=== PATIENT | female | born 1955 | race Caucasian/White ===

== ENCOUNTER → 2019-04-14 09:36 | Outpatient (CLI) | payer BC, SELFPAY ==
--- NOTE | 2019-04-14 | DI.RAD.S_ITS ---
PROCEDURE: XR CHEST 2V INDICATIONS: CHRONIC COUGH, FORMER SMOKER TECHNIQUE: 2 views of the chest were acquired. COMPARISON: None. FINDINGS: Surgical changes and devices: None. Lungs and pleura: Lungs are clear. No pleural effusions or pneumothorax. Mediastinum: Mediastinal contours are normal. Heart size is normal. Bones and chest wall: No suspicious bony abnormalities. Soft tissues appear unremarkable. IMPRESSION: No acute cardiopulmonary disease. Dictated by: Ragini Szymanski M.D. on 04/14/2019 at 13:31 Approved by: Ragini Szymanski M.D. on 04/14/2019 at 13:34
== END ==
PROVIDERS: PCP Physician Assistant Medical; Visit Provider Family Medicine
DX: R05 Cough (principal); R07.81 Pleurodynia; R63.0 Anorexia; Z87.891 Personal history of nicotine dependence
CPT/HCPCS: 71046

== ENCOUNTER → 2019-05-12 13:09 | Outpatient (CLI) | payer BC, SELFPAY ==
[2019-05-12 13:57] LABS: Add Manual Diff / Slide Review NO; Basophils Absolute Auto 0 /uL (0-100); Basophils Percent Auto 0.2 % (0-2); Eosinophils Absolute Auto 0 /uL (0-450); Eosinophils Percent Auto 0.4 % (2-4); Hematocrit 42.3 % (36-46); Hemoglobin 13.9 g/dL (12.0-16.0); Lymphocytes Absolute Auto 2000 /uL (1100-4500); Lymphocytes Percent Auto 16.3 % (25-40); Mean Corpuscular HGB Conc 32.9 % (30-36); Mean Corpuscular Hemoglobin 31.4 PG (26-34); Mean Corpuscular Volume 95.4 fL (80-100); Monocytes Absolute Auto 600 /uL (0-900); Monocytes Percent Auto 5.3 % (3-14); Neutrophils Absolute Auto 9400 /uL (1500-7000); Neutrophils Percent Auto 77.8 % (50-75); Platelet Count 327 X10^3/uL (150-400); Red Blood Cell Count 4.43 X10^6/uL (4.0-5.2); Red Cell Distribution Width 15.8 % (11.6-14.8); White Blood Cell Count 12.1 X10^3/uL (4.5-11.0)
== END ==
PROVIDERS: PCP Physician Assistant Medical; Visit Provider Physician Assistant Medical
DX: R05 Cough (principal)
CPT/HCPCS: 36415; 85025

== ENCOUNTER 2019-05-15 19:56 | Emergency (ER) | payer BC, SELFPAY ==
[2019-05-15 20:06] VITALS: BP 127/72; PULSE 66; RESP 18; TEMP 37.1; O2SAT 95; BMI 27.3
--- NOTE | 2019-05-15 20:58 | ED.GIBLEED ---
HPI - GI Bleed General Chief complaint: GI Bleed Stated complaint: cough Time Seen by Provider: 05/15/19 20:12 Source: patient and family Mode of arrival: ambulatory Limitations: no limitations History of Present Illness HPI Narrative: 63-year-old female nonsmoker with history of hypertension and chronic cough for the past few months (which is being pursued by her PCP at [facility]) presents with a chief complaint of a painful hemorrhoid with episodes of bleeding and some mucus. She states she has been a bit constipated over the past few days and it seemed to really started bothering her yesterday. Patient denies nausea or vomiting nor any abdominal pain. She has had no fever chills and denies dysuria, frequency or urgency. She did have a hysterectomy years ago but delivered 2 children vaginally. Onset (ago): day(s) Pain Consistency: constant Severity: moderate Exacerbating factors: bowel movement Associated symptoms: other Treatments Prior to Arrival: none Related Data Home Medications Medication Instructions Recorded Confirmed atenolol 25 mg PO BID #0 05/11/13 fluoxetine 20 mg PO QDAY #0 05/11/13 ramipril [Altace] 10 mg PO QDAY #0 05/11/13 trazodone 0 PO SEE INSTRUCTIONS #0 06/05/13 atenolol 25 mg PO QDAY #0 12/13/16 methimazole 5 mg QDAY #0 12/13/16 ramipril 10 mg PO QDAY #0 12/13/16 Previous Rx's Medication Instructions Recorded cyclobenzaprine 10 mg PO TID PRN #20 05/11/13 Allergies Allergy/AdvReac Type Severity Reaction Status Date / Time erythromycin base Allergy Mild nausea/vomi Unverified 01/29/18 12:25 [ERYTHROMYCIN BASE] tting ERYTHROMYCIN Allergy Mild Sick Uncoded 01/29/18 12:25 Review of Systems Constitutional Denies chills, Denies fever(s), Denies lethargy and Denies weakness Eyes Denies change in vision, Denies eye discharge, Denies irritation and Denies loss of vision ENT Ears, Nose, Mouth, and Throat: Denies change in voice, Denies neck pain and Denies sore throat Cardiovascular Denies chest pain, Denies irregular heart rhythm, Denies lightheadedness, Denies palpitations, Denies dyspnea, Denies dyspnea on exertion and Denies orthopnea Respiratory Denies cough, Denies dyspnea, Denies dyspnea on exertion and Denies wheezing Gastrointestinal Gastrointestinal: Denies abdominal pain, Denies change in bowel habits, Denies diarrhea, Denies nausea and Denies vomiting Comments: rectal pain with bleeding hemorrhoid Genitourinary Denies hematuria, Denies flank pain, Denies urinary incontinence and Denies urinary urgency Musculoskeletal Denies neck pain Integumentary/Breasts Denies pruritus, Denies erythema, Denies rash and Denies wounds Neurologic Denies confusion, Denies loss of vision and Denies weakness Psychiatric Denies anxiety, Denies confusion, Denies depression, Denies homicidal ideation and Denies suicidal ideation Endocrine Denies palpitations Hematologic/Lymphatic Denies easy bruising Allergic/Immunologic Denies wheezing PFSH Medical History (Updated 05/16/19 @ 04:23 by Jordan Dee DO) H/O: hysterectomy (Acute) HTN (hypertension) (Acute) Social History (Updated 05/16/19 @ 04:23 by Jordan Dee DO) Smoking Status: Smoker, status unknown alcohol intake: former Social History (Updated 05/16/19 @ 04:23 by Jordan Dee DO) Smoking Status: Smoker, status unknown alcohol intake: former Exam Narrative Exam Narrative: GEN: AOx3 and in mild distress, obviously anxious. 63F appears stated age. EYES: Pupils are equal, round, and reactive to light and accommodation. Extraoccular muscles are intact bilaterally. There is no subconjunctival hemorrhage or exudate. CHEST: Lungs are clear to auscultation bilaterally and free of wheezes, rales, or rhonchi. Heart rate is regular rhythm, there are no murmurs, clicks, rubs, or gallops. There is no chest wall tenderness. ABD: Abdomen is soft and nontender. There is no guarding or rebound. Bowel sounds are normal in all 4 quadrants. There is no mass or organomegaly. RECTAL: mildly prolapsed rectum with portions of thrombosis but no necrosis EXT: Full painless ROM of all extremities with no loss of sensation or strength. SKIN: Warm, pink, and dry. No erythema or rash Initial Vital Signs Initial Vital Signs: Vital Signs Temperature 98.8 F 05/15/19 20:06 Pulse Rate 66 05/15/19 20:06 Respiratory Rate 18 05/15/19 20:06 Blood Pressure 127/72 05/15/19 20:06 Pulse Oximetry 95 05/15/19 20:06 Course Orders Ordered: ED Orders 05/15/19 22:05 Basic Metabolic Panel Stat Complete Blood Count AUTO DIFF Stat Lactate (Lactic Acid) Stat Discontinued Medications Hydromorphone HCl (Dilaudid) 0.5 mg IV NOW ONE Stop: 05/15/19 21:54 Last Admin: 05/15/19 22:12 Dose: 0.5 mg Sodium Chloride (Normal Saline 0.9%) 1,000 mls @ 1,000 mls/hr IV BOLUS ONE Stop: 05/15/19 22:52 Last Infusion: 05/15/19 22:58 Dose: 0 mls/hr Admin: 05/15/19 22:13 Dose: 1,000 mls/hr Ketorolac Tromethamine (Toradol) 15 mg IV NOW ONE Stop: 05/15/19 22:41 Last Admin: 05/15/19 22:42 Dose: 15 mg Consultations Consultation #1: Dr. Wong visits patient at bedside and the rectum is relatively easily reduced, but quickly comes back out. He recommends contacting colorectal specialist for follow up Consultation #2: Call to Dr. Viraj Cerrato at [facility]. He is happy to see the patient in the office and will contact her on Saturday. He recommends against opioids and suggests tylenol and motrin for pain and daily or twice daily baths. Vital Signs - 8 hr 05/15/19 22:49 Pulse Rate 72 Respiratory Rate 17 Blood Pressure [Right Arm] 138/59 L Pulse Oximetry 94 MDM - GI Bleed Lab Data Result diagrams: 05/15/19 22:05 05/15/19 22:05 Lab Results 05/15/19 05/15/19 05/15/19 Range/Units 22:05 22:05 22:05 WBC 13.3 H (4.5-11.0) X10^3/uL RBC 4.30 (4.0-5.2) X10^6/uL Hgb 13.4 (12.0-16.0) g/dL Hct 40.8 (36-46) % MCV 94.9 (80-100) fL MCH 31.3 (26-34) PG MCHC 32.9 (30-36) % RDW 15.5 H (11.6-14.8) % Plt Count 275 (150-400) X10^3/uL Neut % (Auto) 77.3 H (50-75) % Lymph % (Auto) 14.4 L (25-40) % [place] % (Auto) 7.3 (3-14) % Eos % (Auto) 0.2 L (2-4) % Baso % (Auto) 0.8 (0-2) % Neut # (Auto) 83527 H (4848-9030) /uL Lymph # (Auto) 1900 (5588-3064) /uL [place] # (Auto) 1000 H (0-900) /uL Eos # (Auto) 0 (0-450) /uL Baso # (Auto) 100 (0-100) /uL Sodium 134 L (137-145) mmol/L Potassium 4.3 (3.4-5.1) mmol/L Chloride 99 (98-107) mmol/L Carbon Dioxide 28 (22-32) mmol/L BUN 17 (7-17) mg/dL Creatinine 0.70 (0.52-1.04) mg/dL Estimated GFR > 60.0 (>60) mL/min BUN/Creatinine Ratio 24.3 H (6-22) Glucose 113 H (80-110) mg/dL Lactate 1.0 (0.7-2.1) mmol/L Calcium 9.1 (8.4-10.2) mg/dL MDM Narrative Medical decision making narrative: 63-year-old female with partially thrombosed rectal prolapse which is easily reducible has plans to follow up with Colorectal surgery at [facility]. She has been given return precautions and understands these precautions. Her son is at the bedside and they both had their questions answered to their apparent satisfaction Discharge Plan Departure Patient Disposition: Home Clinical Impression: Partial rectal prolapse Discharge Date/Time: 05/15/19 22:59 Interventions: ED Discharge Assessment Last Done: 05/15/19 22:58 Instructions: DI for Rectal Prolapse Activity Restrictions/Additional Instructions: *You have been diagnosed with [rectal prolapse with thrombosis] *What to do: *Take medications as directed: Alternate between Tylenol and Motrin. Also stay off her feet as much as possible and not overdo it. Take warm baths twice daily *Follow up with Dr. Viraj Cerrato the colorectal specialist at [facility], I gave him your number so please expect a call on Saturday morning. If you do not hear from them by lunch time please call the number provided below *Return to ER if you should have any new, worsening or concerning symptoms, such as [worsening pain, with significant abdominal pain, vomiting, fever over 101 F or other bothersome symptoms] Prescriptions: No Action ramipril [Altace] 10 MG capsule 10 mg PO QDAY Qty: 0 RF: 0 atenolol 25 MG tablet 25 mg PO BID Qty: 0 RF: 0 fluoxetine 20 MG capsule 20 mg PO QDAY Qty: 0 RF: 0 cyclobenzaprine 10 MG tablet 10 mg PO TID PRNQty: 20 RF: 0 trazodone 50 MG tablet PO SEE INSTRUCTIONS Qty: 0 RF: 0 ramipril 10 MG capsule 10 mg PO QDAY Qty: 0 RF: 0 atenolol 25 MG tablet 25 mg PO QDAY Qty: 0 RF: 0 methimazole 5 MG tablet 5 mg QDAY Qty: 0 RF: 0 Referrals: Viraj Cerrato MD [Non-Staff] - Kathya Post PA-C [Primary Care Provider] -
[2019-05-15] MEDS: HYDROMORPHONE 1 MG INJ 0.5 MG IV (22:12)
[2019-05-15] MEDS: SODIUM CHLORIDE 0.9% 1,000 ML 1000 ML IV (22:13)
[2019-05-15 22:16] LABS: Add Manual Diff / Slide Review NO; Basophils Absolute Auto 100 /uL (0-100); Basophils Percent Auto 0.8 % (0-2); Eosinophils Absolute Auto 0 /uL (0-450); Eosinophils Percent Auto 0.2 % (2-4); Hematocrit 40.8 % (36-46); Hemoglobin 13.4 g/dL (12.0-16.0); Lymphocytes Absolute Auto 1900 /uL (1100-4500); Lymphocytes Percent Auto 14.4 % (25-40); Mean Corpuscular HGB Conc 32.9 % (30-36); Mean Corpuscular Hemoglobin 31.3 PG (26-34); Mean Corpuscular Volume 94.9 fL (80-100); Monocytes Absolute Auto 1000 /uL (0-900); Monocytes Percent Auto 7.3 % (3-14); Neutrophils Absolute Auto 10300 /uL (1500-7000); Neutrophils Percent Auto 77.3 % (50-75); Platelet Count 275 X10^3/uL (150-400); Red Cell Distribution Width 15.5 % (11.6-14.8); White Blood Cell Count 13.3 X10^3/uL (4.5-11.0)
[2019-05-15 22:26] LABS: BUN Creatinine Ratio 24.3 (6-22); Blood Urea Nitrogen 17 mg/dL (7-17); Calcium 9.1 mg/dL (8.4-10.2); Carbon Dioxide 28 mmol/L (22-32); Chloride 99 mmol/L (98-107); Estimated Glomerular Filt Rate > 60.0 mL/min (>60); Glucose 113 mg/dL (80-110); HEMOLYSIS 35 (0-50); Potassium 4.3 mmol/L (3.4-5.1); Sodium 134 mmol/L (137-145)
[2019-05-15] MEDS: KETOROLAC 60 MG/2 ML VIAL 15 MG IV (22:42)
[2019-05-15 22:49] VITALS: BP 138/59; PULSE 72; RESP 17; O2SAT 94
== END 2019-05-15 22:59 | disposition home or self-care (01) ==
PROVIDERS: Emergency Provider Emergency Medicine; PCP Physician Assistant Medical
DX: K62.3 Rectal prolapse (principal)
CPT/HCPCS: 36591; 80048; 83605; 85025; 96361; 96374; 96375; 99283; 99284; J1170; J1885

== ENCOUNTER 2019-06-22 19:58 | Inpatient (IN) | payer BC, SELFPAY ==
[2019-06-22 20:00] VITALS: BP 135/52; PULSE 88; RESP 18; TEMP 36.8; O2SAT 91
--- NOTE | 2019-06-22 20:16 | DI.RAD.S_ITS ---
PROCEDURE: XR CHEST 2V INDICATIONS: Chest pain, Shortness of breath, cough TECHNIQUE: 2 views of the chest were acquired. COMPARISON: Outside Facility, RG, CT PET SKULL BASE TO MID THIGH, 06/12/2019, 17:19. [facility], CR, XR CHEST 2V, 04/14/2019, 9:48. FINDINGS: Surgical changes and devices: None. Lungs and pleura: Infiltrates in the right needs to lower lung zone are consistent with pneumonia or pneumonitis. There is a small right pleural effusion. No pneumothorax. Mediastinum: Mediastinal contours are normal. Heart size is normal. Bones and chest wall: No suspicious bony abnormalities. Soft tissues appear unremarkable. IMPRESSION: Right mid to lower lung pneumonia or pneumonitis. Dictated by: Ragini Szymanski M.D. on 06/22/2019 at 21:06 Approved by: Ragini Szymanski M.D. on 06/22/2019 at 21:07
[2019-06-22] MEDS: ONDANSETRON 4 MG/2 ML INJ IV (20:25)
[2019-06-22] MEDS: HYDROMORPHONE 0.5 MG INJ IV ×3 (20:25→22:25)
[2019-06-22] MEDS: SODIUM CHLORIDE 0.9% 1,000 ML 150 ML IV (20:25)
[2019-06-22 20:28] LABS: Add Manual Diff / Slide Review NO; Basophils Absolute Auto 100 /uL (0-100); Basophils Percent Auto 0.7 % (0-2); Eosinophils Absolute Auto 100 /uL (0-450); Eosinophils Percent Auto 0.7 % (2-4); Hematocrit 43.7 % (36-46); Hemoglobin 14.8 g/dL (12.0-16.0); Lymphocytes Absolute Auto 2100 /uL (1100-4500); Mean Corpuscular HGB Conc 33.8 % (30-36); Mean Corpuscular Hemoglobin 31.8 PG (26-34); Monocytes Absolute Auto 1300 /uL (0-900); Monocytes Percent Auto 10.3 % (3-14); Neutrophils Absolute Auto 8700 /uL (1500-7000); Neutrophils Percent Auto 71.3 % (50-75); Platelet Count 370 X10^3/uL (150-400); Red Blood Cell Count 4.65 X10^6/uL (4.0-5.2); Red Cell Distribution Width 14.3 % (11.6-14.8); White Blood Cell Count 12.2 X10^3/uL (4.5-11.0)
[2019-06-22 20:51] LABS: B Type Natriuretic Peptide 301 (<100)
[2019-06-22 20:54] LABS: Procalcitonin 0.08 ng/mL (<0.5)
--- NOTE | 2019-06-22 21:09 | ED.SOB ---
HPI - SOB/Dyspnea General Chief Complaint: Shortness of Breath/Dyspnea Stated Complaint: KIDNEY INFECTION DIAGNOS WITH CANCER Time Seen by Provider: 06/22/19 20:04 Source: patient and family Mode of arrival: ambulatory Limitations: no limitations History of Present Illness HPI Narrative: 63-year-old female nonsmoker with recent diagnosis of lung cancer with metastases presents with a chief complaint of worsening right-sided chest pain and difficulty in breathing. She admits to cough, occasionally with bloody sputum. She states her pain is worse with a deep breath and sitting up and seems to improve but when lying flat. She denies fever chills. She has had no nausea or vomiting. She was evaluated by her primary care provider for chronic cough and chest x-ray noted an abnormal finding in the right lower lobe at which point a CT was ordered and showed what was suspicious for lung cancer. This all happened at [facility], subsequent PET scan was ordered and patient ended up pursuing further evaluation at [facility] in [place] as she had a difficult time getting in with pulmonology at [facility]. She has a scheduled appointment with oncology here at [facility] on July 08. Patient states she has over 15 lb of unplanned weight loss MD Complaint: shortness of breath, pain with inspiration and chest pain Onset (ago): day(s) Severity: moderate Consistency/Duration: constant and progressively worsening Associated symptoms: chest pain, pain with inspiration and cough Treatment prior to arrival: none Related Data Home oxygen amount: none Home Medications Medication Instructions Recorded Confirmed atenolol 25 mg PO BID #0 05/11/13 fluoxetine 20 mg PO QDAY #0 05/11/13 ramipril [Altace] 10 mg PO QDAY #0 05/11/13 trazodone 0 PO SEE INSTRUCTIONS #0 06/05/13 atenolol 50 mg PO QDAY #0 12/13/16 06/22/19 methimazole 5 mg QDAY #0 12/13/16 06/22/19 ramipril 10 mg PO BID #0 12/13/16 06/22/19 albuterol sulfate [ProAir HFA] INHALATION 06/22/19 trazodone 50 mg PO BEDTIME 06/22/19 06/22/19 Previous Rx's Medication Instructions Recorded cyclobenzaprine 10 mg PO TID PRN #20 05/11/13 Allergies Allergy/AdvReac Type Severity Reaction Status Date / Time erythromycin base Allergy Mild nausea/vomi Verified 06/22/19 20:10 [ERYTHROMYCIN BASE] tting Review of Systems Constitutional Constitutional: Denies chills, Denies fatigue, Denies fever(s), Denies frequent falls, Denies lethargy and Denies weakness Eyes Eyes: Denies change in vision, Denies eye discharge, Denies irritation and Denies loss of vision ENT Ears, Nose, Mouth, and Throat: Denies change in voice, Denies dizziness, Denies neck pain, Denies sore throat and Denies throat swelling Cardiovascular Cardiovascular: Denies chest pain, Denies irregular heart rhythm, Denies lightheadedness, Denies palpitations, Denies dyspnea, Denies dyspnea on exertion and Denies orthopnea Respiratory Respiratory: Denies cough, Denies dyspnea, Denies dyspnea on exertion and Denies wheezing Gastrointestinal Gastrointestinal: Denies abdominal pain, Denies change in bowel habits, Denies diarrhea, Denies nausea and Denies vomiting Genitourinary Genitourinary: Denies hematuria, Denies flank pain, Denies urinary incontinence and Denies urinary urgency Musculoskeletal Musculoskeletal: Denies back pain, Denies muscle weakness, Denies neck pain, Denies numbness and Denies tingling Integumentary/Breasts Skin/Breast: Denies pruritus, Denies erythema, Denies rash and Denies wounds Neurologic Neurologic: Denies behavioral changes, Denies confusion, Denies dizziness, Denies frequent falls, Denies loss of vision, Denies numbness, Denies tingling and Denies weakness Psychiatric Psychiatric: Denies anxiety, Denies behavioral changes, Denies confusion, Denies depression, Denies homicidal ideation and Denies suicidal ideation Endocrine Endocrine: Denies fatigue, Denies flushing and Denies palpitations Hematologic/Lymphatic Hematologic/Lymphatic: Denies easy bruising Allergic/Immunologic Allergic/Immunologic: Denies urticaria, Denies throat swelling and Denies wheezing [facility] Medical History H/O: hysterectomy (Acute) HTN (hypertension) (Acute) Family History (Updated 06/23/19 @ 00:36 by AMMON Azul) Mother CVA (cerebral vascular accident) Father ETOH abuse Other Hypertension Social History (Updated 05/16/19 @ 04:23 by Jordan Dee DO) Smoking Status: Smoker, status unknown alcohol intake: former Family History Mother CVA (cerebral vascular accident) Father ETOH abuse Other Hypertension Social History Smoking Status: Smoker, status unknown alcohol intake: former Exam Narrative Exam Narrative: GENERAL: [63] year old patient appears stated age. Well-nourished, well-developed patient, in moderate distress, clearly in pain HEAD: Atraumatic. Normocephalic. EYES: Pupils equal round and reactive. Extraocular motions intact. No scleral icterus. No injection or drainage. ENT: Nose without bleeding, purulent drainage. Throat without erythema, tonsillar hypertrophy or exudate. Airway patent. NECK: Trachea midline. Non tender CARDIOVASCULAR: Regular rate and rhythm without murmurs, gallops, or rubs. RESPIRATORY: Diminished sounds in the right base, no obvious wheezes, rales or rhonchi GASTROINTESTINAL: Abdomen soft, non-tender, nondistended. EXTREMITIES: No edema or joint tenderness. BACK: Nontender without deformity or crepitance. No flank tenderness. NEURO: AOx3. SKIN: No rash or erythema of visible areas Initial Vital Signs Initial Vital Signs: Vital Signs Temperature 98.3 F 06/22/19 20:00 Pulse Rate 88 06/22/19 20:00 Respiratory Rate 18 06/22/19 20:00 Blood Pressure 135/52 L 06/22/19 20:00 Pulse Oximetry 91 06/22/19 20:00 Course Orders Ordered: ED Orders 06/22/19 20:13 Arterial Blood Gas Stat 06/22/19 20:14 Consult to Respiratory Therapy Evaluate & Treat EKG-12 Lead Stat 06/22/19 20:16 XR chest 2V Stat 06/22/19 20:20 B Type Natriuretic Peptide Stat Complete Blood Count AUTO DIFF Stat Procalcitonin Stat 06/22/19 21:00 Basic Metabolic Panel Stat D Dimer Stat Lactate (Lactic Acid) Stat Magnesium Stat Troponin & CK Cardiac Panel Stat 06/22/19 21:15 Arterial Blood Gas Stat 06/22/19 21:46 Ictotest Urine Stat Urine Microscopic Stat 06/22/19 21:57 CT angio chest PE protocol Stat Acetaminophen (Tylenol) 650 mg PO Q6HR PRN PRN Reason: As Needed for Fever/Mild Pain Atenolol (Tenormin) 50 mg PO QDAY DILCIA Enoxaparin Sodium (Lovenox) 40 mg SUBCUT DAILY [facility] Hydromorphone HCl (Dilaudid) 1 mg IV Q4H PRN PRN Reason: Pain, Severe (7-10) Sodium Chloride (Normal Saline 0.9%) 1,000 mls @ 150 mls/hr IV CONT DILCIA Last Infusion: 06/22/19 22:28 Dose: 150 mls/hr Documented by: Infusion: 06/22/19 22:06 Dose: 0 mls/hr Documented by: Admin: 06/22/19 20:25 Dose: 150 mls/hr Documented by: ANNEL Naloxone HCl (Narcan) 0.2 mg IV Q2MIN PRN PRN Reason: Opiate Reversal Ondansetron HCl (Zofran) 4 mg IV Q8HR PRN PRN Reason: Nausea And Vomiting Discontinued Medications Hydromorphone HCl (Dilaudid) 0.5 mg IV NOW ONE Stop: 06/22/19 20:14 Last Admin: 06/22/19 20:25 Dose: 0.5 mg Documented by: ANNEL Hydromorphone HCl (Dilaudid) 0.5 mg IV NOW ONE Stop: 06/22/19 20:52 Last Admin: 06/22/19 21:09 Dose: 0.5 mg Documented by: ANNEL Hydromorphone HCl (Dilaudid) 0.5 mg IV NOW ONE Stop: 06/22/19 22:23 Last Admin: 06/22/19 22:25 Dose: 0.5 mg Documented by: EMANUEL Hydromorphone HCl (Dilaudid) 0.5 mg IV Q4H PRN PRN Reason: Pain, Severe (7-10) Levofloxacin (Levaquin) 750 mg in 150 mls @ 100 mls/hr IV NOW ONE Stop: 06/22/19 23:15 Last Infusion: 06/23/19 00:31 Dose: 0 mls/hr Documented by: Infusion: 06/22/19 22:28 Dose: 100 mls/hr Documented by: Infusion: 06/22/19 22:06 Dose: 0 mls/hr Documented by: Admin: 06/22/19 22:03 Dose: 100 mls/hr Documented by: EMANUEL Ondansetron HCl (Zofran) 4 mg IV NOW ONE Stop: 06/22/19 20:14 Last Admin: 06/22/19 20:25 Dose: 4 mg Documented by: ANNEL Vital Signs Vital signs: Vital Signs - 8 hr 06/22/19 20:00 06/22/19 21:35 06/22/19 23:10 Temperature 98.3 F Pulse Rate 88 78 72 Respiratory Rate 18 19 16 Blood Pressure 135/52 L Blood Pressure [Left Arm] 129/65 110/61 Pulse Oximetry 91 93 90 L MDM - SOB/Dyspnea Lab Data Result diagrams: 06/22/19 20:20 06/22/19 21:00 Labs: Lab Results 06/22/19 06/22/19 06/22/19 Range/Units 20:20 20:20 21:00 WBC 12.2 H (4.5-11.0) X10^3/uL RBC 4.65 (4.0-5.2) X10^6/uL Hgb 14.8 (12.0-16.0) g/dL Hct 43.7 (36-46) % MCV 94.0 (80-100) fL MCH 31.8 (26-34) PG MCHC 33.8 (30-36) % RDW 14.3 (11.6-14.8) % Plt Count 370 (150-400) X10^3/uL Neut % (Auto) 71.3 (50-75) % Lymph % (Auto) 17.0 L (25-40) % [place] % (Auto) 10.3 (3-14) % Eos % (Auto) 0.7 L (2-4) % Baso % (Auto) 0.7 (0-2) % Neut # (Auto) 8700 H (6885-1731) /uL Lymph # (Auto) 2100 (0502-2363) /uL [place] # (Auto) 1300 H (0-900) /uL Eos # (Auto) 100 (0-450) /uL Baso # (Auto) 100 (0-100) /uL D-Dimer 257 H (<230) ng/mL ABG pH (7.35-7.45) ABG pCO2 (35-45) mmHg ABG pO2 (80-100) mmHg ABG HCO3 (22-26) mmol/L ABG Total CO2 (21-31) mmol/L ABG O2 Saturation (95-100) % ABG Base Excess (-2-2) mmol/L FiO2 Sodium (137-145) mmol/L Potassium (3.4-5.1) mmol/L Chloride (98-107) mmol/L Carbon Dioxide (22-32) mmol/L BUN (7-17) mg/dL Creatinine (0.52-1.04) mg/dL Estimated GFR (>60) mL/min BUN/Creatinine Ratio (6-22) Glucose (80-110) mg/dL Lactate (0.7-2.1) mmol/L Calcium (8.4-10.2) mg/dL Magnesium (1.6-2.3) mg/dL Total Creatine Kinase (30-135) U/L CK-MB (CK-2) CK-MB (CK-2) Rel Index Troponin I (0.01-0.034) ng/mL B-Natriuretic Peptide 301 H (<100) Procalcitonin 0.08 (<0.5) ng/mL Urine Ictotest (Negative) Urine RBC (0-5/HPF) Urine WBC (0-5/HPF) Ur Squamous Epith Cells (0-5/HPF) Urine Bacteria (None) Hyaline Casts (None) Urine Mucus (Negative) Ur Culture Indicated? 06/22/19 06/22/19 06/22/19 Range/Units 21:00 21:00 21:15 WBC (4.5-11.0) X10^3/uL RBC (4.0-5.2) X10^6/uL Hgb (12.0-16.0) g/dL Hct (36-46) % MCV (80-100) fL MCH (26-34) PG MCHC (30-36) % RDW (11.6-14.8) % Plt Count (150-400) X10^3/uL Neut % (Auto) (50-75) % Lymph % (Auto) (25-40) % [place] % (Auto) (3-14) % Eos % (Auto) (2-4) % Baso % (Auto) (0-2) % Neut # (Auto) (5946-0905) /uL Lymph # (Auto) (3722-0083) /uL [place] # (Auto) (0-900) /uL Eos # (Auto) (0-450) /uL Baso # (Auto) (0-100) /uL D-Dimer (<230) ng/mL ABG pH 7.42 (7.35-7.45) ABG pCO2 31.5 L (35-45) mmHg ABG pO2 77 L (80-100) mmHg ABG HCO3 20 L (22-26) mmol/L ABG Total CO2 21 (21-31) mmol/L ABG O2 Saturation 96 (95-100) % ABG Base Excess -4.0 L (-2-2) mmol/L FiO2 0.21 Sodium 131 L (137-145) mmol/L Potassium 4.2 (3.4-5.1) mmol/L Chloride 97 L (98-107) mmol/L Carbon Dioxide 26 (22-32) mmol/L BUN 15 (7-17) mg/dL Creatinine 0.50 L (0.52-1.04) mg/dL Estimated GFR > 60.0 (>60) mL/min BUN/Creatinine Ratio 30.0 H (6-22) Glucose 101 (80-110) mg/dL Lactate 1.0 (0.7-2.1) mmol/L Calcium 8.4 (8.4-10.2) mg/dL Magnesium 1.8 (1.6-2.3) mg/dL Total Creatine Kinase 22 L (30-135) U/L CK-MB (CK-2) TNP CK-MB (CK-2) Rel Index TNP Troponin I < 0.012 (0.01-0.034) ng/mL B-Natriuretic Peptide (<100) Procalcitonin (<0.5) ng/mL Urine Ictotest (Negative) Urine RBC (0-5/HPF) Urine WBC (0-5/HPF) Ur Squamous Epith Cells (0-5/HPF) Urine Bacteria (None) Hyaline Casts (None) Urine Mucus (Negative) Ur Culture Indicated? 06/22/19 Range/Units 21:46 WBC (4.5-11.0) X10^3/uL RBC (4.0-5.2) X10^6/uL Hgb (12.0-16.0) g/dL Hct (36-46) % MCV (80-100) fL MCH (26-34) PG MCHC (30-36) % RDW (11.6-14.8) % Plt Count (150-400) X10^3/uL Neut % (Auto) (50-75) % Lymph % (Auto) (25-40) % [place] % (Auto) (3-14) % Eos % (Auto) (2-4) % Baso % (Auto) (0-2) % Neut # (Auto) (3268-3272) /uL Lymph # (Auto) (7642-0035) /uL [place] # (Auto) (0-900) /uL Eos # (Auto) (0-450) /uL Baso # (Auto) (0-100) /uL D-Dimer (<230) ng/mL ABG pH (7.35-7.45) ABG pCO2 (35-45) mmHg ABG pO2 (80-100) mmHg ABG HCO3 (22-26) mmol/L ABG Total CO2 (21-31) mmol/L ABG O2 Saturation (95-100) % ABG Base Excess (-2-2) mmol/L FiO2 Sodium (137-145) mmol/L Potassium (3.4-5.1) mmol/L Chloride (98-107) mmol/L Carbon Dioxide (22-32) mmol/L BUN (7-17) mg/dL Creatinine (0.52-1.04) mg/dL Estimated GFR (>60) mL/min BUN/Creatinine Ratio (6-22) Glucose (80-110) mg/dL Lactate (0.7-2.1) mmol/L Calcium (8.4-10.2) mg/dL Magnesium (1.6-2.3) mg/dL Total Creatine Kinase (30-135) U/L CK-MB (CK-2) CK-MB (CK-2) Rel Index Troponin I (0.01-0.034) ng/mL B-Natriuretic Peptide (<100) Procalcitonin (<0.5) ng/mL Urine Ictotest Negative (Negative) Urine RBC 10-30/hpf H (0-5/HPF) Urine WBC None seen (0-5/HPF) Ur Squamous Epith Cells 10-30 /hpf H (0-5/HPF) Urine Bacteria Few (2-10) H (None) Hyaline Casts 0-1/lpf (None) Urine Mucus 1+ H (Negative) Ur Culture Indicated? Cult not indicated Urine Dip Bedside Urine Glucose Negative Bedside Urine Bilirubin + 1 Bedside Urine Ketone ++ 40 Urine Specific [place] 1.020 Bedside Urine Occult Blood ++ Bedside Urine pH 5.5 Bedside Urine Protein + 30 Bedside Urine Urobilinogen +/- 1mg Bedside Urine Nitrite - Negative Bedside Urine Leukocytes +/- 15 Esterase Imaging Data Chest x-ray: Radiologist's impression: [address] [address] XRay Report Signed Patient: Natasha Platt WMR#: [id number] : 8Acct:[id number] Age/Sex: 63 / FDate of Service: 06/22/19 Loc: ED Accession Number: [id number] Procedure: XR chest 2V Ordering Provider: Jordan Dee D.O. PROCEDURE: XR CHEST 2V INDICATIONS: Chest pain, Shortness of breath, cough TECHNIQUE: 2 views of the chest were acquired. COMPARISON: Outside Facility, [place], CT PET SKULL BASE TO MID THIGH, 06/12/2019, 17:19. [facility], [facility], XR CHEST 2V, 04/14/2019, 9:48. FINDINGS: Surgical changes and devices: None. Lungs and pleura: Infiltrates in the right needs to lower lung zone are consistent with pneumonia or pneumonitis. There is a small right pleural effusion. No pneumothorax. Mediastinum: Mediastinal contours are normal. Heart size is normal. Bones and chest wall: No suspicious bony abnormalities. Soft tissues appear unremarkable. IMPRESSION: Right mid to lower lung pneumonia or pneumonitis. Dictated by: Ragini Szymanski M.D. on 06/22/2019 at 21:06 Approved by: Ragini Szymanski M.D. on 06/22/2019 at 21:07 CT scan - chest: Radiologist's impression: No PE. Large effusion. Multiple masses with lymphadenopathy MDM Narrative Medical decision making narrative: 63-year-old female with new diagnosis of lung cancer and large pleural effusion requires multiple doses of pain meds to control her pain, additionally she becomes hypoxic to the mid 80s and require supplemental oxygen. CT scan suggests no pulmonary embolism or pneumonia but notes a large effusion. She requires hospitalization for further characterization and stabilization of her illness Discharge Plan Departure Patient Disposition: Admitted As Inpatient Clinical Impression: Pleural effusion, Intractable pain Discharge Date/Time: 06/22/19 23:39 Admit Date/Time: 06/22/19 23:28 Admit Provider: Patience Montoya
[2019-06-22 21:25] LABS: D Dimer 257 ng/mL (<230)
[2019-06-22 21:31] LABS: Fractionated Inspired Oxygen 0.21; HCO3 ABG 20 mmol/L (22-26); Oxygen Saturation ABG 96 % (95-100); PCO2 ABG 31.5 mmHg (35-45); PO2 ABG 77 mmHg (80-100); TCO2 ABG 21 mmol/L (21-31); pH ABG 7.42 (7.35-7.45)
[2019-06-22 21:34] LABS: Blood Urea Nitrogen 15 mg/dL (7-17); Calcium 8.4 mg/dL (8.4-10.2); Carbon Dioxide 26 mmol/L (22-32); Chloride 97 mmol/L (98-107); Creatine Kinase 22 U/L (30-135); Estimated Glomerular Filt Rate > 60.0 mL/min (>60); Glucose 101 mg/dL (80-110); HEMOLYSIS < 15 (0-50); Magnesium 1.8 mg/dL (1.6-2.3); Potassium 4.2 mmol/L (3.4-5.1); Sodium 131 mmol/L (137-145)
[2019-06-22 21:35] VITALS: BP 129/65; PULSE 78; RESP 19; O2SAT 93
[2019-06-22 21:45] LABS: Troponin I < 0.012 ng/mL (0.01-0.034)
[2019-06-22 21:53] LABS: WBC Urine None Seen (0-5/HPF)
--- NOTE | 2019-06-22 21:57 | DI.CT.S_ITS ---
PROCEDURE: CT ANGIO CHEST PE PROTOCOL INDICATIONS: Chest pain, Shortness of breath, cough, hemoptysis, untreated new lung cancer TECHNIQUE: After the administration of intravenous contrast, 2 mm thick sections acquired from the pulmonary apices to the posterior costophrenic angles. 3-dimensional maximum intensity projection (MIP) coronal and sagittal reformats were then acquired through the thorax. For radiation dose reduction, the following was used: automated exposure control, adjustment of mA and/or kV according to patient size. COMPARISON: [facility], , XR CHEST 2V, 06/22/2019, 20:17. FINDINGS: Image quality: Excellent. Pulmonary arteries: Pulmonary arteries are normal in size, and demonstrate no intraluminal filling defects to suggest central pulmonary embolism. Lungs and pleura: Moderate right pleural effusion. There are patchy areas of consolidated and focal opacity identified within the right upper middle and lower lobes. There is masslike opacity identified in the right lower lobe measuring 3.7 cm AP by 3.5 cm transverse. There is also thickening of the perihilar region. Diffuse thickening and nodularity is present within the interstitium on the right. Mediastinum: Heart size is normal, without pericardial effusion no chronic appearing carinal lymph node is present measuring 19 mm. Thoracic aorta is normal in caliber and enhancement. Esophagus is normal in caliber, without hiatal hernia. Bones and chest wall: No suspicious bony lesions. Ribs and thoracic spine appear intact throughout. Thyroid gland is unremarkable. No axillary or supraclavicular adenopathy. Abdomen: Visualized upper abdominal solid organs appear normal in the early arterial phase of enhancement. IMPRESSION: 1. Moderate effusions with areas of consolidation and masslike opacity in the right lung as described above. In addition, there is nodular interstitial prominence as well as what appears to be a necrotic mediastinal lymph nodes. While the above could be related to infection or inflammation, given the appearance of necrotic lymph node and nodular appearance of the interstitium, malignancy with lymphangitic carcinomatosis should be considered. The above findings are concordant with preliminary report. Dictated by: Leann Decker M.D. on 06/23/2019 at 11:42 Approved by: Leann Decker M.D. on 06/23/2019 at 11:48
[2019-06-22 22:02] LABS: Bacteria Urine Few (2-10); Culture Indicated Urine Cult Not Indicated; Hyaline Casts Urine 0-1/LPF; Mucus Urine 1+ (Negative); RBC Urine 10-30/HPF (0-5/HPF); Squamous Epithelial Cell Urine 10-30 /HPF (0-5/HPF)
[2019-06-22] MEDS: levoFLOXacin 750 MG/150 ML PIGGYBACK 100 MG IV (22:03)
[2019-06-22 22:07] LABS: Ictotest Urine Negative (Negative)
[2019-06-22 23:10] VITALS: BP 110/61; PULSE 72; RESP 16; O2SAT 90
[2019-06-23] VITALS (13 sets, daily range): BP systolic 113–154; BP diastolic 59–73; PULSE 71–97; RESP 15–19; TEMP 36.4–37.2; O2SAT 88–94; BMI 25.4
--- NOTE | 2019-06-23 | DI.RAD.S_ITS ---
PROCEDURE: XR CHEST 1V INDICATIONS: post thorocentesis TECHNIQUE: One view of the chest was acquired. COMPARISON: Outside Facility, [facility], CT PET SKULL BASE TO MID THIGH, 06/12/2019, 17:19. [facility], CR, XR CHEST 2V, 06/22/2019, 20:17. [facility], CR, XR CHEST 2V, 04/14/2019, 9:48. FINDINGS: Surgical changes and devices: None. Lungs and pleura: Lungs are improved in appearance in terms of inspiration on the right with a reduction in the subpulmonic pleural effusion previously present. No pleural effusions or pneumothorax. Mediastinum: Mediastinal contours appear normal. Heart size is normal. Bones and chest wall: No suspicious bony lesions. Overlying soft tissues appear unremarkable. IMPRESSION: Lung mass is better seen by dedicated CT scanning 06/22/[address] scanning 06/12/19. This is located in the perihilar and adjacent lung parenchyma on the right. There has been significant improvement in aeration at the right lower lobe after evacuation of approximately 1500 cc during thoracocentesis procedure performed immediately prior to this imaging. Dictated by: Yong Thomas M.D. on 06/23/2019 at 14:26 Approved by: Yong Thomas M.D. on 06/23/2019 at 14:28
--- NOTE | 2019-06-23 00:26 | P.HP_ITS ---
History of Present Illness History of Present Illness Date Patient Seen: 06/22/19 Time Patient Seen: 23:45 Chief complaint: New dx of (R) sided lung ca, (R) sided chest pain Narrative: Natasha Platt is an unfortunate 63-year-old female with a history of hyperten munir and hyperlipidemia who has recently been diagnosed with right-sided lung cancer. Her presentation today included shortness of breath, pain on the right side of her chest, and nausea and vomiting. She denies fever, denies chest pain on the left side, she does have hot flashes secondary to menopause for which she previously took short courses of fluoxetine for but currently is not taking, den ies dysuria, constipation, diarrhea, or paresthesias. She had been seeing her PCP for a cough which became chronic and progressed with hemoptysis. She was referred to a cab station attendant at [facility] and instead was seen by a cab station attendant at [facility] due to not being able to be seen one at [facility]. On June 12 she was diagnosed with lung cancer by the cab station attendant. She had a CT of the chest and PET scan from the occiput down to the thighs. Those studies indicated a spiculated mass on the right lung, hilar lymphadenopathy, nodular septal thickening of the right lung concerning for her carcinomatosis, and bony metastasis in the ribs, hips and sternum. Patient has an appointment with Dr. Cook on July 08. She is being requested for admission to facilitate obtaining a pleural tap to relieve pressure and pain from her right lung. Patient History Medical History H/O: hysterectomy (Acute) HTN (hypertension) (Acute) Family History (Updated 06/23/19 @ 00:36 by AMMON Azul) Mother CVA (cerebral vascular accident) Father ETOH abuse Other Hypertension Social History (Updated 05/16/19 @ 04:23 by Jordan Dee DO) Smoking Status: Smoker, status unknown alcohol intake: former Family & Social History Family History Mother CVA (cerebral vascular accident) Father ETOH abuse Other Hypertension Safety & Behavioral: Feels Safe in Current Yes Environment Been Physically Hurt or No Threatened By a Person Tobacco & Substance use: Smoking Status Smoker, quit 8 years ago alcohol intake former alcohol intake frequency a few times a month Substance Use Type does not use 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 Home Medications and Allergies Home Medications Medication Instructions Recorded Confirmed Type atenolol 25 mg PO BID #0 05/11/13 History cyclobenzaprine 10 mg PO TID PRN #20 05/11/13 Rx fluoxetine 20 mg PO QDAY #0 05/11/13 History ramipril [Altace] 10 mg PO QDAY #0 05/11/13 History trazodone 0 PO SEE INSTRUCTIONS #0 06/05/13 History atenolol 50 mg PO QDAY #0 12/13/16 06/22/19 History methimazole 5 mg QDAY #0 12/13/16 06/22/19 History ramipril 10 mg PO BID #0 12/13/16 06/22/19 History albuterol sulfate [ProAir HFA] INHALATION 06/22/19 History trazodone 50 mg PO BEDTIME 06/22/19 06/22/19 History Allergies Allergy/AdvReac Type Severity Reaction Status Date / Time erythromycin base Allergy Mild nausea/vomi Verified 06/22/19 20:10 [ERYTHROMYCIN BASE] tting Review of Systems Review of Systems ROS Unobtainable: All systems reviewed & are unremarkable except as noted in HPI and below Exam Vital Signs (past 8 hours): - 06/22/19 20:00 06/22/19 21:35 06/22/19 23:10 Temperature 98.3 F Pulse Rate 88 78 72 Respiratory Rate 18 19 16 Blood Pressure 135/52 L Blood Pressure [Left Arm] 129/65 110/61 Pulse Oximetry 91 93 90 L Oxygen Delivery Method Room Air Narrative Exam Narrative: Gen: Alert, oriented, overweight 63 y.o. female, ill appearing HEENT: normocephalic, atraumatic, conjunctiva clear, sclera non-icteric, oral mucosa pink and moist Neck: supple, full ROM Resp: Lungs CTA, non-labored breathing CV: RRR, Grade 2/6 systolic murmur Abd: soft, non-tender, normoactive BTs Skin: no lesions or rashes, dry and intact Neuro: Alert and oriented X 4 w/no focal deficits Extremities: moves all 4 extremities, is ambulatory, negative Jermaine?s sign Psyche: normal mood and affect. Objective Labs Result Diagrams: 06/22/19 20:20 06/22/19 21:00 Labs: Laboratory Results - last 24 hr 06/22/19 06/22/19 06/22/19 20:20 20:20 21:00 WBC 12.2 H RBC 4.65 Hgb 14.8 Hct 43.7 MCV 94.0 MCH 31.8 MCHC 33.8 RDW 14.3 Plt Count 370 Neut % (Auto) 71.3 Lymph % (Auto) 17.0 L Collier % (Auto) 10.3 Eos % (Auto) 0.7 L Baso % (Auto) 0.7 Neut # (Auto) 8700 H Lymph # (Auto) 2100 Collier # (Auto) 1300 H Eos # (Auto) 100 Baso # (Auto) 100 D-Dimer 257 H ABG pH ABG pCO2 ABG pO2 ABG HCO3 ABG Total CO2 ABG O2 Saturation ABG Base Excess FiO2 Sodium Potassium Chloride Carbon Dioxide BUN Creatinine Estimated GFR BUN/Creatinine Ratio Glucose Lactate Calcium Magnesium Total Creatine Kinase CK-MB (CK-2) CK-MB (CK-2) Rel Index Troponin I B-Natriuretic Peptide 301 H Procalcitonin 0.08 Urine Ictotest Urine RBC Urine WBC Ur Squamous Epith Cells Urine Bacteria Hyaline Casts Urine Mucus Ur Culture Indicated? 06/22/19 06/22/19 06/22/19 21:00 21:00 21:15 WBC RBC Hgb Hct MCV MCH MCHC RDW Plt Count Neut % (Auto) Lymph % (Auto) Collier % (Auto) Eos % (Auto) Baso % (Auto) Neut # (Auto) Lymph # (Auto) Collier # (Auto) Eos # (Auto) Baso # (Auto) D-Dimer ABG pH 7.42 ABG pCO2 31.5 L ABG pO2 77 L ABG HCO3 20 L ABG Total CO2 21 ABG O2 Saturation 96 ABG Base Excess -4.0 L FiO2 0.21 Sodium 131 L Potassium 4.2 Chloride 97 L Carbon Dioxide 26 BUN 15 Creatinine 0.50 L Estimated GFR > 60.0 BUN/Creatinine Ratio 30.0 H Glucose 101 Lactate 1.0 Calcium 8.4 Magnesium 1.8 Total Creatine Kinase 22 L CK-MB (CK-2) TNP CK-MB (CK-2) Rel Index TNP Troponin I < 0.012 B-Natriuretic Peptide Procalcitonin Urine Ictotest Urine RBC Urine WBC Ur Squamous Epith Cells Urine Bacteria Hyaline Casts Urine Mucus Ur Culture Indicated? 06/22/19 21:46 WBC RBC Hgb Hct MCV MCH MCHC RDW Plt Count Neut % (Auto) Lymph % (Auto) Collier % (Auto) Eos % (Auto) Baso % (Auto) Neut # (Auto) Lymph # (Auto) Collier # (Auto) Eos # (Auto) Baso # (Auto) D-Dimer ABG pH ABG pCO2 ABG pO2 ABG HCO3 ABG Total CO2 ABG O2 Saturation ABG Base Excess FiO2 Sodium Potassium Chloride Carbon Dioxide BUN Creatinine Estimated GFR BUN/Creatinine Ratio Glucose Lactate Calcium Magnesium Total Creatine Kinase CK-MB (CK-2) CK-MB (CK-2) Rel Index Troponin I B-Natriuretic Peptide Procalcitonin Urine Ictotest Negative Urine RBC 10-30/hpf H Urine WBC None seen Ur Squamous Epith Cells 10-30 /hpf H Urine Bacteria Few (2-10) H Hyaline Casts 0-1/lpf Urine Mucus 1+ H Ur Culture Indicated? Cult not indicated Assessment & Plan Assessment and plan (1) Pleural effusion: Current visit: Yes Status: Acute (2) Intractable pain: Current visit: Yes Status: Acute Assessment & Plan narrative: Natasha Platt will be admitted for further management of a large right sided pleural effusion. 1. Right sided lung cancer, acute, present on admission * Plan for a thoracentesis in an effort to drain the pleural effusion * Dr. Cook should be notified of her admission * Pain control with tylenol and IV dilaudid 2. Hypoxia, acute, present on admission * Supplemental O2 * Pneumonia is not likely as her white count is minimally elevated, and procalcitonin is normal * Repeat procalcitonin and CBC in the am. 3. Essential hypertension, chronic and stable * She has a reported home dose of atenolol 50 mg po daily which will be continued. 4. Hyperlipidemia, chronic and stable * She has a reported home dose of atorvastatin 20 mg po daily which will be continued. Patient is admitted an inpatient as her stay is anticipated to exceed 2 midnights. FEN: saline lock, low sodium diet, chemistries in the am. VTE Prophylaxis: Enoxaparin 40 mg SubQ daily Disposition: Unknown at this time Code status: Full Code Admission time: 75 minutes Meds reconciled: Partial based on current med list Time Spent With Patient Time with patient: 15-24 minutes Quality VTE Deep Vein Thrombosis/Pulmonary Embolism Present on Admission: No
--- NOTE | 2019-06-23 00:57 | PC.NURSE ---
Attempted to call report to Smiley BURKETT, I was told that she is unavailable and will call back.
[2019-06-23] MEDS: HYDROMORPHONE 1 MG INJ IV ×5 (01:30→21:16)
[2019-06-23] MEDS: SODIUM CHLORIDE 0.9% 1,000 ML 150 ML IV ×3 (01:39→16:34)
--- NOTE | 2019-06-23 04:08 | PC.ADMIT ---
Pt arrived on unit via stretcher from ER at 0117, was able to walk to bedside. Pt is AxOx3, VSS, Lung sounds diminished on the right side, 94% O2, nasal n.c. Pt is complaining of right sided chest pain and flank pain 7/10, diminished w/ dilaudid 1mg. Pt is able to ambulate independently in room. Pt was taught about the use of her call light and it is within reach. Bed is in low and locked position. [id number] Admission Note: The patient,Natasha Platt,63 y/o, was given written information regarding hospital policies, unit procedures and contact persons. Patient's smoking status: Former smoker. Vital Signs - 8 hr 06/22/19 21:35 06/22/19 23:10 06/23/19 01:15 Temperature 98.3 F Pulse Rate 78 72 78 Respiratory Rate 19 16 15 Blood Pressure 154/59 H Blood Pressure [Left Arm] 129/65 110/61 Pulse Oximetry 93 90 L 94
[2019-06-23 05:57] LABS: Add Manual Diff / Slide Review NO; Basophils Absolute Auto 100 /uL (0-100); Basophils Percent Auto 0.6 % (0-2); Eosinophils Absolute Auto 0 /uL (0-450); Eosinophils Percent Auto 0.3 % (2-4); Hemoglobin 13.4 g/dL (12.0-16.0); Lymphocytes Absolute Auto 1900 /uL (1100-4500); Lymphocytes Percent Auto 16.8 % (25-40); Mean Corpuscular HGB Conc 32.6 % (30-36); Mean Corpuscular Hemoglobin 31.2 PG (26-34); Mean Corpuscular Volume 95.7 fL (80-100); Monocytes Absolute Auto 1300 /uL (0-900); Monocytes Percent Auto 11.4 % (3-14); Neutrophils Absolute Auto 8200 /uL (1500-7000); Neutrophils Percent Auto 70.9 % (50-75); Platelet Count 311 X10^3/uL (150-400); Red Blood Cell Count 4.28 X10^6/uL (4.0-5.2); Red Cell Distribution Width 14.4 % (11.6-14.8); White Blood Cell Count 11.6 X10^3/uL (4.5-11.0)
[2019-06-23 06:05] LABS: BUN Creatinine Ratio 21.7 (6-22); Blood Urea Nitrogen 13 mg/dL (7-17); Calcium 8.5 mg/dL (8.4-10.2); Carbon Dioxide 28 mmol/L (22-32); Chloride 100 mmol/L (98-107); Estimated Glomerular Filt Rate > 60.0 mL/min (>60); Glucose 88 mg/dL (80-110); HEMOLYSIS < 15 (0-50); Potassium 4.8 mmol/L (3.4-5.1); Sodium 133 mmol/L (137-145)
--- NOTE | 2019-06-23 07:03 | DI.US.S_ITS ---
PROCEDURE: US THORACENTESIS INDICATIONS: RIGHT PLEURAL EFFUSION TECHNIQUE: The indications, alternatives, benefits, risks, and complications of the procedure were explained to the patient. Written informed consent was obtained and placed in the chart. The chest was examined sonographically, and an appropriate site was chosen for thoracentesis. The skin was prepared and draped in the usual sterile fashion, and 1% lidocaine was infiltrated from the skin down through the pleural surface. A 19-gauge catheter-covered needle was then introduced into the pleural space, the catheter was advanced and the needle was withdrawn, and thereafter pleural fluid was aspirated. The catheter was then removed and a dressing was applied. COMPARISON: None. FINDINGS: Access site: Right hemithorax. Needle: One-Step centesis catheter with introducer needle. Fluid volume and description: 1500 cc, predominantly serous with a small amount of blood-tinged. Fluid sent for diagnostic testing: At the request of the ordering health care provider, including cytology. Medications: 1% lidocaine for local anaesthesia. Complications: None; post-procedural chest radiograph is pending to assess for pneumothorax. IMPRESSION: Successful ultrasound-guided thoracentesis. Dictated by: Yong Thomas M.D. on 06/23/2019 at 14:24 Approved by: Yong Thomas M.D. on 06/23/2019 at 14:26
--- NOTE | 2019-06-23 08:27 | PATH_ITS ---
Note [facility] Accession Number: [id number] TESTS RESULT FLAG UNITS REF RANGE LAB [A] 01 PLEURAL FLUID DIAGNOSIS: [A] 02 PLEURAL FLUID POSITIVE FOR MALIGNANT CELLS. IMMUNOHISTOCHEMISTRY STUDIES PENDING FOR FURTHER CHARACTERIZATION; RESULTS WILL BE REPORTED AN ADDENDUM. COMMENT: Multiple attempts to reach Drs. Cook or Luna at [facility] were unsuccessful (as of 10:50 a.m. on 06-26-19). Pathologist ICD10: 02 D49.1 ADDENDUM FINAL DIAGNOSIS: Pleural Fluid (Cell Block Section): Positive for metastatic adenocarcinoma, consistent with lung origin by immunohistochemistry studies. . ADDENDUM COMMENT: Immunohistochemical stains were performed with the following results: . RESULTS TTF1: Positive. Napsin A: Positive. Hans-EP4: Positive. DORIE: Positive. CK7: Positive. CK20: Negative. WT1: Negative. Calretinin: Negative. CK 5/6: Negative. GATA3: Negative. P40: Negative. . The neoplastic cells are immunopositive for DORIE, CK7, Hans-EP4, TTF and napsin A. They are immunonegative for GATA3, CK 5/6, p40, calretinin and WT1. These findings support a diagnosis of adenocarcinoma of lung origin and mitigate against breast origin and mesothelial origin. There is no evidence of squamous differentiation by immunohistochemistry studies. . Results left by voicemail for Dr. Joey Yañez's triage nurse, at approximately 1:40 p.m. on 06-29-19; also left request to confirm need for molecular studies. . QA performed by Dr. Quin Childs. . * This test was developed and its performance characteristics determined by [employer]. It has not been cleared or approved by the U.S. Food and Drug Administration. The FDA has determined that such clearance or approval is not necessary. This test is used for clinical purposes. It should not be regarded as investigational or for research. MRV/06/29/2019 Addendum Electronically Signed by Pat Cordero MD, Pathologist Addendum #2: Pleural Fluid: Metastatic lung adenocarcinoma. . ADDENDUM COMMENT ROS1 FISH Report: Result: ROS1 (6q22): Rearrangement NOT DETECTED. . Please see the original report from [facility] ([id number]; 07/01/2019). MRV07/06/2019 Addendum Electronically Signed by Pat Cordero MD, Pathologist Addendum #3: Pleural Fluid (cell block section) Metastatic adenocarcinoma, consistent with lung origin, with the following features: . Studies from [facility] are received with the following results: . RESULTS: ALK Analysis: No evidence of ALK gene rearrangement detected by FISH. Please see separate report from [facility] ([id number]). . AZ-E5-Swujculk: No expression (tumor proportion less than 1%). Please see separate report from [facility] ([id number]). MRV/07/10/2019 Addendum Electronically Signed by Pat Cordero MD, Pathologist Addendum #4: Pleural Fluid (Cell Block Section): Adenocarcinoma, consistent with lung origin, with the following features: . ADDENDUM COMMENT: BRAF Gene Mutation Exon 15 (V600 variants): Negative. . Please see the original report from [facility] ([id number]; 07/01/2019). MRV/07/13/2019 Addendum Electronically Signed by Pat Cordero MD, Pathologist Addendum #5: This addendum is issued to report results of molecular studies and [facility]. The final diagnosis is not changed. . . 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 . INTERPRETATION: The interface fluorescence in sit hybridization (FISH analysis) was positive for high polysomy of EGFR. High polysomy and amplification are associated with responsivness to EGFR inhibitor therapy for NSCLC. Tissue other than lung should be considered in the context of that tissue type. This test was performed and interpreted at [facility], [place], [place] ([id number]). [facility] Advance: . Level 1: BRCA2 Copy Number Loss Level 2: KRAS c.35G>C(G12A) Level 2: TMB 16.5/Mb(High) . Negative results for the following markers: MSI Stable PD-L1 (IHC 22C3) 0% TPS ALK Fusion BRAF V600 EGFR Mutation EGFR exon 19 deletion EGFR exon 20 insertion HER2 mutation MET amplification/exon 14 NTRK fusion RET fusion ROS1 fusion . Please review separate [facility] report ([id number]) for complete details. . . MRV/07/28/2019 Addendum Electronically Signed by Quin Childs MD, Pathologist 02 Pat Cordero MD, Pathologist NPI- [id number] Conrad Martines, Registrar Assistant ([facility]) 01 150 CC, PINK, CLOUDY /LCS 10/20/1840 0000 Local FLAG LEGEND: L-Low Normal,H-High Normal,LL-Alert Low,HH-Alert High <-Panic Low,>-Panic High,A-Abnormal,AA-Critical Abnormal Performed at: 01 =Z [facility] [address], [place] [address] David Zapata MD, 02 [facility] [address] [place] [id number] Quin Childs MD, Performed at: 01 [facility] [address], [place], [place] [id number] MD David Zapata MD Phone: [phone]
[2019-06-23] MEDS: OXYCODONE IR 5 MG TABLET 10 MG PO ×3 (08:29→21:16)
[2019-06-23] MEDS: ATENOLOL 25 MG TABLET 50 MG PO (08:29)
[2019-06-23 08:56] LABS: INR 1.1 (0.9-1.3); Prothrombin Time 12.5 SECONDS (10.1-12.7)
[2019-06-23 08:59] LABS: PTT Partial Thromboplastin Tim 33 SECONDS (26.4-36.2)
[2019-06-23] MEDS: ALBUTEROL 2.5 MG/3 ML NEB (ADULT) INH ×2 (11:53→20:20)
[2019-06-23] MEDS: LORazepam 2 MG/ML INJ 1 MG IV (12:32)
[2019-06-23] MEDS: BENZONATATE 100 MG CAPSULE PO (12:32)
--- NOTE | 2019-06-23 13:23 | PC.NURSE ---
Addendum entered by Magi Ascencio R.N. 06/23/19 14:10: Pt back to room/bed from Radiology. Denies pain or nausea. States her breathing is much easier now. O2 sat 96 2L. Spouse at the bedside and denies needs at this time. Original Note: Pt to Radiology for Thoracentesis via w/c with O2.
[2019-06-23 13:55] LABS: Body Fluid Red Blood Cells 5202 /uL; Body Fluid Tot Nucleated Cells 708 /uL
[2019-06-23 14:02] LABS: Body Fluid Appearance SLIGHTLY CLOUDY; Body Fluid Clotted? NO CLOTS PRESENT; Body Fluid Color YELLOW
[2019-06-23 14:04] LABS: Glucose Body Fluid 69 mg/dL; LDH Body Fluid 781 U/L
[2019-06-23 14:55] LABS: Eosinophils Body Fluid 0 %; Mononuclear WBC Body Fluid 40 %; Other Cells Body Fluid 0 %; Polynuclear WBC Body Fluid 60 %
--- NOTE | 2019-06-23 15:31 | PM.PN.1 ---
Subjective Subjective Date Patient Seen: 06/23/19 Interval history: The patient is a 63-year-old female with a new diagnosis of right upper lobe lung cancer with mets to her spine. Patient presented to the hospital last night with increasing shortness of breath. A chest CT confirmed a significant right-sided pleural effusion. The patient was hypoxic at baseline. She also complains of significant pain around her back. She is anxious awaiting her thoracentesis and has questions regarding ongoing treatment options. Exam Vital Signs (past 8 hours): - 06/23/19 08:12 06/23/19 08:24 06/23/19 08:39 Temperature 98.5 F Pulse Rate 74 Respiratory Rate 16 Blood Pressure 114/69 Pulse Oximetry 94 92 92 06/23/19 08:45 06/23/19 12:00 06/23/19 12:03 Temperature 99 F Pulse Rate 71 88 Respiratory Rate 16 18 Blood Pressure 122/68 Pulse Oximetry 88 L 93 93 Oxygen Delivery Method Nasal Cannula Oxygen Flow Rate 2 Narrative Exam Narrative: Ill-appearing female Lungs: Decreased breath sounds on the right, no rhonchi crackles or wheezing Cardiac: Regular rate and rhythm normal S1-S2 Abdomen: Soft nontender nondistended Extremities: No edema The patient is status post thoracentesis, 1500 cc of fluid blood tinged were removed Objective Labs Result Diagrams: 06/23/19 05:25 06/23/19 05:25 Labs: Laboratory Results - last 24 hr 06/22/19 06/22/19 06/22/19 20:20 20:20 21:00 WBC 12.2 H RBC 4.65 Hgb 14.8 Hct 43.7 MCV 94.0 MCH 31.8 MCHC 33.8 RDW 14.3 Plt Count 370 Neut % (Auto) 71.3 Lymph % (Auto) 17.0 L Zavala % (Auto) 10.3 Eos % (Auto) 0.7 L Baso % (Auto) 0.7 Neut # (Auto) 8700 H Lymph # (Auto) 2100 Zavala # (Auto) 1300 H Eos # (Auto) 100 Baso # (Auto) 100 PT INR APTT D-Dimer 257 H ABG pH ABG pCO2 ABG pO2 ABG HCO3 ABG Total CO2 ABG O2 Saturation ABG Base Excess FiO2 Sodium Potassium Chloride Carbon Dioxide BUN Creatinine Estimated GFR BUN/Creatinine Ratio Glucose Lactate Calcium Magnesium Total Creatine Kinase CK-MB (CK-2) CK-MB (CK-2) Rel Index Troponin I B-Natriuretic Peptide 301 H Procalcitonin 0.08 Urine Ictotest Urine RBC Urine WBC Ur Squamous Epith Cells Urine Bacteria Hyaline Casts Urine Mucus Ur Culture Indicated? Fluid Color Fluid Appearance Fluid RBC Fld Tot Nucleated Cell Fluid Polynuclear WBCs Fluid Mononuclear WBCs Fluid Eosinophils Fluid Other Cells Body Fluid Clot Fluid Glucose Fluid LDH 06/22/19 06/22/19 06/22/19 21:00 21:00 21:15 WBC RBC Hgb Hct MCV MCH MCHC RDW Plt Count Neut % (Auto) Lymph % (Auto) Zavala % (Auto) Eos % (Auto) Baso % (Auto) Neut # (Auto) Lymph # (Auto) Zavala # (Auto) Eos # (Auto) Baso # (Auto) PT INR APTT D-Dimer ABG pH 7.42 ABG pCO2 31.5 L ABG pO2 77 L ABG HCO3 20 L ABG Total CO2 21 ABG O2 Saturation 96 ABG Base Excess -4.0 L FiO2 0.21 Sodium 131 L Potassium 4.2 Chloride 97 L Carbon Dioxide 26 BUN 15 Creatinine 0.50 L Estimated GFR > 60.0 BUN/Creatinine Ratio 30.0 H Glucose 101 Lactate 1.0 Calcium 8.4 Magnesium 1.8 Total Creatine Kinase 22 L CK-MB (CK-2) TNP CK-MB (CK-2) Rel Index TNP Troponin I < 0.012 B-Natriuretic Peptide Procalcitonin Urine Ictotest Urine RBC Urine WBC Ur Squamous Epith Cells Urine Bacteria Hyaline Casts Urine Mucus Ur Culture Indicated? Fluid Color Fluid Appearance Fluid RBC Fld Tot Nucleated Cell Fluid Polynuclear WBCs Fluid Mononuclear WBCs Fluid Eosinophils Fluid Other Cells Body Fluid Clot Fluid Glucose Fluid LDH 06/22/19 06/23/19 06/23/19 21:46 05:25 05:25 WBC 11.6 H RBC 4.28 Hgb 13.4 Hct 41.0 MCV 95.7 MCH 31.2 MCHC 32.6 RDW 14.4 Plt Count 311 Neut % (Auto) 70.9 Lymph % (Auto) 16.8 L Zavala % (Auto) 11.4 Eos % (Auto) 0.3 L Baso % (Auto) 0.6 Neut # (Auto) 8200 H Lymph # (Auto) 1900 Zavala # (Auto) 1300 H Eos # (Auto) 0 Baso # (Auto) 100 PT INR APTT D-Dimer ABG pH ABG pCO2 ABG pO2 ABG HCO3 ABG Total CO2 ABG O2 Saturation ABG Base Excess FiO2 Sodium 133 L Potassium 4.8 Chloride 100 Carbon Dioxide 28 BUN 13 Creatinine 0.60 Estimated GFR > 60.0 BUN/Creatinine Ratio 21.7 Glucose 88 Lactate Calcium 8.5 Magnesium Total Creatine Kinase CK-MB (CK-2) CK-MB (CK-2) Rel Index Troponin I B-Natriuretic Peptide Procalcitonin Urine Ictotest Negative Urine RBC 10-30/hpf H Urine WBC None seen Ur Squamous Epith Cells 10-30 /hpf H Urine Bacteria Few (2-10) H Hyaline Casts 0-1/lpf Urine Mucus 1+ H Ur Culture Indicated? Cult not indicated Fluid Color Fluid Appearance Fluid RBC Fld Tot Nucleated Cell Fluid Polynuclear WBCs Fluid Mononuclear WBCs Fluid Eosinophils Fluid Other Cells Body Fluid Clot Fluid Glucose Fluid LDH 06/23/19 06/23/19 08:25 13:50 WBC RBC Hgb Hct MCV MCH MCHC RDW Plt Count Neut % (Auto) Lymph % (Auto) Zavala % (Auto) Eos % (Auto) Baso % (Auto) Neut # (Auto) Lymph # (Auto) Zavala # (Auto) Eos # (Auto) Baso # (Auto) PT 12.5 INR 1.1 APTT 33 D-Dimer ABG pH ABG pCO2 ABG pO2 ABG HCO3 ABG Total CO2 ABG O2 Saturation ABG Base Excess FiO2 Sodium Potassium Chloride Carbon Dioxide BUN Creatinine Estimated GFR BUN/Creatinine Ratio Glucose Lactate Calcium Magnesium Total Creatine Kinase CK-MB (CK-2) CK-MB (CK-2) Rel Index Troponin I B-Natriuretic Peptide Procalcitonin Urine Ictotest Urine RBC Urine WBC Ur Squamous Epith Cells Urine Bacteria Hyaline Casts Urine Mucus Ur Culture Indicated? Fluid Color Yellow Fluid Appearance Slightly cloudy Fluid RBC 5202 Fld Tot Nucleated Cell 708 Fluid Polynuclear WBCs 60 Fluid Mononuclear WBCs 40 Fluid Eosinophils 0 Fluid Other Cells 0 Body Fluid Clot No clots present Fluid Glucose 69 Fluid LDH 781 Assessment & Plan Assessment & Plan narrative: Right sided lung cancer, acute, present on admission Plan for a thoracentesis in an effort to drain the pleural effusion Dr. Cook should be notified of her admission Pain control with tylenol and IV dilaudid 2. Hypoxia, acute, present on admission Supplemental O2 Pneumonia is not likely as her white count is minimally elevated, and procalcitonin is normal Repeat procalcitonin and CBC in the am. Acute hypoxic respiratory failure, likely related to underlying pleural effusion and lung cancer 3. Essential hypertension, chronic and stable She has a reported home dose of atenolol 50 mg po daily which will be continued. 4. Hyperlipidemia, chronic and stable She has a reported home dose of atorvastatin 20 mg po daily which will be continued. Quality VTE Deep Vein Thrombosis/Pulmonary Embolism Present on Admission: No
--- NOTE | 2019-06-23 16:46 | CM.DANOTE ---
Discharge Planning/Care Management DCP: assessment: initiated: case received, EMR reviewed. Discussed in Team Rounds. Pt is a 63 year old female who admitted close to midnight 06/22 to care of hospitalist team. PCP: listed as Kathya Post: per documentation pt has been getting care at [facility] and [facility] in [place] with a new oncology appt set up with Dr. Milian at [facility]: first appt set for 07/08. Pt carries a dx of R lung CA in setting of metastatic cancer/mets to bone. Dr. Carrasco noted that a thoracentesis was planned for today and that Dr. Milian was to see pt sometime later today. Went to room to meet with pt and introduce self and role. She was off the acute care unit for the thoracentisis. P: Due to lateness of hour will not try to see pt again..will defer to colleage to follow on this process tomorrow. Is unclear if Dr. Milian has been in yet; his consultation note is not yet avialable in the EMR. CM Discharge Assessment Start: 06/23/19 16:45 Freq: Status: Active Protocol: Document 06/23/19 16:45 ITV (Rec: 06/23/19 16:46 ITV [id number]) Discharge Planning Assessment Advance Directives? No Prior Living Arrangements House Household Members spouse Independent with ADL's Yes Is patient alert and oriented? Yes Review Status In Process
--- NOTE | 2019-06-23 18:43 | P.CONONC_ITS ---
History of Present Illness - Data of Consult Consult date: 06/23/19 Primary Care Provider: Kathya Post PA-C - Consult Narrative Narrative: Diagnosis: Metastatic lung cancer History of present illness: Natasha Platt is a 63 year old female whom I was asked to see by Dr. Carrasco. The patient is a 63-year-old woman who has had a 5 month history of a persistent cough. She has had a couple of rounds of antibiotics without any improvement. She has had occasional of bloody sputum. She has not had any fevers or chills. More recently recently, she developed some increasing shortness of breath and pain in the chest. She also had been losing weight. She had a history of thyroid nodules and had some imaging of the thyroid done and at that time a CT was recommended. She was found to have masslike consolidation right lung with a fusion. She had necrotic appearing lymph nodes. A PET-CT was done in [place] that showed uptake in the pulmonary mass. There is extensive adenopathy as well as bony metastasis. She tells me that she was planning to have an ultrasound- guided lymph node biopsy of a left supraclavicular node but it has not been performed yet. She did have a thoracentesis done earlier today yielding 1.5 L of reddish colored fluid. She notes that her breathing has improved following the thoracentesis. She has had some diffuse lower back pain but no point tenderness. She denies any other new aches or pains. She has had poor appetite and weight loss. Recently, she has had dyspnea on exertion and has only been able to move from her bedroom to her kitchen. She does have a history of smoking about a half a pack of cigarettes daily but quit about 8 years ago. Her past medical history is notable for hypertension. She has otherwise been fairly healthy. Her family history is negative for malignancy. Social history: She is . 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 She is a former smoker. CC: AMMON Azul - Pain Details Pain Intensity: 8 Pain Scale Used: Numeric (1 - 10) Home Medications and Allergies Home Medications Medication Instructions Recorded Confirmed Type atenolol 25 mg PO BID #0 05/11/13 06/23/19 History cyclobenzaprine 10 mg PO TID PRN #20 07/22/13 09/03/19 Rx trazodone 50 mg PO SEE INSTRUCTIONS #0 06/05/13 06/23/19 History atenolol 50 mg PO QDAY #0 12/13/16 06/22/19 History methimazole 5 mg QDAY #0 12/13/16 06/22/19 History ramipril 10 mg PO BID #0 12/13/16 06/22/19 History albuterol sulfate [ProAir HFA] 90 mcg INHALATION PRN PRN 06/22/19 06/23/19 History trazodone 50 mg PO BEDTIME 06/22/19 06/22/19 History Allergies Allergy/AdvReac Type Severity Reaction Status Date / Time erythromycin base Allergy Mild nausea/vomi Verified 06/22/19 20:10 [ERYTHROMYCIN BASE] tting Medical History - Medical, Surgical, Family History Medical History: Medical History (Last Reviewed 06/23/19 @ 00:44 by Jordan Dee DO) H/O: hysterectomy HTN (hypertension) Family History: Family History (Last Reviewed 06/23/19 @ 00:44 by Jordan Dee DO) Mother CVA (cerebral vascular accident) Father ETOH abuse Other Hypertension - Social History Smoking Status: Former smoker Review of Systems Constitutional: weight loss, decreased activity level Eyes: no change in vision Ears, nose, mouth, throat: no headaches, no lightheadedness Cardiovascular: chest pain, dyspnea on exertion Respiratory: shortness of breath, cough, hemoptysis Gastrointestinal: change in appetite, no nausea, no vomiting Musculoskeletal: pain Exam Vital signs: Vital Signs Temp Pulse Resp BP BP Pulse Ox 06/23/19 15:50 98.5 F 82 17 120/70 91 06/23/19 12:03 88 18 93 06/23/19 12:00 99 F 71 16 122/68 93 06/23/19 08:45 88 L 06/23/19 08:39 92 06/23/19 08:24 98.5 F 74 16 114/69 92 06/23/19 08:12 94 06/23/19 05:30 98.5 F 76 16 126/69 94 06/23/19 01:15 98.3 F 78 15 154/59 H 94 06/22/19 23:10 72 16 110/61 90 L 06/22/19 21:35 78 19 129/65 93 06/22/19 20:00 98.3 F 88 18 135/52 L 91 Intake and Output 06/23/19 06/23/19 06/23/19 07:59 15:59 23:59 Intake Total 447.5 / 2747.5 2300 / 2747.5 Output Total 150 / 250 100 / 250 Balance 297.5 / 2497.5 2200 / 2497.5 Intake: IV 447.5 / 2447.5 2000 / 2447.5 Sodium Chloride 0.9% 1,000 ml @ 447.5 / 2447.5 2000 / 2447.5 150 mls/hr IV CONT DILCIA Rx#: [id number] Oral 300 / 300 Output: Urine 150 / 250 100 / 250 Other: Percent Meal Consumed 25% 50% # Unmeasured Voids 2 1 Weight 74.5 kg Patient Weight 06/23/19 23:59 Weight 74.5 kg - Constitutional positive no acute distress, positive average body habitus - Routine HEENT Exam Head: Present: normocephalic, atraumatic Eye: Present: EOMI, PERRL. Absent: conjunctival icterus, scleral injection ENT: Present: mucous membranes moist, oropharynx clear - Routine Neck Exam Present: supple, lymphadenopathy Comments: She has firm about 1 cm lymph node in the left base of the neck or supraclavicular area. - Routine Respiratory Exam Present: Clear to auscultation bilaterally. Absent: rales, wheezes - Routine Cardiovascular Exam Present: RRR, S1, S2. Absent: murmur - Routine Abdominal Exam Present: soft, normoactive bowel sounds. Absent: tenderness, organomegaly, mass - Routine Extremities Exam Absent: cyanosis, clubbing, edema - Routine Back/Spine Exam Back/Spine: Absent: vertebral tenderness - Routine Skin Exam Present: intact. Absent: petechiae, rash - Routine Neurological Exam Present: alert, oriented X3 - Routine Psychiatric Exam Present: normal affect, normal thought process Results - Labs Laboratory Last Values WBC 11.6 X10^3/uL (4.5-11.0) H 06/23/19 05:25 RBC 4.28 X10^6/uL (4.0-5.2) 06/23/19 05:25 Hgb 13.4 g/dL (12.0-16.0) 06/23/19 05:25 Hct 41.0 % (36-46) 06/23/19 05:25 MCV 95.7 fL (80-100) 06/23/19 05:25 MCH 31.2 PG (26-34) 06/23/19 05:25 MCHC 32.6 % (30-36) 06/23/19 05:25 RDW 14.4 % (11.6-14.8) 06/23/19 05:25 Plt Count 311 X10^3/uL (150-400) 06/23/19 05:25 Neut % (Auto) 70.9 % (50-75) 06/23/19 05:25 Lymph % (Auto) 16.8 % (25-40) L 06/23/19 05:25 [place] % (Auto) 11.4 % (3-14) 06/23/19 05:25 Eos % (Auto) 0.3 % (2-4) L 06/23/19 05:25 Baso % (Auto) 0.6 % (0-2) 06/23/19 05:25 Neut # (Auto) 8200 /uL (2261-0872) H 06/23/19 05:25 Lymph # (Auto) 1900 /uL (3871-5980) 06/23/19 05:25 [place] # (Auto) 1300 /uL (0-900) H 06/23/19 05:25 Eos # (Auto) 0 /uL (0-450) 06/23/19 05:25 Baso # (Auto) 100 /uL (0-100) 06/23/19 05:25 PT 12.5 SECONDS (10.1-12.7) 06/23/19 08:25 INR 1.1 (0.9-1.3) 06/23/19 08:25 APTT 33 SECONDS (26.4-36.2) 06/23/19 08:25 D-Dimer 257 ng/mL (<230) H 06/22/19 21:00 ABG pH 7.42 (7.35-7.45) 06/22/19 21:15 ABG pCO2 31.5 mmHg (35-45) L 06/22/19 21:15 ABG pO2 77 mmHg (80-100) L 06/22/19 21:15 ABG HCO3 20 mmol/L (22-26) L 06/22/19 21:15 ABG Total CO2 21 mmol/L (21-31) 06/22/19 21:15 ABG O2 Saturation 96 % (95-100) 06/22/19 21:15 ABG Base Excess -4.0 mmol/L (-2-2) L 06/22/19 21:15 FiO2 0.21 06/22/19 21:15 Sodium 133 mmol/L (137-145) L 06/23/19 05:25 Potassium 4.8 mmol/L (3.4-5.1) 06/23/19 05:25 Chloride 100 mmol/L (98-107) 06/23/19 05:25 Carbon Dioxide 28 mmol/L (22-32) 06/23/19 05:25 BUN 13 mg/dL (7-17) 06/23/19 05:25 Creatinine 0.60 mg/dL (0.52-1.04) 06/23/19 05:25 Estimated GFR > 60.0 mL/min (>60) 06/23/19 05:25 BUN/Creatinine Ratio 21.7 (6-22) 06/23/19 05:25 Glucose 88 mg/dL (80-110) 06/23/19 05:25 Lactate 1.0 mmol/L (0.7-2.1) 06/22/19 21:00 Calcium 8.5 mg/dL (8.4-10.2) 06/23/19 05:25 Magnesium 1.8 mg/dL (1.6-2.3) 06/22/19 21:00 Total Creatine Kinase 22 U/L (30-135) L 06/22/19 21:00 CK-MB (CK-2) TNP 06/22/19 21:00 CK-MB (CK-2) Rel Index TNP 06/22/19 21:00 Troponin I < 0.012 ng/mL (0.01-0.034) 06/22/19 21:00 B-Natriuretic Peptide 301 (<100) H 06/22/19 20:20 Procalcitonin 0.08 ng/mL (<0.5) 06/22/19 20:20 Urine Ictotest Negative (Negative) 06/22/19 21:46 Urine RBC 10-30/hpf (0-5/HPF) H 06/22/19 21:46 Urine WBC None seen (0-5/HPF) 06/22/19 21:46 Ur Squamous Epith Cells 10-30 /hpf (0-5/HPF) H 06/22/19 21:46 Urine Bacteria Few (2-10) (None) H 06/22/19 21:46 Hyaline Casts 0-1/lpf (None) 06/22/19 21:46 Urine Mucus 1+ (Negative) H 06/22/19 21:46 Ur Culture Indicated? Cult not indicated 06/22/19 21:46 Fluid Color Yellow 06/23/19 13:50 Fluid Appearance Slightly cloudy 06/23/19 13:50 Fluid RBC 5202 /uL 06/23/19 13:50 Fld Tot Nucleated Cell 708 /uL 06/23/19 13:50 Fluid Polynuclear WBCs 60 % 06/23/19 13:50 Fluid Mononuclear WBCs 40 % 06/23/19 13:50 Fluid Eosinophils 0 % 06/23/19 13:50 Fluid Other Cells 0 % 06/23/19 13:50 Body Fluid Clot No clots present 06/23/19 13:50 Fluid Glucose 69 mg/dL 06/23/19 13:50 Fluid LDH 781 U/L 06/23/19 13:50 Assessment and Plan (1) Pleural effusion Current visit: Yes Status: Acute 63-year-old woman with right-sided pleural effusion, lung mass with adenopathy and evidence of bone metastasis on PET scan. This almost certainly represents metastatic lung cancer. She has not yet had any tissue confirmation. I explained that in general lung cancer comes in several forms, small cell versus non-small cell. I also talked about the various histologies of non-small cell lung cancer. We talked about the existence of particular truck driver flatbed mutations which confers susceptibility to targeted therapy. We also talked about the possible over expression of PD L1 which can confer susceptibility to immunotherapy. The 1st step in her treatment plan will be confirming a diagnosis. We will plan on scheduling an ultrasound-guided biopsy of her supraclavicular lymph node. In addition, cytology may provide a diagnosis from her pleural fluid. She will need to have genetic testing for ALK, ROS-1, EGFR, B-ADA, NTRK and PD-L1 on her cancer cells to determine their mutation status. (2) Intractable pain Current visit: Yes Status: Acute
--- NOTE | 2019-06-23 22:49 | PC.NURSE ---
pt alert and oriented resting in bed most shift indep min assist to br. c/o right chest pain that wraps around right side of abd. medicated with oxycontin 10mg and dilaudid 1mg ivp to keep pain under control. sats on 2l 90%. onc consult done today. bandaid to right mid back cdi from thorancentisis.
[2019-06-24] VITALS (8 sets, daily range): BP systolic 111–151; BP diastolic 54–70; PULSE 72–91; RESP 16–19; TEMP 36–37; O2SAT 83–93; BMI 25.5
[2019-06-24] MEDS: SODIUM CHLORIDE 0.9% 1,000 ML 150 ML IV ×3 (00:19→12:19)
[2019-06-24] MEDS: OXYCODONE IR 5 MG TABLET 10 MG PO ×5 (01:14→17:14)
[2019-06-24] MEDS: HYDROMORPHONE 1 MG INJ IV ×3 (03:52→12:18)
[2019-06-24] MEDS: ATENOLOL 25 MG TABLET 50 MG PO (08:44)
[2019-06-24] MEDS: ALBUTEROL 2.5 MG/3 ML NEB (ADULT) INH (09:07)
[2019-06-24] MEDS: BENZONATATE 100 MG CAPSULE PO (09:40)
[2019-06-24] MEDS: OXYCODONE ER 10 MG TAB PO (13:26)
--- NOTE | 2019-06-24 15:56 | PC.NURSE ---
LOC/: - Denies any freq, or pain. Has been up several times to br for bm, no bm yet. Does have some scattered bruises to arms which he thinks he got when he fell. Does have tremors to the upper ext. He says he has had them for some time. Pt is forgetful to time and some events. Was also found to be pushing his buttons on his IV pump and asked not to do so. Found to be doing the same thing later again. SThe last time I was here the nurses showed me how to work the IV pump so I could do it myself. Pump placed into lock out. Pt worked w/PT and currently is resting quietly in bed. Cont w/poc.
--- NOTE | 2019-06-24 16:03 | PC.NURSE ---
Resp: SI still have a hard time talking about cancer. Pt has been teary off and on. Has had some pain control concerns and Dr. Carrasco made aware and pt pain med regime was adjusted. Pt thinks her pain is a little better this afternoon. Unable to perform biopsy today and pt would like to go home. RT came and eval for home O2 and are currently working on same. Pt is napping off and on in room.
--- NOTE | 2019-06-24 16:31 | DIET.PN ---
Dietary Progress Note Assessment: 63y F reporting reduced PO intake and recent wt loss. 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 Interventions: recc ONS Ensure Enlive tid
--- NOTE | 2019-06-24 18:40 | CM.DANOTE ---
Written and verbal discharge education provided. Scripts given. R.T. to provide additional home o2 teaching and arrangement of home o2. Pt requests script for zofran and states I can't really eat because of nausea this production underwriter notified Dr. Carrasco. IV removed. Pt states she feels stable for discharge.
--- NOTE | 2019-06-24 19:34 | PC.NURSE ---
A&Ox3 93% 2L. pt in her room waiting for O2 to be delivered to her house. PIV removed by MADELAINE Goldstein.
--- NOTE | 2019-06-24 20:46 | PC.NURSE ---
Written and verbal discharge education provided. Scripts given. R.T. to provide additional home o2 teaching and arrangement of home o2. Pt requests script for zofran and states I can't really eat because of nausea this group underwriter notified Dr. Carrasco. IV removed. Pt states she feels stable for discharge. Pt left in stable condition via w/c by this group underwriter with all personal belongings, oxygen tank, d/c paperwork and scripts.
--- NOTE | 2019-07-08 15:43 | ONC.MSW ---
Description: Care Coodination/Support Activity: Pt arrived in clinic today for her first chemotherapy treatment, however her labs indicated that she was septic, and thus she was transferred to the ED. Prior to leaving, PROBLEM MANAGER was able to have her and her complete the Auth to Discuss form in order to continue care coordination needs. Plan: PROBLEM MANAGER will monitor pt's status and f/u with resources and support once she has been stabilized.
== END 2019-06-24 20:10 | disposition home or self-care (01) | DRG 180 ==
LOC: ED 20:17 → AC 23:29
PROVIDERS: Internal Medicine; Admitting Provider Nurse Practitioner Family; Emergency Provider Emergency Medicine; PCP Physician Assistant Medical; Visit Provider Nurse Practitioner Family
DX: C34.91 Malignant neoplasm of unspecified part of right bronchus or lung (principal); J96.01 Acute respiratory failure with hypoxia; E43 Unspecified severe protein-calorie malnutrition; J91.0 Malignant pleural effusion; C79.51 Secondary malignant neoplasm of bone; G89.3 Neoplasm related pain (acute) (chronic); E78.5 Hyperlipidemia, unspecified; I10 Essential (primary) hypertension; Z87.891 Personal history of nicotine dependence
CPT/HCPCS: 32555; 36415; 36591; 36600; 71045; 71046; 71275; 80048; 81003; 81015; 82550; 82805; 82945; 83605; 83615; 83735; 83880; 84145; 84484; 85025; 85379; 85610; 85730; 89051; 93005; 94618; 94640; 94760; 94762; 96365; 96366; 96375; 96376; 99284; 99285; J1170; J1956; J2060; J2405; J7613; Q9967

== ENCOUNTER 2019-06-27 18:33 | Inpatient (IN) | payer BC, SELFPAY ==
[2019-06-23 02:07] VITALS: BMI 25.4
[2019-06-27 18:45] VITALS: BP 83/59; PULSE 83; RESP 16; TEMP 36.4; O2SAT 100; BMI 25.8
--- NOTE | 2019-06-27 18:51 | DI.RAD.S_ITS ---
PROCEDURE: XR CHEST 2V INDICATIONS: SOB, hx lung CA with effusion TECHNIQUE: 2 views of the chest were acquired. COMPARISON: [facility], CT, CT ANGIO CHEST PE PROTOCOL, 06/22/2019, 22:04. [facility], CR, XR CHEST 2V, 06/22/2019, 20:17. FINDINGS: Surgical changes and devices: None. Lungs and pleura: Increased opacification in the right lung has decreased without complete resolution. Masslike opacity in the right midlung is stable. Trace left-sided pleural effusion. No pneumothorax. Mediastinum: Mediastinal contours are normal. Heart size is normal. Bones and chest wall: No suspicious bony abnormalities. Soft tissues appear unremarkable. IMPRESSION: Persistent right lung opacification compatible with persistent pneumonia. Dictated by: Sharri Young MD, PhD on 06/27/2019 at 19:25 Approved by: Sharri Young MD, PhD on 06/27/2019 at 19:26
--- NOTE | 2019-06-27 18:56 | ED_ITS ---
HPI - SOB/Dyspnea General Chief Complaint: Shortness of Breath/Dyspnea Stated Complaint: LUNG CANCER/PALPITATIONS/CANT BREATH/FLUID IN LUNG Time Seen by Provider: 06/27/19 18:35 Source: patient and family Mode of arrival: ambulatory Limitations: no limitations History of Present Illness HPI Narrative: 63-year-old female former smoker with newly diagnosed lung cancer and now recurrent pleural effusions returns to the emergency department with increasing shortness of breath and anterior chest pain along with nausea and profound fatigue. She had been recently admitted under similar circumstances and had a diagnostic thoracentesis and was discharged with the plan to meet with oncology early next week to, but the therapeutic strategy. Patient was discharged home on 2 L of oxygen and over the past day or 2 that but bump it up to 3 L without much in the way of improvement. Related Data Home Medications Medication Instructions Recorded Confirmed trazodone 50 mg PO SEE INSTRUCTIONS #0 06/05/13 06/23/19 atenolol 50 mg PO QDAY #0 12/13/16 06/22/19 methimazole 5 mg QDAY #0 12/13/16 06/22/19 ramipril 10 mg PO BID #0 12/13/16 06/22/19 albuterol sulfate [ProAir HFA] 90 mcg INHALATION PRN PRN 06/22/19 06/23/19 trazodone 50 mg PO BEDTIME 06/22/19 06/22/19 Previous Rx's Medication Instructions Recorded cyclobenzaprine 10 mg PO TID PRN #20 05/11/13 benzonatate 100 mg PO TID PRN #10 cap 06/24/19 ondansetron HCl [Zofran] 4 mg PO Q8-12H PRN #20 tab 06/24/19 oxycodone 10 mg PO Q4HR PRN #30 tab 06/24/19 oxycodone [OxyContin] 10 mg PO BID #30 tab 06/24/19 Allergies Allergy/AdvReac Type Severity Reaction Status Date / Time erythromycin base Allergy Mild nausea/vomi Verified 06/27/19 18:45 [ERYTHROMYCIN BASE] tting Review of Systems Constitutional Constitutional: Denies chills, Denies fatigue, Denies fever(s), Denies frequent falls, Denies lethargy and Denies weakness Eyes Eyes: Denies change in vision, Denies eye discharge, Denies irritation and Denies loss of vision ENT Ears, Nose, Mouth, and Throat: Denies change in voice, Denies dizziness, Denies neck pain, Denies sore throat and Denies throat swelling Cardiovascular Cardiovascular: Denies chest pain, Denies irregular heart rhythm, Denies lightheadedness, Denies palpitations, Reports dyspnea, Reports dyspnea on exertion and Denies orthopnea Respiratory Respiratory: Denies cough, Reports pain with cough, Reports dyspnea, Reports dyspnea on exertion and Denies wheezing Gastrointestinal Gastrointestinal: Denies abdominal pain, Denies change in bowel habits, Denies diarrhea, Denies nausea and Denies vomiting Genitourinary Genitourinary: Denies hematuria, Denies flank pain, Denies urinary incontinence and Denies urinary urgency Musculoskeletal Musculoskeletal: Denies back pain, Denies muscle weakness, Denies neck pain, Denies numbness and Denies tingling Integumentary/Breasts Skin/Breast: Denies pruritus, Denies erythema, Denies rash and Denies wounds Neurologic Neurologic: Denies behavioral changes, Denies confusion, Denies dizziness, Denies frequent falls, Denies loss of vision, Denies numbness, Denies tingling and Denies weakness Psychiatric Psychiatric: Denies anxiety, Denies behavioral changes, Denies confusion, Denies depression, Denies homicidal ideation and Denies suicidal ideation Endocrine Endocrine: Denies fatigue, Denies flushing and Denies palpitations Hematologic/Lymphatic Hematologic/Lymphatic: Denies easy bruising Allergic/Immunologic Allergic/Immunologic: Denies urticaria, Denies throat swelling and Denies wheezing [facility] Social History household members: spouse Smoking Status: Former smoker alcohol intake: former Exam Narrative Exam Narrative: GENERAL: [63] year old patient appears stated age. In moderate distress, obviously not feeling well HEAD: Atraumatic. Normocephalic. EYES: Pupils equal round and reactive. Extraocular motions intact. No scleral icterus. No injection or drainage. ENT: Nose without bleeding, purulent drainage. Throat without erythema, tonsillar hypertrophy or exudate. Airway patent. NECK: Trachea midline. Non tender CARDIOVASCULAR: Regular rate and rhythm without murmurs, gallops, or rubs. RESPIRATORY: Decreased breath sounds on the right compared the left with positive findings on of percussion GASTROINTESTINAL: Abdomen soft, non-tender, nondistended. EXTREMITIES: No edema or joint tenderness. BACK: Nontender without deformity or crepitance. No flank tenderness. NEURO: AOx3. SKIN: No rash or erythema of visible areas Initial Vital Signs Initial Vital Signs: Vital Signs Temperature 97.5 F L 06/27/19 18:45 Pulse Rate 83 06/27/19 18:45 Respiratory Rate 16 06/27/19 18:45 Blood Pressure 83/59 L 06/27/19 18:45 Pulse Oximetry 100 06/27/19 18:45 Course Orders Ordered: Acetaminophen (Tylenol) 650 mg PO Q6HR PRN PRN Reason: As Needed for Fever/Mild Pain Al Hydrox/Mg Hydrox/Simethicone (Maalox Plus) 30 ml PO Q6HR PRN PRN Reason: Dyspepsia Atenolol (Tenormin) 50 mg PO DAILY [facility] Last Admin: 06/28/19 00:34 Dose: 50 mg Documented by: ALYSE Benzonatate (Tessalon Perles) 100 mg PO TID PRN PRN Reason: Cough Bisacodyl (Dulcolax) 10 mg MA DAILY PRN PRN Reason: Constipation Calcium Carbonate (Tums) 1,000 mg PO Q4HR PRN PRN Reason: Dyspepsia Docusate Sodium (Colace) 100 mg PO BID [facility] Enoxaparin Sodium (Lovenox) 40 mg SUBCUT DAILY [facility] Hydromorphone HCl (Dilaudid) 0.5 mg IV Q6H PRN PRN Reason: Pain, Moderate (4-6) Hydromorphone HCl (Dilaudid) 1 mg IV Q6HR PRN PRN Reason: Pain, Severe (7-10) Last Admin: 06/27/19 23:43 Dose: 1 mg Documented by: ALYSE Sodium Chloride (Normal Saline 0.9%) 1,000 mls @ 1,000 mls/hr IV BOLUS PRN PRN Reason: Fluid replacement Last Infusion: 06/27/19 20:56 Dose: 0 mls/hr Documented by: Admin: 06/27/19 19:33 Dose: 1,000 mls/hr Documented by: AMARJIT Methimazole (Methimazole) 5 mg PO DAILY [facility] Last Admin: 06/28/19 00:35 Dose: 5 mg Documented by: ALYSE Naloxone HCl (Narcan) 0.2 mg IV Q2MIN PRN PRN Reason: Opiate Reversal Ondansetron HCl (Zofran) 4 mg IV Q6HR [facility] Last Admin: 06/28/19 06:27 Dose: 4 mg Documented by: Admin: 06/27/19 23:43 Dose: 4 mg Documented by: ALYSE Oxycodone HCl (Oxycontin) 10 mg PO BID [facility] Oxycodone HCl (Percolone) 10 mg PO Q4HR PRN PRN Reason: Pain, Severe (7-10) Last Admin: 06/28/19 04:41 Dose: 10 mg Documented by: Admin: 06/28/19 00:38 Dose: 10 mg Documented by: ALYSE Ramipril (Altace) 10 mg PO BID [facility] Sennosides (Senna) 17.2 mg PO BEDTIME PRN PRN Reason: Constipation Trazodone HCl (Desyrel) 50 mg PO BEDTIME [facility] Discontinued Medications Atenolol (Tenormin) 50 mg PO DAILY [facility] Last Admin: 06/28/19 00:33 Dose: Not Given Documented by: ALYSE Hydromorphone HCl (Dilaudid) 1 mg IV NOW ONE Stop: 06/27/19 19:28 Last Admin: 06/27/19 19:33 Dose: 1 mg Documented by: AMARJIT Ondansetron HCl (Zofran) 4 mg IV NOW ONE Stop: 06/27/19 18:49 Last Admin: 06/27/19 19:33 Dose: 4 mg Documented by: AMARJIT Consultations Consultation #1: Hospitalist happy to accept on his service Vital Signs Vital signs: Vital Signs - 8 hr 06/27/19 18:45 06/27/19 20:00 06/27/19 20:30 Temperature 97.5 F L Pulse Rate 83 93 H 84 Respiratory Rate 16 13 15 Blood Pressure 83/59 L Blood Pressure [Right Arm] 103/89 112/71 Pulse Oximetry 100 95 96 MDM - SOB/Dyspnea Lab Data Result diagrams: 06/28/19 05:00 06/28/19 05:00 Labs: Lab Results 06/27/19 06/27/19 06/27/19 Range/Units 19:20 19:20 19:20 WBC 9.5 (4.5-11.0) X10^3/uL RBC 4.32 (4.0-5.2) X10^6/uL Hgb 13.6 (12.0-16.0) g/dL Hct 41.0 (36-46) % MCV 94.8 (80-100) fL MCH 31.5 (26-34) PG MCHC 33.2 (30-36) % RDW 13.9 (11.6-14.8) % Plt Count 363 (150-400) X10^3/uL Neut % (Auto) 74.7 (50-75) % Lymph % (Auto) 12.3 L (25-40) % [place] % (Auto) 11.6 (3-14) % Eos % (Auto) 0.7 L (2-4) % Baso % (Auto) 0.7 (0-2) % Neut # (Auto) 7100 H (7225-0855) /uL Lymph # (Auto) 1200 (1576-9927) /uL [place] # (Auto) 1100 H (0-900) /uL Eos # (Auto) 100 (0-450) /uL Baso # (Auto) 100 (0-100) /uL PT 12.7 (10.1-12.7) SECONDS INR 1.1 (0.9-1.3) ABG pH (7.35-7.45) ABG pCO2 (35-45) mmHg ABG pO2 (80-100) mmHg ABG HCO3 (22-26) mmol/L ABG Total CO2 (21-31) mmol/L ABG O2 Saturation (95-100) % ABG Base Excess (-2-2) mmol/L FiO2 Sodium 132 L (137-145) mmol/L Potassium 4.1 (3.4-5.1) mmol/L Chloride 90 L (98-107) mmol/L Carbon Dioxide 33 H (22-32) mmol/L BUN 8 (7-17) mg/dL Creatinine 0.50 L (0.52-1.04) mg/dL Estimated GFR > 60.0 (>60) mL/min BUN/Creatinine Ratio 16.0 (6-22) Glucose 111 H (80-110) mg/dL Calcium 8.7 (8.4-10.2) mg/dL Magnesium 1.9 (1.6-2.3) mg/dL Total Creatine Kinase < 20 L (30-135) U/L CK-MB (CK-2) TNP CK-MB (CK-2) Rel Index TNP Troponin I < 0.012 (0.01-0.034) ng/mL B-Natriuretic Peptide 270 H (<100) Procalcitonin (<0.5) ng/mL 06/27/19 06/27/19 Range/Units 19:20 19:55 WBC (4.5-11.0) X10^3/uL RBC (4.0-5.2) X10^6/uL Hgb (12.0-16.0) g/dL Hct (36-46) % MCV (80-100) fL MCH (26-34) PG MCHC (30-36) % RDW (11.6-14.8) % Plt Count (150-400) X10^3/uL Neut % (Auto) (50-75) % Lymph % (Auto) (25-40) % [place] % (Auto) (3-14) % Eos % (Auto) (2-4) % Baso % (Auto) (0-2) % Neut # (Auto) (4512-9075) /uL Lymph # (Auto) (4637-1017) /uL [place] # (Auto) (0-900) /uL Eos # (Auto) (0-450) /uL Baso # (Auto) (0-100) /uL PT (10.1-12.7) SECONDS INR (0.9-1.3) ABG pH 7.47 H (7.35-7.45) ABG pCO2 41.0 (35-45) mmHg ABG pO2 65 L (80-100) mmHg ABG HCO3 30 H (22-26) mmol/L ABG Total CO2 31 (21-31) mmol/L ABG O2 Saturation 94 L (95-100) % ABG Base Excess 7.0 H (-2-2) mmol/L FiO2 28 Sodium (137-145) mmol/L Potassium (3.4-5.1) mmol/L Chloride (98-107) mmol/L Carbon Dioxide (22-32) mmol/L BUN (7-17) mg/dL Creatinine (0.52-1.04) mg/dL Estimated GFR (>60) mL/min BUN/Creatinine Ratio (6-22) Glucose (80-110) mg/dL Calcium (8.4-10.2) mg/dL Magnesium (1.6-2.3) mg/dL Total Creatine Kinase (30-135) U/L CK-MB (CK-2) CK-MB (CK-2) Rel Index Troponin I (0.01-0.034) ng/mL B-Natriuretic Peptide (<100) Procalcitonin < 0.05 (<0.5) ng/mL Imaging Data Chest x-ray: Radiologist's impression: Natasha Platt W 63 F [address] [address] XRay Report Signed Patient: Natasha Platt WMR#: [id number] : 8Acct:[id number] Age/Sex: 63 / FDate of Service: 06/27/19 Loc: ED Accession Number: [id number] Procedure: XR chest 2V Ordering Provider: Jordan Dee D.O. PROCEDURE: XR CHEST 2V INDICATIONS: SOB, hx lung CA with effusion TECHNIQUE: 2 views of the chest were acquired. COMPARISON: [facility], CT, CT ANGIO CHEST PE PROTOCOL, 06/22/2019, 22:04. [facility], CR, XR CHEST 2V, 06/22/2019, 20:17. FINDINGS: Surgical changes and devices: None. Lungs and pleura: Increased opacification in the right lung has decreased without complete resolution. Masslike opacity in the right midlung is stable. Trace left-sided pleural effusion. No pneumothorax. Mediastinum: Mediastinal contours are normal. Heart size is normal. Bones and chest wall: No suspicious bony abnormalities. Soft tissues appear unremarkable. IMPRESSION: Persistent right lung opacification compatible with persistent pneumonia. Dictated by: Sharri Young MD, PhD on 06/27/2019 at 19:25 Approved by: Sharri Young MD, PhD on 06/27/2019 at 19:26 MDM Narrative Medical decision making narrative: [age] year old female with recently diagnosed lung cancer presents with shortness of breath, increased oxygen demands and an initially low blood pressure. Her chest x-ray shows a recurrence of a pleural effusion. She requires hospitalization for stabilization of her condition Discharge Plan Departure Patient Disposition: Admitted As Inpatient Clinical Impression: Pleural effusion, Hypoxia Discharge Date/Time: 06/27/19 22:00 Admit Date/Time: 06/27/19 21:02 Admit Provider: Chuy Beach
[2019-06-27] MEDS: HYDROMORPHONE 1 MG INJ IV ×2 (19:33→23:43)
[2019-06-27] MEDS: SODIUM CHLORIDE 0.9% 1,000 ML 1000 ML IV (19:33)
[2019-06-27] MEDS: ONDANSETRON 4 MG/2 ML INJ IV ×2 (19:33→23:43)
[2019-06-27 19:34] LABS: Add Manual Diff / Slide Review NO; Basophils Absolute Auto 100 /uL (0-100); Basophils Percent Auto 0.7 % (0-2); Eosinophils Absolute Auto 100 /uL (0-450); Eosinophils Percent Auto 0.7 % (2-4); Hemoglobin 13.6 g/dL (12.0-16.0); Lymphocytes Absolute Auto 1200 /uL (1100-4500); Lymphocytes Percent Auto 12.3 % (25-40); Mean Corpuscular HGB Conc 33.2 % (30-36); Mean Corpuscular Hemoglobin 31.5 PG (26-34); Mean Corpuscular Volume 94.8 fL (80-100); Monocytes Absolute Auto 1100 /uL (0-900); Monocytes Percent Auto 11.6 % (3-14); Neutrophils Absolute Auto 7100 /uL (1500-7000); Neutrophils Percent Auto 74.7 % (50-75); Platelet Count 363 X10^3/uL (150-400); Red Blood Cell Count 4.32 X10^6/uL (4.0-5.2); Red Cell Distribution Width 13.9 % (11.6-14.8); White Blood Cell Count 9.5 X10^3/uL (4.5-11.0)
[2019-06-27 19:36] LABS: INR 1.1 (0.9-1.3); Prothrombin Time 12.7 SECONDS (10.1-12.7)
[2019-06-27 19:42] LABS: Blood Urea Nitrogen 8 mg/dL (7-17); Calcium 8.7 mg/dL (8.4-10.2); Carbon Dioxide 33 mmol/L (22-32); Chloride 90 mmol/L (98-107); Creatine Kinase < 20 U/L (30-135); Estimated Glomerular Filt Rate > 60.0 mL/min (>60); Glucose 111 mg/dL (80-110); HEMOLYSIS < 15 (0-50); Magnesium 1.9 mg/dL (1.6-2.3); Potassium 4.1 mmol/L (3.4-5.1); Sodium 132 mmol/L (137-145)
[2019-06-27 19:54] LABS: Troponin I < 0.012 ng/mL (0.01-0.034)
[2019-06-27 19:55] LABS: B Type Natriuretic Peptide 270 (<100)
[2019-06-27 20:00] VITALS: BP 103/89; PULSE 93; RESP 13; O2SAT 95
[2019-06-27 20:06] LABS: Procalcitonin < 0.05 ng/mL (<0.5)
[2019-06-27 20:20] LABS: HCO3 ABG 30 mmol/L (22-26); PO2 ABG 65 mmHg (80-100); TCO2 ABG 31 mmol/L (21-31); pH ABG 7.47 (7.35-7.45)
[2019-06-27 20:21] LABS: Fractionated Inspired Oxygen 28; Oxygen Saturation ABG 94 % (95-100)
[2019-06-27 20:30] VITALS: BP 112/71; PULSE 84; RESP 15; O2SAT 96
[2019-06-27 21:00] VITALS: BP 113/55; BP 114/44; PULSE 57; PULSE 83; RESP 12; RESP 19; TEMP 36.1; O2SAT 93; O2SAT 94
[2019-06-27 22:13] VITALS: BMI 25.8
--- NOTE | 2019-06-27 22:40 | PC.NURSE ---
2200- Patient arrived from Emergency via wheelchair. Alert and oriented. Patient advised to call for assist if she needs to use the rest room. Patient shown the call light, bed control, and assisted into a gown. Patient verbalizes she understands and has no questions. Patient declines pain medication at this time. Await admit orders, patient stable at this time.
--- NOTE | 2019-06-27 23:03 | PM.HP.1 ---
History of Present Illness History of Present Illness Date Patient Seen: 06/27/19 Time Patient Seen: 21:25 Chief complaint: LUNG CANCER/PALPITATIONS/CANT BREATH/FLUID IN LUNG Narrative: Natasha Platt is an unfortunate 63-year-old female with a history of hypertension and hyperlipidemia who has recently been diagnosed with right-sided lung cancer. Her presentation today included shortness of breath, pain on the right side of her chest, and nausea and vomiting with increasing O2 requirement. The patient had been admitted to [facility] with the same complaint and discharged on 06/25 2019 after undergoing both diagnostic and therapeutic thoracentesis on 06/23/2019. Malignant cells were found on cytology in the patient has been referred to Dr. Cook, oncology, and has appointment scheduled for 07/08/2019. She now presents for recurrent symptoms with increased dyspnea, chest wall pain without a cough. She denies fever or chills, headache but does orthostatic dizziness and was hypotensive upon arrival to the ER. She reports chest wall pain but no palpitations. She denies abdominal pain but has had episodic nausea. She dose has constipation, but denies dysuria. She remains independent in all her ADLs. She had a CT of the chest and PET scan from the occiput down to the thighs. Those studies indicated a spiculated mass on the right lung, hilar lymphadenopathy, nodular septal thickening of the right lung concerning for her carcinomatosis, and bony metastasis in the ribs, hips and sternum. Patient has an appointment with Dr. Cook on July 08. Upon arrival in the ER the patient was afebrile with temperature 97.5?, heart rate of 83, hypertensive at 83/59, respirations 16 saturating 100% on 2 L of oxygen. Chest x-ray was taking which feels reemergence of the pulmonary effusion. On ABG she is found have a pH of 7.47, pCO2 41.0, PO2 of 65, bicarb of 30 and base excess is 7.0 on 28% oxygen. On CBC she has white count of 9.5, hemoglobin of 13.6 and hematocrit of 41.0 with platelets of 363. Her chemistries all within normal limits save a nonfasting glucose of 111. She has a PT of 12.7 in INR 1.1. The patient is admitted to the hospital for acute hypoxic respiratory failure secondary to read current pulmonary effusion. Patient History Medical History (Updated 06/28/19 @ 08:15 by AMMON Haro) H/O: hysterectomy (Acute) HTN (hypertension) (Acute) Hypoxia (Inactive) Lung cancer (Inactive) Pleural effusion (Inactive) Family History Mother CVA (cerebral vascular accident) Father ETOH abuse Other Hypertension Social History household members: spouse Smoking Status: Former smoker alcohol intake: former Family & Social History Family History Mother CVA (cerebral vascular accident) Father ETOH abuse Other Hypertension Social History: household members spouse Prior Living Arrangements House Safety & Behavioral: Feels Safe in Current Yes Environment Been Physically Hurt or No Threatened By a Person Suicidal Ideation Description None Suicide Plan Description No Plan Tobacco & Substance use: Smoking Status Former smoker alcohol intake former alcohol intake frequency a few times a month Substance Use Type does not use Comment: The patient lives in a single family home with her . She has a family history of her father with alcohol abuse in her mother with CVA. She has 1 sister whom she describes is in good health and 2 daughters also in good health. 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 Alcohol: Occasional social drinker Substance use: Patient denies recreation pharmaceuticals herbal or cannabis products. Advanced directives: The patient states her wish to be a FULL CODE. She designates her to be her surrogate decision maker. Meds Home Medications and Allergies Home Medications Medication Instructions Recorded Confirmed Type cyclobenzaprine 10 mg PO TID PRN #20 05/11/13 06/23/19 Rx trazodone 50 mg PO SEE INSTRUCTIONS #0 06/05/13 06/23/19 History atenolol 50 mg PO QDAY #0 12/13/16 06/22/19 History methimazole 5 mg QDAY #0 12/13/16 06/22/19 History ramipril 10 mg PO BID #0 12/13/16 06/22/19 History albuterol sulfate [ProAir HFA] 90 mcg INHALATION PRN PRN 06/22/19 06/23/19 History trazodone 50 mg PO BEDTIME 06/22/19 06/22/19 History benzonatate 100 mg PO TID PRN #10 cap 06/24/19 Rx ondansetron HCl [Zofran] 4 mg PO Q8-12H PRN #20 tab 06/24/19 Rx oxycodone 10 mg PO Q4HR PRN #30 tab 06/24/19 Rx oxycodone [OxyContin] 10 mg PO BID #30 tab 06/24/19 Rx Allergies Allergy/AdvReac Type Severity Reaction Status Date / Time erythromycin base Allergy Mild nausea/vomi Verified 06/27/19 18:45 [ERYTHROMYCIN BASE] tting Review of Systems Review of Systems ROS Unobtainable: All systems reviewed & are unremarkable except as noted in HPI and below Exam Vital Signs (past 8 hours): - 06/28/19 03:30 06/28/19 04:38 06/28/19 06:49 Temperature 97.8 F Pulse Rate 82 Respiratory Rate 18 Blood Pressure 146/63 H Pulse Oximetry 88 L 93 95 Oxygen Delivery Method Nasal Cannula Oxygen Flow Rate 3 Narrative Exam Narrative: GENERAL APPEARANCE: well developed, well nourished, uncomfortable appearing HEENT: Normocephalic, PERRLA, conjunctiva clear, EOMs intact without nystagmus, no sinus tenderness to percussion, no rhinorrhea, mucous membranes are moist and pink without lesions or exudate NECK/THYROID: neck supple, no JVD, no carotid bruit, no thyromegaly, trachea midline. LYMPH NODES: no cervical or supraclavicular lymphadenopathy. SKIN: warm and dry, no suspicious lesions, no rashes, good turgor. HEART: Irregularly irregular rhythm, S1-S2 without murmur, no rubs or gallops, brisk capillary refill, trace edema LUNGS: Lungs are clear bilateral upper lobes, diminished breath sounds right middle and lower lobes, no cough present CHEST: Symmetrical movement, no accessory muscle use, pain on lateral compression ABDOMEN: Soft, no distention, no abdominal tenderness on palpation, no organomegaly, active bowel tones. BACK: Normal curvature, nontender to palpation, no CVA tenderness EXTREMITIES: moves all extremities, strength is 5/5 and symmetrical, no deformities or joint effusions. NEUROLOGIC: AAO x4, cranial nerves II-XII grossly intact , motor strength normal upper and lower extremities, neuropathy bilateral lower extremities. PSYCH: alert, cognitive function intact, good eye contact, appropriate with stable behavior Objective Labs Result Diagrams: 06/28/19 05:00 06/28/19 05:00 Labs: Laboratory Results - last 24 hr 06/27/19 06/27/19 06/27/19 19:20 19:20 19:20 WBC 9.5 RBC 4.32 Hgb 13.6 Hct 41.0 MCV 94.8 MCH 31.5 MCHC 33.2 RDW 13.9 Plt Count 363 Neut % (Auto) 74.7 Lymph % (Auto) 12.3 L [place] % (Auto) 11.6 Eos % (Auto) 0.7 L Baso % (Auto) 0.7 Neut # (Auto) 7100 H Lymph # (Auto) 1200 [place] # (Auto) 1100 H Eos # (Auto) 100 Baso # (Auto) 100 PT 12.7 INR 1.1 ABG pH ABG pCO2 ABG pO2 ABG HCO3 ABG Total CO2 ABG O2 Saturation ABG Base Excess FiO2 Sodium 132 L Potassium 4.1 Chloride 90 L Carbon Dioxide 33 H BUN 8 Creatinine 0.50 L Estimated GFR > 60.0 BUN/Creatinine Ratio 16.0 Glucose 111 H Calcium 8.7 Magnesium 1.9 Total Creatine Kinase < 20 L CK-MB (CK-2) TNP CK-MB (CK-2) Rel Index TNP Troponin I < 0.012 B-Natriuretic Peptide 270 H Procalcitonin Nasal Screen MRSA (PCR) 06/27/19 06/27/19 06/27/19 19:20 19:55 22:00 WBC RBC Hgb Hct MCV MCH MCHC RDW Plt Count Neut % (Auto) Lymph % (Auto) [place] % (Auto) Eos % (Auto) Baso % (Auto) Neut # (Auto) Lymph # (Auto) [place] # (Auto) Eos # (Auto) Baso # (Auto) PT INR ABG pH 7.47 H ABG pCO2 41.0 ABG pO2 65 L ABG HCO3 30 H ABG Total CO2 31 ABG O2 Saturation 94 L ABG Base Excess 7.0 H FiO2 28 Sodium Potassium Chloride Carbon Dioxide BUN Creatinine Estimated GFR BUN/Creatinine Ratio Glucose Calcium Magnesium Total Creatine Kinase CK-MB (CK-2) CK-MB (CK-2) Rel Index Troponin I B-Natriuretic Peptide Procalcitonin < 0.05 Nasal Screen MRSA (PCR) Negative for mrsa 06/28/19 06/28/19 05:00 05:00 WBC 7.6 RBC 3.91 L Hgb 12.5 Hct 37.0 MCV 94.7 MCH 32.0 MCHC 33.8 RDW 14.4 Plt Count 323 Neut % (Auto) 63.4 Lymph % (Auto) 19.0 L [place] % (Auto) 16.1 H Eos % (Auto) 1.1 L Baso % (Auto) 0.4 Neut # (Auto) 4800 Lymph # (Auto) 1500 [place] # (Auto) 1200 H Eos # (Auto) 100 Baso # (Auto) 0 PT INR ABG pH ABG pCO2 ABG pO2 ABG HCO3 ABG Total CO2 ABG O2 Saturation ABG Base Excess FiO2 Sodium 135 L Potassium 4.7 Chloride 93 L Carbon Dioxide 37 H BUN 7 Creatinine 0.50 L Estimated GFR > 60.0 BUN/Creatinine Ratio 14.0 Glucose 88 Calcium 8.5 Magnesium Total Creatine Kinase CK-MB (CK-2) CK-MB (CK-2) Rel Index Troponin I B-Natriuretic Peptide Procalcitonin Nasal Screen MRSA (PCR) Assessment & Plan Assessment & Plan narrative: This is a 63-year-old female patient who presents to the ER with increasing shortness of breath since discharge from the hospital on 06/25/2019 despite the use of home oxygen. Patient has associated chest wall pain and nausea. She is admitted for recurrent pleural effusion related to pulmonary malignancy. 1. Acute hypoxic respiratory failure, present on admission, active -the patient requires oxygen at 2 liters/minute to maintain saturations greater than 90% with subjective complaints of dyspnea -ABG with a pH of 7.47, pCO2 of 41.0, PO2 65, bicarbonate 30, base excess of 7 while on 2 L nasal cannula. -respiratory therapy to consult, supplemental oxygen to maintain O2 saturation greater than 93% -will seek to resolve pulmonary effusion improving ventilatory capacity. 2. Acute, recurrent, malignant pleural effusion present on admission, active -patient has recurrent effusion consistent with effusion at time of previous presentation with associated symptoms of shortness of breath and chest pain -patient has been on home oxygen at 2 liters/minute and is oxygenating adequately in the ER. -will obtain therapeutic ultrasound guided thoracentesis. The patient may need more aggressive treatment as the effusion recurred in 5 days. -request Dr. Milian to consult for guidance and recommendations. 3. Probable right lung cancer -malignant cells identified in pleural fluid -imaging reveals spiculated mass on the right lung, hilar lymphadenopathy, nodular septal thickening of the right lung concerning for her carcinomatosis. Bony metastasis in the ribs, hips and sternum. 4. Hyperthyroidism, chronic, stable -will continue patient's current regimen of methimazole 5 mg daily. 5. Hypertension, chronic, active -patient with subjective complaints of orthostatic dizziness prior to arrival to the ER where the patient was found to be hypertensive at 83/53 normalizing with 1 L normal saline. -continue ramipril but will decrease the dose to 5 mg twice daily. 6. Metastatic bone lesions, active -will continue the patient's pain regimen of oxycodone extended release 10 mg twice daily and immediate release 10 mg every 4 hours as needed -Dilaudid 0.5-1 mg IV as needed for breakthrough pain. The patient is admitted to the hospital related to acute hypoxic respiratory failure and the risk for complications and adverse events. Patient will be admitted as an inpatient with expectation of a therapeutic ultrasound-guided thoracentesis. The patient's expected length of stay is greater than 2 midnights. Scores GCS [place] coma scale eye opening: Spontaneous [place] coma scale verbal response: Orientated [place] coma scale motor response: Obey commands [place] coma scale total score: 15 Quality VTE Deep Vein Thrombosis/Pulmonary Embolism Present on Admission: No
[2019-06-27 23:41] VITALS: BP 119/58; PULSE 82; RESP 18; TEMP 36.4; O2SAT 94
[2019-06-27 23:43] VITALS: PULSE 81; RESP 20; O2SAT 94
--- NOTE | 2019-06-27 23:43 | DI.US.S_ITS ---
PROCEDURE: US CHEST COMPARISON: [facility], CT, CT ANGIO CHEST PE PROTOCOL, 06/22/2019, 22:04. INDICATIONS: RECURRENT EFFUSION, HYPOXIA FINDINGS: There is a moderate-sized simple appearing right-sided pleural effusion. The skin overlying the posterior midline right hemithorax was marked at the largest pocket of fluid by the cable cutter and swager. The pleural fluid is located approximately 3 cm from the level of the skin. IMPRESSION: Moderate-sized right-sided pleural effusion. Dictated by: Miguelangel Hernandez M.D. on 06/28/2019 at 14:10 Approved by: Miguelangel Hernandez M.D. on 06/28/2019 at 14:12
[2019-06-28] VITALS (10 sets, daily range): BP systolic 111–146; BP diastolic 62–68; PULSE 74–85; RESP 12–25; TEMP 36.1–37.3; O2SAT 88–96
[2019-06-28] MEDS: ATENOLOL 50 MG TABLET PO ×2 (00:34→09:34)
[2019-06-28] MEDS: methIMAzole 5 MG TABLET PO ×2 (00:35→09:34)
[2019-06-28] MEDS: OXYCODONE IR 5 MG TABLET 10 MG PO ×5 (00:38→22:21)
[2019-06-28 05:29] LABS: Add Manual Diff / Slide Review NO; Basophils Absolute Auto 0 /uL (0-100); Basophils Percent Auto 0.4 % (0-2); Eosinophils Absolute Auto 100 /uL (0-450); Eosinophils Percent Auto 1.1 % (2-4); Hemoglobin 12.5 g/dL (12.0-16.0); Lymphocytes Absolute Auto 1500 /uL (1100-4500); Mean Corpuscular HGB Conc 33.8 % (30-36); Mean Corpuscular Volume 94.7 fL (80-100); Monocytes Absolute Auto 1200 /uL (0-900); Monocytes Percent Auto 16.1 % (3-14); Neutrophils Absolute Auto 4800 /uL (1500-7000); Neutrophils Percent Auto 63.4 % (50-75); Platelet Count 323 X10^3/uL (150-400); Red Blood Cell Count 3.91 X10^6/uL (4.0-5.2); Red Cell Distribution Width 14.4 % (11.6-14.8); White Blood Cell Count 7.6 X10^3/uL (4.5-11.0)
[2019-06-28 05:38] LABS: Blood Urea Nitrogen 7 mg/dL (7-17); Calcium 8.5 mg/dL (8.4-10.2); Carbon Dioxide 37 mmol/L (22-32); Chloride 93 mmol/L (98-107); Estimated Glomerular Filt Rate > 60.0 mL/min (>60); Glucose 88 mg/dL (80-110); HEMOLYSIS < 15 (0-50); Potassium 4.7 mmol/L (3.4-5.1); Sodium 135 mmol/L (137-145)
[2019-06-28] MEDS: ONDANSETRON 4 MG/2 ML INJ IV ×2 (06:27→11:20)
--- NOTE | 2019-06-28 07:54 | PM.PN.1 ---
Subjective Subjective Date Patient Seen: 06/28/19 Interval history: She is seen today to follow up the shortness of breath, lung cancer, recurrent pleural effusion. She just had a thoracentesis done for diagnostic purposes a few days ago and then was discharged home, returning late last night due to a sudden increase in right-sided chest pain and dyspnea. Exam Vital Signs (past 8 hours): - 06/28/19 00:00 06/28/19 03:30 06/28/19 04:38 Temperature 97.8 F Pulse Rate 82 Respiratory Rate 18 Blood Pressure 146/63 H Pulse Oximetry 93 88 L 93 06/28/19 06:49 Temperature Pulse Rate Respiratory Rate Blood Pressure Pulse Oximetry 95 Oxygen Delivery Method Nasal Cannula Oxygen Flow Rate 3 Narrative Exam Narrative: She is alert and oriented x3, no longer in distress. Lungs are clear to auscultation bilaterally and percuss symmetrically despite the known moderately large right pleural effusion. Heart is regular rate and rhythm with a 3/6 systolic ejection murmur. Extremities have no ankle edema. Objective Labs Result Diagrams: 06/28/19 05:00 06/28/19 05:00 Labs: Laboratory Results - last 24 hr 06/27/19 06/27/19 06/27/19 19:20 19:20 19:20 WBC 9.5 RBC 4.32 Hgb 13.6 Hct 41.0 MCV 94.8 MCH 31.5 MCHC 33.2 RDW 13.9 Plt Count 363 Neut % (Auto) 74.7 Lymph % (Auto) 12.3 L Kent % (Auto) 11.6 Eos % (Auto) 0.7 L Baso % (Auto) 0.7 Neut # (Auto) 7100 H Lymph # (Auto) 1200 Kent # (Auto) 1100 H Eos # (Auto) 100 Baso # (Auto) 100 PT 12.7 INR 1.1 ABG pH ABG pCO2 ABG pO2 ABG HCO3 ABG Total CO2 ABG O2 Saturation ABG Base Excess FiO2 Sodium 132 L Potassium 4.1 Chloride 90 L Carbon Dioxide 33 H BUN 8 Creatinine 0.50 L Estimated GFR > 60.0 BUN/Creatinine Ratio 16.0 Glucose 111 H Calcium 8.7 Magnesium 1.9 Total Creatine Kinase < 20 L CK-MB (CK-2) TNP CK-MB (CK-2) Rel Index TNP Troponin I < 0.012 B-Natriuretic Peptide 270 H Procalcitonin Nasal Screen MRSA (PCR) 06/27/19 06/27/19 06/27/19 19:20 19:55 22:00 WBC RBC Hgb Hct MCV MCH MCHC RDW Plt Count Neut % (Auto) Lymph % (Auto) Kent % (Auto) Eos % (Auto) Baso % (Auto) Neut # (Auto) Lymph # (Auto) Kent # (Auto) Eos # (Auto) Baso # (Auto) PT INR ABG pH 7.47 H ABG pCO2 41.0 ABG pO2 65 L ABG HCO3 30 H ABG Total CO2 31 ABG O2 Saturation 94 L ABG Base Excess 7.0 H FiO2 28 Sodium Potassium Chloride Carbon Dioxide BUN Creatinine Estimated GFR BUN/Creatinine Ratio Glucose Calcium Magnesium Total Creatine Kinase CK-MB (CK-2) CK-MB (CK-2) Rel Index Troponin I B-Natriuretic Peptide Procalcitonin < 0.05 Nasal Screen MRSA (PCR) Negative for mrsa 06/28/19 06/28/19 05:00 05:00 WBC 7.6 RBC 3.91 L Hgb 12.5 Hct 37.0 MCV 94.7 MCH 32.0 MCHC 33.8 RDW 14.4 Plt Count 323 Neut % (Auto) 63.4 Lymph % (Auto) 19.0 L Kent % (Auto) 16.1 H Eos % (Auto) 1.1 L Baso % (Auto) 0.4 Neut # (Auto) 4800 Lymph # (Auto) 1500 Kent # (Auto) 1200 H Eos # (Auto) 100 Baso # (Auto) 0 PT INR ABG pH ABG pCO2 ABG pO2 ABG HCO3 ABG Total CO2 ABG O2 Saturation ABG Base Excess FiO2 Sodium 135 L Potassium 4.7 Chloride 93 L Carbon Dioxide 37 H BUN 7 Creatinine 0.50 L Estimated GFR > 60.0 BUN/Creatinine Ratio 14.0 Glucose 88 Calcium 8.5 Magnesium Total Creatine Kinase CK-MB (CK-2) CK-MB (CK-2) Rel Index Troponin I B-Natriuretic Peptide Procalcitonin Nasal Screen MRSA (PCR) Assessment & Plan Assessment & Plan narrative: This is a 63-year-old female patient who presents to the ER with increasing shortness of breath since discharge from the hospital on 06/25/2019 despite the use of home oxygen. Patient has associated chest wall pain and nausea. She is admitted for recurrent pleural effusion related to pulmonary malignancy. 1. Acute hypoxic respiratory failure, present on admission, active -the patient is needing 2 liters/minute to maintain saturations greater than 90% with subjective complaints of dyspnea -ABG with a pH of 7.47, pCO2 of 41.0, PO2 65, bicarbonate 30, base excess of 7 while on 2 L nasal cannula. -respiratory is following, supplemental oxygen to maintain O2 saturation greater than 93% -ultrasound-guided paracentesis done today with greater than 1000 mL removed. Chest x-ray shows no pneumothorax and continued pleural effusion present. -if this problem continues she mayl be a candidate for surgical consultation and possible pleurodesis 2. Acute, recurrent, malignant pleural effusion present on admission, active -patient has recurrent effusion consistent with effusion at time of previous presentation with associated symptoms of shortness of breath and chest pain -patient has been on home oxygen at 2 liters/minute and is oxygenating adequately in the ER. -ultrasound-guided paracentesis done today with greater than 1000 mL removed. Chest x-ray shows no pneumothorax and continued pleural effusion present. -if this problem continues she may be a candidate for surgical consultation and possible pleurodesis -requested Dr. Milian to consult for guidance and recommendations. 3. Probable right lung cancer -malignant cells identified in pleural fluid -imaging reveals spiculated mass on the right lung, hilar lymphadenopathy, nodular septal thickening of the right lung concerning for her carcinomatosis. Bony metastasis in the ribs, hips and sternum. 4. Hyperthyroidism, chronic, stable -will continue patient's current regimen of methimazole 5 mg daily. 5. Hypertension, chronic, active -patient with subjective complaints of orthostatic dizziness prior to arrival to the ER where the patient was found to be hypertensive at 83/53 normalizing with 1 L normal saline. -continue ramipril but will decrease the dose to 5 mg twice daily. 6. Metastatic bone lesions, active -will continue the patient's pain regimen of oxycodone extended release 10 mg twice daily and immediate release 10 mg every 4 hours as needed -Dilaudid 0.5-1 mg IV as needed for breakthrough pain. Disposition to be determined in the next 1-2 days depending on oncology and possible recurrence of pleural effusion symptoms. At this point her pleuritic pain has been relieved. Quality VTE Deep Vein Thrombosis/Pulmonary Embolism Present on Admission: No
[2019-06-28] MEDS: HYDROMORPHONE 1 MG INJ IV ×3 (07:55→20:08)
[2019-06-28] MEDS: RAMIPRIL 5 MG CAPSULE PO ×2 (09:34→21:18)
[2019-06-28] MEDS: DOCUSATE 100 MG CAPSULE PO ×2 (09:34→21:18)
[2019-06-28] MEDS: OXYCODONE ER 10 MG TAB PO ×2 (10:07→21:18)
[2019-06-28] MEDS: LORazepam 0.5 MG TABLET PO (13:10)
--- NOTE | 2019-06-28 14:44 | DI.RAD.S_ITS ---
PROCEDURE: XR CHEST 1V INDICATIONS: post thoracentesis in ICU TECHNIQUE: One view of the chest was acquired. COMPARISON: [facility], CT, CT ANGIO CHEST PE PROTOCOL, 06/22/2019, 22:04. [facility], CR, XR CHEST 2V, 06/27/2019, 18:55. FINDINGS: Surgical changes and devices: None. Lungs and pleura: Mild interval decrease in size of the right-sided pleural effusion is identified. Areas of consolidation and interstitial prominence are identified within the right lung. There continues to be elevation of the right diaphragm. No definite pneumothorax is evident. There is a subtle area of new increased density along the left mid lung. Mediastinum: Mediastinal contours appear normal. Heart size is normal. Bones and chest wall: No suspicious bony lesions. Degenerative changes of the shoulders and spine are not well evaluated. There may be calcific tendinitis of the right rotator cuff. Overlying soft tissues appear unremarkable. IMPRESSION: 1. No pneumothorax. 2. Mild interval decrease in size of the right-sided pleural effusion. 3. Continued patchy consolidation throughout the right lung remains most suspicious for pneumonia. 4. Developing mild left pulmonary consolidation may represent atelectasis versus pneumonia. Dictated by: Miguelangel Hernandez M.D. on 06/28/2019 at 14:08 Approved by: Miguelangel Hernandez M.D. on 06/28/2019 at 14:10
--- NOTE | 2019-06-28 15:13 | PC.NURSE ---
1408-Bedside consent obtained for u/s Thoracocentesis with Dr Vallejo, and time out taken to verify patient identifiers, and procedure with Pt and RN Paige, and Marilia. Thoracocentesis started with LIS to wall, serosang fluid, with total out put of 1580mls. None sent for cytology. Pt VSS throughout with excellent oxygen saturation on 2L NC. Decreased SOB and Resp effort noted on ambulation to BR. CXR obtained post procedure.
--- NOTE | 2019-06-28 15:52 | PC.NURSE ---
Dayshift Nurse Note: Pt with uneventful shift. Pt mostly sleeping. Received in bed, on 3 L NC, SPO2 94%. Pt denies SOB. RR 12, unlabored. Pt with diminished lung sounds on R side, complains of pain on R side of back. Given scheduled oxycontin 10 mg BID. 10 mg oxycodone IR prn, and iv dilaudid prn. Pain has been up to 7/10. Pt with minimal appetite, nausea with meals, zofran scheduled. Pt with thoracentesis at bedside, see note for details. Will continue to monitor.
--- NOTE | 2019-06-28 15:59 | PM.PROC.1 ---
Procedures Date/Time Date of procedure: 06/28/19 Time of procedure: 13:59 General Procedure description: Thoracentesis After appropriate time-out and discussion of the procedure with the patient, including an informed consent discussion and signing of the consent form a thoracentesis was done on right chest. Ultrasound was present and marked the location of the fluid on the right posterior chest. This area was treated with lidocaine 1% and then a standard 18 gauge thoracentesis catheter was passed with excellent results. A total of 1580 mL was removed and discarded as previous testing for diagnostic cytology etc was already done this week. Lung exam was documented as symmetric without abnormalities after the procedure Chest x-ray shows no pneumothorax and there is an improvement in the pleural effusion size. Complications: none
--- NOTE | 2019-06-28 16:43 | CM.DANOTE ---
Addendum entered by Monika Smith LPN 06/28/19 17:05: update: clinical faxing: as per instruction by FIOR Rose, now gone for day, this clinical does need to be faxed. Have reviewed the Insurance Info and double checked with colleague Nandini and do not see any info re the [place] out of [place] [employer]: will leave clinical for CMsp Jessy who will be in early tomorrow for her followup. Original Note: Discharge Planning/Care Management DCP: assessment: initiated. Case received, EMR reviewed: READMIT: noted Discussed in Team Rounds. Pt is a 63 year old female who admitted to care of hospitalist team late last night. She was admitted to 06/22 with a d/c to home setting in [place] with her husbands supportive care and after consult by oncologist Dr. Milian/ oncology clinic. Pt carries dx of cancer with mets to bone. Went to check in with pt for introduction of self and role. She was in process of thoracentesis / procedure done by Dr. Vallejo. Review of procedure notes now show [address] Vallejo anticipates oncology to again consult and pt is expected to be in hospital a couple of days longer. DCP team to follow up, see pt and continue the d/c planning assessment process. Payer: out of state [employer]: as per weekend UR protocol will fax initial clinicals now and give receipt of fax confirmation to CMsp to scan on Saturday. CM Discharge Assessment Start: 06/28/19 16:42 Freq: Status: Active Protocol: Document 06/28/19 16:42 ITV (Rec: 06/28/19 16:42 ITV [id number]) Discharge Planning Assessment Advance Directives? Yes History Provided By Medical Record Prior Living Arrangements House Household Members spouse Community Services used prior to Oxygen Therapy admission: Review Status In Process
--- NOTE | 2019-06-28 21:08 | PC.NURSE ---
1999 - Pt reports pain to right ribs, hip and anterior chest, with cough. 8 of 10 pain. Educated to pain medication and treatment plan. Pt requesting Dilaudid now. Oxycodone and Oxycontin available at 2100. O2 sats 92% on 3L at rest. Intermittent, harsh coughing jags with blood streaked sputum. Pt able to ambulate into the bathroom SBA, pt irritable with staff presence during bathroom use. Educated to safety and fall precautions, Pt state but I am still entitled to my dignity. Comfort measures provided once pt had returned to bed. Reinforced safety and call light use. Call light in reach.
[2019-06-28] MEDS: TRAZODONE 50 MG TABLET PO (21:18)
[2019-06-29] VITALS (8 sets, daily range): BP systolic 108–133; BP diastolic 47–87; PULSE 69–83; RESP 16–20; TEMP 36.1–37.4; O2SAT 90–95; BMI 25.6
[2019-06-29] MEDS: HYDROMORPHONE 1 MG INJ IV ×4 (00:19→19:23)
[2019-06-29] MEDS: OXYCODONE IR 5 MG TABLET 10 MG PO ×5 (04:00→22:46)
[2019-06-29] MEDS: BENZONATATE 100 MG CAPSULE PO ×3 (04:00→21:41)
[2019-06-29] MEDS: SODIUM CHLORIDE 0.9% FLUSH 10 ML IV ×3 (05:53→21:39)
--- NOTE | 2019-06-29 06:08 | PC.NURSE ---
Patient has c/o pain to right mid back, 6-7, medicated with Percolone and IV Dilaudid for pain and Tesselon perals for persistant cough. O2 increased this am to 4L for SpO2 88% on 3L, desats to 83% on RA, faint exp wheezes Rt posterior. Ambulates to BR with SBA, VSS. Has refused scheduled OV Zofran, denies nausea.
[2019-06-29] MEDS: ENOXAPARIN 40 MG/0.4 ML SYRINGE SUBCUT (09:03)
[2019-06-29] MEDS: ATENOLOL 50 MG TABLET PO (09:03)
[2019-06-29] MEDS: DOCUSATE 100 MG CAPSULE PO ×2 (09:03→21:39)
[2019-06-29] MEDS: OXYCODONE ER 10 MG TAB PO ×2 (09:04→21:39)
[2019-06-29] MEDS: RAMIPRIL 5 MG CAPSULE PO ×2 (09:04→21:39)
[2019-06-29] MEDS: methIMAzole 5 MG TABLET PO (09:04)
--- NOTE | 2019-06-29 11:31 | DIET.PN ---
Dietary Progress Note Assessment: 63y F reporting reduced PO intake and recent wt loss. HT: 170.1cm WT: 74kg (79.3kg on 05/15/19 per [facility], 6% loss in 1mo Severe) BMI: 25.6 Nutrition Diagnosis: Severe Acute PCM r/t met Ca in lung and bones aeb <75% EER for >7d, 6% wt loss in 1 mo (severe), moderate losses to fat and muscle mass system wide, diagnostic imaging showing met Ca. Interventions: recc strawberry banana pro powder smoothie tid per pt request to increase kcal and PRO helping meet EERs in addition to meals EERs: 1850kcal, 90g PRO (1.2g/kg Ca), 2.2L fluids
--- NOTE | 2019-06-29 14:42 | PC.NURSE ---
Day Shift Note Alert and oriented x3. Denies feeling short of breath with activity. Oxygen sats 96% on 4L NC, decreased to 3L NC with sats 92-94%. Reports pain to right side, pain worse when deep breathing or coughing. Medicated per MAR with scheduled and prn pain medications. Telemetry ordered for patient but pt declines after teaching/rationale given - MD is aware. Call light within reach, using appropriately to make needs known. Steady on feet, independent to bathroom.
--- NOTE | 2019-06-29 17:09 | CM.DPC ---
POC continues Pt. uncomfortable today, but her discharge plan is home when medically stable. Patient has home O2 and doesn't anticipate a need for HH or SNF. Is active and independent at home and fully intends to be at or near baseline soon after D/C.
--- NOTE | 2019-06-29 17:13 | P.PN_ITS ---
Subjective Subjective Date Patient Seen: 06/29/19 Time Patient Seen: 17:13 Interval history: Mrs. Platt is a 63-year-old female who was admitted for recurrent pleural effusion secondary to malignancy. She had a total of 1.5 L of fluid removed yesterday. Her biopsy results came back and were positive for lung adenocarcinoma. I discussed these results with the patient in her family and answered any questions they had. She feels much improved after her procedur e yesterday, but is still requiring supplemental oxygen. I called and spoke with the patient's oncologist today, who recommended proceeding forward with a PleurX catheter for continued drainage. He will try and see the patient tomorrow. She has no fevers, chills, nausea, vomiting. She does request that she be pre treated prior to undergoing her procedure. Exam Vital Signs (past 8 hours): - 06/29/19 11:00 06/29/19 11:51 Temperature 99.3 F Pulse Rate 69 Respiratory Rate 16 Blood Pressure 108/51 L Pulse Oximetry 95 92 Oxygen Delivery Method Nasal Cannula Oxygen Flow Rate 3 Narrative Exam Narrative: GENERAL APPEARANCE: Well developed, well nourished, in no acute distress. SKIN: Inspection of the skin reveals no rashes, ulcerations or petechiae. HEENT: The sclerae were anicteric and conjunctivae were pink and moist. Extraocular movements were intact and pupils were equal, round with normal ac commodation. External inspection of the ears and nose showed no scars, lesions, or masses. Lips, teeth, and gums showed normal mucosa. The oral mucosa, hard and soft palate, tongue and posterior pharynx were unremarkable. NECK: Supple and symmetric. There was no thyroid enlargement, and no tenderness, or masses were felt. CHEST: Normal AP diameter and normal contour without any kyphoscoliosis. LUNGS: Auscultation of the lungs revealed no wheezes, rhonchi, or rales. There absent breath sounds in the RLL, but other lung fitzpatrick are unremarkable. CARDIOVASCULAR: There was a regular rate and rhythm without any murmurs, gallops, rubs. Peripheral pulses were 2+ and symmetric. ABDOMEN: Soft and nontender with normal bowel sounds. No ascites was noted. MUSCULOSKELETAL: There was no tenderness or effusions noted. Muscle strength and tone were normal. EXTREMITIES: No cyanosis, clubbing or edema. NEUROLOGIC: Alert and oriented x 3. Normal affect. Gait was normal. Strength is +5/5 in the Upper Extremities and Lower Extremities Bilaterally. Sensation to touch was normal. Objective Labs Result Diagrams: 06/28/19 05:00 06/28/19 05:00 Assessment & Plan Assessment & Plan narrative: This is a 63-year-old female patient who was admitted for recurrent pleural effusion, cytology results have revealed the effusion to be secondary to a lung adenocarcinoma, she is pending a PleurX catheter placement after discussion with Oncology today. 1. Acute hypoxic respiratory failure, present on admission, active - secondary to malignant pleural effusion. -the patient is needing 3-4 liters/minute to maintain saturations greater than 90% with subjective complaints of dyspnea -respiratory is following, supplemental oxygen to maintain O2 saturation greater than 93% -ultrasound-guided paracentesis done 06/28 with greater than 1000 mL removed. Chest x-ray shows no pneumothorax and continued pleural effusion present. -discuss with Oncology today and will try and obtain PleurX catheter placement for outpatient management to prevent further admissions. 2. Acute, recurrent, malignant pleural effusion present on admission, active -patient has recurrent effusion consistent with effusion at time of previous pr esentation with associated symptoms of shortness of breath and chest pain -patient has been on home oxygen at 2 liters/minute and is oxygenating adequately in the ER. -ultrasound-guided paracentesis done 06/28 with greater than 1000 mL removed. Chest x-ray shows no pneumothorax and continued pleural effusion present. -contacted Dr. Milian today, appreciate assistance over the phone, he will try to evaluate patient tomorrow. 3. R lung adenocarcinoma, active, present on admission - -malignant cells identified in pleural fluid -imaging reveals spiculated mass on the right lung, hilar lymphadenopathy, nodular septal thickening of the right lung concerning for her carcinomatosis. Bony metastasis in the ribs, hips and sternum. 4. Hyperthyroidism, chronic, stable -will continue patient's current regimen of methimazole 5 mg daily. 5. Hypertension, chronic, active -patient with subjective complaints of orthostatic dizziness prior to arrival to the ER where the patient was found to be hypertensive at 83/53 normalizing with 1 L normal saline. -continue ramipril but will decrease the dose to 5 mg twice daily. 6. Metastatic bone lesions, active -will continue the patient's pain regimen of oxycodone extended release 10 mg twice daily and immediate release 10 mg every 4 hours as needed -Dilaudid 0.5-1 mg IV as needed for breakthrough pain. Disposition: Plan for discharge home after pleurex catheter placement and education. Quality VTE Deep Vein Thrombosis/Pulmonary Embolism Present on Admission: No
[2019-06-29] MEDS: ONDANSETRON 4 MG/2 ML INJ IV (17:50)
[2019-06-29] MEDS: TRAZODONE 50 MG TABLET PO (21:39)
--- NOTE | 2019-06-29 22:57 | PC.NURSE ---
[place] note pt c/o pain to right chest and back, worse with cough. Medicated with oxycodone ER and IR and IV dilaudid. Called and got frequency of IV dilauidid increased because pt still having pain. Pt had nausea just before 18:00, no emesis. Medicated with scheduled Zofran. O2 sats only 90-92% on 3 L, so increased to 4 L with sats up to 96%.
[2019-06-30] VITALS (8 sets, daily range): BP systolic 99–125; BP diastolic 39–52; PULSE 71–81; RESP 18; TEMP 36–37.6; O2SAT 90–93
[2019-06-30] MEDS: HYDROMORPHONE 1 MG INJ IV ×3 (02:42→13:18)
[2019-06-30] MEDS: BENZONATATE 100 MG CAPSULE PO ×2 (02:42→08:38)
[2019-06-30] MEDS: SODIUM CHLORIDE 0.9% FLUSH 10 ML IV ×3 (02:43→08:38)
[2019-06-30] MEDS: OXYCODONE IR 5 MG TABLET 10 MG PO ×3 (04:23→12:32)
[2019-06-30 05:06] LABS: Add Manual Diff / Slide Review NO; Basophils Absolute Auto 0 /uL (0-100); Basophils Percent Auto 0.6 % (0-2); Eosinophils Absolute Auto 100 /uL (0-450); Eosinophils Percent Auto 1.2 % (2-4); Hemoglobin 12.3 g/dL (12.0-16.0); Lymphocytes Absolute Auto 1400 /uL (1100-4500); Lymphocytes Percent Auto 20.2 % (25-40); Mean Corpuscular HGB Conc 33.3 % (30-36); Mean Corpuscular Hemoglobin 31.8 PG (26-34); Mean Corpuscular Volume 95.6 fL (80-100); Monocytes Absolute Auto 1200 /uL (0-900); Monocytes Percent Auto 17.2 % (3-14); Neutrophils Absolute Auto 4200 /uL (1500-7000); Neutrophils Percent Auto 60.8 % (50-75); Platelet Count 304 X10^3/uL (150-400); Red Blood Cell Count 3.87 X10^6/uL (4.0-5.2); Red Cell Distribution Width 14.3 % (11.6-14.8); White Blood Cell Count 6.9 X10^3/uL (4.5-11.0)
[2019-06-30 05:08] LABS: INR 1.1 (0.9-1.3); Prothrombin Time 12.4 SECONDS (10.1-12.7)
[2019-06-30 05:11] LABS: PTT Partial Thromboplastin Tim 31 SECONDS (26.4-36.2)
[2019-06-30 05:14] LABS: Blood Urea Nitrogen 8 mg/dL (7-17); Calcium 8.3 mg/dL (8.4-10.2); Carbon Dioxide 35 mmol/L (22-32); Chloride 91 mmol/L (98-107); Estimated Glomerular Filt Rate > 60.0 mL/min (>60); Glucose 108 mg/dL (80-110); HEMOLYSIS < 15 (0-50); Magnesium 1.9 mg/dL (1.6-2.3); Potassium 4.2 mmol/L (3.4-5.1); Sodium 133 mmol/L (137-145)
[2019-06-30] MEDS: methIMAzole 5 MG TABLET PO (08:37)
[2019-06-30] MEDS: DOCUSATE 100 MG CAPSULE PO (08:37)
[2019-06-30] MEDS: OXYCODONE ER 10 MG TAB PO (08:37)
[2019-06-30] MEDS: ATENOLOL 50 MG TABLET PO (08:37)
[2019-06-30] MEDS: RAMIPRIL 5 MG CAPSULE PO (08:38)
--- NOTE | 2019-06-30 09:08 | P.PN_ITS ---
Subjective Subjective Date Patient Seen: 06/30/19 Time Patient Seen: 08:55 Interval history: Mrs. Platt is a 63-year-old female who was admitted for recurrent pleural effusion secondary to malignancy. She is currently pending a pleurex catheter placement for her malignant effusion. She has no fevers, chills, nausea, vomiting. She still has pain which is controlled on opiate therapy and it worsens on the right when she takes a deep breath. She does request that she be pre treated prior to undergoing her procedure. Exam Vital Signs (past 8 hours): - 06/30/19 01:10 06/30/19 04:43 06/30/19 06:13 Temperature 97.7 F Pulse Rate 80 Respiratory Rate 18 Blood Pressure 125/39 L Pulse Oximetry 92 93 91 06/30/19 07:50 06/30/19 08:20 Temperature 96.8 F L Pulse Rate 81 Respiratory Rate 18 Blood Pressure 99/49 L Pulse Oximetry 92 92 Oxygen Delivery Method Nasal Cannula Oxygen Flow Rate 4 Narrative Exam Narrative: GENERAL APPEARANCE: Well developed, well nourished, in no acute distress. SKIN: Inspection of the skin reveals no rashes, ulcerations or petechiae. HEENT: The sclerae were anicteric and conjunctivae were pink and moist. Ext raocular movements were intact and pupils were equal, round with normal accommodation. External inspection of the ears and nose showed no scars, lesions, or masses. Lips, teeth, and gums showed normal mucosa. The oral mucosa, hard and soft palate, tongue and posterior pharynx were unremarkable. NECK: Supple and symmetric. There was no thyroid enlargement, and no tenderness, or masses were felt. CHEST: Normal AP diameter and normal contour without any kyphoscoliosis. LUNGS: Auscultation of the lungs revealed no wheezes, rhonchi, or rales. There absent breath sounds in the RLL, but other lung fitzpatrick are unremarkable. CARDIOVASCULAR: There was a regular rate and rhythm without any murmurs, gal lops, rubs. Peripheral pulses were 2+ and symmetric. ABDOMEN: Soft and nontender with normal bowel sounds. No ascites was noted. MUSCULOSKELETAL: There was no tenderness or effusions noted. Muscle strength and tone were normal. EXTREMITIES: No cyanosis, clubbing or edema. NEUROLOGIC: Alert and oriented x 3. Normal affect. Gait was normal. Strength is +5/5 in the Upper Extremities and Lower Extremities Bilaterally. Sensation to touch was normal. Objective Labs Result Diagrams: 06/30/19 04:40 06/30/19 04:40 Labs: Laboratory Results - last 24 hr 06/30/19 06/30/19 06/30/19 04:40 04:40 04:40 WBC 6.9 RBC 3.87 L Hgb 12.3 Hct 37.0 MCV 95.6 MCH 31.8 MCHC 33.3 RDW 14.3 Plt Count 304 Neut % (Auto) 60.8 Lymph % (Auto) 20.2 L [place] % (Auto) 17.2 H Eos % (Auto) 1.2 L Baso % (Auto) 0.6 Neut # (Auto) 4200 Lymph # (Auto) 1400 [place] # (Auto) 1200 H Eos # (Auto) 100 Baso # (Auto) 0 PT 12.4 INR 1.1 APTT 31 D Sodium 133 L Potassium 4.2 Chloride 91 L Carbon Dioxide 35 H BUN 8 Creatinine 0.50 L Estimated GFR > 60.0 BUN/Creatinine Ratio 16.0 Glucose 108 Calcium 8.3 L Magnesium 1.9 Assessment & Plan Assessment & Plan narrative: This is a 63-year-old female patient who was admitted for recurrent pleural effusion, cytology results have revealed the effusion to be secondary to a lung adenocarcinoma, she is pending a PleurX catheter placement after discussion with Oncology today. 1. Acute hypoxic respiratory failure, present on admission, active - secondary to malignant pleural effusion. -the patient is needing supplemental to maintain saturations greater than 90% with subjective complaints of dyspnea -respiratory is following, supplemental oxygen to maintain O2 saturation greater than 93% -ultrasound-guided paracentesis done 06/28 with greater than 1000 mL removed. Chest x-ray shows no pneumothorax and continued pleural effusion present. -plan for PleureX catheter placement for outpatient management to prevent further admissions. 2. Acute, recurrent, malignant pleural effusion present on admission, active -patient has recurrent effusion consistent with effusion at time of previous presentation with associated symptoms of shortness of breath and chest pain -patient has been on home oxygen at 2 liters/minute and is oxygenating adequately in the ER. -ultrasound-guided paracentesis done 06/28 with greater than 1000 mL removed. Chest x-ray shows no pneumothorax and continued pleural effusion present. -contacted Dr. Milian today, appreciate assistance over the phone, he will try to evaluate patient tomorrow. 3. R lung adenocarcinoma, active, present on admission - -malignant cells identified in pleural fluid -imaging reveals spiculated mass on the right lung, hilar lymphadenopathy, nodular septal thickening of the right lung concerning for her carcinomatosis. Bony metastasis in the ribs, hips and sternum. 4. Hyperthyroidism, chronic, stable -will continue patient's current regimen of methimazole 5 mg daily. 5. Hypertension, chronic, active -patient with subjective complaints of orthostatic dizziness prior to arrival to the ER where the patient was found to be hypertensive at 83/53 normalizing with 1 L normal saline. -continue ramipril but will decrease the dose to 5 mg twice daily. 6. Metastatic bone lesions, active -will continue the patient's pain regimen of oxycodone extended release 10 mg twice daily and immediate release 10 mg every 4 hours as needed -Dilaudid 0.5-1 mg IV as needed for breakthrough pain. Disposition: Plan for discharge home after pleurex catheter placement and education. Quality VTE Deep Vein Thrombosis/Pulmonary Embolism Present on Admission: No
--- NOTE | 2019-06-30 13:15 | PM.DS.1 ---
History of Present Illness History of Present Illness Date Patient Seen: 06/30/19 Time Patient Seen: 11:00 Chief complaint: LUNG CANCER/PALPITATIONS/CANT BREATH/FLUID IN LUNG Narrative: As per AMMON Haro Natasha Platt is an unfortunate 63-year-old female with a history of hypertension and hyperlipidemia who has recently been diagnosed with right-sided lung cancer. Her presentation today included shortness of breath, pain on the right side of her chest, and nausea and vomiting with increasing O2 requirement. The patient had been admitted to [facility] with the same complaint and discharged on 06/25 2019 after undergoing both diagnostic and therapeutic thoracentesis on 06/23/2019. Malignant cells were found on cytology in the patient has been referred to Dr. Cook, oncology, and has appointment scheduled for 07/08/2019. She now presents for recurrent symptoms with increased dyspnea, chest wall pain without a cough. She denies fever or chills, headache but does orthostatic dizziness and was hypotensive upon arrival to the ER. She reports chest wall pain but no palpitations. She denies abdominal pain but has had episodic nausea. She dose has constipation, but denies dysuria. She remains independent in all her ADLs. She had a CT of the chest and PET scan from the occiput down to the thighs. Those studies indicated a spiculated mass on the right lung, hilar lymphadenopathy, nodular septal thickening of the right lung concerning for her carcinomatosis, and bony metastasis in the ribs, hips and sternum. Patient has an appointment with Dr. Cook on July 08. Upon arrival in the ER the patient was afebrile with temperature 97.5?, heart rate of 83, hypertensive at 83/59, respirations 16 saturating 100% on 2 L of oxygen. Chest x-ray was taking which feels reemergence of the pulmonary effusion. On ABG she is found have a pH of 7.47, pCO2 41.0, PO2 of 65, bicarb of 30 and base excess is 7.0 on 28% oxygen. On CBC she has white count of 9.5, hemoglobin of 13.6 and hematocrit of 41.0 with platelets of 363. Her chemistries all within normal limits save a nonfasting glucose of 111. She has a PT of 12.7 in INR 1.1. The patient is admitted to the hospital for acute hypoxic respiratory failure secondary to read current pulmonary effusion. Discharge Providers Provider Date of admission: 06/27/19 21:02 Discharge Date: 06/30/19 Primary care physician: Kathya Post PA-C Consults: 06/27/19 22:21 Consult to Dietitian, Adult Routine Comment: wt loss Reason For Exam: patient states 25lb weight loss new cancer diagnos 06/27/19 22:51 Consult to Dietitian, Adult Routine Comment: Reason For Exam: newly diagnosed lung cancer, pulmonary effusion Consult to Discharge Planning Routine Comment: 06/27/19 22:52 Consult to Physician Routine Comment: Consulting Provider: Raphael Milian Reason for consultation: Readmission recurrent pulmonary effusion r/t lung ca Has provider been notified: No 06/27/19 23:01 Consult to Respiratory Therapy Evaluate & Treat Comment: large Rt Pulm Eff, recurrent r/t lung ca Physician Instructions: Evaluate and treat Discharge provider: Chuy Dutta DO Summary Hospital Course Discharge Diagnosis: 1. Acute hypoxic respiratory failure, present on admission, active, improving- secondary to malignant pleural effusion. 2. Acute, recurrent, malignant pleural effusion present on admission, active 3. R lung adenocarcinoma, active, present on admission - 4. Hyperthyroidism, chronic, stable 5. Hypertension, chronic, active 6. Metastatic bone lesions, active Hospital Course: This is a 63-year-old female patient who was admitted for recurrent pleural effusion, cytology results have revealed the effusion to be secondary to a lung adenocarcinoma, she is being transferred to [facility] for a PleurX catheter placement, the patient was accepted by Dr. Maya. 1. Acute hypoxic respiratory failure, present on admission, active, improving- secondary to malignant pleural effusion. -the patient is needing supplemental to maintain saturations greater than 90% with subjective complaints of dyspnea -respiratory is following, supplemental oxygen to maintain O2 saturation greater than 93% -ultrasound-guided paracentesis done 06/28 with greater than 1000 mL removed. Chest x-ray shows no pneumothorax and continued pleural effusion present. -plan for PleureX catheter placement as outpatient. She can be discharged after placement and plan to follow up with Dr. Milian in the oncology clinic. 2. Acute, recurrent, malignant pleural effusion present on admission, active -patient has recurrent effusion consistent with effusion at time of previous presentation with associated symptoms of shortness of breath and chest pain -patient has been on home oxygen at 2 liters/minute and is oxygenating adequately currently after drainage. -ultrasound-guided paracentesis done 06/28 with greater than 1000 mL removed. Chest x-ray shows no pneumothorax and continued pleural effusion present. -Being transferred for pleurex catheter placement at [facility]. 3. R lung adenocarcinoma, active, present on admission - -malignant cells identified in pleural fluid -imaging reveals spiculated mass on the right lung, hilar lymphadenopathy, nodular septal thickening of the right lung concerning for her carcinomatosis. Bony metastasis in the ribs, hips and sternum. 4. Hyperthyroidism, chronic, stable -will continue patient's current regimen of methimazole 5 mg daily. 5. Hypertension, chronic, active -patient with subjective complaints of orthostatic dizziness prior to arrival to the ER where the patient was found to be hypertensive at 83/53 normalizing with 1 L normal saline. -patient's home ramipril was discontinued due to low-normal blood pressures on day of transfer. 6. Metastatic bone lesions, active -will continue the patient's pain regimen of oxycodone extended release 10 mg twice daily and immediate release 10 mg every 4 hours as needed -Dilaudid 0.5-1 mg IV as needed for breakthrough pain. Disposition: Transfer to [facility] for Pleurex Catheter Placement, will then need follow up with Dr. Milian in Oncology clinic. Accepted by Dr. Maya. Status at Discharge Cognitive/behavioral status at discharge: oriented Functional status at discharge: independent ambulation Overall status at discharge: patient is back to baseline Time Spent with Patient Time spent: Greater than 30 minutes Exam Vital Signs (past 8 hours): - 06/30/19 06:13 06/30/19 07:50 06/30/19 08:20 Temperature 96.8 F L Pulse Rate 81 Respiratory Rate 18 Blood Pressure 99/49 L Pulse Oximetry 91 93 92 06/30/19 12:00 06/30/19 12:15 Temperature 97.2 F L Pulse Rate 71 Respiratory Rate 18 Blood Pressure 105/52 L Pulse Oximetry 91 93 Oxygen Delivery Method Nasal Cannula Oxygen Flow Rate 4 Narrative Exam Narrative: GENERAL APPEARANCE: Well developed, well nourished, in no acute distress. SKIN: Inspection of the skin reveals no rashes, ulcerations or petechiae. HEENT: The sclerae were anicteric and conjunctivae were pink and moist. Extraocular movements were intact and pupils were equal, round with normal accommodation. External inspection of the ears and nose showed no scars, lesions, or masses. Lips, teeth, and gums showed normal mucosa. The oral mucosa, hard and soft palate, tongue and posterior pharynx were unremarkable. NECK: Supple and symmetric. There was no thyroid enlargement, and no tenderness, or masses were felt. CHEST: Normal AP diameter and normal contour without any kyphoscoliosis. LUNGS: Auscultation of the lungs revealed no wheezes, rhonchi, or rales. There absent breath sounds in the RLL, but other lung fitzpatrick are unremarkable. CARDIOVASCULAR: There was a regular rate and rhythm without any murmurs, gallops, rubs. Peripheral pulses were 2+ and symmetric. ABDOMEN: Soft and nontender with normal bowel sounds. No ascites was noted. MUSCULOSKELETAL: There was no tenderness or effusions noted. Muscle strength and tone were normal. EXTREMITIES: No cyanosis, clubbing or edema. NEUROLOGIC: Alert and oriented x 3. Normal affect. Gait was normal. Strength is +5/5 in the Upper Extremities and Lower Extremities Bilaterally. Sensation to touch was normal. Objective Labs Result Diagrams: 06/30/19 04:40 06/30/19 04:40 Labs: Laboratory Results - last 24 hr 06/30/19 06/30/19 06/30/19 04:40 04:40 04:40 WBC 6.9 RBC 3.87 L Hgb 12.3 Hct 37.0 MCV 95.6 MCH 31.8 MCHC 33.3 RDW 14.3 Plt Count 304 Neut % (Auto) 60.8 Lymph % (Auto) 20.2 L [place] % (Auto) 17.2 H Eos % (Auto) 1.2 L Baso % (Auto) 0.6 Neut # (Auto) 4200 Lymph # (Auto) 1400 [place] # (Auto) 1200 H Eos # (Auto) 100 Baso # (Auto) 0 PT 12.4 INR 1.1 APTT 31 D Sodium 133 L Potassium 4.2 Chloride 91 L Carbon Dioxide 35 H BUN 8 Creatinine 0.50 L Estimated GFR > 60.0 BUN/Creatinine Ratio 16.0 Glucose 108 Calcium 8.3 L Magnesium 1.9 Discharge Plan Discharge Plan Patient Disposition: [facility] Transfer to: [facility] Under care of provider: Dr. Maya Discharge comment: You are being transferred to [facility] for placement of a PleurX catheter. Afterwards he should continue your pain control and follow up with Dr. Milian in the Oncology Clinic. Discharge Med Rec/Prescriptions Prescriptions: New enoxaparin [Lovenox] 40 mg/0.4 mL Syringe 40 mg subcut DAILY 3 Days RF: 0 sennosides [senna] 8.6 mg Tablet 17.2 mg PO BEDTIME PRN (Reason: Constipation) 3 Days RF: 0 lorazepam 1 mg Tablet 1 mg PO Q4HR PRN (Reason: Anxiety) 3 Days RF: 0 ondansetron HCl (PF) 4 mg/2 mL Solution 4 mg IV Q6HR 3 Days RF: 0 Dilaudid (PF) 0.5 mg/0.5 mL Syringe 0.5 mg IV Q6H PRN (Reason: Pain, Moderate (4-6)) 3 Days RF: 0 Continued cyclobenzaprine 10 MG tablet 10 mg PO TID PRNQty: 20 RF: 0 atenolol 25 MG tablet 50 mg PO QDAY Qty: 0 RF: 0 methimazole 5 MG tablet 5 mg QDAY Qty: 0 RF: 0 trazodone 50 mg tablet 50 mg PO BEDTIME RF: 0 albuterol sulfate [ProAir HFA] 90 mcg/actuation HFA aerosol inhaler 90 mcg INHALATION PRN PRN (Reason: Shortness Of Breath) RF: 0 benzonatate 100 mg Capsule 100 mg PO TID PRN (Reason: Cough) Qty: 10 RF: 0 oxycodone 5 mg Tablet 10 mg PO Q4HR PRN (Reason: Pain, Severe (7-10)) Qty: 30 RF: 0 oxycodone [OxyContin] 10 mg Tablet,Oral Only,Ext.Rel.12 Hr 10 mg PO BID Qty: 30 RF: 0 ondansetron HCl [Zofran] 4 mg tablet 4 mg PO Q8-12H PRN (Reason: nausea and vomiting) Qty: 20 RF: 0 Discontinued ramipril 10 MG capsule 10 mg PO BID Qty: 0 RF: 0 Follow up/Referrals: Kathya Post PA-C [Primary Care Provider] - Discharge Health Status Brief summary of current health status: This is a 63-year-old female patient who was admitted for recurrent pleural effusion, cytology results have revealed the effusion to be secondary to a lung adenocarcinoma, she is being transferred to [facility] for a PleurX catheter placement, the patient was accepted by Dr. Maya. 1. Acute hypoxic respiratory failure, present on admission, active, improving- secondary to malignant pleural effusion. -the patient is needing supplemental to maintain saturations greater than 90% with subjective complaints of dyspnea -respiratory is following, supplemental oxygen to maintain O2 saturation greater than 93% -ultrasound-guided paracentesis done 06/28 with greater than 1000 mL removed. Chest x-ray shows no pneumothorax and continued pleural effusion present. -plan for PleureX catheter placement as outpatient. She can be discharged after placement and plan to follow up with Dr. Milian in the oncology clinic. 2. Acute, recurrent, malignant pleural effusion present on admission, active -patient has recurrent effusion consistent with effusion at time of previous presentation with associated symptoms of shortness of breath and chest pain -patient has been on home oxygen at 2 liters/minute and is oxygenating adequately currently after drainage. -ultrasound-guided paracentesis done 06/28 with greater than 1000 mL removed. Chest x-ray shows no pneumothorax and continued pleural effusion present. -Being transferred for pleurex catheter placement at [facility]. 3. R lung adenocarcinoma, active, present on admission - -malignant cells identified in pleural fluid -imaging reveals spiculated mass on the right lung, hilar lymphadenopathy, nodular septal thickening of the right lung concerning for her carcinomatosis. Bony metastasis in the ribs, hips and sternum. 4. Hyperthyroidism, chronic, stable -will continue patient's current regimen of methimazole 5 mg daily. 5. Hypertension, chronic, active -patient with subjective complaints of orthostatic dizziness prior to arrival to the ER where the patient was found to be hypertensive at 83/53 normalizing with 1 L normal saline. -patient's home ramipril was discontinued due to low-normal blood pressures on day of transfer. 6. Metastatic bone lesions, active -will continue the patient's pain regimen of oxycodone extended release 10 mg twice daily and immediate release 10 mg every 4 hours as needed -Dilaudid 0.5-1 mg IV as needed for breakthrough pain. Disposition: Transfer to [facility] for Pleurex Catheter Placement, will then need follow up with Dr. Milian in Oncology clinic. Accepted by Dr. Maya. Provider Discharge Instructions Diet: Diet as Tolerated Diet comment: No Restrictions Activity: No Restrictions Discharge Data Primary Care Provider: Kathya Post VTE Deep Vein Thrombosis/Pulmonary Embolism Present on Admission: No
--- NOTE | 2019-06-30 13:22 | ONC.MSW ---
Description: F/F Navigation Visit Activity: TEST FIXTURE ASSEMBLER met with pt in the ICU after Dr. Milian's initial consult visit with her. She is scheduled to have a pleurx catheter placed either later today or tomorrow in preparation for d/c home. Discussed with pt that Dr. Milian would like for her to begin chemotherapy next week, with chemo teaching scheduled as well, and would like her to get things started with Dr. Grant. Pt is feeling encouraged that this process is moving forward with a plan. Will notify scheduling to call her, as well as to begin necessary pre-authorizations.
--- NOTE | 2019-06-30 13:42 | P.PNONC_ITS ---
PN -Subjective Interval history: Diagnosis: Metastatic adenocarcinoma of the lung Interval history: The patient is a 63-year-old woman who I saw initially in the hospital last week. She had significant right-sided pleural effusion that was tapped. She had improvement in her shortness of breath following the procedure. However over the last week, shortness of breath recurred. And she was readmitted and had a 1000 cc of pleural fluid drained yesterday. She currently is awaiting placement of a PleurX catheter. She did have cytology since on her pleural fluid from last week. Pathology showed an adenocarcinoma of the lung. She had a PET CT done prior to her last admission that showed widespread metastasis with bony involvement. She does have some pain in the back and in the chest particularly when coughing. Her pain control seems to be adequate with her current medication. Appetite has been low. No fevers chills or sweats. She has not noted any adenopathy. No GI complaints. Her past medical history is notable for hypertension. She has otherwise been fairly healthy. Home Medications and Allergies Home Medications Medication Instructions Recorded Confirmed Type cyclobenzaprine 10 mg PO TID PRN #20 05/11/13 06/29/19 Rx atenolol 50 mg PO QDAY #0 12/13/16 06/29/19 History methimazole 5 mg QDAY #0 12/13/16 06/29/19 History albuterol sulfate [ProAir HFA] 90 mcg INHALATION PRN PRN 06/22/19 06/29/19 History trazodone 50 mg PO BEDTIME 06/22/19 06/29/19 History benzonatate 100 mg PO TID PRN #10 cap 06/24/19 06/29/19 Rx ondansetron HCl [Zofran] 4 mg PO Q8-12H PRN #20 tab 06/24/19 06/29/19 Rx oxycodone 10 mg PO Q4HR PRN #30 tab 06/24/19 06/29/19 Rx oxycodone [OxyContin] 10 mg PO BID #30 tab 06/24/19 06/29/19 Rx enoxaparin [Lovenox] 40 mg SUBCUT DAILY 3 Days ml 06/30/19 Rx hydromorphone (PF) [Dilaudid (PF)] 0.5 mg IV Q6H PRN 3 Days ml 06/30/19 Rx lorazepam 1 mg PO Q4HR PRN 3 Days tab 06/30/19 Rx ondansetron HCl (PF) 4 mg IV Q6HR 3 Days ml 06/30/19 Rx sennosides [senna] 17.2 mg PO BEDTIME PRN 3 Days tab 06/30/19 Rx Allergies Allergy/AdvReac Type Severity Reaction Status Date / Time erythromycin base Allergy Mild nausea/vomi Verified 06/27/19 18:45 [ERYTHROMYCIN BASE] tting Exam Vital signs: Vital Signs Temp Pulse Resp BP Pulse Ox 06/30/19 12:15 93 06/30/19 12:00 97.2 F L 71 18 105/52 L 91 06/30/19 08:20 92 06/30/19 07:50 96.8 F L 81 18 99/49 L 93 06/30/19 06:13 91 06/30/19 04:43 97.7 F 80 18 125/39 L 93 06/30/19 01:10 92 06/30/19 00:13 99.6 F 74 18 109/48 L 90 L 06/29/19 22:58 90 L 06/29/19 21:34 99.0 F 72 20 131/59 L Intake and Output 06/29/19 06/30/19 06/30/19 23:59 07:59 15:59 Intake Total 350 / 1210 50 / 350 300 / 350 Output Total 200 / 730 400 / 400 Balance 150 / 480 -350 / -50 300 / -50 Intake: Oral 350 / 1210 50 / 350 300 / 350 Output: Urine 200 / 730 400 / 400 Other: Percent Meal Consumed 25% 25% Weight 74.7 kg Patient Weight 06/30/19 23:59 Weight 74.7 kg - Constitutional positive no acute distress, positive average body habitus Comments: She is not further examined. Results - Labs Laboratory Last Values WBC 6.9 X10^3/uL (4.5-11.0) 06/30/19 04:40 RBC 3.87 X10^6/uL (4.0-5.2) L 06/30/19 04:40 Hgb 12.3 g/dL (12.0-16.0) 06/30/19 04:40 Hct 37.0 % (36-46) 06/30/19 04:40 MCV 95.6 fL (80-100) 06/30/19 04:40 MCH 31.8 PG (26-34) 06/30/19 04:40 MCHC 33.3 % (30-36) 06/30/19 04:40 RDW 14.3 % (11.6-14.8) 06/30/19 04:40 Plt Count 304 X10^3/uL (150-400) 06/30/19 04:40 Neut % (Auto) 60.8 % (50-75) 06/30/19 04:40 Lymph % (Auto) 20.2 % (25-40) L 06/30/19 04:40 White % (Auto) 17.2 % (3-14) H 06/30/19 04:40 Eos % (Auto) 1.2 % (2-4) L 06/30/19 04:40 Baso % (Auto) 0.6 % (0-2) 06/30/19 04:40 Neut # (Auto) 4200 /uL (8613-2807) 06/30/19 04:40 Lymph # (Auto) 1400 /uL (7057-8731) 06/30/19 04:40 White # (Auto) 1200 /uL (0-900) H 06/30/19 04:40 Eos # (Auto) 100 /uL (0-450) 06/30/19 04:40 Baso # (Auto) 0 /uL (0-100) 06/30/19 04:40 PT 12.4 SECONDS (10.1-12.7) 06/30/19 04:40 INR 1.1 (0.9-1.3) 06/30/19 04:40 APTT 31 SECONDS (26.4-36.2) D 06/30/19 04:40 ABG pH 7.47 (7.35-7.45) H 06/27/19 19:55 ABG pCO2 41.0 mmHg (35-45) 06/27/19 19:55 ABG pO2 65 mmHg (80-100) L 06/27/19 19:55 ABG HCO3 30 mmol/L (22-26) H 06/27/19 19:55 ABG Total CO2 31 mmol/L (21-31) 06/27/19 19:55 ABG O2 Saturation 94 % (95-100) L 06/27/19 19:55 ABG Base Excess 7.0 mmol/L (-2-2) H 06/27/19 19:55 FiO2 28 06/27/19 19:55 Sodium 133 mmol/L (137-145) L 06/30/19 04:40 Potassium 4.2 mmol/L (3.4-5.1) 06/30/19 04:40 Chloride 91 mmol/L (98-107) L 06/30/19 04:40 Carbon Dioxide 35 mmol/L (22-32) H 06/30/19 04:40 BUN 8 mg/dL (7-17) 06/30/19 04:40 Creatinine 0.50 mg/dL (0.52-1.04) L 06/30/19 04:40 Estimated GFR > 60.0 mL/min (>60) 06/30/19 04:40 BUN/Creatinine Ratio 16.0 (6-22) 06/30/19 04:40 Glucose 108 mg/dL (80-110) 06/30/19 04:40 Calcium 8.3 mg/dL (8.4-10.2) L 06/30/19 04:40 Magnesium 1.9 mg/dL (1.6-2.3) 06/30/19 04:40 Total Creatine Kinase < 20 U/L (30-135) L 06/27/19 19:20 CK-MB (CK-2) TNP 06/27/19 19:20 CK-MB (CK-2) Rel Index TNP 06/27/19 19:20 Troponin I < 0.012 ng/mL (0.01-0.034) 06/27/19 19:20 B-Natriuretic Peptide 270 (<100) H 06/27/19 19:20 Procalcitonin < 0.05 ng/mL (<0.5) 06/27/19 19:20 Nasal Screen MRSA (PCR) Negative for mrsa (Negative) 06/27/19 22:00 - Imaging Additional studies: Procedures Drainage of Right Pleural Cavity, Percutaneous Approach (06/27/19) Drainage of Right Pleural Cavity, Percutaneous Approach, Diagnostic (06/22/19) Assessment and Plan (1) Lung cancer Current visit: Yes Status: Acute 63-year-old woman with history of previous tobacco use. She has evidence of widespread metastasis on PET-CT. Her pathology from the pleural fluid did confirm an adenocarcinoma of the lung. Molecular studies are pending. Today, we talked about staging and natural history of non-small cell lung cancer. I pointed out that traditionally, standard chemotherapy can prolonged survival, improve quality of life but is not a curative. For patients who do not have a armor reconnaissance vehicle driver mutation or PD L1 expression, we would proceed with carboplatin and Alimta. Side effects were briefly reviewed including risk for alopecia, myelosuppression fatigue mucositis diarrhea and skin rash. For patients who express greater than 50% PD L1, immunotherapy by itself could be used. This sometimes will induce deep and long-lasting remissions period and has fewer side effects than chemotherapy. If PDL 1 expression is between 1 and 49%, the combination of carboplatin Alimta and pembrolizumab could be given. If she harbors mutation in EGFR, ALK or ROS 1, targeted therapy could be used in lieu of chemotherapy. Will make a tentative plan to start her treatment next week with chemotherapy alone. Depending on the results of her molecular testing, we may want to substitute or add immunotherapy. If she does have a armor reconnaissance vehicle driver mutation, we could switch to oral targeted therapy.
[2019-06-30] MEDS: CYANOCOBALAMIN 1,000 MCG/ML VIAL 1000 MCG SUBCUT (13:43)
[2019-06-30] MEDS: HYDROMORPHONE 0.5 MG INJ IV (14:09)
--- NOTE | 2019-06-30 14:31 | PC.NURSE ---
Transfer Note Pt transferred to [facility] via ambulance at 1420 for PleurX placement. 4L oxygen NC in place. Report called to Paige BURKETT and all questions answered. Information packet given to ambulance crew with records. 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 Vitamin B12 injection administered prior to transfer per Dr. Milian.
== END 2019-06-30 14:20 | disposition short-term general hospital (02) | DRG 180 ==
LOC: ED 19:39 → AC 21:02 → ICU 22:01
PROVIDERS: Internal Medicine; Admitting Provider Nurse Practitioner Adult Health; Emergency Provider Emergency Medicine; PCP Physician Assistant Medical; Visit Provider Nurse Practitioner Adult Health
DX: C34.91 Malignant neoplasm of unspecified part of right bronchus or lung (principal); J96.01 Acute respiratory failure with hypoxia; J91.0 Malignant pleural effusion; C79.51 Secondary malignant neoplasm of bone; E05.90 Thyrotoxicosis, unspecified without thyrotoxic crisis or storm; I10 Essential (primary) hypertension; Z87.891 Personal history of nicotine dependence
CPT/HCPCS: 36415; 36591; 36600; 71045; 71046; 76604; 80048; 81003; 82550; 82805; 83735; 83880; 84145; 84484; 85025; 85610; 85730; 87797; 93005; 94760; 94762; 96361; 96374; 96375; 99232; 99283; 99284; J1170; J1650; J2405; J3420

== ENCOUNTER → 2019-07-07 11:54 | Outpatient (CLI) | payer BC, SELFPAY ==
[2019-06-27 22:13] VITALS: BMI 25.8
--- NOTE | 2019-07-07 | DI.RAD.S_ITS ---
PROCEDURE: FL GUIDED PICC PLACEMENT INDICATIONS: LUNG CANCER COMPARISON: [facility], CR, XR CHEST 2V, 06/27/2019, 18:55. [facility], US, US CHEST, 06/28/2019, 14:12. FINDINGS: PICC was placed by the intravenous therapy team from the left side. Fluoroscopic spot film demonstrates the tip of PICC projecting to the area of the distal SVC IMPRESSION: Tip of PICC projects to the area of distal SVC. There is an additional curvilinear radiodensity across the right lower lung which also is involved by consolidation, and the appearance could represent a chest tube placed into the right lower pleural space. Dictated by: Yong Thomas M.D. on 07/07/2019 at 13:12 Approved by: Yong Thomas M.D. on 07/07/2019 at 13:15
== END ==
PROVIDERS: PCP Physician Assistant Medical
DX: Z45.2 Encounter for adjustment and management of vascular access device (principal); C34.90 Malignant neoplasm of unspecified part of unspecified bronchus or lung
CPT/HCPCS: 36573; 80053; 85025

== ENCOUNTER 2019-07-08 11:31 | Inpatient (IN) | payer BC, SELFPAY ==
[2019-07-08] VITALS (18 sets, daily range): BP systolic 80–123; BP diastolic 31–63; PULSE 63–94; RESP 15–24; TEMP 36.7; O2SAT 90–96; BMI 26.5
--- NOTE | 2019-07-08 11:34 | DI.RAD.S_ITS ---
PROCEDURE: XR CHEST 1V INDICATIONS: hypotension, new lung CA TECHNIQUE: One view of the chest was acquired. COMPARISON: [facility], CR, XR CHEST 2V, 06/27/2019, 18:55. [facility], CR, XR CHEST 1V, 06/28/2019, 14:51. [facility], US, US CHEST, 06/28/2019, 14:12. FINDINGS: Surgical changes and devices: There is a thoracostomy tube projecting to the mid aspect of the right pneumothorax. A left-sided PICC line is noted. Lungs and pleura: There is right lower lobe infiltrate and consolidation. There is generalized interstitial edema in right lung. Small right effusion. No pneumothorax. Mediastinum: Mediastinal contours appear normal. Heart size is normal. Bones and chest wall: No suspicious bony lesions. Overlying soft tissues appear unremarkable. IMPRESSION: 1. Right lower lobe infiltrate and consolidation with a small right may be secondary to pneumonitis or pneumonia. Dictated by: Ragini Szymanski M.D. on 07/08/2019 at 12:04 Approved by: Ragini Szymanski M.D. on 07/08/2019 at 12:14
[2019-07-08] MEDS: SODIUM CHLORIDE 0.9% 1,000 ML 1000 ML IV (11:47)
[2019-07-08 13:49] LABS: BUN Creatinine Ratio 8.9 (6-22); Blood Urea Nitrogen 41 mg/dL (7-17); Carbon Dioxide 23 mmol/L (22-32); Chloride 87 mmol/L (98-107); Estimated Glomerular Filt Rate 9.7 mL/min (>60); Glucose 90 mg/dL (80-110); HEMOLYSIS < 15 (0-50); Sodium 126 mmol/L (137-145)
[2019-07-08 13:56] LABS: Potassium 5.5 mmol/L (3.4-5.1)
--- NOTE | 2019-07-08 13:57 | ED_ITS ---
HPI - Weakness General Chief complaint: Weakness Stated complaint: weakness, ARF Time Seen by Provider: 07/08/19 11:33 Source: patient and family Mode of arrival: wheelchair Limitations: no limitations History of Present Illness HPI Narrative: 63-year-old female with recently discovered lung cancer presents with multiple [facility]. She had been set to receive her 1st dose of chemotherapy today but initial labs found rather significant change in her renal function and some electrolyte abnormalities. The patient had a blood pressure in the 80s additionally. She was brought to the emergency department for further evaluation and stabilization. Patient states she has had a very poor appetite with persistent nausea and episodes of vomiting, gradually increasing. She has poor appetite and admittedly has very little to eat or drink most days. She had been seen for recurrent pleural effusion but has had a pleural drain placed. MD Complaint: generalized weakness Onset (ago): day(s) Duration: constant Location: generalized Migration: none Severity: moderate Exacerbating factors: exertion Context: recent illness Related Data Home Medications Medication Instructions Recorded Confirmed atenolol 50 mg PO QDAY #0 12/13/16 07/08/19 methimazole 5 mg QDAY #0 12/13/16 07/08/19 albuterol sulfate [ProAir HFA] 90 mcg INHALATION PRN PRN 06/22/19 07/08/19 trazodone 50 mg PO BEDTIME 06/22/19 07/08/19 Previous Rx's Medication Instructions Recorded cyclobenzaprine 10 mg PO TID PRN #20 05/11/13 benzonatate 100 mg PO TID PRN #10 cap 06/24/19 ondansetron HCl [Zofran] 4 mg PO Q8-12H PRN #20 tab 06/24/19 oxycodone 10 mg PO Q4HR PRN #30 tab 06/24/19 oxycodone [OxyContin] 10 mg PO BID #30 tab 06/24/19 lorazepam 1 mg PO Q4HR PRN 3 Days tab 06/30/19 sennosides [senna] 17.2 mg PO BEDTIME PRN 3 Days tab 06/30/19 Allergies Allergy/AdvReac Type Severity Reaction Status Date / Time erythromycin base Allergy Mild nausea/vomi Verified 06/27/19 18:45 [ERYTHROMYCIN BASE] tting Review of Systems Constitutional Constitutional: Denies chills, Denies fatigue, Denies fever(s), Denies frequent falls, Denies lethargy, Reports malaise, Reports poor appetite and Reports weakness Eyes Eyes: Denies change in vision, Denies eye discharge, Denies irritation and Denies loss of vision ENT Ears, Nose, Mouth, and Throat: Denies change in voice, Denies dizziness, Denies neck pain, Denies sore throat and Denies throat swelling Cardiovascular Cardiovascular: Denies chest pain, Denies irregular heart rhythm, Denies lightheadedness, Denies palpitations, Reports dyspnea, Denies dyspnea on exertion and Denies orthopnea Respiratory Respiratory: Denies cough, Reports dyspnea, Denies dyspnea on exertion and D enies wheezing Gastrointestinal Gastrointestinal: Denies abdominal pain, Denies change in bowel habits, Denies diarrhea, Reports nausea and Reports vomiting Genitourinary Genitourinary: Denies hematuria, Denies flank pain, Denies urinary incontinence and Denies urinary urgency Musculoskeletal Musculoskeletal: Denies back pain, Denies muscle weakness, Denies neck pain, Denies numbness and Denies tingling Integumentary/Breasts Skin/Breast: Denies pruritus, Denies erythema, Denies rash and Denies wounds Neurologic Neurologic: Denies behavioral changes, Denies confusion, Denies dizziness, Denies frequent falls, Denies loss of vision, Denies numbness, Denies tingling and Reports weakness Psychiatric Psychiatric: Denies anxiety, Denies behavioral changes, Denies confusion, Denies depression, Denies homicidal ideation and Denies suicidal ideation Endocrine Endocrine: Denies fatigue, Denies flushing and Denies palpitations Hematologic/Lymphatic Hematologic/Lymphatic: Denies easy bruising Allergic/Immunologic Allergic/Immunologic: Denies urticaria, Denies throat swelling and Denies wheezing PFSH Medical History H/O: hysterectomy (Acute) HTN (hypertension) (Acute) Hypoxia (Inactive) Lung cancer (Inactive) Pleural effusion (Inactive) Family History Mother CVA (cerebral vascular accident) Father ETOH abuse Other Hypertension Social History household members: spouse Smoking Status: Former smoker alcohol intake: former Family History Mother CVA (cerebral vascular accident) Father ETOH abuse Other Hypertension Social History household members: spouse Smoking Status: Former smoker alcohol intake: former Exam Narrative Exam Narrative: GENERAL: [63] year old patient appears stated age. Ill appearing, mild distress HEAD: Atraumatic. Normocephalic. EYES: Pupils equal round and reactive. Extraocular motions intact. No scleral icterus. No injection or drainage. ENT: Dry mucous membranes Nose without bleeding, purulent drainage. Throat without erythema, tonsillar hypertrophy or exudate. Airway patent. NECK: Trachea midline. Non tender CARDIOVASCULAR: Regular rate and rhythm without murmurs, gallops, or rubs. RESPIRATORY: Decreased breath sounds in right base. No other crackles or wheezes. Pleural drain in place is; no obvious abnormality GASTROINTESTINAL: Abdomen soft, non-tender, nondistended. EXTREMITIES: No edema or joint tenderness. BACK: Nontender without deformity or crepitance. No flank tenderness. NEURO: AOx3. SKIN: No rash or erythema of visible areas Initial Vital Signs Initial Vital Signs: Vital Signs Temperature 98.1 F 07/08/19 11:35 Pulse Rate 94 H 07/08/19 11:35 Respiratory Rate 24 07/08/19 11:35 Blood Pressure 98/40 L 07/08/19 11:35 Pulse Oximetry 96 07/08/19 11:35 Course Orders Ordered: ED Orders 07/08/19 11:34 XR chest 1V Stat EKG-12 Lead Stat 07/08/19 13:26 BMP [Basic Metabolic Panel] Stat Creatine Kinase Stat Phosphorous Stat 07/08/19 14:16 US renal complete Stat Acetaminophen (Tylenol) 650 mg PO Q6HR PRN PRN Reason: As Needed for Fever/Mild Pain Al Hydrox/Mg Hydrox/Simethicone (Maalox Plus) 30 ml PO Q6HR PRN PRN Reason: Dyspepsia Albuterol (Ventolin Hfa) 1 puff INH RTQ4HR PRN PRN Reason: Shortness Of Breath Bisacodyl (Dulcolax) 10 mg DE DAILY PRN PRN Reason: Constipation Calcium Carbonate (Tums) 1,000 mg PO Q4HR PRN PRN Reason: Dyspepsia Calcium Carbonate (Tums) 500 mg PO BID [facility] Docusate Sodium (Colace) 100 mg PO BID [facility] Heparin Sodium (Porcine) (Heparin) 5,000 unit SUBCUT BID [facility] Sodium Chloride (Normal Saline 0.9%) 1,000 mls @ 100 mls/hr IV BOLUS ONE Stop: 07/09/19 02:24 Last Infusion: 07/08/19 17:21 Dose: 0 mls/hr Documented by: Admin: 07/08/19 16:26 Dose: 100 mls/hr Documented by: ANNEL Lactated Ringer's (Lactated Ringers) 1,000 mls @ 150 mls/hr IV CONT DILCIA Piperacillin/Tazobactam/Dextrose (Zosyn) 3.375 gm in 50 mls @ 100 mls/hr IV Q8H [facility] Lorazepam (Ativan) 1 mg PO Q4HR PRN PRN Reason: Anxiety Magnesium Hydroxide (Milk Of Magnesia) 30 ml PO DAILY PRN PRN Reason: Constipation Methimazole (Methimazole) 5 mg PO DAILY [facility] Ondansetron HCl (Zofran) 4 mg IV Q8HR PRN PRN Reason: Nausea And Vomiting Oxycodone HCl (Percolone) 20 mg PO Q4H [facility] Last Admin: 07/08/19 18:36 Dose: 20 mg Documented by: ROCHELLE Oxycodone HCl (Oxycontin) 10 mg PO BID [facility] Sennosides (Senna) 17.2 mg PO BEDTIME [facility] Sodium Biphosphate/Sodium Phosphate (Fleet Enema) 1 each DE PRN PRN PRN Reason: Constipation Discontinued Medications Sodium Chloride (Normal Saline 0.9%) 1,000 mls @ 1,000 mls/hr IV BOLUS ONE Stop: 07/08/19 12:32 Last Infusion: 07/08/19 12:42 Dose: 0 mls/hr Documented by: Admin: 07/08/19 11:47 Dose: 1,000 mls/hr Documented by: ADOLPH Lactated Ringer's (Lactated Ringers) 1,000 mls @ 1,000 mls/hr IV BOLUS ONE Stop: 07/08/19 18:05 Last Infusion: 07/08/19 17:21 Dose: 1,000 mls/hr Documented by: Admin: 07/08/19 17:12 Dose: 1,000 mls/hr Documented by: ADOLPH Lactated Ringer's (Lactated Ringers) 1,000 mls @ 1,000 mls/hr IV BOLUS ONE Stop: 07/08/19 19:01 Ondansetron HCl (Zofran) 4 mg IV NOW ONE Stop: 07/08/19 15:26 Last Admin: 07/08/19 15:48 Dose: 4 mg Documented by: ADOLPH Consultations Consultation #1: After 2nd L of fluid given I consulted Nephrology at [facility]. They are very reassured by improvement of renal function after 2 L and state that she is very appropriate to keep ear, we rehydrate and trach e lectrolyte abnormalities. Given her low albumin, which is likely even falsely elevated by her hemoconcentration he recommends against IV replacement of calcium at this point time, in suggest hydration and oral replacement for now. Consultation #2: Hospitalist, knows this patient well, happy to accept Vital Signs Vital signs: Vital Signs - 8 hr 07/08/19 11:35 07/08/19 12:22 07/08/19 13:30 Temperature 98.1 F Pulse Rate 94 H 72 68 Respiratory Rate 24 16 Blood Pressure 98/40 L Blood Pressure [Right Arm] 100/52 L 103/63 Pulse Oximetry 96 93 94 07/08/19 14:30 07/08/19 15:00 07/08/19 16:00 Temperature Pulse Rate 72 68 69 Respiratory Rate 22 Blood Pressure Blood Pressure [Right Arm] 80/49 L 91/32 L 86/50 L Pulse Oximetry 94 94 94 MDM - Weakness Lab Data Result diagrams: 07/08/19 18:55 07/08/19 13:26 Labs: Lab Results 07/08/19 07/08/19 07/08/19 Range/Units 13:26 13:26 13:26 Sodium 126 L (137-145) mmol/L Potassium 5.5 H (3.4-5.1) mmol/L Chloride 87 L (98-107) mmol/L Carbon Dioxide 23 (22-32) mmol/L BUN 41 H (7-17) mg/dL Creatinine 4.60 H (0.52-1.04) mg/dL Estimated GFR 9.7 L (>60) mL/min BUN/Creatinine Ratio 8.9 (6-22) Glucose 90 (80-110) mg/dL Calcium 6.3 L* (8.4-10.2) mg/dL Phosphorus 6.9 H (2.8-4.1) mg/dL Total Creatine Kinase 32 (30-135) U/L Discharge Plan Departure Patient Disposition: Admitted As Inpatient Clinical Impression: Acute dehydration, Hypocalcemia Lung cancer Qualifiers: Laterality: unspecified laterality Lung location: unspecified part of lung Qualified Code(s): C34.90 - Malignant neoplasm of unspecified part of unspecified bronchus or lung Acute renal failure Qualifiers: Acute renal failure type: unspecified Qualified Code(s): N17.9 - Acute kidney failure, unspecified Discharge Date/Time: 07/08/19 17:38 Admit Date/Time: 07/08/19 16:45 Admit Provider: Ramila Carrasco
[2019-07-08 14:08] LABS: Calcium 6.3 mg/dL (8.4-10.2)
--- NOTE | 2019-07-08 14:16 | DI.US.S_ITS ---
PROCEDURE: US RENAL COMPLETE INDICATIONS: RENAL FAILURE TECHNIQUE: Real-time scanning was performed of the kidneys and bladder, with image documentation. COMPARISON: Outside Facility, RG, CT PET SKULL BASE TO MID THIGH, 06/12/2019, 17:19. FINDINGS: Kidneys: Kidneys are normal in size. Right kidney measures 11.3 cm long; left kidney measures 11.8 cm long. Right renal cortical thickness is 1.7 cm; left renal cortical thickness is 1.4 cm. Renal cortical echotexture is normal. No hydronephrosis is identified. No cystic or solid renal lesions are appreciated. There is a large inferior right renal calculus evident measuring up to 1.7 cm. No shadowing left renal calculi are evident. Bladder: The bladder volume is 320 mL. The patient was unable to void at the time of this exam. Ureteral jets are not evident. Miscellaneous: No free pelvic fluid. IMPRESSION: 1. Right-sided nephrolithiasis without hydronephrosis. 2. No hydronephrosis of the left kidney. Dictated by: Miguelangel Hernandez M.D. on 07/08/2019 at 14:00 Approved by: Miguelangel Hernandez M.D. on 07/08/2019 at 14:06
[2019-07-08 14:57] LABS: Creatine Kinase 32 U/L (30-135)
[2019-07-08 15:02] LABS: Phosphorous 6.9 mg/dL (2.8-4.1)
[2019-07-08] MEDS: ONDANSETRON 4 MG/2 ML INJ IV ×2 (15:48→20:10)
[2019-07-08] MEDS: SODIUM CHLORIDE 0.9% 1,000 ML 100 ML IV (16:26)
[2019-07-08] MEDS: LACTATED RINGERS 1,000 ML 1000 ML IV ×2 (17:00→17:12)
--- NOTE | 2019-07-08 17:15 | CM.MNRNOTE ---
Per Dr Carrasco, 1L bolus of LR started
--- NOTE | 2019-07-08 17:42 | PC.NURSE ---
Addendum entered by Miri Hong R.N. 07/08/19 23:06: Pt with HR 72 SR. BP 82/31. AMMON Saavedra at bedside. Starting 500cc bolus of LR now. Pt on 8L HIGH FLOW Nasal Cannula. Addendum entered by Miri Hong R.N. 07/08/19 22:05: [place] of low UOP and decreased fluctuating BP. Will continue to monitor for now. No IV bolus. Pt confused when woken up. States 0/10 pain when woken up. 92% on 4LNC. RLL PleurX drain drsng changed. Insertion site c/d/i. Addendum entered by Miri Hong R.N. 07/08/19 21:04: Pt with sats of 88% on 2LNC. Increased O2 to 4LNC now 94%. Addendum entered by Miri Hong R.N. 07/08/19 20:23: 1999 Delayed note: Pt agitated with escalating forgetfulness in not wanting her gonzalez and needing repeated exaplanations for medical care, Daughter at bedside. Given IV 0.5mg Ativan. 2024: Pt sleeping, cooperative, no longer pulling on gonzalez cath. Gonzalez draining dark julia urine. Addendum entered by Miri Hong R.N. 07/08/19 19:35: Gonzalez placed. All labs sent. KUB completed. Strict Is and Os. Pt needing to be reoriented consistently. Cooperative but confused. IV Abx hanging, 1L bolus LR complete, LR@150mL/hr now via LUE SL PICC. Pt unable to give pain a number, but stated it is a lot better, at times says her back doesn't hurt but then rates it as an 8/10. Appears much more comfortable and daughter agrees. Will continue to monitor. Original Note: Pt admitted from ER. Waiting for admission orders. VS 74 SR, no ectopy noted. BP 109/47, Sats 93% on 3LNC and Temp 97.4. Accompanied by daughter Geovani. Continuing IV bolus of 1L LR via LUE SL PICC.
--- NOTE | 2019-07-08 18:10 | PM.HP.1 ---
History of Present Illness History of Present Illness Date Patient Seen: 07/08/19 Chief complaint: weakness, ARF Narrative: The patient is a 63-year-old female with a new diagnosis of metastatic adenocarcinoma of the lung. Her lung cancer includes involvement of the neck lymph nodes, mediastinal nodes, ribs, spine, pelvis and rectum. The patient has had recurrent right-sided pleural effusions requiring multiple thoracenteses. She had a PleurX catheter placed on July 01, 2019. The patient presented to the [facility] today for induction chemotherapy. The patient had been complaining of fatigue, chills, and overall feeling poorly. She reports poor appetite. She has been able to eat minimally for the past few weeks. She is drink minimally as well. She has nausea most days. She had a couple episodes of emesis 2 days ago but no hematemesis. She has had some bright red blood per rectum related to hemorrhoids. She denies any fever. She has had minimal cough. She has not vomited up blood, and had no additional bright red blood per rectum. She denies any dysuria hematuria or pyuria. She has no headache. The patient was evaluated by Dr. Grant in the Oncology Clinic. She was found to have a creatinine of 5.0 up from 0.5. Her potassium was 5.9. She was sent to the emergency department for further evaluation. In the emergency department [place] [address]. Hemoglobin hematocrit and platelet counts were within normal limits. The patient had a creatinine of 5. She was given IV hydration with improvement of her creatinine from 5.0-4.6. The patient also reports having some loose stool. She has been constipated since she left the hospital. She does also report continued pain for which she takes OxyContin 10 mg twice daily and as needed oxycodone every 4 hours. She is chronically short of breath. Patient is also on 3 L of oxygen at home. She is admitted to the hospital at this time for further evaluation of new onset acute renal failure. The patient reports a 25 lb weight loss since her diagnosis. Patient History Medical History (Updated 07/08/19 @ 18:20 by Ramila Carrasco MD) H/O: hysterectomy (Acute) HTN (hypertension) (Acute) Hypoxia (Inactive) Lung cancer (Inactive) Pleural effusion (Inactive) Family History Mother CVA (cerebral vascular accident) Father ETOH abuse Other Hypertension Social History household members: spouse Smoking Status: Former smoker alcohol intake: former Family & Social History Social History: household members spouse Safety & Behavioral: Feels Safe in Current Yes Environment Been Physically Hurt or No Threatened By a Person Tobacco & Substance use: Smoking Status Former smoker alcohol intake former alcohol intake frequency a few times a month Substance Use Type does not use Meds Home Medications and Allergies Home Medications Medication Instructions Recorded Confirmed Type cyclobenzaprine 10 mg PO TID PRN #20 05/11/13 07/08/19 Rx atenolol 50 mg PO QDAY #0 12/13/16 07/08/19 History methimazole 5 mg QDAY #0 12/13/16 07/08/19 History albuterol sulfate [ProAir HFA] 90 mcg INHALATION PRN PRN 06/22/19 07/08/19 History trazodone 50 mg PO BEDTIME 06/22/19 07/08/19 History benzonatate 100 mg PO TID PRN #10 cap 06/24/19 07/08/19 Rx ondansetron HCl [Zofran] 4 mg PO Q8-12H PRN #20 tab 06/24/19 07/08/19 Rx oxycodone 10 mg PO Q4HR PRN #30 tab 06/24/19 07/08/19 Rx oxycodone [OxyContin] 10 mg PO BID #30 tab 06/24/19 07/08/19 Rx lorazepam 1 mg PO Q4HR PRN 3 Days tab 06/30/19 07/08/19 Rx sennosides [senna] 17.2 mg PO BEDTIME PRN 3 Days tab 06/30/19 07/08/19 Rx Allergies Allergy/AdvReac Type Severity Reaction Status Date / Time erythromycin base Allergy Mild nausea/vomi Verified 06/27/19 18:45 [ERYTHROMYCIN BASE] tting Review of Systems Review of Systems ROS Unobtainable: All systems reviewed & are unremarkable except as noted in HPI and below Exam Vital Signs (past 8 hours): - 07/08/19 11:35 07/08/19 12:22 07/08/19 13:30 Temperature 98.1 F Pulse Rate 94 H 72 68 Respiratory Rate 24 16 Blood Pressure 98/40 L Blood Pressure [Right Arm] 100/52 L 103/63 Pulse Oximetry 96 93 94 07/08/19 14:30 07/08/19 15:00 07/08/19 16:00 Temperature Pulse Rate 72 68 69 Respiratory Rate 22 Blood Pressure Blood Pressure [Right Arm] 80/49 L 91/32 L 86/50 L Pulse Oximetry 94 94 94 07/08/19 17:01 07/08/19 17:20 07/08/19 17:22 Temperature Pulse Rate 68 75 75 Respiratory Rate 24 18 18 Blood Pressure 90/58 L Blood Pressure [Right Arm] 103/63 90/58 L Pulse Oximetry 94 96 96 Oxygen Delivery Method Room Air Oxygen Flow Rate 3 Narrative Exam Narrative: Ill-appearing female lying in bed who appears uncomfortable HEENT: Normocephalic atraumatic, extraocular muscles are intact, oropharynx reveals dry mucous membranes, neck is supple, there is shotty supraclavicular posterior cervical and anterior cervical adenopathy, no thyromegaly noted Lungs: Decreased breath sounds, scattered rhonchi and crackles on the right lung Cardiac exam: Regular rate and rhythm normal S1-S2 Abdomen: Soft, mildly tender in the right upper quadrant, no palpable masses no hepatosplenomegaly, no board-like rigidity, to normoactive bowel tones Extremities: No edema Neuro exam: Patient is awake alert and appropriate, cranial nerves are intact strength is symmetric and equal, sensation is grossly intact, reflexes are brisk and equal Psychiatric exam: Patient is somewhat withdrawn, but no evidence of hallucinations, no evidence of delusions Skin exam: No obvious lesion Objective Labs Result Diagrams: 07/08/19 13:26 Labs: Laboratory Results - last 24 hr 07/08/19 07/08/19 07/08/19 13:26 13:26 13:26 Sodium 126 L Potassium 5.5 H Chloride 87 L Carbon Dioxide 23 BUN 41 H Creatinine 4.60 H Estimated GFR 9.7 L BUN/Creatinine Ratio 8.9 Glucose 90 Calcium 6.3 L* Phosphorus 6.9 H Total Creatine Kinase 32 Assessment & Plan Assessment & Plan narrative: Impression 1. 63-year-old female admitted to the hospital with acute renal failure. Patient has a history of known metastatic adenocarcinoma of the lung. She has had poor appetite. She has had a 25 lb weight loss. She has had poor oral intake. The patient appears to be severely dehydrated. This is manifested by hypotension, poor skin turgor, dry mucous membranes, and laboratory abnormalities. She has responded nicely with IV hydration. We anticipate this is prerenal azotemia, versus ATN from dehydration. Plan at this time is to continue lactated Ringer's and monitor her laboratory studies closely. Will avoid all nephrotoxin agents as well. 2. Chronic hypoxemic respiratory failure, patient was discharged home on 3 L of oxygen. This is related to her underlying recurrent pleural effusion and metastatic adenocarcinoma of the lung. Patient has a PleurX catheter in place. Will evaluate to determine whether fluid needs to be removed. In the interim will continue 3 L of oxygen. Patient chest x-ray shows a right lower lobe infiltrate. (previously present on her last admission) Given her elevated white count and acute renal failure will empirically start her on Zosyn for presumed pneumonia. 3. r/o septic shock, manifested as acute renal failure, right lower lobe infiltrate, hypotension and chronic respiratory failure, the patient will obtain blood cultures, empirically be started on antibiotics for her right lower lobe infiltrate, will repeat labs in the morning. Lactate is pending, will obtain a procalcitonin as well. Patient will continue to receive significant IV hydration given her hypotension. 4. Metastatic adenocarcinoma of the lung, patient was to start induction chemotherapy today. Unfortunately given her acute renal failure this was aborted. PleurX catheter remains in place given her recurrent pleural effusions. Will evaluate whether additional fluid needs to be removed. 5. Hyponatremia, likely related to volume depletion/dehydration. The patient will be rehydrated. Will obtain a serum osmolality. If she is found to be hypotonic would consider fluid restriction. Will hold that at this time given her significant dehydration. In addition the patient may have SIADH given her underlying lung cancer. 6. Hyperkalemia, improving with IV hydration. This is related to her underlying acute renal failure id will continue to monitor closely. 7. Hypocalcemia, this is multifactorial. It likely related to her hypoalbuminemic state. aS discussed with Nephrology will not replace with IV calcium but rather oral calcium. Will obtain a ionized calcium level in the morning. 8. Severe protein calorie malnutrition. Patient continues to have poor appetite, significant weight loss of 25 lb, and hypoalbuminemia. 9. Hypertension patient is currently hypotensive will hold her usual antihypertensive medication 10. Constipation, obtain a KUB and continue an aggressive bowel regimen. Patient is very ill, will continue aggressive management, she requests full code at this time which will be noted. The patient is an inpatient and we anticipate she will be in the hospital for greater than 2 days.
--- NOTE | 2019-07-08 18:11 | DI.RAD.S_ITS ---
PROCEDURE: XR KUB INDICATIONS: r/o obstipation TECHNIQUE: One view of the abdomen acquired. COMPARISON: [facility], , US RENAL COMPLETE, 07/08/2019, 14:37. FINDINGS: Surgical changes and devices: None. Bowel: Bowel gas pattern is normal. A mild to moderate stool can be seen within the colon. Soft tissues: A 1.5 cm kidney stone is seen overlying the inferior pole the right kidney. Visualized solid organ contours appear normal in size. Bones: No suspicious bony lesions. Age-appropriate bony degenerative changes are seen. IMPRESSION: No significant bowel abnormality can be seen. 1.5 cm right kidney stone. If it would be helpful for clinical management decision making, please consider a dedicated dedicated CT of the abdomen and pelvis for further evaluation. Dictated by: Jose Magdaleno M.D. on 07/08/2019 at 18:42 Approved by: Jose Magdaleno M.D. on 07/08/2019 at 18:43
[2019-07-08] MEDS: LACTATED RINGERS 1,000 ML 150 ML IV ×2 (18:20→23:57)
[2019-07-08] MEDS: OXYCODONE IR 10 MG TABLET 20 MG PO ×2 (18:36→23:56)
[2019-07-08] MEDS: PIPERACILLIN-TAZO 3.375 GM/50 ML FROZ.PIGGY IV (19:27)
[2019-07-08 19:34] LABS: BUN Creatinine Ratio 9.1 (6-22); Blood Urea Nitrogen 42 mg/dL (7-17); Carbon Dioxide 24 mmol/L (22-32); Chloride 87 mmol/L (98-107); Estimated Glomerular Filt Rate 9.7 mL/min (>60); Glucose 80 mg/dL (80-110); HEMOLYSIS < 15 (0-50); Phosphorous 6.7 mg/dL (2.8-4.1); Sodium 126 mmol/L (137-145)
[2019-07-08 19:46] LABS: Potassium 5.8 mmol/L (3.4-5.1)
[2019-07-08 19:50] LABS: Calcium 6.3 mg/dL (8.4-10.2)
[2019-07-08 19:54] LABS: Lactate (Lactic Acid) 0.9 mmol/L (0.7-2.1)
[2019-07-08 20:00] LABS: Add Manual Diff / Slide Review NO; Basophils Absolute Auto 0 /uL (0-100); Basophils Percent Auto 0.2 % (0-2); Eosinophils Absolute Auto 0 /uL (0-450); Eosinophils Percent Auto 0.1 % (2-4); Hematocrit 37.4 % (36-46); Hemoglobin 12.4 g/dL (12.0-16.0); Lymphocytes Absolute Auto 800 /uL (1100-4500); Lymphocytes Percent Auto 5.9 % (25-40); Mean Corpuscular HGB Conc 33.2 % (30-36); Mean Corpuscular Hemoglobin 30.9 PG (26-34); Mean Corpuscular Volume 93.1 fL (80-100); Monocytes Absolute Auto 900 /uL (0-900); Monocytes Percent Auto 6.8 % (3-14); Neutrophils Absolute Auto 11500 /uL (1500-7000); Platelet Count 381 X10^3/uL (150-400); Red Blood Cell Count 4.01 X10^6/uL (4.0-5.2); Red Cell Distribution Width 14.8 % (11.6-14.8); White Blood Cell Count 13.2 X10^3/uL (4.5-11.0)
[2019-07-08] MEDS: LORazepam 2 MG/ML INJ 0.5 MG IV (20:00)
[2019-07-08 20:03] LABS: Procalcitonin 0.98 ng/mL (<0.5)
[2019-07-08] MEDS: OXYCODONE ER 10 MG TAB PO (20:10)
[2019-07-08] MEDS: CALCIUM CARBONATE 500 MG TAB PO (20:10)
[2019-07-08] MEDS: HEPARIN 5,000 UNIT/ML VIAL 5000 UNIT SUBCUT (20:11)
[2019-07-08] MEDS: SODIUM CHLORIDE 0.9% 1,000 ML 125 ML IV (20:22)
[2019-07-08 21:02] LABS: Bacteria Urine None Seen
[2019-07-08 21:09] LABS: Bilirubin Urine UA NEGATIVE (NEGATIVE); Color Urine UA YELLOW; Glucose Urine UA TRACE g/dL (Negative); Ketones Urine UA NEGATIVE (NEGATIVE); Leukocyte Esterase Urine UA 1+ (NEGATIVE); Nitrite Urine UA NEGATIVE (Negative); Occult Blood Urine UA 3+ (Negative); Protein Urine UA 2+ (Negative); Urobilinogen Urine UA 0.2 E.U./dL (0.2)
[2019-07-08 21:10] LABS: Appearance Urine UA CLOUDY; RBC Urine 10-30/HPF (0-5/HPF); WBC Urine 10-30/HPF (0-5/HPF)
[2019-07-08 21:11] LABS: Amorphous Sediment Urine 2+; Culture Indicated Urine Specimen Cultured; Granular Casts Urine 0-1/LPF; Hyaline Casts Urine 1-5/LPF; Squamous Epithelial Cell Urine 1-5 /HPF (0-5/HPF)
[2019-07-08] MEDS: LORazepam 1 MG TABLET PO (23:56)
[2019-07-08] MEDS: LACTATED RINGERS 500 ML 1000 ML IV (23:57)
[2019-07-09] VITALS (26 sets, daily range): BP systolic 91–142; BP diastolic 44–76; PULSE 68–84; RESP 8–21; TEMP 35.8–36.7; O2SAT 90–96; BMI 27.1
[2019-07-09] MEDS: SODIUM POLYSTYRENE SULFON/SORB 15 GM/60 ML CUP PO (00:04)
[2019-07-09] MEDS: PIPERACILLIN-TAZO 3.375 GM/50 ML FROZ.PIGGY IV (03:05)
[2019-07-09 05:11] LABS: Add Manual Diff / Slide Review NO; Basophils Absolute Auto 0 /uL (0-100); Basophils Percent Auto 0.1 % (0-2); Eosinophils Absolute Auto 0 /uL (0-450); Eosinophils Percent Auto 0.3 % (2-4); Hemoglobin 10.1 g/dL (12.0-16.0); Lymphocytes Absolute Auto 900 /uL (1100-4500); Lymphocytes Percent Auto 6.2 % (25-40); Mean Corpuscular HGB Conc 33.7 % (30-36); Mean Corpuscular Hemoglobin 31.2 PG (26-34); Mean Corpuscular Volume 92.6 fL (80-100); Monocytes Absolute Auto 1100 /uL (0-900); Monocytes Percent Auto 7.5 % (3-14); Neutrophils Absolute Auto 12900 /uL (1500-7000); Neutrophils Percent Auto 85.9 % (50-75); Platelet Count 453 X10^3/uL (150-400); Red Blood Cell Count 3.24 X10^6/uL (4.0-5.2); Red Cell Distribution Width 14.9 % (11.6-14.8)
[2019-07-09 05:21] LABS: Fractionated Inspired Oxygen 24; HCO3 ABG 24 mmol/L (22-26); Oxygen Saturation ABG 97 % (95-100); PCO2 ABG 49.4 mmHg (35-45); PO2 ABG 108 mmHg (80-100); TCO2 ABG 25 mmol/L (21-31); pH ABG 7.29 (7.35-7.45)
[2019-07-09 06:00] LABS: BUN Creatinine Ratio 9.1 (6-22); Blood Urea Nitrogen 43 mg/dL (7-17); Carbon Dioxide 25 mmol/L (22-32); Chloride 87 mmol/L (98-107); Estimated Glomerular Filt Rate 9.4 mL/min (>60); Glucose 74 mg/dL (80-110); HEMOLYSIS < 15 (0-50); Phosphorous 6.2 mg/dL (2.8-4.1); Sodium 126 mmol/L (137-145)
[2019-07-09 06:02] LABS: Potassium 5.5 mmol/L (3.4-5.1)
[2019-07-09 06:04] LABS: Calcium 6.3 mg/dL (8.4-10.2)
--- NOTE | 2019-07-09 06:07 | PC.NURSE ---
NOC Shift: Pt admitted for acute metabolic encephalopathy w/pre-existing Lung CA w/mets. Pt drowsy throughout shift, wakes to name orients to self, situation needs frequent re-orientation to place, situation. Denies pain, has SOB with activity. Remains on 8L Hi-analisa NC w/ sats 92%. Started on IS. Pleurex drainage tube dressing CDI clamped. BS dim, coarse crackles bases. VSS, hypotension resolved with fluid boluses, remians on IVF's continues to have very low urinary output 75mls this shift Celestine VERDE aware. AM labs abnormal, BARGE LOADER also aware. Pt remains ICU status.
[2019-07-09 06:14] LABS: Procalcitonin 1.13 ng/mL (<0.5)
[2019-07-09] MEDS: OXYCODONE IR 10 MG TABLET 20 MG PO (06:23)
--- NOTE | 2019-07-09 06:39 | DI.RAD.S_ITS ---
PROCEDURE: XR CHEST 1V INDICATIONS: pneumonia TECHNIQUE: One view of the chest was acquired. COMPARISON: [facility], , US RENAL COMPLETE, 07/08/2019, 14:37. [facility], CR, XR KUB, 07/08/2019, 18:25. [facility], , US THORACENTESIS, 06/23/2019, 13:19. [facility], CT, CT ANGIO CHEST PE PROTOCOL, 06/22/2019, 22:04. [facility], CR, XR CHEST 1V, 07/08/2019, 11:38. [facility], CR, XR CHEST 1V, 06/28/2019, 14:51. FINDINGS: Surgical changes and devices: None. Lungs and pleura: Lungs are abnormal with increased consolidation over the right hemithorax and volume loss deviating the tracheal airway rightward of the midline. Quality of visualization of the lung parenchyma is limited on the right as a result. Suspect right-sided pleural effusion is present, small in size and subpulmonic predominantly. No pneumothorax. Mediastinum: Mediastinal contours appear normal. Heart size is normal. Bones and chest wall: No suspicious bony lesions. Overlying soft tissues appear unremarkable. IMPRESSION: Increasing pneumonia pattern right lung, worsening consolidation of the right hemithorax. Suspect small subpulmonic right effusion. Some degree of right-sided volume loss has developed with a slight degree of mediastinal shift from left to right. Central airway mucus plugging can produce such an appearance. Dictated by: Yong Thomas M.D. on 07/09/2019 at 8:11 Approved by: Yong Thomas M.D. on 07/09/2019 at 8:21
[2019-07-09] MEDS: LORazepam 2 MG/ML INJ 0.5 MG IV ×2 (07:05→18:17)
[2019-07-09] MEDS: LACTATED RINGERS 1,000 ML 150 ML IV ×3 (07:09→17:25)
--- NOTE | 2019-07-09 08:18 | PC.NURSE ---
Addendum entered by Paige Hand R.N. 07/09/19 11:01: 1100 Pt is now more wakeful, able to respond and converse with family and answer simple questions. Pt remains drowsy. BP is now in 140s on levophed at 5 mcg/min, titrating down. Urine output has increased to 37 and 44 ml hourly. Family updated with information. Original Note: Dayshift Note: Pt checked on and assessed. Pt had been given 0.5 mg iv ativan by community organization director prior to this RN's arrival, pt is now difficult to arouse, Dr. Carrasco to bedside to assess pt. Pt with SBP low 80s. 30 ml cloudy yellow urine in bag. Orders received to start levophed per protocol to keep MAP > 60. PIV placed, SL PICC line in place.
[2019-07-09] MEDS: NOREPINEPHRINE 4 MG in DEXTROSE 5% IN WATER 250 ML 30.48 ML IV (08:28)
--- NOTE | 2019-07-09 09:11 | PM.PN.1 ---
Subjective Subjective Date Patient Seen: 07/09/19 Interval history: The patient is a 63-year-old female who has a history of metastatic adenocarcinoma of the lung who was admitted to the hospital last evening for acute renal failure. Overnight the patient has received several L of fluid and despite that continues to have poor urine output. She has had about 15 cc/hour over the past 3 hours. She was given Ativan and pain medication this morning. She was somewhat lethargic and there was concerned regarding her mental status per I repeat ABG showed a pH is 7.29 pCO2 of 49. The patient has a PleurX catheter in place for recurrent pleural effusions. Her has the equipment and the plans are underway to drain her right lung again. The patient had a serum lactate which was 0.9 last night. Her procalcitonin is elevated at 1.23. She remains on IV Zosyn for treatment of presumed pneumonia. The patient is nonoliguric however she continues to have poor urine output. I will discuss with Nephrology whether transfer to another facility is warranted. Exam Vital Signs (past 8 hours): - 07/09/19 04:15 07/09/19 05:27 07/09/19 07:00 Temperature 96.8 F L 97.4 F L Pulse Rate 68 72 Respiratory Rate 15 14 Blood Pressure 101/49 L 97/51 L Pulse Oximetry 93 92 95 Oxygen Delivery Method High Flow Nasal Cannula Oxygen Flow Rate 7 Narrative Exam Narrative: Lethargic female ill-appearing minimally responsive Lungs: Decreased breath sounds with scattered crackles and rhonchi bilaterally, right worse than left Cardiac exam: Regular rate and rhythm normal S1-S2 Abdomen: Soft nontender nondistended Extremities: 1+ edema Neurological exam: Patient is lethargic, minimally arousable, and somewhat confused. Objective Labs Result Diagrams: 07/09/19 04:45 07/09/19 04:45 Labs: Laboratory Results - last 24 hr 07/08/19 07/08/19 07/08/19 13:26 13:26 13:26 WBC RBC Hgb Hct MCV MCH MCHC RDW Plt Count Neut % (Auto) Lymph % (Auto) [place] % (Auto) Eos % (Auto) Baso % (Auto) Neut # (Auto) Lymph # (Auto) [place] # (Auto) Eos # (Auto) Baso # (Auto) ABG pH ABG pCO2 ABG pO2 ABG HCO3 ABG Total CO2 ABG O2 Saturation ABG Base Excess FiO2 Sodium 126 L Potassium 5.5 H Chloride 87 L Carbon Dioxide 23 BUN 41 H Creatinine 4.60 H Estimated GFR 9.7 L BUN/Creatinine Ratio 8.9 Glucose 90 Lactate Calcium 6.3 L* Phosphorus 6.9 H Magnesium Total Creatine Kinase 32 Procalcitonin Urine Color Urine Appearance Urine pH Ur Specific [place] Urine Protein Urine Glucose (UA) Urine Ketones Urine Occult Blood Urine Nitrate Urine Bilirubin Urine Urobilinogen Ur Leukocyte Esterase Urine RBC Urine WBC Ur Squamous Epith Cells Amorphous Sediment Urine Bacteria Hyaline Casts Granular Casts Ur Culture Indicated? Nasal Screen MRSA (PCR) 07/08/19 07/08/19 07/08/19 17:30 18:55 18:55 WBC 13.2 H RBC 4.01 Hgb 12.4 Hct 37.4 MCV 93.1 MCH 30.9 MCHC 33.2 RDW 14.8 Plt Count 381 Neut % (Auto) 87.0 H Lymph % (Auto) 5.9 L [place] % (Auto) 6.8 Eos % (Auto) 0.1 L Baso % (Auto) 0.2 Neut # (Auto) 41076 H Lymph # (Auto) 800 L [place] # (Auto) 900 Eos # (Auto) 0 Baso # (Auto) 0 ABG pH ABG pCO2 ABG pO2 ABG HCO3 ABG Total CO2 ABG O2 Saturation ABG Base Excess FiO2 Sodium 126 L Potassium 5.8 H Chloride 87 L Carbon Dioxide 24 BUN 42 H Creatinine 4.60 H Estimated GFR 9.7 L BUN/Creatinine Ratio 9.1 Glucose 80 Lactate Calcium 6.3 L* Phosphorus 6.7 H Magnesium 2.0 Total Creatine Kinase Procalcitonin Urine Color Urine Appearance Urine pH Ur Specific [place] Urine Protein Urine Glucose (UA) Urine Ketones Urine Occult Blood Urine Nitrate Urine Bilirubin Urine Urobilinogen Ur Leukocyte Esterase Urine RBC Urine WBC Ur Squamous Epith Cells Amorphous Sediment Urine Bacteria Hyaline Casts Granular Casts Ur Culture Indicated? Nasal Screen MRSA (PCR) Negative for mrsa 07/08/19 07/08/19 07/08/19 18:55 19:15 19:32 WBC RBC Hgb Hct MCV MCH MCHC RDW Plt Count Neut % (Auto) Lymph % (Auto) [place] % (Auto) Eos % (Auto) Baso % (Auto) Neut # (Auto) Lymph # (Auto) [place] # (Auto) Eos # (Auto) Baso # (Auto) ABG pH ABG pCO2 ABG pO2 ABG HCO3 ABG Total CO2 ABG O2 Saturation ABG Base Excess FiO2 Sodium Potassium Chloride Carbon Dioxide BUN Creatinine Estimated GFR BUN/Creatinine Ratio Glucose Lactate 0.9 Calcium Phosphorus Magnesium Total Creatine Kinase Procalcitonin 0.98 H Urine Color Yellow Urine Appearance Cloudy Urine pH 5.0 Ur Specific [place] 1.010 Urine Protein 2+ H Urine Glucose (UA) Trace H Urine Ketones Negative Urine Occult Blood 3+ H Urine Nitrate Negative Urine Bilirubin Negative Urine Urobilinogen 0.2 Ur Leukocyte Esterase 1+ H Urine RBC 10-30/hpf H Urine WBC 10-30/hpf H Ur Squamous Epith Cells 1-5 /hpf D Amorphous Sediment 2+ Urine Bacteria None seen Hyaline Casts 1-5/lpf Granular Casts 0-1/lpf Ur Culture Indicated? Specimen cultured Nasal Screen MRSA (PCR) 07/09/19 07/09/19 07/09/19 04:45 04:45 04:45 WBC 15.0 H RBC 3.24 L Hgb 10.1 L Hct 30.0 L MCV 92.6 MCH 31.2 MCHC 33.7 RDW 14.9 H Plt Count 453 H Neut % (Auto) 85.9 H Lymph % (Auto) 6.2 L [place] % (Auto) 7.5 Eos % (Auto) 0.3 L Baso % (Auto) 0.1 Neut # (Auto) 32707 H Lymph # (Auto) 900 L [place] # (Auto) 1100 H Eos # (Auto) 0 Baso # (Auto) 0 ABG pH ABG pCO2 ABG pO2 ABG HCO3 ABG Total CO2 ABG O2 Saturation ABG Base Excess FiO2 Sodium 126 L Potassium 5.5 H Chloride 87 L Carbon Dioxide 25 BUN 43 H Creatinine 4.70 H Estimated GFR 9.4 L BUN/Creatinine Ratio 9.1 Glucose 74 L Lactate Calcium 6.3 L* Phosphorus 6.2 H Magnesium Total Creatine Kinase Procalcitonin 1.13 H Urine Color Urine Appearance Urine pH Ur Specific [place] Urine Protein Urine Glucose (UA) Urine Ketones Urine Occult Blood Urine Nitrate Urine Bilirubin Urine Urobilinogen Ur Leukocyte Esterase Urine RBC Urine WBC Ur Squamous Epith Cells Amorphous Sediment Urine Bacteria Hyaline Casts Granular Casts Ur Culture Indicated? Nasal Screen MRSA (PCR) 07/09/19 05:05 WBC RBC Hgb Hct MCV MCH MCHC RDW Plt Count Neut % (Auto) Lymph % (Auto) [place] % (Auto) Eos % (Auto) Baso % (Auto) Neut # (Auto) Lymph # (Auto) [place] # (Auto) Eos # (Auto) Baso # (Auto) ABG pH 7.29 L ABG pCO2 49.4 H ABG pO2 108 H ABG HCO3 24 ABG Total CO2 25 ABG O2 Saturation 97 ABG Base Excess -3.0 L FiO2 24 Sodium Potassium Chloride Carbon Dioxide BUN Creatinine Estimated GFR BUN/Creatinine Ratio Glucose Lactate Calcium Phosphorus Magnesium Total Creatine Kinase Procalcitonin Urine Color Urine Appearance Urine pH Ur Specific [place] Urine Protein Urine Glucose (UA) Urine Ketones Urine Occult Blood Urine Nitrate Urine Bilirubin Urine Urobilinogen Ur Leukocyte Esterase Urine RBC Urine WBC Ur Squamous Epith Cells Amorphous Sediment Urine Bacteria Hyaline Casts Granular Casts Ur Culture Indicated? Nasal Screen MRSA (PCR) Assessment & Plan Assessment & Plan narrative: 1. Acute metabolic encephalopathy, suspect multifactorial related to acute renal failure medications and underlying illness. Plan will hold all sedating medications at this time. Allow the patient to wake up. Goals are to drain her right chest for improved oxygenation. 2. Acute on chronic respiratory failure, patient has increasing pleural effusions and a right lower lobe infiltrate. Will continue IV Zosyn, continue ox, drained that right chest 3. Acute nonoliguric renal failure, despite IV hydration patient's creatinine continues to remain at 4.7. Will consult Nephrology regarding further recommendations. The patient was hypotensive and placed on Levophed at this time. 4. Hypotension, now on Levophed. 5. Metastatic adenocarcinoma of the lung patient was to undergo induction chemotherapy yesterday which has since been aborted. 6. Hyponatremia, related to pleural effusions, pneumonia, and dehydration 7. Dehydration, improved with IV fluid 8. Hyperkalemia related to underlying renal failure. The patient is critically ill and appears to have worsened over night. Consult Nephrology and consider transfer to a higher level of care.
[2019-07-09] MEDS: HEPARIN 5,000 UNIT/ML VIAL 5000 UNIT SUBCUT ×2 (10:08→23:04)
[2019-07-09] MEDS: PIPERACILLIN-TAZO 2.25 GM/50 ML FROZ.PIGGY IV ×2 (11:06→18:17)
--- NOTE | 2019-07-09 11:24 | DIET.PN ---
Dietary Progress Note Assessment: 63y F c met Lung Ca c weakness, acute renal failure, reporting reduced PO intake and recent wt loss. HT: 170.1cm WT: 76.9kg (pleural effusion present) Wt on 05/15/19 79.3kg BMI: 27.2 Labs: K+ 5.5 (H), Phos 6.2 (H), Na 126 (L), BUN 43 (H), Cr 4.7 (H), GFR 9.4 (H) MNA: 6 (malnourished) Wally: 17 Nutrition Diagnosis: Severe Acute PCM r/t met Ca in lung and bones, acute renal failure aeb <75% EER for >7d, 6% wt loss in 1 mo (severe), abnormal renal labs (k+ 5.5, BUN 43, Cr 4.7, GFR 9.4, phos 6.2, na 126), moderate losses to fat and muscle mass system wide, diagnostic imaging showing met Ca. Interventions: recc starting renal diet limiting phos, potassium, 62g PRO max/d, while in renal failure, appropriate nourishments include high kcal, high fat options. Pt is vegetarian. B: apple juice, cottage cheese (acceptable phos), cream of wheat L: egg salad on white bread, cranberry juice D: 2 oz baked tofu, pasta c steamed zucchini, cauliflower and olive oil. Diet Order: Heart Healthy (pt is vegetarian) EER: 1650kcal, 62g PRO (0.8g/kg renal), 2L fluids (25cc/kg) Monitoring/Evaluations: I&Os, renal fxn
[2019-07-09 11:58] LABS: BUN Creatinine Ratio 9.3 (6-22); Blood Urea Nitrogen 43 mg/dL (7-17); Carbon Dioxide 24 mmol/L (22-32); Chloride 88 mmol/L (98-107); Estimated Glomerular Filt Rate 9.7 mL/min (>60); Glucose 91 mg/dL (80-110); HEMOLYSIS < 15 (0-50); Potassium 5.3 mmol/L (3.4-5.1); Sodium 126 mmol/L (137-145)
[2019-07-09 12:00] LABS: Calcium 6.4 mg/dL (8.4-10.2)
--- NOTE | 2019-07-09 13:48 | PC.NURSE ---
1200 Pt with PleurX drainage system in place. Pt's spoke to Dr. Carrasco and gave consent for drain to be accessed and drained. Pt's provided written and oral instructions for accessing PleurX drain. This RN accessed PleurX drain according to instructions. Vacuum container used and ~ 75 ml of output, serosanguinous drainage. Clear.
[2019-07-09] MEDS: OXYCODONE 5 MG/5 ML ORAL SOLUTION 10 MG PO (14:33)
--- NOTE | 2019-07-09 15:32 | CM.DPNOTE ---
Patient is a 63 year old female who was admitted on 07/08/19 for Weakness. Pt has [employer] for insurance and her PCP is Dr. Post. EMR was reviewed. Per MD, pt with new dx of met CA and was set up for an initial appointment with Dr. Grant Oncologist but pt ended up getting admitted to [facility]. Per MD, if pt continues to worsen then likely need for hospital transfer and MD will consult with [facility]. Due to triage needs and possible hospital transfer, bedside assessment not completed. Plan: SW to follow in the morning to determine if pt was transferred to higher level of care and if remains in the hospital then bedside assessment for d/c planning. KANDI Mendoza
--- NOTE | 2019-07-09 16:42 | PM.EVENT ---
Event Note Date Patient Seen: 07/09/19 Event Note: Just spoke to the patient's significant other and 2 adult sons. Based on her clinical condition they have elected to make her do not resuscitate.
--- NOTE | 2019-07-09 16:46 | PC.NURSE ---
Pt blood sugar taken per RN request, and is 96.
--- NOTE | 2019-07-09 17:29 | P.EN_ITS ---
Event Note Date Patient Seen: 07/09/19 Event Note: Spoke to Dr. Abdullahi. Patient has not made significant improvement despite IV hydration. If this were dehydration she should be better by now. She likely has acute tubular necrosis and may require dialysis. She recommends transfers to [facility] for Nephrology consultation.
[2019-07-09] MEDS: ONDANSETRON 4 MG/2 ML INJ IV (18:04)
--- NOTE | 2019-07-09 18:12 | PC.NURSE ---
Addendum entered by Sudha Tello R.N. 07/09/19 22:14: 2210 - Order received to drain patient's pleurx drain with home supplies. Drained 75cc clear julia fluid from drain, Dressing now C/D/O. Reported amount drained to nurse practitioner. Addendum entered by Sudha Tello R.N. 07/09/19 20:09: 1950 - Nurse practitioner notified of critical Ca Addendum entered by Sudha Tello R.N. 07/09/19 19:32: 1930 - Patient now noted to rubs to lungs. Also continues to have low urine output. Dr. Carrasco notified and gave orders for stat chest x-ray and labs. Patient woke up and was able to cough strongly. Chest x-ray completed (Nurse practitioner visualized image) and labs sent. Patient now resting peacefully in bed. Original Note: 1909 - Patient coughing up some scant bright red blood. Zofran given for nausea and Dr. Carrasco notified. No new orders at this time.
--- NOTE | 2019-07-09 18:48 | PC.NURSE ---
Pt was coughing continuously with a bright red tinged productive cough.
--- NOTE | 2019-07-09 19:12 | DI.RAD.S_ITS ---
PROCEDURE: XR CHEST 1V INDICATIONS: shortness of breath TECHNIQUE: One view of the chest was acquired. COMPARISON: [facility], CR, XR CHEST 1V, 07/08/2019, 11:38. [facility], CR, XR CHEST 1V, 07/09/2019, 5:08. FINDINGS: Surgical changes and devices: There is a thoracostomy on the right side with tip projecting medially at the lung base. A left PICC with the tip projects in the area of SVC. Lungs and pleura: Airspace opacities in right lung are increased. Small right effusion. No pneumothorax. Mediastinum: Mediastinal contours appear normal. Heart size is normal. Bones and chest wall: No suspicious bony lesions. Overlying soft tissues appear unremarkable. IMPRESSION: Increased airspace opacities in right lung compatible with worsening of pneumonia. Dictated by: Ragini Szymanski M.D. on 07/09/2019 at 19:56 Approved by: Ragini Szymanski M.D. on 07/09/2019 at 19:59
[2019-07-09 19:49] LABS: BUN Creatinine Ratio 9.8 (6-22); Blood Urea Nitrogen 42 mg/dL (7-17); Carbon Dioxide 25 mmol/L (22-32); Chloride 88 mmol/L (98-107); Estimated Glomerular Filt Rate 10.5 mL/min (>60); Glucose 93 mg/dL (80-110); HEMOLYSIS < 15 (0-50); Sodium 125 mmol/L (137-145)
[2019-07-09 19:51] LABS: Calcium 6.3 mg/dL (8.4-10.2)
[2019-07-09 19:56] LABS: B Type Natriuretic Peptide 781 (<100)
--- NOTE | 2019-07-09 22:46 | PM.EVENT ---
Event Note Date Patient Seen: 07/09/19 Time Patient Seen: 22:47 Event Note: Ongoing follow up: Visited the patient who is lethargic with a GCS score of 13 responding to verbal stimulation with eye opening and confusion. Patient continues to require norepinephrine for blood pressure support. Reviewed labs obtained at 7:30 p.m. revealing sodium 125, potassium of 5.0, chloride of 88, carbon dioxide of 25, BUN of 42, creatinine of 4.30 with a creatinine clearance calculated at 17.05 mL/min. She continues to have low calcium at 6.3 and phosphorus of 6.2. BMP is also assessed at 781. The patient's procalcitonin has increased to 1.13 this morning. Chest x-rays taken for worsening breath sounds with coarseness crackles on the right which feels worsening pneumonia per Radiology read. The patient has been on high-flow nasal cannula oxygen at 8 L per minute, per nursing, the patient had coughed up bloody sputum. The patient is transitioned to heated high-flow oxygen to decreased dense race and improving oxygenation, humidity to decrease pulmonary irritation and will titrate to SpO2 93% to 96%. The patient is septic by criteria with decreased mental status, impaired PF ratio estimated to be 138, renal failure and hypotension requiring vasopressor for a sofa score of 11. The patient is receiving Zosyn 2.25 g every 8 hours. Will add in linezolid 600 mg IV every 12 hours which is not renally dosed for increasing procalcitonin and worsening pneumonia by chest x-ray. Will continue to monitor and reassess.
[2019-07-10] VITALS (34 sets, daily range): BP systolic 91–138; BP diastolic 36–109; PULSE 67–79; RESP 9–22; TEMP 35.5–36.9; O2SAT 90–98
[2019-07-10] MEDS: LINEZOLID 600 MG/300 ML IV.SOLN IV ×3 (00:16→22:00)
[2019-07-10] MEDS: NOREPINEPHRINE 4 MG in DEXTROSE 5% IN WATER 250 ML 15.24 ML IV (01:08)
[2019-07-10] MEDS: CALCIUM CARBONATE 500 MG TAB 1000 MG PO (01:40)
[2019-07-10] MEDS: OXYCODONE 5 MG/5 ML ORAL SOLUTION 10 MG PO (01:42)
[2019-07-10] MEDS: PIPERACILLIN-TAZO 2.25 GM/50 ML FROZ.PIGGY IV ×3 (03:00→19:44)
--- NOTE | 2019-07-10 03:44 | PC.NURSE ---
Oriented to place but not situation, continues to pull O2 off and pull on lines, sats drop into 80's before you can replace O2. Fights having O2 on wants police called, states she can't breath with it on, explained to her it is helping her live, that if it stays off she may do damage to her brain. Patient is unable to understand the gravity of her situation, explained to her she is very sick.
[2019-07-10] MEDS: LORazepam 2 MG/ML INJ 0.5 MG IV (03:55)
[2019-07-10 05:11] LABS: Hematocrit 29.5 % (36-46); Hemoglobin 9.9 g/dL (12.0-16.0); Mean Corpuscular HGB Conc 33.5 % (30-36); Mean Corpuscular Hemoglobin 30.9 PG (26-34); Mean Corpuscular Volume 92.4 fL (80-100); Platelet Count 478 X10^3/uL (150-400); Red Cell Distribution Width 14.6 % (11.6-14.8); White Blood Cell Count 13.9 X10^3/uL (4.5-11.0)
[2019-07-10 05:12] LABS: Alanine Aminotransferase 20 IU/L (9-52); Albumin 2.4 g/dL (3.5-5.0); Albumin Globulin Ratio 0.9 (1.0-2.8); Alkaline Phosphatase 128 U/L (38-126); Aspartate Aminotransferase 26 IU/L (14-36); BUN Creatinine Ratio 10.5 (6-22); Bilirubin Total 0.3 mg/dL (0.2-1.3); Blood Urea Nitrogen 43 mg/dL (7-17); Carbon Dioxide 25 mmol/L (22-32); Chloride 89 mmol/L (98-107); Estimated Glomerular Filt Rate 11.1 mL/min (>60); Globulin 2.8 g/dL (1.7-4.1); Glucose 97 mg/dL (80-110); HEMOLYSIS < 15 (0-50); Sodium 127 mmol/L (137-145); Total Protein 5.2 g/dL (6.3-8.2)
[2019-07-10 05:13] LABS: Add Manual Diff / Slide Review YES
[2019-07-10 05:15] LABS: Calcium 6.4 mg/dL (8.4-10.2)
[2019-07-10 05:22] LABS: B Type Natriuretic Peptide 874 (<100)
[2019-07-10 05:26] LABS: Procalcitonin 0.64 ng/mL (<0.5)
[2019-07-10 05:41] LABS: Neutrophils Absolute Manual 11676 /uL (3000-5900); Total Cells Counted 100
[2019-07-10 05:42] LABS: RBC Morphology Normal Morphology
--- NOTE | 2019-07-10 08:20 | CM.DPC ---
DCP: continued: Case received, EMR reviewed and including the oncology clinic note from Oncology KADNI Fisher on 07/08. Pt was just here at 06/27-06/30 and went home with her and plan for oncology followup. Her first chemo appt was set for 07/08. She was not stable when she presented for this on the and was sent to the hospital. Dr. Carrasco notes in her even note of last night that pt with likely dx acute tubular necrosis and the recommendation is a transfer to higher level of nephrology care with consideration of dialysis. KANDI Jimenez will be working today in CM dept in social work/dcplanning role. Per her note she is planning to follow with pt for continued support and advocacy. Will talk with her when she arrives at noon.
--- NOTE | 2019-07-10 08:25 | PC.NURSE ---
Addendum entered by Benita Rodarte R.N. 07/10/19 13:17: Pt c/o pain to right chest 10, given 10mg oxycodone. Patient up to BSC with one assist, had small BM. Assisted back to bed. Alarm on. Addendum entered by Benita Rodarte R.N. 07/10/19 09:43: Patient up to BSC has med size BM, with zarina blood from hemorrhoids. Gait was weak but steady with two assist. Patient back to bed and placed on HFNC at 7L sats 93%. Bed alarm on. Addendum entered by Benita Rodarte R.N. 07/10/19 09:02: Patient asking about her care, at bedside, Dr Dutta in to assess. Decreased levofed to 1.5mcg/min. BP 116/65 map 80, per Dr Dutta titrate to map of 65. Patient taking some water and few bites of yogurt. Original Note: Pt oriented to self and place, following commands, asking for her . Denies pain and nausea at this time. Incontinent of stool, patient bathed and repositioned for meal. Levofed decreased to 3mcg/min.
[2019-07-10] MEDS: CALCIUM CARBONATE 500 MG TAB PO (08:38)
[2019-07-10] MEDS: HEPARIN 5,000 UNIT/ML VIAL 5000 UNIT SUBCUT ×2 (08:38→19:44)
[2019-07-10] MEDS: methIMAzole 5 MG TABLET PO (08:39)
[2019-07-10] MEDS: OXYCODONE IR 10 MG TABLET PO ×3 (12:29→21:51)
--- NOTE | 2019-07-10 14:11 | CM.DPC ---
DCP: Continued. FUNDRAISING OFFICER reviewed the EMR for updates and current status/plan. Met with pt, dtr and sister in the ICU to assess coping/support needs, understanding of pt's status, and clarify current plan. Pt was found to be somnolent and mildly confused, was able to recognize this FUNDRAISING OFFICER from Oncology, expresses understanding of where she is and who is in the room w/her. Pt will most likely remain in the hospital for several more days. She's making some improvement in terms of her labs, mental status, however radiology has noted worsening pneumonia. Pt remains on IV antibiotics and requires intensive monitoring by ICU staff. Plan: FUNDRAISING OFFICER discussed the role of discharge planning, as well as reassured them that we in Oncology are monitoring her status and plan for continued outpatient treatment. DCP will continue to monitor for d/c needs and plan.
[2019-07-10 15:28] LABS: Ionized Calcium 3.8 mg/dL (4.8-5.6)
--- NOTE | 2019-07-10 17:24 | PC.NURSE ---
Pt BS taken and is 87 per RN request since pt has not been eating.
--- NOTE | 2019-07-10 17:24 | PM.PN.1 ---
Subjective Subjective Date Patient Seen: 07/10/19 Time Patient Seen: 09:00 Interval history: Ms. 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 Overnight her kidney function improved slightly with a creatinine of 4.1 this morning, she was also transition to a heated high-flow nasal cannula with some improvement in her symptoms. She began making urine and has adequate output today. I spoke with the mica paster Dr. Abdullahi who no longer recommends transfer at this time but to continue monitoring her. She still reports confusion, and shortness of breath. She denies any pain at this time. She has some mild nausea but no vomiting. She was on Levophed but this was able to be weaned this afternoon. Exam Vital Signs (past 8 hours): - 07/10/19 09:40 07/10/19 10:18 07/10/19 10:41 Temperature Pulse Rate 73 70 Respiratory Rate 12 10 L Blood Pressure 107/56 L 98/47 L Pulse Oximetry 94 95 92 07/10/19 10:44 07/10/19 11:10 07/10/19 12:24 Temperature Pulse Rate 73 70 Respiratory Rate 17 11 L Blood Pressure 108/52 L 105/46 L Pulse Oximetry 96 96 07/10/19 12:37 07/10/19 13:53 07/10/19 15:00 Temperature Pulse Rate 67 Respiratory Rate 11 L Blood Pressure 96/51 L Pulse Oximetry 96 98 90 L 07/10/19 15:10 Temperature 97.7 F Pulse Rate 71 Respiratory Rate 12 Blood Pressure 97/60 Pulse Oximetry 97 Fraction of Inspired Oxygen 65 Oxygen Delivery Method Nasal Cannula Oxygen Flow Rate 3 Narrative Exam Narrative: GENERAL APPEARANCE: lethargic, on hi flow nasal cannula in no acute distress. eating breakfast but having some difficulty putting toppings on her toast. SKIN: Inspection of the skin reveals no rashes, ulcerations or petechiae. HEENT: The sclerae were anicteric and conjunctivae were pink and moist. Extraocular movements were intact and pupils were equal, round with normal accommodation. External inspection of the ears and nose showed no scars, lesions, or masses. Lips, teeth, and gums showed normal mucosa. The oral mucosa, hard and soft palate, tongue and posterior pharynx were unremarkable. NECK: Supple and symmetric. There was no thyroid enlargement, and no tenderness, or masses were felt. CHEST: Normal AP diameter and normal contour without any kyphoscoliosis. LUNGS: Decreased breath sounds and scattered rhonchi bilaterally, right greater than left. CARDIOVASCULAR: There was a regular rate and rhythm without any murmurs, gallops, rubs. Peripheral pulses were 2+ and symmetric. ABDOMEN: Soft and nontender with normal bowel sounds. No ascites was noted. MUSCULOSKELETAL: There was no tenderness or effusions noted. Muscle strength and tone were normal. EXTREMITIES: No cyanosis, clubbing or edema. NEUROLOGIC: Normal affect. Strength is +5/5 in the Upper Extremities and Lower Extremities Bilaterally. Sensation to touch was normal. Objective Labs Result Diagrams: 07/10/19 04:50 07/10/19 04:50 Labs: Laboratory Results - last 24 hr 07/08/19 07/09/19 07/09/19 18:55 19:30 19:30 WBC RBC Hgb Hct MCV MCH MCHC RDW Plt Count Neut % (Auto) Lymph % (Auto) [place] % (Auto) Eos % (Auto) Baso % (Auto) Lymph # (Auto) [place] # (Auto) Baso # (Auto) Total Counted Seg Neutrophils % Band Neutrophils % Lymphocytes % (Manual) Monocytes % (Manual) Eosinophils % (Manual) Neutrophils # (Manual) RBC Morphology Sodium 125 L Potassium 5.0 Chloride 88 L Carbon Dioxide 25 BUN 42 H Creatinine 4.30 H Estimated GFR 10.5 L BUN/Creatinine Ratio 9.8 Glucose 93 Calcium 6.3 L* Ionized Calcium Esteban 3.8 L Total Bilirubin AST ALT Alkaline Phosphatase B-Natriuretic Peptide 781 H Total Protein Albumin Globulin Albumin/Globulin Ratio Procalcitonin 07/10/19 07/10/19 07/10/19 04:50 04:50 04:50 WBC 13.9 H RBC 3.20 L Hgb 9.9 L Hct 29.5 L MCV 92.4 MCH 30.9 MCHC 33.5 RDW 14.6 Plt Count 478 H Neut % (Auto) Not Reportable Lymph % (Auto) Not Reportable [place] % (Auto) Not Reportable Eos % (Auto) Not Reportable Baso % (Auto) Not Reportable Lymph # (Auto) Not Reportable [place] # (Auto) Not Reportable Baso # (Auto) Not Reportable Total Counted 100 Seg Neutrophils % 80.0 H Band Neutrophils % 4.0 Lymphocytes % (Manual) 9.0 L Monocytes % (Manual) 6.0 Eosinophils % (Manual) 1.0 L Neutrophils # (Manual) 07502 H RBC Morphology Normal morphology Sodium 127 L Potassium 5.0 Chloride 89 L Carbon Dioxide 25 BUN 43 H Creatinine 4.10 H Estimated GFR 11.1 L BUN/Creatinine Ratio 10.5 Glucose 97 Calcium 6.4 L* Ionized Calcium Esteban Total Bilirubin 0.3 AST 26 ALT 20 Alkaline Phosphatase 128 H B-Natriuretic Peptide 874 H Total Protein 5.2 L Albumin 2.4 L Globulin 2.8 Albumin/Globulin Ratio 0.9 L Procalcitonin 0.64 H Assessment & Plan Assessment & Plan narrative: 1. Acute metabolic encephalopathy, suspect multifactorial related to acute renal failure medications and underlying illness. Plan will hold all sedating medications at this time. 2. Acute on chronic respiratory failure, patient has increasing pleural effusions and a right lower lobe infiltrate. Will continue IV Zosyn, continue oxygen as needed. She may be fluid overloaded from oliguric renal failure as well which is now improving. 3. Acute nonoliguric renal failure, despite IV hydration patient's creatinine continues to remain at 4.7. Will consult Nephrology regarding further recommendations. The patient was hypotensive and placed on Levophed at this time. 4. Hypotension, now off of Levophed. Etiology unclear at this time, but may be infectious as she is improving with Zosyn and her right lower lobe infiltrate may suggest a possible pneumonia. 5. Metastatic adenocarcinoma of the lung patient was to undergo induction chemotherapy yesterday which has since been aborted. 6. Hyponatremia, related to pleural effusions, pneumonia, and dehydration. This has remained stable. Will continue to follow. 8. Hyperkalemia related to underlying renal failure, improved.
[2019-07-10] MEDS: SENNOSIDES 8.6 MG TABLET 17.2 MG PO (17:44)
[2019-07-10] MEDS: DOCUSATE 100 MG CAPSULE PO (17:44)
[2019-07-10] MEDS: ACETAMINOPHEN 325 MG TABLET 650 MG PO (17:44)
[2019-07-10] MEDS: MELATONIN 3 MG TABLET PO (19:44)
[2019-07-10] MEDS: HYDROMORPHONE 0.5 MG INJ IV (19:45)
[2019-07-10] MEDS: ALBUTEROL HFA 60 PUFF/8 GM INH INH (21:36)
[2019-07-10] MEDS: ONDANSETRON 4 MG/2 ML INJ IV (21:51)
[2019-07-10] MEDS: LORazepam 1 MG TABLET PO (21:51)
--- NOTE | 2019-07-10 22:44 | PC.NURSE ---
1500-Received report, bedside safety checks done. patient lethargic arouses to voice, GCS-14; patient forgetful. SMITH, denies numbness, denies N/V. Drain to R lung has dressing C/D/I. 0-PRN Oxy administered/ patient anxious and restless attempting to get out of bed, removing NC and desatting in the 80s; PRN Ativan administered. RT called for Neb treatment per patient request. 0-Patient sleeping sats in the 90s on 5 L NC. skin integrity maintaned; patient repositioned Q2 hours and as requested. vss-BP stable. Report to Inge BURKETT.
[2019-07-11] VITALS (8 sets, daily range): BP systolic 109–154; BP diastolic 47–80; PULSE 74–83; RESP 12–21; TEMP 35.8–36.8; O2SAT 92–95
[2019-07-11] MEDS: LORazepam 2 MG/ML INJ 0.5 MG IV (02:37)
[2019-07-11] MEDS: PIPERACILLIN-TAZO 2.25 GM/50 ML FROZ.PIGGY IV ×3 (02:41→19:47)
--- NOTE | 2019-07-11 04:05 | PC.NURSE ---
Asked for something to help her sleep, med with 0.5mg IV Ativan. Sleeping on right side 5L NC sat 95%. Assessment deferred for now
[2019-07-11 07:49] LABS: Hematocrit 32.3 % (36-46); Hemoglobin 10.9 g/dL (12.0-16.0); Mean Corpuscular HGB Conc 33.6 % (30-36); Mean Corpuscular Hemoglobin 30.9 PG (26-34); Mean Corpuscular Volume 92.1 fL (80-100); Platelet Count 446 X10^3/uL (150-400); Red Blood Cell Count 3.51 X10^6/uL (4.0-5.2); Red Cell Distribution Width 14.5 % (11.6-14.8); White Blood Cell Count 13.2 X10^3/uL (4.5-11.0)
[2019-07-11 07:53] LABS: Add Manual Diff / Slide Review YES
[2019-07-11 07:59] LABS: BUN Creatinine Ratio 14.1 (6-22); Blood Urea Nitrogen 45 mg/dL (7-17); Carbon Dioxide 26 mmol/L (22-32); Chloride 87 mmol/L (98-107); Estimated Glomerular Filt Rate 14.7 mL/min (>60); Glucose 96 mg/dL (80-110); HEMOLYSIS < 15 (0-50); Phosphorous 4.8 mg/dL (2.8-4.1); Potassium 4.6 mmol/L (3.4-5.1); Sodium 126 mmol/L (137-145)
[2019-07-11 08:16] LABS: Neutrophils Absolute Manual 10692 /uL (3000-5900); Total Cells Counted 100
[2019-07-11 08:20] LABS: Platelet Estimate Increased on smear; Poikilocytosis 1+
[2019-07-11 08:25] LABS: Procalcitonin 0.35 ng/mL (<0.5)
[2019-07-11] MEDS: methIMAzole 5 MG TABLET PO (08:48)
[2019-07-11] MEDS: OXYCODONE IR 10 MG TABLET PO ×4 (08:52→22:03)
[2019-07-11] MEDS: DOCUSATE 100 MG CAPSULE PO ×2 (08:55→20:45)
--- NOTE | 2019-07-11 09:59 | PC.NURSE ---
Addendum entered by Marilia Garcia R.N. 07/11/19 15:34: Dr albarran updated about stool with zarina bleeding. Ok to take gonzalez out as OUP improved. Addendum entered by Marilia Garcia R.N. 07/11/19 11:00: 1100-Pt with continued pain after Oxycodone, notified Dr Gallegos. Original Note: Am shift Pt is A/o to self, and occasionally situation. Frequent cues needed. Forgetful. Pt agitated at times with lines, o2 removal, ect. Redirectable, and calms when reminded about interventions. at bedside at start of shift & Feels mentation waxes and wanes, Some times shes clear, and sometimes, no one is home Reassured. Medicated for pain. Spo2 with O2 5L HHF, 94%. No SOB observed at rest. Resting quietly at next check. Dr Gallegos into update.
[2019-07-11] MEDS: LINEZOLID 600 MG/300 ML IV.SOLN IV (10:50)
[2019-07-11] MEDS: ONDANSETRON 4 MG/2 ML INJ IV ×2 (10:51→17:28)
[2019-07-11] MEDS: HYDROMORPHONE 0.5 MG INJ IV (11:41)
--- NOTE | 2019-07-11 11:44 | PM.PN.1 ---
Subjective Subjective Date Patient Seen: 07/11/19 Time Patient Seen: 08:10 Interval history: Ms. 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 Overnight she had some delirium and her benzodiazepines were held over concern for medication and possible ICU delirium. This morning her kidney function continues to improve, and her mental status as well is slightly better. She complains of right-sided pain when she moves, but denies any shortness of breath, chest pain, nausea, vomiting. She says that she feels slightly improved today, in that she is slightly less confused than she remembers being yesterday. Exam Vital Signs (past 8 hours): - 07/11/19 06:14 07/11/19 07:00 07/11/19 10:00 Temperature 96.5 F L 98.2 F Pulse Rate 75 74 Respiratory Rate 12 16 Blood Pressure 109/47 L Pulse Oximetry 95 94 95 Fraction of Inspired Oxygen 40 Oxygen Delivery Method High Flow Nasal Cannula Oxygen Flow Rate 5 Narrative Exam Narrative: GENERAL APPEARANCE: lethargic but improved, on nasal cannula in no acute distress. SKIN: Inspection of the skin reveals no rashes, ulcerations or petechiae. There is a small ecchymosis on her RLE anteriorly near her ankle. HEENT: The sclerae were anicteric and conjunctivae were pink and moist. Extraocular movements were intact and pupils were equal, round with normal accommodation. External inspection of the ears and nose showed no scars, lesions, or masses. Lips, teeth, and gums showed normal mucosa. The oral mucosa, hard and soft palate, tongue and posterior pharynx were unremarkable. NECK: Supple and symmetric. There was no thyroid enlargement, and no tenderness, or masses were felt. CHEST: Normal AP diameter and normal contour without any kyphoscoliosis. LUNGS: Decreased breath sounds and scattered rhonchi bilaterally, right greater than left. CARDIOVASCULAR: There was a regular rate and rhythm without any murmurs, gallops, rubs. Peripheral pulses were 2+ and symmetric. ABDOMEN: Soft and nontender with normal bowel sounds. No ascites was noted. MUSCULOSKELETAL: There was no tenderness or effusions noted. Muscle strength and tone were normal. EXTREMITIES: No cyanosis, clubbing or edema. NEUROLOGIC: Normal affect. Strength is +5/5 in the Upper Extremities and Lower Extremities Bilaterally. Sensation to touch was normal. Objective Labs Result Diagrams: 07/11/19 07:23 07/11/19 07:23 Labs: Laboratory Results - last 24 hr 07/08/19 07/11/19 07/11/19 18:55 07:23 07:23 WBC 13.2 H RBC 3.51 L Hgb 10.9 L Hct 32.3 L MCV 92.1 MCH 30.9 MCHC 33.6 RDW 14.5 Plt Count 446 H Neut % (Auto) Not Reportable Lymph % (Auto) Not Reportable [place] % (Auto) Not Reportable Eos % (Auto) Not Reportable Baso % (Auto) Not Reportable Lymph # (Auto) Not Reportable [place] # (Auto) Not Reportable Baso # (Auto) Not Reportable Total Counted 100 Seg Neutrophils % 77.0 H Band Neutrophils % 4.0 Lymphocytes % (Manual) 11.0 L Monocytes % (Manual) 4.0 Metamyelocytes % 1.0 H Myelocytes % 2.0 H Promyelocytes % 1.0 H Neutrophils # (Manual) 71369 H Platelet Estimate Increased on smear RBC Morphology See below Poikilocytosis 1+ H Sodium Potassium Chloride Carbon Dioxide BUN Creatinine Estimated GFR BUN/Creatinine Ratio Glucose Calcium Ionized Calcium Esteban 3.8 L Phosphorus Procalcitonin 0.35 07/11/19 07:23 WBC RBC Hgb Hct MCV MCH MCHC RDW Plt Count Neut % (Auto) Lymph % (Auto) [place] % (Auto) Eos % (Auto) Baso % (Auto) Lymph # (Auto) [place] # (Auto) Baso # (Auto) Total Counted Seg Neutrophils % Band Neutrophils % Lymphocytes % (Manual) Monocytes % (Manual) Metamyelocytes % Myelocytes % Promyelocytes % Neutrophils # (Manual) Platelet Estimate RBC Morphology Poikilocytosis Sodium 126 L Potassium 4.6 Chloride 87 L Carbon Dioxide 26 BUN 45 H Creatinine 3.20 H Estimated GFR 14.7 L BUN/Creatinine Ratio 14.1 Glucose 96 Calcium 7.0 L Ionized Calcium Esteban Phosphorus 4.8 H D Procalcitonin Assessment & Plan Assessment & Plan narrative: Natasha Platt is a 63-year-old female with past medical history of hypertension and lung adenocarcinoma with recurrent pleural effusions who was admitted with septic shock likely secondary to pneumonia which is improved. She is now off pressors and her kidney function is improving as well. 1. Septic shock, acute, present on admission -patient had an elevated leukocyte count to 20,000, respiratory failure, mental status changes. There is likely a superimposed pneumonia along with her right-sided malignancy. She further has a PleurX catheter in place which is a potential source of infection into her lung. She is improved clinically on Zosyn and daptomycin albeit slowly. She required Levophed for septic shock which has now been discontinued. - continue zosyn and daptomycin (renal failure) - continue to follow WBC. 2. Acute metabolic encephalopathy, acute, present on admission -likely due to septic shock as noted above, however the patient is also on chronic opiate therapy. Her more recent changes may be due to ICU induced delirium. - hold benzodiazepines - encourage night sleep - awake during the day. - OOB to chair, PT/OT when improved clinically. 3. Acute on chronic respiratory failure, patient has increasing pleural effusions and a right lower lobe infiltrate. Will continue IV Zosyn and daptomycin, continue oxygen as needed. She may be fluid overloaded from oliguric renal failure as well which is now improving. - continue to monitor 4. Acute nonoliguric renal failure, improving -likely secondary to ATN from septic shock as noted above. Her creatinine has improved dramatically today to 3.1. -will continue to monitor Cr 5. Metastatic adenocarcinoma of the lung patient was to undergo induction chemotherapy yesterday which has since been aborted. 6. Hyponatremia, related to pleural effusions, pneumonia, and dehydration. This has remained stable. Will continue to follow. Once creatinine improves consider fluid restriction. 7. Hyperkalemia related to underlying renal failure, resolved. Dispo: stable for medical floor DVT: HSQ Code: DNR
[2019-07-11 16:15] LABS: Osmolality, Serum 283 mosm/kg (260-310)
[2019-07-11] MEDS: fentaNYL 25 MCG/PATCH TOP (16:17)
--- NOTE | 2019-07-11 18:43 | PC.NURSE ---
1600- Skinner catheter removed. Patient tolerated well. Discussed pain controlled with MD. Requested duragesic patch to try and control patient bone pain better. Once on board then use the po medication for breakthrough pain. Order recieved.
[2019-07-11] MEDS: HEPARIN 5,000 UNIT/ML VIAL 5000 UNIT SUBCUT (20:45)
[2019-07-11] MEDS: MELATONIN 3 MG TABLET PO (20:45)
[2019-07-11] MEDS: CALCIUM CARBONATE 500 MG TAB PO (20:45)
[2019-07-11] MEDS: SENNOSIDES 8.6 MG TABLET 17.2 MG PO (20:45)
[2019-07-11] MEDS: LINEZOLID 600 MG/300 ML IV.SOLN 300 MG IV (23:24)
[2019-07-11] MEDS: ACETAMINOPHEN 325 MG TABLET 650 MG PO (23:47)
[2019-07-12] VITALS (9 sets, daily range): BP systolic 114–146; BP diastolic 64–73; PULSE 75–98; RESP 14–20; TEMP 35.9–36.4; O2SAT 93–97
--- NOTE | 2019-07-12 | DI.RAD.S_ITS ---
PROCEDURE: XR CHEST 1V INDICATIONS: Hypoxia, Pneumona, Pulmonary Effusion TECHNIQUE: One view of the chest was acquired. COMPARISON: [facility], CT, CT ANGIO CHEST PE PROTOCOL, 06/22/2019, 22:04. [facility], CR, XR CHEST 1V, 07/09/2019, 5:08. [facility], CR, XR CHEST 1V, 07/09/2019, 19:17. FINDINGS: Surgical changes and devices: Right upper extremity PICC line appears stable in position. Lungs and pleura: There is a moderate right pleural effusion with a loculated component in the right apex which has increased in size. There is persistent confluent right perihilar consolidation. A small left pleural effusion appears unchanged. Mediastinum: Mediastinal contours are obscured. Heart size is normal. Bones and chest wall: No suspicious bony lesions. Overlying soft tissues appear unremarkable. IMPRESSION: 1. Interval increase in a moderate right pleural effusion with loculated right apical component. 2. Persistent right perihilar consolidation consistent with pneumonia. Recommend followup to resolution. Dictated by: David Gómez M.D. on 07/12/2019 at 7:05 Approved by: David Gómez M.D. on 07/12/2019 at 7:18
[2019-07-12] MEDS: QUETIAPINE 25 MG TABLET 12.5 MG PO ×2 (00:27→21:27)
[2019-07-12] MEDS: OXYCODONE IR 10 MG TABLET PO ×6 (02:41→19:19)
[2019-07-12] MEDS: PIPERACILLIN-TAZO 2.25 GM/50 ML FROZ.PIGGY IV ×3 (03:32→18:35)
[2019-07-12 05:40] LABS: BUN Creatinine Ratio 18.6 (6-22); Blood Urea Nitrogen 39 mg/dL (7-17); Calcium 8.1 mg/dL (8.4-10.2); Carbon Dioxide 27 mmol/L (22-32); Chloride 90 mmol/L (98-107); Estimated Glomerular Filt Rate 23.9 mL/min (>60); Glucose 113 mg/dL (80-110); HEMOLYSIS < 15 (0-50); Magnesium 1.8 mg/dL (1.6-2.3); Phosphorous 3.8 mg/dL (2.8-4.1); Potassium 3.8 mmol/L (3.4-5.1); Sodium 127 mmol/L (137-145)
[2019-07-12 05:53] LABS: Hematocrit 29.6 % (36-46); Hemoglobin 9.7 g/dL (12.0-16.0); Mean Corpuscular HGB Conc 32.6 % (30-36); Mean Corpuscular Hemoglobin 30.2 PG (26-34); Mean Corpuscular Volume 92.7 fL (80-100); Platelet Count 412 X10^3/uL (150-400); Red Cell Distribution Width 14.6 % (11.6-14.8); White Blood Cell Count 13.1 X10^3/uL (4.5-11.0)
[2019-07-12 05:57] LABS: Add Manual Diff / Slide Review YES
--- NOTE | 2019-07-12 06:15 | PC.NURSE ---
Pt a/o x 3 but confused at times and sitting up at side of bed trying to get to bathroom. Bed alarm set. Pt steady on feet, SBA to BSC. Right sided pain resolved with oxycodone. Pt resting in bed without complaints. WCTM
--- NOTE | 2019-07-12 06:20 | PC.NURSE ---
TO [place] follow alcohol withdrawl policy for ativan administration
[2019-07-12 06:58] LABS: Neutrophils Absolute Manual 9432 /uL (3000-5900); RBC Morphology Normal Morphology; Total Cells Counted 100
[2019-07-12] MEDS: CALCIUM CARBONATE 500 MG TAB PO ×2 (08:10→21:27)
[2019-07-12] MEDS: DOCUSATE 100 MG CAPSULE PO ×2 (08:10→21:27)
[2019-07-12] MEDS: HEPARIN 5,000 UNIT/ML VIAL 5000 UNIT SUBCUT ×2 (08:10→21:26)
[2019-07-12] MEDS: methIMAzole 5 MG TABLET PO (08:12)
[2019-07-12] MEDS: ONDANSETRON 4 MG/2 ML INJ IV ×2 (08:52→16:18)
[2019-07-12] MEDS: LINEZOLID 600 MG/300 ML IV.SOLN IV (10:37)
[2019-07-12] MEDS: HYDROMORPHONE 0.5 MG INJ IV (11:32)
--- NOTE | 2019-07-12 12:09 | PC.NURSE ---
Addendum entered by Giovanni Manley R.N. 07/12/19 13:07: PleurX cath drained per [facility] Dr. Dutta. Only scant serous drainage to collection bottle. Unable to measure. Site WNL. Cleansed with alcohol swab and applied gauze dsg secured with tegaderm. Pt tolerated well. Pt then transferred from bed to w/c in no acute distress for transfer to acute care. Original Note: Pt is AO x2-3 and making needs known with clear speech that is at times delayed. She is forgetful but using the call light. She is requesting more independence and privacy with ADLs. She is noted to have a steady gait with transferring from bed to bsc/chair. She mainly needs assistance with line management. She has been titrated to her home O2 dose of 3L via high flow NC. Her HRR, SR. She denies chest pain, pressure, shortness of breath. She reports pain to her right back and associates it mostly with deep inspiration. She reports her current pain medication regimen is ineffective and much less than she normally takes at home. Discussed with Dr. Dutta and received new orders. Her goals for today are to decrease pain level, increase her independence, minimize lines/devices, get a new room. Coordinator notified of pt requests. Report called to acute care RN and family notified of pt's room change.
--- NOTE | 2019-07-12 12:46 | CM.DPC ---
DCP: continued: EMR reviewed and case discussed in Team Rounds. Dr. Dutta stated that pt is now showing signs of improvement. Her labs are stabilizing and she is on 3L of 02 which, per RN Giovanni, is what she uses at home. Dr. Dutta stated that pt was ready to start PT and order was placed. PT Hilda will be seeing pt today. Pt is currently in process of moving out of ICU setting to room 205 on acute care floor. CM/DCP team will continue to follow for any d/c needs that may arise. Pt will likely d/c home when stable for same with continued followup at the Oncology Clinic. Recommend updating Oncology IRONER Barbara Kelli Laws when the d/c date is known.
--- NOTE | 2019-07-12 13:14 | P.PN_ITS ---
Subjective Subjective Date Patient Seen: 07/12/19 Time Patient Seen: 07:45 Interval history: Ms. 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 Overnight she was much improved. This morning her kidney function continues to improve, and her mental status as well is slightly better. She complains of right-sided pain when she moves, but denies any shortness of breath, chest pain, nausea, vom iting. She says that she feels slightly improved today, in that she is slightly less confused than she remembers being yesterday. Exam Vital Signs (past 8 hours): - 07/12/19 07:30 07/12/19 07:53 07/12/19 11:40 Temperature 97.6 F 97.6 F Pulse Rate 81 85 Respiratory Rate 15 19 Blood Pressure 127/66 145/65 H Pulse Oximetry 95 94 93 Fraction of Inspired Oxygen 40 Oxygen Delivery Method High Flow Nasal Cannula Oxygen Flow Rate 3 Narrative Exam Narrative: GENERAL APPEARANCE: fatigued but no acute distress, on nasal cannula in no acute distress. SKIN: Inspection of the skin reveals no rashes, ulcerations or petechiae. There is a small ecchymosis on her RLE anteriorly near her ankle. HEENT: The sclerae were anicteric and conjunctivae were pink and moist. Extraocular movements were intact and pupils were equal, round with normal accommodation. External inspection of the ears and nose showed no scars, lesions, or masses. Lips, teeth, and gums showed normal mucosa. The oral mucosa, hard and soft palate, tongue and posterior pharynx were unremarkable. NECK: Supple and symmetric. There was no thyroid enlargement, and no tenderness, or masses were felt. CHEST: Normal AP diameter and normal contour without any kyphoscoliosis. LUNGS: Decreased breath sounds and scattered rhonchi bilaterally, right greater than left. CARDIOVASCULAR: There was a regular rate and rhythm without any murmurs, gallops, rubs. Peripheral pulses were 2+ and symmetric. ABDOMEN: Soft and nontender with normal bowel sounds. No ascites was noted. MUSCULOSKELETAL: There was no tenderness or effusions noted. Muscle strength and tone were normal. EXTREMITIES: No cyanosis, clubbing or edema. NEUROLOGIC: Normal affect. Strength is +5/5 in the Upper Extremities and Lower Extremities Bilaterally. Sensation to touch was normal. Objective Labs Result Diagrams: 07/12/19 05:01 07/12/19 05:01 Labs: Laboratory Results - last 24 hr 07/08/19 07/12/19 07/12/19 13:26 05:01 05:01 WBC 13.1 H RBC 3.20 L Hgb 9.7 L Hct 29.6 L MCV 92.7 MCH 30.2 MCHC 32.6 RDW 14.6 Plt Count 412 H Neut % (Auto) Not Reportable Lymph % (Auto) Not Reportable Morrill % (Auto) Not Reportable Eos % (Auto) Not Reportable Baso % (Auto) Not Reportable Lymph # (Auto) Not Reportable Morrill # (Auto) Not Reportable Baso # (Auto) Not Reportable Total Counted 100 Seg Neutrophils % 68.0 Band Neutrophils % 4.0 Lymphocytes % (Manual) 17.0 L Monocytes % (Manual) 8.0 Metamyelocytes % 3.0 H Neutrophils # (Manual) 9432 H RBC Morphology Normal morphology Sodium 127 L Potassium 3.8 Chloride 90 L Carbon Dioxide 27 BUN 39 H Creatinine 2.10 H Estimated GFR 23.9 L BUN/Creatinine Ratio 18.6 Glucose 113 H Serum Osmolality 283 Calcium 8.1 L Phosphorus 3.8 D Magnesium 1.8 Assessment & Plan Assessment & Plan narrative: Natasha Platt is a 63-year-old female with past medical history of hypertension and lung adenocarcinoma with recurrent pleural effusions who was admitted with septic shock likely secondary to pneumonia which is improved. She is off pressors and her kidney function is improving. 1. Septic shock, acute, present on admission -patient had an elevated leukocyte count to 20,000, respiratory failure, mental status changes. There is likely a superimposed pneumonia along with her right-sided malignancy. She further has a PleurX catheter in place which is a potential source of infection into her lung. She is improved clinically on Zosyn and daptomycin albeit slowly. She required Levophed for septic shock which has now been discontinued. - continue zosyn and daptomycin (renal failure) - continue to follow WBC. 2. Acute metabolic encephalopathy, acute, present on admission -likely due to septic shock as noted above, however the patient is also on chronic opiate therapy. Her more recent changes may be due to ICU induced delirium. - hold benzodiazepines - encourage night sleep - awake during the day. - OOB to chair, can start PT now. 3. Acute on chronic respiratory failure, patient has increasing pleural effusions and a right lower lobe infiltrate. Will continue IV Zosyn and Linzeolid, continue oxygen as needed. She may be fluid overloaded from oliguric renal failure as well which is now improving. - continue to monitor 4. Acute nonoliguric renal failure, improving -likely secondary to ATN from septic shock as noted above. Her creatinine has improved dramatically today to 2.1. -will continue to monitor Cr 5. Metastatic adenocarcinoma of the lung patient was to undergo induction chemotherapy yesterday which has since been aborted. - will work on pain control - oxycodone 10 q6 hr standing (home 20 mg) - fentanyl patch 25 mg started 07/11 6. Hyponatremia, related to pleural effusions, pneumonia, and dehydration. This has remained stable. Will continue to follow. Once creatinine improves consider fluid restriction. 7. Hyperkalemia related to underlying renal failure, resolved. Dispo: stable for medical floor, anticipate discharge in approximately 48 hours, pending renal function and PT evaluation DVT: HSQ Code: DNR
[2019-07-12] MEDS: METOCLOPRAMIDE 10 MG/2 ML INJ IV (14:26)
--- NOTE | 2019-07-12 15:28 | PT.IIE ---
Current Diagnoses Acute kidney failure, unspecified (07/08/19) Medical History (Last Reviewed 07/08/19 @ 19:22 by Jordan Dee DO) H/O: hysterectomy (Acute) HTN (hypertension) (Acute) Hypoxia (Inactive) Lung cancer (Inactive) Pleural effusion (Inactive) Physical Therapy Inpatient Evaluation/Re-Eval M1 PT/OT-IP Prior Functional Status Start: 07/12/19 12:56 Freq: NEEDED Status: Active Protocol: Document 07/12/19 15:04 AW (Rec: 07/12/19 15:28 AW [id number]) Medical Review Prior Functional Status Medical History Reviewed Yes Diet/Fluid Consistency Regular Communication Able to make needs known Mobility and Gait Pt was independent with all functional mobility, no need for assistive device, no limit to ambulation distance. She does report she feels she's been slowing down recently. Activities of Daily Living and IADL's Independent, including driving and shopping. Social History Household Members spouse Living Arrangements House Number of Floors (Floors) One Floor Number of Stairs To Enter/Railing? 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 Her is out of town for work Saturday night through most weeks. Pt's daughter and sister take turns assisting her as needed while her is gone. M2 PT-IP Current Condition Start: 07/12/19 12:56 Freq: NEEDED Status: Active Protocol: Document 07/12/19 15:04 AW (Rec: 07/12/19 15:28 AW [id number]) Physical Therapy Current Condition Current Condition Evaluation Date 07/12/19 Treatment Diagnosis sepsis, metabolic encephalopathy, difficulty in walking Weight Bearing Status Weight Bearing Status Full Weight Bearing M3 PT-IP Subjective Start: 07/12/19 12:56 Freq: NEEDED Status: Active Protocol: Document 07/12/19 15:04 AW (Rec: 07/12/19 15:28 AW [id number]) Subjective Physical Therapy Visit Type Type Initial Evaluation Visit Start Time 14:38 Visit Stop Time 15:00 Total Visit Minutes 22 Notes Pt on 3L O2 via HFNC with humidification. SpO2 maintained ~91% throughout session Physical Therapy Visit Comments Patient Comments Pt is tired and prefers to limit number of visitors Patient Goals To return home M4 PT-IP Mobility and Gait Start: 07/12/19 12:56 Freq: NEEDED Status: Active Protocol: Document 07/12/19 15:04 AW (Rec: 07/12/19 15:28 AW [id number]) PT-Bed Mobility Assessment Rolling Type of Rolling Roll to Left Level of Assist Standby Assistance Supine to Sit Supine to Sit Standby Assistance Scooting Scooting to Edge of Bed Standby Assistance PT-Transfer Assessment Sit to and From Stand Sit to and from Stand Standby Assistance Equipment Transfer Assistive Device Gait Belt Transfers Transfer Destination Bed,Chair,Toilet Transfer Technique pt ambulated to transfer destinations Transfer Ability Level of Assist Standby Assistance Comments Mobility Comments Pt required no more than SBA for all bed mobility and transfers Gait Assessment Gait Gait Assistance Required: Standby Assistance Distance (Feet) 80 Able to Maintain Weight Bearing Status Yes During Gait Assistive Devices Assistive Device Gait Belt Orthotic/Prosthetic Devices or Brace: No Gait Deviations General Gait Pattern Decreased Stride Length, Decreased Feet Clearance Factors Limiting Gait Function Factors Limiting Gait Function Decreased Activity Tolerance Comments Gait Comments Pt expressed preference to avoid walking in the halls at the moment. She required SBA to ambulate slowly ~80 feet in the room. SpO2 maintained at 90-92% on 3L humidified O2. PT-Balance Assessment Sitting Balance and Reactions Static Sitting Balance Ability Good Dynamic Sitting Balance Ability Good Standing Balance and Reactions Static Standing Balance Ability Good Dynamic Standing Balance Ability Fair Device Used none Comments Other Balance Tests/Deviations/Treatment Pt with minimal sway in narrow : stance (eyes open and eyes closed). She was unable to assume or maintain tandem stance without support. M5 PT-IP Objective Assessments Start: 07/12/19 12:56 Freq: NEEDED Status: Active Protocol: Document 07/12/19 15:04 AW (Rec: 07/12/19 15:28 AW [id number]) Orientation Orientation/Cognition Level of Alertness Alert Orientation Name,Month,Place Language Function Ability No Deficits Noted Safety Awareness Understands Safety Issues Memory Description Short Term Impaired Comments A&O x 3. Pt briefly insisted the year was 2028, but was able to correct. Gross Range of Motion Upper Extremity ROM Assessment Within Functional Limits Lower Extremity ROM Assessment Within Functional Limits Strength Comments Strength Comments BLE strength grossly 4/5 in all major muscle groups Coordination Assessment Gross Coordination Gross Coordination WNL Sensation Assessment Sensation Gross Sensation WNL Muscle Tone Muscle Tone WNL Yes M6 PT-IP Treatment Start: 07/12/19 12:56 Freq: NEEDED Status: Active Protocol: Document 07/12/19 15:04 AW (Rec: 07/12/19 15:28 AW [id number]) Physical Therapy Treatment Education Education Provided Safety Other Treatments Other Treatment Performed Pt educated on energy conservation techniques and the role of outpatient PT for pt's undergoing chemotherapy. M7 PT-IP Assessment and Plan Start: 07/12/19 12:56 Freq: NEEDED Status: Active Protocol: Document 07/12/19 15:04 AW (Rec: 07/12/19 15:28 AW [id number]) PT Summary Assessment and Plan Potential Rehabilitation Potential Good Status of Condition at Evaluation Evolving Summary Impairments Strength,Balance,Cognition, Gait,Activity Tolerance Assessment Summary Pt is a 63 yo woman with new diagnosis of metastatic adenocarcinoma of the lung. She was scheduled to start chemotherapy at this hospital when she became ill. She is admitted at this time with sepsis secondary to pneumonia and metabolic encephalopathy. PLOF: Independent with all functional mobility and ADL's. CLOF: Pt presents with decreased activity tolerance, impaired cognition, decreased balance, and impaired strength secondary to immobility in the hospital setting. She required SBA for transfers and ambulation, and min assist for balance activities. PT recommending discharge to home with increased level of assistance from family. Pt may also benefit from outpatient PT to address balance concerns and energy conservation. Goals Bed Mobility Goal Independent Transfer Goal Independent Gait Goal Independent Gait Distance 250 feet Frequency of Treatment Frequency Of Treatment Once a Day Treatment Plan Physical Therapy Treatment Plan Transfer Training,Gait Training,Therapeutic Exercise, Balance Retraining,Discharge Planning,Hot or Cold Pack, Neuromuscular Re-ed, Coordination Retraining,Manual Therapy Other Recommendations and Next Treatment progress gait training to Focus halls, introduce obstacle navigation, balance activities Recommendations To Nursing Amount of Assist Needed Standby Assistance Discharge Recommendations PT Discharge Recommendations Home with Assistance, Outpatient PT
[2019-07-12] MEDS: MELATONIN 3 MG TABLET PO (21:26)
[2019-07-12] MEDS: SENNOSIDES 8.6 MG TABLET 17.2 MG PO (21:27)
[2019-07-12] MEDS: LINEZOLID 600 MG/300 ML IV.SOLN 300 MG IV (22:00)
--- NOTE | 2019-07-12 22:36 | PC.NURSE ---
Pt rates pain 7-8/10; gets relief from 10 mg oxycodone. PICC flushes well but is positional. Pt appears depressed (2 week old dx of lung CA) and is worried about her BP rising to hypertensive baseline if she doesn't take her BP meds. Explained sepsis and hypotension and spoke with MD who prescribed a low dose of ramipril for 0900 07/13/19. Pt often appears anxious. She has a steady gait and want to go to the BR independently with long O2 extension tubing. She is on home O2. She has a pleurix drain under her R arm which is dressed with gauze and tegaderm and is accessed by oncology. She complained of N one time this shift and got good results with IVP Zofran.
[2019-07-13] VITALS (11 sets, daily range): BP systolic 101–146; BP diastolic 47–72; PULSE 91–101; RESP 14–20; TEMP 36.1–36.9; O2SAT 88–95
[2019-07-13] MEDS: OXYCODONE IR 10 MG TABLET PO ×7 (00:05→18:25)
--- NOTE | 2019-07-13 00:13 | PC.NURSE ---
Pt states they told me I don't need someone to be with me when I'm walking around. Pt not oriented to situation at this time. ie, forgets to pull IV pole when walking to BR. Reinforced reasons for high fall risk, q3-6hr oxycodone 10mg, multiple lines, deconditioned, 7-8/10 pain, change in blood counts. Pt con't to refuse BA/SBA, Declines yellow gown/slippers. Will offer q2-3hr toileting overnight for fall prevention and meet all pt needs.
[2019-07-13] MEDS: PIPERACILLIN-TAZO 2.25 GM/50 ML FROZ.PIGGY IV ×3 (03:39→19:06)
--- NOTE | 2019-07-13 04:36 | PC.NURSE ---
Addendum entered by Myrna Harvey R.N. 07/13/19 06:28: Pt rates pain 7-8/10 in right/flank back. On scheduled oxy and PRN oxy for breakthrough. Allowed to sleep overnight, resolving ICU delirium. Pt with large bloody stool, reports this is not new for her. Provider notified. Old PleurX drain site oozing sero/sang, saturating folded 4x4 gauze in ~20mins. Now with ABD and large tegaderm x2. Remove dressing qshift and assess site. Area without s/s infection, surrounding skin pink. Resolving pneumonia, 2L HF NC, denies SOB sats 92%. Needs urine labs sent. PICC in LUE, positional. Elevated LUE on two pillows and infusion able to complete. Pt expresses wish to go home. Original Note: AM labs drawn. Flushed PICC line per protocol, cap changed after blood draw. Pt line positional, elevated left arm on two pillows while pt slept at 20 degrees on right side.
[2019-07-13 05:38] LABS: Blood Urea Nitrogen 42 mg/dL (7-17); Calcium 8.6 mg/dL (8.4-10.2); Carbon Dioxide 30 mmol/L (22-32); Chloride 92 mmol/L (98-107); Estimated Glomerular Filt Rate 45.7 mL/min (>60); Glucose 120 mg/dL (80-110); HEMOLYSIS < 15 (0-50); Magnesium 1.4 mg/dL (1.6-2.3); Phosphorous 2.3 mg/dL (2.8-4.1); Potassium 3.4 mmol/L (3.4-5.1); Sodium 130 mmol/L (137-145)
[2019-07-13 05:44] LABS: Add Manual Diff / Slide Review YES; Hematocrit 24.5 % (36-46); Hemoglobin 8.2 g/dL (12.0-16.0); Mean Corpuscular HGB Conc 33.4 % (30-36); Mean Corpuscular Hemoglobin 30.8 PG (26-34); Mean Corpuscular Volume 92.2 fL (80-100); Platelet Count 352 X10^3/uL (150-400); Red Blood Cell Count 2.66 X10^6/uL (4.0-5.2); Red Cell Distribution Width 14.5 % (11.6-14.8); White Blood Cell Count 16.1 X10^3/uL (4.5-11.0)
[2019-07-13 05:55] LABS: Neutrophils Absolute Manual 12880 /uL (3000-5900); Total Cells Counted 100
[2019-07-13 05:59] LABS: RBC Morphology Normal Morphology
[2019-07-13] MEDS: CALCIUM CARBONATE 500 MG TAB PO ×2 (08:47→20:48)
[2019-07-13] MEDS: ACETAMINOPHEN 325 MG TABLET 650 MG PO (08:47)
[2019-07-13] MEDS: DOCUSATE 100 MG CAPSULE PO ×2 (08:48→20:48)
[2019-07-13] MEDS: MAGNESIUM SULFATE 2 GM/50 ML PIGGYBACK IV (08:48)
[2019-07-13] MEDS: RAMIPRIL 2.5 MG CAPSULE PO (08:48)
[2019-07-13] MEDS: methIMAzole 5 MG TABLET PO (08:48)
[2019-07-13] MEDS: HEPARIN 5,000 UNIT/ML VIAL 5000 UNIT SUBCUT (08:50)
--- NOTE | 2019-07-13 09:00 | PT.IPTN ---
Current Diagnoses Acute kidney failure, unspecified (07/08/19) Physical Therapy Treatment Note M2 PT-IP Current Condition Start: 07/12/19 12:56 Freq: NEEDED Status: Active Protocol: Document 07/12/19 15:04 AW (Rec: 07/12/19 15:28 AW [id number]) Physical Therapy Current Condition Current Condition Evaluation Date 07/12/19 Treatment Diagnosis sepsis, metabolic encephalopathy, difficulty in walking Weight Bearing Status Weight Bearing Status Full Weight Bearing M3 PT-IP Subjective Start: 07/12/19 12:56 Freq: NEEDED Status: Active Protocol: Document 07/13/19 09:00 CLB (Rec: 07/13/19 10:17 CLB [id number]) Subjective Physical Therapy Visit Type Type Patient Unavailable Notes Per RN pt had rough night and isn't wanting to be disturbed. Please see pt in PM. M4 PT-IP Mobility and Gait Start: 07/12/19 12:56 Freq: NEEDED Status: Active Protocol: Document 07/12/19 15:04 AW (Rec: 07/12/19 15:28 AW [id number]) PT-Bed Mobility Assessment Rolling Type of Rolling Roll to Left Level of Assist Standby Assistance Supine to Sit Supine to Sit Standby Assistance Scooting Scooting to Edge of Bed Standby Assistance PT-Transfer Assessment Sit to and From Stand Sit to and from Stand Standby Assistance Equipment Transfer Assistive Device Gait Belt Transfers Transfer Destination Bed,Chair,Toilet Transfer Technique pt ambulated to transfer destinations Transfer Ability Level of Assist Standby Assistance Comments Mobility Comments Pt required no more than SBA for all bed mobility and transfers Gait Assessment Gait Gait Assistance Required: Standby Assistance Distance (Feet) 80 Able to Maintain Weight Bearing Status Yes During Gait Assistive Devices Assistive Device Gait Belt Orthotic/Prosthetic Devices or Brace: No Gait Deviations General Gait Pattern Decreased Stride Length, Decreased Feet Clearance Factors Limiting Gait Function Factors Limiting Gait Function Decreased Activity Tolerance Comments Gait Comments Pt expressed preference to avoid walking in the halls at the moment. She required SBA to ambulate slowly ~80 feet in the room. SpO2 maintained at 90-92% on 3L humidified O2. PT-Balance Assessment Sitting Balance and Reactions Static Sitting Balance Ability Good Dynamic Sitting Balance Ability Good Standing Balance and Reactions Static Standing Balance Ability Good Dynamic Standing Balance Ability Fair Device Used none Comments Other Balance Tests/Deviations/Treatment Pt with minimal sway in narrow : stance (eyes open and eyes closed). She was unable to assume or maintain tandem stance without support. M5 PT-IP Objective Assessments Start: 07/12/19 12:56 Freq: NEEDED Status: Active Protocol: Document 07/12/19 15:04 AW (Rec: 07/12/19 15:28 AW [id number]) Orientation Orientation/Cognition Level of Alertness Alert Orientation Name,Month,Place Language Function Ability No Deficits Noted Safety Awareness Understands Safety Issues Memory Description Short Term Impaired Comments A&O x 3. Pt briefly insisted the year was 2028, but was able to correct. Gross Range of Motion Upper Extremity ROM Assessment Within Functional Limits Lower Extremity ROM Assessment Within Functional Limits Strength Comments Strength Comments BLE strength grossly 4/5 in all major muscle groups Coordination Assessment Gross Coordination Gross Coordination WNL Sensation Assessment Sensation Gross Sensation WNL Muscle Tone Muscle Tone WNL Yes M6 PT-IP Treatment Start: 07/12/19 12:56 Freq: NEEDED Status: Active Protocol: Document 07/12/19 15:04 AW (Rec: 07/12/19 15:28 AW [id number]) Physical Therapy Treatment Education Education Provided Safety Other Treatments Other Treatment Performed Pt educated on energy conservation techniques and the role of outpatient PT for pt's undergoing chemotherapy. M7 PT-IP Assessment and Plan Start: 07/12/19 12:56 Freq: NEEDED Status: Active Protocol: Document 07/12/19 15:04 AW (Rec: 07/12/19 15:28 AW [id number]) PT Summary Assessment and Plan Potential Rehabilitation Potential Good Status of Condition at Evaluation Evolving Summary Impairments Strength,Balance,Cognition, Gait,Activity Tolerance Assessment Summary Pt is a 63 yo woman with new diagnosis of metastatic adenocarcinoma of the lung. She was scheduled to start chemotherapy at this hospital when she became ill. She is admitted at this time with sepsis secondary to pneumonia and metabolic encephalopathy. PLOF: Independent with all functional mobility and ADL's. CLOF: Pt presents with decreased activity tolerance, impaired cognition, decreased balance, and impaired strength secondary to immobility in the hospital setting. She required SBA for transfers and ambulation, and min assist for balance activities. PT recommending discharge to home with increased level of assistance from family. Pt may also benefit from outpatient PT to address balance concerns and energy conservation. Goals Bed Mobility Goal Independent Transfer Goal Independent Gait Goal Independent Gait Distance 250 feet Frequency of Treatment Frequency Of Treatment Once a Day Treatment Plan Physical Therapy Treatment Plan Transfer Training,Gait Training,Therapeutic Exercise, Balance Retraining,Discharge Planning,Hot or Cold Pack, Neuromuscular Re-ed, Coordination Retraining,Manual Therapy Other Recommendations and Next Treatment progress gait training to Focus halls, introduce obstacle navigation, balance activities Recommendations To Nursing Amount of Assist Needed Standby Assistance Discharge Recommendations PT Discharge Recommendations Home with Assistance, Outpatient PT
--- NOTE | 2019-07-13 09:19 | PC.NURSE ---
Addendum entered by Sophie Peña R.N. 07/13/19 14:45: Patient has been NPO since lunchtime (did NOT eat lunch) ahead of surgery consult. Oral swabs and other oral care items within reach. Original Note: Shift summary: Patient is alert and oriented X3. Flat affect. Reported 6/10 pain in lower back and was medicated with PRN Tylenol and Oxycodone for the same. O2 at 2L HFNC, sats 94-95% at rest. Denies shortness of breath. Refused to let this service writer advisor complete physican assessment stating I just want to rest, can't you do that later?. Will assess later per patient request. Instructed to call for SBA to BR, especially now that she's hooked up to IV for mag rider, patient verbalized understanding. Was asking when MD will make rounds, stated I'm going home tonight no matter what. Reassured that MD will be around, encouraged to talk with him about desire to go home today.
[2019-07-13] MEDS: ONDANSETRON 4 MG/2 ML INJ IV (10:34)
[2019-07-13 11:44] LABS: Sodium Urine Random < 5 mmol/L (30-90)
[2019-07-13] MEDS: LINEZOLID 600 MG/300 ML IV.SOLN IV ×2 (12:08→21:05)
[2019-07-13] MEDS: PANTOPRAZOLE 40 MG VIAL 80 MG IV (15:38)
--- NOTE | 2019-07-13 15:53 | PC.NURSE ---
Evening notes: April is sleeping, opened eyes when I introduced myself. She is requesting to sleep at this time, refusing vitals or other assessments at this time. Teaching explained to April & her family about new order for IV Protonix. IV Protonix 80 mg now infusing via pump, PICC line to LUE is patent and infusing with no difficulties. Patient awaiting surgical consult and remains NPO. Fall precautions in place, alarm active for safety. Family at bedside.
--- NOTE | 2019-07-13 16:01 | PM.PN.1 ---
Subjective Subjective Date Patient Seen: 07/13/19 Time Patient Seen: 10:30 Interval history: Ms. Platt is a 63-year-old female with history newly diagnosed adenocarcinoma of the lung with malignant pleural effusion who was admitted for septic shock likely secondary to pneumonia. She has clinically improved and her kidney function has returned to normal now. However overnight she had a bloody bowel movement and her hemoglobin has dropped from 10-8 over the past 2 days. I have asked the surgeons to see her. She is now NPO, started on IV Protonix b.i.d. She continues to feel improved and would like to go home, she thinks her bleeding is due to hemorrhoids which she has had in the past. However in the next sentence she admitted that she coughed up some blood earlier today. Exam Vital Signs (past 8 hours): - 07/13/19 09:13 07/13/19 11:30 07/13/19 15:49 Temperature 97.2 F L Pulse Rate 95 H Respiratory Rate 18 Blood Pressure 101/68 Pulse Oximetry 94 94 94 Fraction of Inspired Oxygen 40 Oxygen Delivery Method Nasal Cannula Oxygen Flow Rate 2 Narrative Exam Narrative: GENERAL APPEARANCE: fatigued but no acute distress, on nasal cannula. SKIN: Inspection of the skin reveals no rashes, ulcerations or petechiae. HEENT: The sclerae were anicteric and conjunctivae were pink and moist. Extraocular movements were intact and pupils were equal, round with normal accommodation. External inspection of the ears and nose showed no scars, lesions, or masses. Lips, teeth, and gums showed normal mucosa. The oral mucosa, hard and soft palate, tongue and posterior pharynx were unremarkable. NECK: Supple and symmetric. There was no thyroid enlargement, and no tenderness, or masses were felt. CHEST: Normal AP diameter and normal contour without any kyphoscoliosis. LUNGS: Decreased breath sounds and scattered rhonchi bilaterally, right greater than left. CARDIOVASCULAR: There was a regular rate and rhythm without any murmurs, gallops, rubs. Peripheral pulses were 2+ and symmetric. ABDOMEN: Soft and nontender with normal bowel sounds. No ascites was noted. Rectal: No palpable masses, non-tender hemorrhoids visible but no active bleeding noted. MUSCULOSKELETAL: There was no tenderness or effusions noted. Muscle strength and tone were normal. EXTREMITIES: No cyanosis, clubbing or edema. NEUROLOGIC: Slightly agitated. Strength is +5/5 in the Upper Extremities and Lower Extremities Bilaterally. Sensation to touch was normal. Objective Labs Result Diagrams: 07/13/19 04:30 07/13/19 04:30 Labs: Laboratory Results - last 24 hr 07/13/19 07/13/19 07/13/19 04:30 04:30 04:30 WBC 16.1 H RBC 2.66 L Hgb 8.2 L Hct 24.5 L MCV 92.2 MCH 30.8 MCHC 33.4 RDW 14.5 Plt Count 352 Neut % (Auto) Not Reportable Lymph % (Auto) Not Reportable Elmore % (Auto) Not Reportable Eos % (Auto) Not Reportable Baso % (Auto) Not Reportable Lymph # (Auto) Not Reportable Elmore # (Auto) Not Reportable Baso # (Auto) Not Reportable Total Counted 100 Seg Neutrophils % 78.0 H Band Neutrophils % 2.0 L Lymphocytes % (Manual) 5.0 L Monocytes % (Manual) 5.0 Metamyelocytes % 5.0 H Myelocytes % 3.0 H Promyelocytes % 2.0 H Neutrophils # (Manual) 48389 H RBC Morphology Normal morphology Sodium 130 L Potassium 3.4 Chloride 92 L Carbon Dioxide 30 BUN 42 H Creatinine 1.20 H Estimated GFR 45.7 L BUN/Creatinine Ratio 35.0 H Glucose 120 H Calcium 8.6 Phosphorus 2.3 L D Magnesium 1.4 L Procalcitonin 0.40 Ur Random Sodium 07/13/19 10:46 WBC RBC Hgb Hct MCV MCH MCHC RDW Plt Count Neut % (Auto) Lymph % (Auto) Elmore % (Auto) Eos % (Auto) Baso % (Auto) Lymph # (Auto) Elmore # (Auto) Baso # (Auto) Total Counted Seg Neutrophils % Band Neutrophils % Lymphocytes % (Manual) Monocytes % (Manual) Metamyelocytes % Myelocytes % Promyelocytes % Neutrophils # (Manual) RBC Morphology Sodium Potassium Chloride Carbon Dioxide BUN Creatinine Estimated GFR BUN/Creatinine Ratio Glucose Calcium Phosphorus Magnesium Procalcitonin Ur Random Sodium < 5 L Assessment & Plan Assessment & Plan narrative: Natasha Platt is a 63-year-old female with past medical history of hypertension and lung adenocarcinoma with recurrent pleural effusions who was admitted with septic shock likely secondary to pneumonia which is improved. She is off pressors and her kidney function has improved, course now complicated by episode of BRBPR noted overnight. 1. Septic shock, acute, present on admission -patient had an elevated leukocyte count to 20,000, respiratory failure, mental status changes. There is likely a superimposed pneumonia along with her right-sided malignancy. She further has a PleurX catheter in place which is a potential source of infection into her lung. She is improved clinically on Zosyn and daptomycin albeit slowly. She required Levophed for septic shock which has now been discontinued. - continue zosyn and daptomycin (renal failure) - continue to follow WBC. 2. Acute metabolic encephalopathy, present on admission -likely due to septic shock as noted above, however the patient is also on chronic opiate therapy. Her more recent changes may be due to ICU induced delirium. - hold benzodiazepines - encourage night sleep - awake during the day. - OOB to chair, can start PT now. 3. Acute on chronic respiratory failure, patient has increasing pleural effusions and a right lower lobe infiltrate. Will continue IV Zosyn and Linzeolid, continue oxygen as needed. She may be fluid overloaded from oliguric renal failure as well which is now improving. - continue to monitor 4. GI bleeding - Episode of BRBPR last night, she has a prior history of hemorrhoids but Hg has dropped from 10 to 8 over the past two days. She is hemodynamically stable but given recent septic shock requiring pressors so she is at increased risk for ulcerative bleeding. This could be secondary to an upper or lower GI source given both bright red blood per rectum and the patient reported she coughed up some blood. The hemoptysis may be related to her lung adenocarcinoma as well. - started on protonoix IV BID, given 80 mg x1 - NPO - Spoke with surgery (Dr. Wong), who will the patient later today. 5. acute blood loss anemia - secondary to GI bleeding as noted above. 4. Acute nonoliguric renal failure, resolved -likely secondary to ATN from septic shock as noted above. Her creatinine has improved dramatically today to 2.1. -will continue to monitor Cr 5. Metastatic adenocarcinoma of the lung patient was to undergo induction chemotherapy yesterday which has since been aborted. - will work on pain control - oxycodone 10 q6 hr standing (home 20 mg) will change to IV morphine at this time given NPO status. - fentanyl patch 25 mg started 07/11 6. Hyponatremia, related to pleural effusions, pneumonia, and dehydration. This has remained stable. Will continue to follow. 7. Hyperkalemia related to underlying renal failure, resolved. Dispo: Remains inpatient DVT: Hold for GI bleeding Code: DNR
--- NOTE | 2019-07-13 16:08 | PT.IPTN ---
Current Diagnoses Acute kidney failure, unspecified (07/08/19) Physical Therapy Treatment Note M2 PT-IP Current Condition Start: 07/12/19 12:56 Freq: NEEDED Status: Active Protocol: Document 07/12/19 15:04 AW (Rec: 07/12/19 15:28 AW [id number]) Physical Therapy Current Condition Current Condition Evaluation Date 07/12/19 Treatment Diagnosis sepsis, metabolic encephalopathy, difficulty in walking Weight Bearing Status Weight Bearing Status Full Weight Bearing M3 PT-IP Subjective Start: 07/12/19 12:56 Freq: NEEDED Status: Active Protocol: Document 07/13/19 15:55 CLB (Rec: 07/13/19 16:08 CLB [id number]) Subjective Physical Therapy Visit Type Type Patient Refusal Notes Per RN pt is refusing having baltazar taken and doen't think pt would agree to therapy. Will check back with pt in AM.
[2019-07-13 18:51] LABS: Hematocrit 21.3 % (36-46); Hemoglobin 7.2 g/dL (12.0-16.0); Mean Corpuscular HGB Conc 33.8 % (30-36); Mean Corpuscular Hemoglobin 30.9 PG (26-34); Mean Corpuscular Volume 91.4 fL (80-100); Platelet Count 328 X10^3/uL (150-400); Red Blood Cell Count 2.33 X10^6/uL (4.0-5.2); Red Cell Distribution Width 14.5 % (11.6-14.8); White Blood Cell Count 13.8 X10^3/uL (4.5-11.0)
[2019-07-13 18:54] LABS: Add Manual Diff / Slide Review YES
[2019-07-13 19:17] LABS: Neutrophils Absolute Manual 10074 /uL (3000-5900); Nucleated Red Blood Cells 1 #/Diff; Total Cells Counted 100
[2019-07-13 19:19] LABS: RBC Morphology Normal Morphology
--- NOTE | 2019-07-13 20:03 | PM.CN ---
History of Present Illness Consult details Date Patient Seen: 07/13/19 Time Patient Seen: 20:00 Chief complaint: weakness, ARF Reason for consult: GI bleed Requesting provider: Chuy Dutta Narrative: The patient is a woman who has been treated for sepsis felt secondary to pneumonia. She has a lung cancer and a PleurX catheter has been placed for recurrence effusion. She has not had any treatment for cancer. She was actually due to be discharged today but developed bright red blood per rectum. I was asked to see her. She states that she has had this for years and it has not increased. She is not concerned about it. She also admits however she has never really dropped her blood count because of it. She has been told it is due to hemorrhoids. [facility] Medical History H/O: hysterectomy (Acute) HTN (hypertension) (Acute) Hypoxia (Inactive) Lung cancer (Inactive) Pleural effusion (Inactive) Family History Mother CVA (cerebral vascular accident) Father ETOH abuse Other Hypertension Social History household members: spouse Smoking Status: Former smoker alcohol intake: former Family History Mother CVA (cerebral vascular accident) Father ETOH abuse Other Hypertension Social History household members: spouse Smoking Status: Former smoker alcohol intake: former Meds Home Medications and Allergies Home Medications Medication Instructions Recorded Confirmed Type methimazole 5 mg PO DAILY #0 12/13/16 07/10/19 History albuterol sulfate [ProAir HFA] 90 mcg INHALATION PRN PRN 06/22/19 07/10/19 History trazodone 50 mg PO BEDTIME PRN 06/22/19 07/10/19 History benzonatate 100 mg PO TID PRN #10 cap 06/24/19 07/10/19 Rx ondansetron HCl [Zofran] 4 mg PO Q8-12H PRN #20 tab 06/24/19 07/10/19 Rx lorazepam 1 mg PO Q4HR PRN 3 Days tab 06/30/19 07/10/19 Rx sennosides [senna] 17.2 mg PO BEDTIME PRN 3 Days tab 06/30/19 07/10/19 Rx atenolol 50 mg PO DAILY 07/09/19 07/09/19 History fluoxetine 20 mg PO DAILY 07/09/19 07/10/19 History fluticasone propionate [Flovent 1 puff INHALATION DIRECTED 07/09/19 07/09/19 History HFA] ibuprofen 600 mg PO QID 07/09/19 07/09/19 History naloxone [Narcan] 4 mg INTRANASAL PRN PRN 07/09/19 07/09/19 History oxycodone 20 mg PO Q6H 07/09/19 07/10/19 History ramipril 10 mg PO BID 07/09/19 07/10/19 History cyclobenzaprine 10 mg PO TID PRN 07/10/19 07/10/19 History oxycodone [OxyContin] 10 mg PO Q12H 07/10/19 07/10/19 History Allergies Allergy/AdvReac Type Severity Reaction Status Date / Time erythromycin base Allergy Mild nausea/vomi Verified 06/27/19 18:45 [ERYTHROMYCIN BASE] tting Review of Systems Review of Systems Narrative: No abdominal pain. Has been having intermittent blood with bowel movements for many years she said. No chest pain. She is not sure whether she has had a heart murmur in the past. No seizures. She has had a hysterectomy. Exam Vital Signs (past 8 hours): - 07/13/19 15:49 07/13/19 16:06 Temperature 97.6 F Pulse Rate 94 H Respiratory Rate 16 Blood Pressure 146/69 H Pulse Oximetry 94 94 Fraction of Inspired Oxygen 40 Oxygen Delivery Method Nasal Cannula Oxygen Flow Rate 2 Narrative Exam Narrative: Pleasant woman. She is disoriented to place. She thought she was in [facility] in [place]. She thought that I had seen her in the emergency room. Her eyes are nonicteric. Lungs fairly clear to auscultation at this time. At least anteriorly. Heart look regular rate and rhythm. She has a loud 3 to 4/6 systolic murmur heard best at the base. No bruit in the neck. Abdomen is soft. She has some mild tenderness in the right upper quadrant where she says her cancer is. She has some bruising about her abdominal wall. Objective Labs Result Diagrams: 07/13/19 18:30 07/13/19 04:30 Labs: Laboratory Results - last 24 hr 07/13/19 07/13/19 07/13/19 04:30 04:30 04:30 WBC 16.1 H RBC 2.66 L Hgb 8.2 L Hct 24.5 L MCV 92.2 MCH 30.8 MCHC 33.4 RDW 14.5 Plt Count 352 Neut % (Auto) Not Reportable Lymph % (Auto) Not Reportable Tyrrell % (Auto) Not Reportable Eos % (Auto) Not Reportable Baso % (Auto) Not Reportable Lymph # (Auto) Not Reportable [place]rell # (Auto) Not Reportable Baso # (Auto) Not Reportable Total Counted 100 Seg Neutrophils % 78.0 H Band Neutrophils % 2.0 L Lymphocytes % (Manual) 5.0 L Monocytes % (Manual) 5.0 Metamyelocytes % 5.0 H Myelocytes % 3.0 H Promyelocytes % 2.0 H Neutrophils # (Manual) 13890 H Nucleated RBCs RBC Morphology Normal morphology Sodium 130 L Potassium 3.4 Chloride 92 L Carbon Dioxide 30 BUN 42 H Creatinine 1.20 H Estimated GFR 45.7 L BUN/Creatinine Ratio 35.0 H Glucose 120 H Calcium 8.6 Phosphorus 2.3 L D Magnesium 1.4 L Procalcitonin 0.40 Ur Random Sodium Crossmatch 07/13/19 07/13/19 07/13/19 10:46 18:30 19:52 WBC 13.8 H RBC 2.33 L Hgb 7.2 L Hct 21.3 L MCV 91.4 MCH 30.9 MCHC 33.8 RDW 14.5 Plt Count 328 Neut % (Auto) Not Reportable Lymph % (Auto) Not Reportable Tyrrell % (Auto) Not Reportable Eos % (Auto) Not Reportable Baso % (Auto) Not Reportable Lymph # (Auto) Not Reportable [place]rell # (Auto) Not Reportable Baso # (Auto) Not Reportable Total Counted 100 Seg Neutrophils % 73.0 H Band Neutrophils % Lymphocytes % (Manual) 22.0 L D Monocytes % (Manual) 5.0 Metamyelocytes % Myelocytes % Promyelocytes % Neutrophils # (Manual) 84357 H Nucleated RBCs 1 H RBC Morphology Normal morphology Sodium Potassium Chloride Carbon Dioxide BUN Creatinine Estimated GFR BUN/Creatinine Ratio Glucose Calcium Phosphorus Magnesium Procalcitonin Ur Random Sodium < 5 L Crossmatch See Detail Assessment & Plan Assessment & Plan narrative: Patient seems a bit confused. Her blood count is down to 21. She is not however had a bowel movement since this morning. I would like to do an EGD and also a flex sig on her tomorrow. She has not had a colonoscopy and may ultimately need a full colonoscopy. However given the bright red blood in her history which may running not be accurate, I think it prudent to make sure she does not have hemorrhoids as the source of this bright red blood. I am not sure she would tolerate a full colonoscopy prep.
[2019-07-13] MEDS: SODIUM CHLORIDE 0.9% 1,000 ML 50 ML IV (20:47)
[2019-07-13] MEDS: QUETIAPINE 25 MG TABLET 12.5 MG PO (20:48)
[2019-07-13] MEDS: PANTOPRAZOLE 40 MG VIAL IV (20:48)
[2019-07-13] MEDS: MELATONIN 3 MG TABLET PO (20:48)
[2019-07-13] MEDS: SENNOSIDES 8.6 MG TABLET 17.2 MG PO (20:48)
--- NOTE | 2019-07-13 23:23 | PC.NURSE ---
Evening notes: April mostly slept tonight, very drowsy, awakes to voice, answers questions appropriately but sometimes confused to details & events. VS remain stable. 2L O2 sat 94% H&H drawn earlier low at 7.2 & 21.3, I notified Quentin VERDE of results, he ordered 2 units of PRBC's. PRBC's originally ordered irradiated but per Shyam in the lab these PRBC's do not need to be irradiated for this patient. Because patient is sometimes confused and grawgy, I called her Joseph, gave him update on care plan. I clarified with him that it was ok to transfuse blood, he said yes. I read consent to patient and she was able to sign, verbally expressing understanding. 1st unit PRBC's transfusing with no difficulty to PICC line LUE, VS stable. Dr Wong in room earlier to consult, patient remains NPO tonight, small sip of water given with meds. Joseph, patient's spouse, asked that I ask physician to call him tomorrow with an update. I wrote a note on chart & also passed this information on to Karen SALCIDO RN.
[2019-07-14] VITALS (20 sets, daily range): BP systolic 114–147; BP diastolic 48–76; PULSE 90–102; RESP 14–22; TEMP 36.1–37.2; O2SAT 92–96; BMI 28.0
--- NOTE | 2019-07-14 | PATH_ITS ---
[facility] Accession Number: [id number] . 01 Material submitted: . PART A: gastrointestinal site - BIOPSY STOMACH PART B: rectum - BIOPSY RECTUM NEAR ANUS . 01 Clinical history: . WEAKNESS, ARF; ACUTE KIDNEY FAILURE, UNSPECIFIED A. RULE OUT H. PYLORI B. CONSIDER C. DIFFICILE . 02 Diagnosis: A. Stomach, Biopsy: Gastric antral and body mucosa with no diagnostic abnormality. No evidence of Helicobacter organisms on H/E stain. Negative for intestinal metaplasia, dysplasia or malignancy. . B. Rectum, Near Anus, Biopsy: Colorectal mucosa with ulcer; please see comment. Negative for granulomata, dysplasia or malignancy. [facility] 07/15/2019 0942 Local . 02 Comment: The findings in the rectal biopsy raise a differential diagnosis including infection, drug/toxin-induced injury, and in the appropriate clinical setting, idiopathic inflammatory bowel disease. The clinical consideration of C. difficile colitis is noted; however, features diagnostic of C. diff colitis are not seen in this biopsy. That said, this possibility cannot be entirely excluded on histologic grounds. Please correlate with clinical and laboratory findings. . 02 Electronically signed: . Robert Adams MD, PhD, Pathologist NPI- [id number] . 01 Gross description: . Part A: BIOPSY STOMACH: Received in formalin are 3 fragment(s) of kiran, soft tissue measuring 0.1 x 0.1 x 0.1 cm to 0.3 x 0.2 x 0.2 cm which is entirely submitted and submitted entirely in 1 cassette(s) Part B: BIOPSY RECTUM NEAR ANUS: Received in formalin are multiple fragment(s) of kiran, soft tissue measuring 0.1 x 0.1 x 0.1 cm to 0.3 x 0.2 x 0.2 cm which is entirely submitted and submitted entirely in 1 cassette(s) /[facility] 07/14/2019 2115 Local . 02 Pathologist provided ICD-10: K62.6, R10.13 . 02 CPT . 654255, 580454 Performed at: 01 [facility] [address] [id number] MD David Zapata MD Phone: [phone] Performed at: 02 [facility] [address] [place] [id number] MD Quin Childs MD Phone: [phone]
[2019-07-14] MEDS: OXYCODONE IR 10 MG TABLET PO ×5 (00:30→18:14)
[2019-07-14] MEDS: PIPERACILLIN-TAZO 2.25 GM/50 ML FROZ.PIGGY IV (01:39)
--- NOTE | 2019-07-14 02:30 | PC.NURSE ---
Addendum entered by Karen Elena R.N. 07/14/19 06:46: Had 1 stool during the night which FOOD SERVICE HELPER reports was loose and brown in color. Addendum entered by Karen Elena R.N. 07/14/19 06:21: Patient again states pain is 7/10 but when asked what severity number is the best she gets with current pain regimen states 7-8/10; when reminded that earlier pain was at 6/10 patient states well, yes, it takes the edge off. Blood drawn from PICC for lab. Addendum entered by Karen Elena R.N. 07/14/19 05:10: 2nd unit of blood infused. VSS. States pain is now down to 6/10 and more tolerable Addendum entered by Karen Elena R.N. 07/14/19 04:14: Patient complaining of 7/10 pain so medicated with prn Oxycodone. Addendum entered by Karen Elena R.N. 07/14/19 04:14: 0219 2nd unit of blood hung and infusion started. Addendum entered by Karen Elena R.N. 07/14/19 04:14: 0140 1st unit of blood infused. Original Note: 0030 Patient is alert and oriented except did not know day of month, day of week or year. Breath sounds CTA; oxygen at 2L/min per HFNC with sat of 93%. HRR. Denies nausea. BT present and abdomen is soft; denies tenderness. Denies dysuria, frequency or urgency. Is able to turn herself in bed. Reportedly needs SBA when out of bed due to weakness. Having 6/10 pain in back and right/flank exacerbated with movement or deep breathing; medicated with scheduled Oxycodone. Dressing to right chest is CDI. 1+ bilateral foot/ankle edema noted and is wearing bilateral ERIBERTO stockings. 1st unit of blood currently infusing. Fall risk score is moderate; bed alarm is activated.
[2019-07-14 06:51] LABS: BUN Creatinine Ratio 41.3 (6-22); Blood Urea Nitrogen 33 mg/dL (7-17); Calcium 8.7 mg/dL (8.4-10.2); Carbon Dioxide 32 mmol/L (22-32); Chloride 94 mmol/L (98-107); Estimated Glomerular Filt Rate > 60.0 mL/min (>60); Glucose 116 mg/dL (80-110); HEMOLYSIS < 15 (0-50); Magnesium 1.6 mg/dL (1.6-2.3); Phosphorous 2.9 mg/dL (2.8-4.1); Potassium 3.2 mmol/L (3.4-5.1); Sodium 133 mmol/L (137-145)
[2019-07-14 06:54] LABS: Hematocrit 29.2 % (36-46); Hemoglobin 9.8 g/dL (12.0-16.0); Mean Corpuscular HGB Conc 33.5 % (30-36); Mean Corpuscular Volume 89.6 fL (80-100); Platelet Count 260 X10^3/uL (150-400); Red Blood Cell Count 3.26 X10^6/uL (4.0-5.2); Red Cell Distribution Width 14.6 % (11.6-14.8); White Blood Cell Count 13.3 X10^3/uL (4.5-11.0)
[2019-07-14 06:57] LABS: Add Manual Diff / Slide Review YES
[2019-07-14 07:40] LABS: Neutrophils Absolute Manual 9842 /uL (3000-5900); Total Cells Counted 100
[2019-07-14 07:41] LABS: Toxic Granulation Present
[2019-07-14] MEDS: PANTOPRAZOLE 40 MG VIAL IV ×2 (09:08→20:31)
[2019-07-14] MEDS: SODIUM CHLORIDE 0.9% 1,000 ML 50 ML IV (09:09)
[2019-07-14] MEDS: POTASSIUM CHLORIDE 20 MEQ in SODIUM CHLORIDE 0.9% 250 ML 130 ML IV (09:09)
--- NOTE | 2019-07-14 10:27 | PC.NURSE ---
Addendum entered by Sophie Peña R.N. 07/14/19 15:43: Late entry: Back to room approx 1250. Vitals stable. Drowsy after pain meds, but easily awakened to voice/touch. Remains on 2L HFNC. Lungs CTA, dim throughout. HRR. ERIBERTO's to BLE's. Placed on Enteric precautions for likely C.diff (per Dr Wong, based on samples that were collected and sent during her scope). K-rider completed when back on unit, Amy hung when that was complete. Linezolid will be late for that reason. Dr Dutta spoke to patient's daughter and sister in-person today, and he also updated patient's over the phone. Patient resting quietly in bed at shift change. Cont pulse ox in place, SpO2 92% asleep. Call light within reach, bed alarm on. Original Note: Surgery: Patient transported off floor to pre-op at this time. Transported on 2L O2.
[2019-07-14] MEDS: MORPHINE 10 MG/ML INJ (10:39)
--- NOTE | 2019-07-14 11:00 | PT-IP ANOTE ---
PT attempted to follow up. Pt off floor for EGD/flex sig this morning. Will follow up this afternoon for appropriateness of PT treatment.
--- NOTE | 2019-07-14 11:17 | PM.PREOP ---
Pre-operative Note Interval Note History & Physical reviewed/Exam performed by Physician: Yes Changes to H&P: Yes H&P completed within 30 days and has changed as indicated here:: Patient received transfusion and hematocrit is up. Had a bloody bowel movement today. Small amount of blood ASA Class (for procedural sedation): III
[2019-07-14] MEDS: fentaNYL 250 MCG/5 ML INJ IV (11:47)
[2019-07-14] MEDS: MIDAZOLAM 5 MG/5 ML VIAL IV (11:48)
--- NOTE | 2019-07-14 11:55 | PM.OP.ENDO ---
Operative Date/Time/Diagnoses Date of procedure: 07/14/19 Time of procedure: 11:56 Pre-op diagnosis: Rectal bleeding Post-op diagnosis: same (Pyloric channel ulcer. Duodenitis. Proctitis. Suspect ischemic but could be C difficile) Procedure & Clinicians Study performed: EGD with cold biopsy. Flexible sigmoidoscopy with cold biopsy. Same procedure as scheduled: Yes Indications: Determine source of rectal bleeding Surgeon: Cj Wong Procedure Notes SCOAP/Timeout: Perform Procedure in detail: The patient had topical anesthetic applied to oropharynx. She was placed in left lateral decubitus position and underwent IV sedation directed by the surgeon consisting of fentanyl and Versed. A bite block was inserted and the scope was advanced through it into the esophagus. The esophagus was unremarkable. GE junction was noted at 39 cm from the incisors. The stomach insufflated well. There were no lesions seen in the body, antrum or at the incisura. The pyloric channel was quite abnormal. There was an obvious ulcer within it. Portions appeared to be necrotic.. The duodenal bulb had the appearance of inflammation with the possibility of the formation of ulcers beginning. The remainder to the 4th part Was unremarkable. The scope was brought back into the stomach and retroflexed. The proximal stomach normal in appearance. Biopsies were taken in the antrum randomly to rule out C diff.. The scope was straightened and brought out through the esophagus again. No lesions were seen. The scope was removed and the patient tolerated the procedure well. The patient was repositioned given additional sedation. Patient had obvious external hemorrhoidal disease. Digital exam resulted in the egress of tar E maroon stool. I inserted the scope and noted inflammation in the distal rectum with the appearance of either ischemia or pseudomembranes. The mucosa was carr and brown in places with redness at the edges. It was circumferential in nature. It did not extend far however into the rectum. The scope was passed through into the sigmoid to a depth of 30 cm. I noted strands of tardy stool but the mucosa of the the sigmoid and proximal rectum were normal in appearance. The scope was brought back into the rectum where biopsies were taken of this abnormal mucosa/proctitis. I then irrigated and collected specimen for a GI panel to include C diff at for culture. The scope was removed and the patient tolerated the procedure well. Scope withdrawal time: Not applicable Sedation minutes: 39 Findings: diverticulosis (Sigmoid) and other findings (Acute pyloric channel ulcer. Acute duodenitis. Necrotic proctitis. External hemorrhoids) Specimen(s): other (Antrum biopsies. Rectal biopsies.) Complications: none Post-procedure Recommendations: Continue medication(s) (Proton pump inhibitor) Disposition: PACU (Recovered in the colonoscopy suite.)
--- NOTE | 2019-07-14 12:02 | PM.PN.1 ---
Subjective Subjective Date Patient Seen: 07/14/19 Time Patient Seen: 08:15 Interval history: Ms. Platt is a 63-year-old female with history newly diagnosed adenocarcinoma of the lung with malignant pleural effusion who was admitted for septic shock likely secondary to pneumonia. She has clinically improved and her kidney function has returned to normal now. However she then developed bright red blood per rectum early yesterday morning. She underwent an upper endoscopy today that showed duodenitis, a pyloric channel ulcer from which biopsies and H pylori studies were sent. Sigmoidoscopy showed a proctitis which could be secondary to C diff or ischemia, amongst other etiologies. Exam Vital Signs (past 8 hours): - 07/14/19 05:04 07/14/19 08:38 07/14/19 10:27 Temperature 98.9 F 98.3 F Pulse Rate 95 H 101 H Respiratory Rate 18 20 Blood Pressure 126/64 125/53 L Pulse Oximetry 95 92 93 07/14/19 10:39 Temperature 97.1 F L Pulse Rate 102 H Respiratory Rate 14 Blood Pressure 146/73 H Pulse Oximetry 93 Fraction of Inspired Oxygen 40 Oxygen Delivery Method Nasal Cannula Oxygen Flow Rate 2 Narrative Exam Narrative: GENERAL APPEARANCE: fatigued but no acute distress, on nasal cannula. SKIN: Inspection of the skin reveals no rashes, ulcerations or petechiae. She is pale. HEENT: The sclerae were anicteric and conjunctivae were pink and moist. Extraocular movements were intact and pupils were equal, round with normal accommodation. External inspection of the ears and nose showed no scars, lesions, or masses. Lips, teeth, and gums showed normal mucosa. The oral mucosa, hard and soft palate, tongue and posterior pharynx were unremarkable. NECK: Supple and symmetric. There was no thyroid enlargement, and no tenderness, or masses were felt. CHEST: Normal AP diameter and normal contour without any kyphoscoliosis. LUNGS: Decreased breath sounds and scattered rhonchi bilaterally, right greater than left. CARDIOVASCULAR: There was a regular rate and rhythm without any murmurs, gallops, rubs. Peripheral pulses were 2+ and symmetric. ABDOMEN: Soft and nontender with normal bowel sounds. No ascites was noted. MUSCULOSKELETAL: There was no tenderness or effusions noted. Muscle strength and tone were normal. EXTREMITIES: No cyanosis, clubbing or edema. NEUROLOGIC: Strength is +5/5 in the Upper Extremities and Lower Extremities Bilaterally. Sensation to touch was normal. Objective Labs Result Diagrams: 07/14/19 06:15 07/14/19 06:15 Labs: Laboratory Results - last 24 hr 07/13/19 07/13/19 07/14/19 18:30 19:52 06:15 WBC 13.8 H 13.3 H RBC 2.33 L 3.26 L Hgb 7.2 L 9.8 L Hct 21.3 L 29.2 L MCV 91.4 89.6 MCH 30.9 30.0 MCHC 33.8 33.5 RDW 14.5 14.6 Plt Count 328 260 Neut % (Auto) Not Reportable Not Reportable Lymph % (Auto) Not Reportable Not Reportable [place] % (Auto) Not Reportable Not Reportable Eos % (Auto) Not Reportable Not Reportable Baso % (Auto) Not Reportable Not Reportable Lymph # (Auto) Not Reportable Not Reportable [place] # (Auto) Not Reportable Not Reportable Baso # (Auto) Not Reportable Not Reportable Total Counted 100 100 Seg Neutrophils % 73.0 H 72.0 H Band Neutrophils % 2.0 L Lymphocytes % (Manual) 22.0 L D 6.0 L Atypical Lymphs % 2.0 H Monocytes % (Manual) 5.0 10.0 Eosinophils % (Manual) 2.0 Metamyelocytes % 2.0 H Myelocytes % 4.0 H Neutrophils # (Manual) 09060 H 9842 H Nucleated RBCs 1 H Toxic Granulation Present H RBC Morphology Normal morphology See below Sodium Potassium Chloride Carbon Dioxide BUN Creatinine Estimated GFR BUN/Creatinine Ratio Glucose Calcium Phosphorus Magnesium Blood Type O Positive Antibody Screen Negative Crossmatch See Detail 07/14/19 06:15 WBC RBC Hgb Hct MCV MCH MCHC RDW Plt Count Neut % (Auto) Lymph % (Auto) [place] % (Auto) Eos % (Auto) Baso % (Auto) Lymph # (Auto) [place] # (Auto) Baso # (Auto) Total Counted Seg Neutrophils % Band Neutrophils % Lymphocytes % (Manual) Atypical Lymphs % Monocytes % (Manual) Eosinophils % (Manual) Metamyelocytes % Myelocytes % Neutrophils # (Manual) Nucleated RBCs Toxic Granulation RBC Morphology Sodium 133 L Potassium 3.2 L Chloride 94 L Carbon Dioxide 32 BUN 33 H Creatinine 0.80 Estimated GFR > 60.0 BUN/Creatinine Ratio 41.3 H Glucose 116 H Calcium 8.7 Phosphorus 2.9 Magnesium 1.6 Blood Type Antibody Screen Crossmatch Assessment & Plan Assessment & Plan narrative: Natasha Platt is a 63-year-old female with past medical history of hypertension and lung adenocarcinoma with recurrent pleural effusions who was admitted with septic shock likely secondary to pneumonia which is improved. She is off pressors and her kidney function has improved, course now complicated by episode of BRBPR noted overnight. 1. Septic shock, acute, present on admission, resolved-patient had an elevated leukocyte count to 20,000, respiratory failure, mental status changes. There is likely a superimposed pneumonia along with her right-sided malignancy. She further has a PleurX catheter in place which is a potential source of infection into her lung. She is improved clinically on Zosyn and daptomycin albeit slowly. She required Levophed for septic shock which has now been discontinued. - continue zosyn and daptomycin. - continue to follow WBC. 2. Acute metabolic encephalopathy, present on admission -likely due to septic shock as noted above, however the patient is also on chronic opiate therapy. Her more recent changes may be due to ICU induced delirium. - hold benzodiazepines - encourage night sleep - awake during the day. - OOB to chair, can start PT. 3. Acute on chronic hypoxemic respiratory failure, patient has increasing pleural effusions and a right lower lobe infiltrate. Will continue IV Zosyn and Linzeolid, continue oxygen as needed. She may be fluid overloaded from oliguric renal failure as well which is now improving. - continue to monitor 4. GI bleeding -She underwent an upper endoscopy today that showed duodenitis, a pyloric channel ulcer from which biopsies and H pylori studies were sent. Sigmoidoscopy showed a proctitis which could be secondary to C diff or ischemia according to surgery. - Continue protonix IV BID - can resume CLD today after endoscopy - appreciate surgical consultation and recommendations -follow up H pylori and upper endoscopy biopsies. -follow-up biopsies from lower endoscopy, and stool panel for possible C diff, I do not believe C diff is highly likely at this time and will not start empiric therapy unless GI panel is positive. 5. acute blood loss anemia - secondary to GI bleeding as noted above. - conintue to monitor cbc, s/p 2U PRBC overnight with appropriate response this morning. 4. Acute nonoliguric renal failure, resolved -likely secondary to ATN from septic shock as noted above. Her creatinine has improved dramatically today to 2.1. -will continue to monitor Cr 5. Metastatic adenocarcinoma of the lung patient was to undergo induction chemotherapy yesterday which has since been aborted. - will work on pain control - oxycodone 10 q6 hr standing (home 20 mg) will change to IV morphine at this time given NPO status. - fentanyl patch 25 mg started 07/11 6. Hyponatremia, related to pleural effusions, pneumonia, and dehydration. This has remained stable. Will continue to follow. 7. Hyperkalemia related to underlying renal failure, resolved. Dispo: Remains inpatient DVT: Hold for GI bleeding Code: DNR
--- NOTE | 2019-07-14 12:06 | SUR.OPER ---
RECOVERY IN ENDO SUITE
--- NOTE | 2019-07-14 12:28 | CM.DPC ---
DCP Cont: Discussed patient in team rounds. Patient is to have an endoscopy today, secondary to GI bleed. Patient has been going to oncology for chemo therapy, prior to hospital admission. At this time, patient not yet medically stable for discharge. P: DCP to continue to follow closely and be available for any resources as plan unfolds. Anticipate that patient will discharge home when medically stable Gema Jenkins RN/Director Global
[2019-07-14] MEDS: SODIUM CHLORIDE 0.9% FLUSH 10 ML IV (13:03)
[2019-07-14] MEDS: MORPHINE 4 MG/ML INJ IV (13:03)
[2019-07-14] MEDS: PIPERACILLIN-TAZO 3.375 GM/50 ML FROZ.PIGGY IV ×2 (14:14→18:16)
[2019-07-14 14:15] LABS: Campylobacter Not Detected (Not Detect); Clostridium difficile toxin AB Not Detected (Not Detect); Enteroaggregative E.coli Not Detected (Not Detect); Enteropathogenic E.coli Not Detected (Not Detect); Enterotoxigenic E.coli It/st Not Detected (Not Detect); Plesiomonsa shigelloides Not Detected (Not Detect); Salmonella Not Detected (Not Detect); Shiga-like toxin-prod E.coli Not Detected (Not Detect); Vibrio Not Detected (Not Detect); Vibrio cholerae Not Detected (Not Detect); Yersinia enterocolitica Not Detected (Not Detect)
[2019-07-14 14:16] LABS: Adenovirus F 40/41 Not Detected (Not Detect); Astrovirus Not Detected (Not Detect); Cryptosporidium Not Detected (Not Detect); Cyclospora cayetanensis Not Detected (Not Detect); Entamoeba histolytica Not Detected (Not Detect); Giardia lamblia Not Detected (Not Detect); Norovirus GI/GII Not Detected (Not Detect); Rotavirus A Not Detected (Not Detect); Shigella/Enteroinvasive E.coli Not Detected (Not Detect)
[2019-07-14] MEDS: fentaNYL 25 MCG/PATCH TOP (15:42)
[2019-07-14] MEDS: LINEZOLID 600 MG/300 ML IV.SOLN IV (15:42)
[2019-07-14] MEDS: ACETAMINOPHEN 325 MG TABLET 650 MG PO (18:14)
[2019-07-14] MEDS: MELATONIN 3 MG TABLET PO (20:29)
[2019-07-14] MEDS: CALCIUM CARBONATE 500 MG TAB 1000 MG PO (20:29)
[2019-07-14] MEDS: QUETIAPINE 25 MG TABLET 12.5 MG PO (20:30)
[2019-07-14] MEDS: DOCUSATE 100 MG CAPSULE PO (20:30)
[2019-07-14] MEDS: SENNOSIDES 8.6 MG TABLET 17.2 MG PO (20:30)
[2019-07-15] VITALS (8 sets, daily range): BP systolic 144–154; BP diastolic 68–88; PULSE 95–102; RESP 16–20; TEMP 36.2–36.6; O2SAT 92–96; BMI 27.3
[2019-07-15] MEDS: OXYCODONE IR 10 MG TABLET PO ×5 (00:03→17:17)
[2019-07-15] MEDS: PIPERACILLIN-TAZO 3.375 GM/50 ML FROZ.PIGGY IV ×3 (00:06→12:31)
--- NOTE | 2019-07-15 00:30 | PC.NURSE ---
Addendum entered by Karen Elena R.N. 07/15/19 06:04: After being up to bathroom is again stating pain is 7/10; medicated with scheduled Oxycodone. Addendum entered by Karen Elena R.N. 07/15/19 04:10: Noted hemoptysis after coughing. Pain exacerbated by coughing episode and now at 7/10 severity; medicated with IV Morphine. Original Note: Patient is oriented except to day of month; seems drowsy. Breath sounds CTA but diminished in right LL; on oxygen at 2.5L/min per HFNC with sat of 95%. HRR with elevated BP of 152/71. Denies nausea. BT present and abdomen is soft. Denies dysuria, frequency or urgency. Able to turn self in bed and is assisted to bathroom with 1 assist; no assistive device. Dressing to right lateral chest is CDI. Bruising across abdomen. States pain in back and right flank still present with movement and deep breathing; describes as dull at rest and sharp with movement; medicated with scheduled Oxycodone. 1+ bilateral foot/ankle edema; wearing bilateral ERIBERTO stockings. Fall risk score is moderate and bed alarm is activated.
[2019-07-15] MEDS: LINEZOLID 600 MG/300 ML IV.SOLN IV ×2 (03:59→17:30)
[2019-07-15] MEDS: MORPHINE 4 MG/ML INJ IV ×2 (04:07→19:08)
[2019-07-15] MEDS: SODIUM CHLORIDE 0.9% 1,000 ML 50 ML IV (06:01)
[2019-07-15 07:16] LABS: Hematocrit 28.1 % (36-46); Hemoglobin 9.2 g/dL (12.0-16.0); Mean Corpuscular HGB Conc 32.7 % (30-36); Mean Corpuscular Hemoglobin 29.7 PG (26-34); Platelet Count 208 X10^3/uL (150-400); Red Blood Cell Count 3.09 X10^6/uL (4.0-5.2); Red Cell Distribution Width 14.6 % (11.6-14.8); White Blood Cell Count 13.3 X10^3/uL (4.5-11.0)
[2019-07-15 07:29] LABS: Blood Urea Nitrogen 21 mg/dL (7-17); Calcium 8.4 mg/dL (8.4-10.2); Carbon Dioxide 32 mmol/L (22-32); Chloride 98 mmol/L (98-107); Estimated Glomerular Filt Rate > 60.0 mL/min (>60); Glucose 111 mg/dL (80-110); HEMOLYSIS < 15 (0-50); Magnesium 1.3 mg/dL (1.6-2.3); Phosphorous 3.1 mg/dL (2.8-4.1); Potassium 3.1 mmol/L (3.4-5.1); Sodium 134 mmol/L (137-145)
[2019-07-15 07:40] LABS: Add Manual Diff / Slide Review YES
[2019-07-15 07:46] LABS: Neutrophils Absolute Manual 10507 /uL (3000-5900); Total Cells Counted 100
[2019-07-15 07:50] LABS: Anisocytosis 1+
--- NOTE | 2019-07-15 08:40 | PM.DS.1 ---
History of Present Illness History of Present Illness Date Patient Seen: 07/08/19 Chief complaint: weakness, ARF Narrative: Written by Dr. Carrasco: The patient is a 63-year-old female with a new diagnosis of metastatic adenocarcinoma of the lung. Her lung cancer includes involvement of the neck lymph nodes, mediastinal nodes, ribs, spine, pelvis and rectum. The patient has had recurrent right-sided pleural effusions requiring multiple thoracenteses. She had a PleurX catheter placed on July 01, 2019. The patient presented to the [facility] today for induction chemotherapy. The patient had been complaining of fatigue, chills, and overall feeling poorly. She reports poor appetite. She has been able to eat minimally for the past few weeks. She is drink minimally as well. She has nausea most days. She had a couple episodes of emesis 2 days ago but no hematemesis. She has had some bright red blood per rectum related to hemorrhoids. She denies any fever. She has had minimal cough. She has not vomited up blood, and had no additional bright red blood per rectum. She denies any dysuria hematuria or pyuria. She has no headache. The patient was evaluated by Dr. Grant in the Oncology Clinic. She was found to have a creatinine of 5.0 up from 0.5. Her potassium was 5.9. She was sent to the emergency department for further evaluation. In the emergency department [place] [address]. Hemoglobin hematocrit and platelet counts were within normal limits. The patient had a creatinine of 5. She was given IV hydration with improvement of her creatinine from 5.0-4.6. The patient also reports having some loose stool. She has been constipated since she left the hospital. She does also report continued pain for which she takes OxyContin 10 mg twice daily and as needed oxycodone every 4 hours. She is chronically short of breath. Patient is also on 3 L of oxygen at home. She is admitted to the hospital at this time for further evaluation of new onset acute renal failure. The patient reports a 25 lb weight loss since her diagnosis. Discharge Providers Provider Date of admission: 07/08/19 16:45 Discharge Date: 07/15/19 Primary care physician: Kathya Post PA-C Consults: 07/08/19 18:05 Consult to Dietitian, Adult Routine Comment: Reason For Exam: 25 pound weight loss 07/09/19 21:17 Consult to Respiratory Therapy Evaluate & Treat Comment: Adenocarcinoma lung, Rt pulm effusion, CHF Physician Instructions: Evaluate and treat 07/12/19 12:38 Consult to Physical Therapy Evaluate & Treat Comment: Physician Instructions: Evaluate and Treat Discharge provider: Latia Daniels DO Summary Hospital Course Discharge Diagnosis: 1. Acute septic shock, present on admission. Resolved. 2. Acute possibly postobstructive bacterial pneumonia, present on admission. Resolving. 3. Acute on chronic hypoxemic respiratory failure, present on admission. Acute portion has resolved. 4. Acute GI bleed with acute blood loss anemia, present on admission. Resolved. 5. Acute metabolic encephalopathy, present on admission. Resolved. 6. Acute kidney injury, present on admission. Resolved. 7. Metastatic adenocarcinoma of right lung, present on admission. Active. 8. Hyponatremia, acuity unclear but likely acute on chronic, present on admission. Stable. 9. Acute hyperkalemia, secondary to acute kidney injury, present on admission. Resolved. Hospital Course: Natasha Platt is a 63-year-old female with past medical history of hypertension and lung adenocarcinoma with recurrent pleural effusions who was admitted with septic shock likely secondary to pneumonia which is improved. She is off pressors and her kidney function has improved, course now complicated by episode of BRBPR noted overnight. 1. Acute septic shock, present on admission. Resolved. -Sepsis criteria met including: Leukocytosis (WBC 20.5), tachycardic (HR 94), hypotensive (BP 86/40) not amenable to IVF with acute on chronic hypoxemic respiratory failure, right sided pneumonia, and metabolic encephalopathy. LA normal. -Early goal directed therapy met including: Broad spectrum antibiotics and IV fluid hydration. -Continued levofed able to be titrated off. 2. Acute possibly postobstructive bacterial pneumonia, present on admission. Resolving. -Chest x-ray demonstrated right lower lobe infiltrate and consolidation superimposed on right-sided malignancy with generalized interstitial edema in right lung and small right effusion. -Initial WBC 20.5. Initial procalcitonin 0.98 and peaked at 1.13, now normalized. Continue to trend WBC daily. -Blood cultures x 2 have no growth to date. -Patient initially with PleurX catheter in place which is a potential source of infection into her lung. Patient's PleurX catheter was inadvertently removed at some point during her hospitalization. Discussed with her oncologist Dr. Milian who plans to order it to be replaced in the next 1-2 days. -She has slowly improved on Zosyn 3.375 mg every 6 hours and linezolid 600 mg every 12 hours. Discontinue nasal it is MRSA screen negative. Discussed case with [facility] infectious disease over the phone who recommends prolonged course of antibiotics for 14 days as we have no pleural fluid studies to guide antibiotic therapy and want to cover broad-spectrum including nosocomial infection and empyema and recommends levofloxacin 750 mg daily and Flagyl 500 mg 3 times daily. 3. Acute on chronic hypoxemic respiratory failure, present on admission. Acute portion has resolved. -Patient presented with increasing pleural effusions and a right lower lobe infiltrate consistent with pneumonia treated with Zosyn and Linzeolid. She may have been fluid overloaded from oliguric renal failure as well which is now improving. -Consulted RT for evaluation and treatment. Continue supplemental oxygen to keep goal oxygen saturation 88-92%. Patient required high flow oxygen but now back to baseline requirement of 2-3L. 4. Acute GI bleed with acute blood loss anemia, present on admission. Resolved. -Patient had episode of BRBPR on 07/12 which has been presumably from hemorrhoids in the past. -Hemoglobin trended down to 8.2. Received 2 U PRBC with appropriate compensation. -Consulted general surgery who performed upper endoscopy which demonstrated duodenitis and a pyloric channel ulcer from which biopsies and H pylori studies were sent and pending. Sigmoidoscopy demonstrated proctitis which is likely secondary to ischemic injury from hypotensive shock. C. diff negative. -Continued Protonix 40 mg twice daily. Patient is to follow up with Dr. Wong next Saturday07/21/2019. -Continued to monitor CBC daily. Repeat CBC, BMP and magnesium were ordered in 3-5 days for follow-up with surgeon Dr. Wong. -Patient had acute hypokalemia and hypomagnesemia presumed from GI losses due to GI bleed. Repleted both respectively with potassium chloride 40 mEq PO x1 and 40 mEq IV x1 and magnesium sulfate 2 g IV x1. 5. Acute metabolic encephalopathy, present on admission. Resolved. -Multifactorial and secondary to septic shock, opiate therapy and possibly ICU induced delirium. -Continued to hold benzodiazepines. -Reoriented often and encouraged normal sleep wake cycle with OOB to chair with each meal and stimulated during day and sleep with minimal interruptions at night. -Continued PT. 6. Acute kidney injury, present on admission. Resolved. -Likely secondary to ATN from septic shock as noted above. Her creatinine has improved dramatically back to normal now 0.80. -Continue to monitor renal function closely. 7. Metastatic adenocarcinoma of right lung, present on admission. Active. -Patient recently diagnosed with metastatic adenocarcinoma of the lung to neck and mediastinal lymphnodes, ribs, spine, pelvis and rectum now status post PleurX catheter placement for recurrent right-sided pleural effusions requiring multiple thoracenteses. -Patient was to undergo induction chemotherapy on day of admission which was aborted due to pneumonia and sepsis. -Continued home pain regimen with OxyContin 10 mg every 12 hours and oxycodone 20 mg every 6 hours as needed for breakthrough pain. Discontinued IV morphine for breakthrough pain as patient is unable to go home with IV narcotics. Also discontinued fentanyl patch as patient did not feel this helped her pain management. 8. Hyponatremia, acuity unclear but likely acute on chronic, present on admission. Stable. -Related to lung cancer, pleural effusions, pneumonia, and dehydration. This has remained stable with slight improvement. Continued to monitor sodium closely currently 134. 9. Acute hyperkalemia, secondary to acute kidney injury, present on admission. Resolved. Exam Vital Signs (past 8 hours): - 07/15/19 08:55 07/15/19 11:10 07/15/19 16:03 Temperature 97.1 F L 97.8 F Pulse Rate 100 H 96 H 102 H Respiratory Rate 16 20 18 Blood Pressure 144/68 H 154/76 H Pulse Oximetry 93 93 93 Fraction of Inspired Oxygen 28 Oxygen Delivery Method Nasal Cannula Oxygen Flow Rate 2 Narrative Exam Narrative: General: Older female lying in bed and in no acute distress, appears chronically ill and older than stated age, mildly somnolent but arousable and appropriately interactive. HEENT: Normocephalic, atraumatic. External ears without defect. Pupils equal, round, and reactive to light and accommodation. Anicteric sclerae, moist conjunctivae, and no lid lag. Oropharynx free of erythema and cobble stoning with moist mucosa. Neck: Supple with full range of motion. No jugular venous distension. No bruits. No lymphadenopathy or thyromegaly. Cardiovascular: Regular rate and rhythm without murmurs, rubs, or gallops appreciated. Pulmonary: Diminished throughout but clear to auscultation bilaterally with occasional scattered rhonchi in right lower lung field. No wheezes or crackles. Normal respiratory effort with no use of accessory muscles. Abdomen: Soft, bowel sounds present, nontender, nondistended. No hepatosplenomegaly or masses appreciated. Extremities: No clubbing or cyanosis. Mild dependent edema to mid thigh bilaterally. Skin: Normal temperature, turgor, and texture; no rash, ulcers, or subcutaneous nodules appreciated. Neurological: Cranial nerves grossly intact. Psychiatric: Depressed mood and flat affect. Alert and oriented to person, place, and time. Objective Labs Result Diagrams: 07/15/19 06:55 07/15/19 06:55 Labs: Laboratory Results - last 24 hr 07/13/19 07/15/19 07/15/19 10:46 06:55 06:55 WBC 13.3 H RBC 3.09 L Hgb 9.2 L Hct 28.1 L MCV 91.0 MCH 29.7 MCHC 32.7 RDW 14.6 Plt Count 208 Neut % (Auto) Not Reportable Lymph % (Auto) Not Reportable [place] % (Auto) Not Reportable Eos % (Auto) Not Reportable Baso % (Auto) Not Reportable Lymph # (Auto) Not Reportable [place] # (Auto) Not Reportable Baso # (Auto) Not Reportable Total Counted 100 Seg Neutrophils % 73.0 H Band Neutrophils % 6.0 Lymphocytes % (Manual) 5.0 L Monocytes % (Manual) 8.0 Metamyelocytes % 3.0 H Myelocytes % 5.0 H Neutrophils # (Manual) 09930 H RBC Morphology See below Anisocytosis 1+ H Sodium 134 L Potassium 3.1 L Chloride 98 Carbon Dioxide 32 BUN 21 H Creatinine 0.70 Estimated GFR > 60.0 BUN/Creatinine Ratio 30.0 H Glucose 111 H Calcium 8.4 Phosphorus 3.1 Magnesium 1.3 L Urine Osmolality 344 Discharge Plan Discharge Plan Patient Disposition: Home Discharge comment: You are being discharged home. You have been prescribed levofloxacin 750 mg daily and metronidazole 500 mg 3 times daily for 7 days to complete 14 days total of antibiotics to treat your pneumonia. Your PleurX catheter has at sometime been removed and will need to be replaced in the next several days. Dr. Milian will be placing an order to have this placed at [facility] as before and you should receive a phone call regarding scheduling this to be placed and if you do not hear from them in the next 1-[address] Milian's office a call. You have also been prescribed Protonix 40 mg twice daily to heal the ulcer in your stomach. You will receive a phone call from Dr. Wong's office to schedule a follow-up appointment for next Saturday. Lab work has been ordered to be done prior to this appointment to recheck your blood counts and your potassium and magnesium for Dr. Wong to follow. You are also prescribed quetiapine 12.5 mg daily at bedtime to help with sleep. Discharge Med Rec/Prescriptions Prescriptions: New quetiapine 25 mg Tablet 12.5 mg PO BEDTIME Qty: 30 RF: 0 pantoprazole 40 mg Tablet,Delayed Release (Dr/Ec) 40 mg PO 0700,2100 Qty: 60 RF: 0 levofloxacin 750 mg tablet 750 mg PO DAILY Qty: 7 RF: 0 metronidazole [Flagyl] 500 mg tablet 500 mg PO TID Qty: 21 RF: 0 Continued methimazole 5 MG tablet 5 mg PO DAILY Qty: 0 RF: 0 sennosides [senna] 8.6 mg Tablet 17.2 mg PO BEDTIME PRN (Reason: Constipation) 3 Days RF: 0 lorazepam 1 mg Tablet 1 mg PO Q4HR PRN (Reason: Anxiety) 3 Days RF: 0 Flovent HFA 220 mcg/actuation HFA aerosol inhaler 1 puff INHALATION DIRECTED RF: 0 ibuprofen 600 mg tablet 600 mg PO QID RF: 0 fluoxetine 20 mg capsule 20 mg PO DAILY RF: 0 atenolol 50 mg tablet 50 mg PO DAILY RF: 0 ramipril 10 mg capsule 10 mg PO BID RF: 0 oxycodone 20 mg tablet 20 mg PO Q6H RF: 0 Narcan 4 mg/actuation spray,non-aerosol 4 mg INTRANASAL PRN PRN (Reason: Opiate Reversal) RF: 0 cyclobenzaprine 10 MG tablet 10 mg PO TID PRN (Reason: Spasms) RF: 0 oxycodone [OxyContin] 10 mg tablet,oral only,ext.rel.12 hr 10 mg PO Q12H RF: 0 trazodone 50 mg tablet 50 mg PO BEDTIME PRN (Reason: Sleep) RF: 0 albuterol sulfate [ProAir HFA] 90 mcg/actuation HFA aerosol inhaler 90 mcg INHALATION PRN PRN (Reason: Shortness Of Breath) RF: 0 benzonatate 100 mg Capsule 100 mg PO TID PRN (Reason: Cough) Qty: 10 RF: 0 ondansetron HCl [Zofran] 4 mg tablet 4 mg PO Q8-12H PRN (Reason: nausea and vomiting) Qty: 20 RF: 0 Other Ambulatory Orders: Basic Metabolic Panel (Stat) Timeframe: 3 Days Facility: [facility] - Location: Laboratory Ordered By: Latia Daniels Complete Blood Count AUTO DIFF (Stat) Timeframe: 5 Days Facility: [facility] - Location: Laboratory Ordered By: Latia Daniels Magnesium (Stat) Timeframe: 3 Days Facility: [facility] - Location: Laboratory Ordered By: Latia Daniels Follow up/Referrals: Cj Wong MD [Physician] - 07/21/19 ([facility] will call you with a appointment for next week [phone] sequeira ) Raphael Milian MD [Physician] - 3-5 Days Kathya Post PA-C [Primary Care Provider] - Provider Discharge Instructions Diet: Low-fat, Low-sodium and Low-cholesterol Activity: Activity as tolerated Visit Report/Discharge Packet Instructions: DI for Pneumonia -- Adult, DI for Peptic Ulcer Visit Report Forms: Stroke Signs & Symptoms Discharge Data Primary Care Provider: Kathya Post
[2019-07-15] MEDS: MAGNESIUM SULFATE 2 GM/50 ML PIGGYBACK IV (09:19)
[2019-07-15] MEDS: POTASSIUM CHLORIDE 20 MEQ/15 ML UDC 40 MEQ PO (09:21)
[2019-07-15] MEDS: DOCUSATE 100 MG CAPSULE PO (09:22)
[2019-07-15] MEDS: CALCIUM CARBONATE 500 MG TAB PO (09:22)
[2019-07-15] MEDS: methIMAzole 5 MG TABLET PO (09:23)
[2019-07-15] MEDS: RAMIPRIL 2.5 MG CAPSULE PO (09:24)
--- NOTE | 2019-07-15 10:30 | PT-IP ANOTE ---
Per LIME [employer]IMMER Pt would like to nap. Pt was asleep, didn't attempt to wake. Will see in PM.
--- NOTE | 2019-07-15 11:17 | PC.NURSE ---
Addendum entered by Shira Rachel R.N. 07/15/19 15:33: Clarification regarding MAR notation: PRN 10 mg Oxycodone was given at 0930 but scanned as scheduled Oxycodone medication. See MAR for updated edit. Medication pass was verified with RN DARSHAN. Patient up to bathroom with 1 person assist. C/O continuing pain in right side of abdomen/torso. Dsg has rolled up, reapplied new gauze and tegaderm. Patient back to bed. Tray and call light within reach, IV continues to infuse K+, PICC site is CDI and patent. Unable to change dressing at this time, communicated this to evening shift. Patient denies further needs. Addendum entered by Shira Rachel R.N. 07/15/19 12:42: Patient currently resting in bed, A/O x 4. Patient reports pain at 8/10 on her right torso. Oxy 10mg given. Patient expressed wishes that her sister not be given information regarding her care. ID code word changed to zig-zag. Patient denies any shortness of breath or air hunger at this time. Currently on 2.5 liters, nasal cannula. Patient denies chest pain. Patient verbalizes fatigue and desire to go home today. Call light and belongings in reach at this time. Original Note: Received change of shift report-state of PleurX catheter unknown by retail shift supervisor (RN states dsg is CDI and not removed to visualize catheter placement). Dr. Daniels notified of unknown status of catheter, requests that dsg be removed and site examined by this RN. Patient reports pain at the site, 8/10. PRN 10mg Oxy administered. Current dsg is clean dry and intact, ABD pad covered with tagaderm. The dsg is removed, catheter is not present. Wound site is open, ball-point size, no oozing drainage, redness, swelling or odor noted. Scant (dime-sized) amount of serous drainage noted on previous dsg. Patient denies knowing what happened to previously placed PleurX catheter. Site covered with 2x2 gauze and occlusive dsg at this time. Doctor notified that catheter is no longer in place. Will follow up.
[2019-07-15] MEDS: POTASSIUM CHLORIDE 40 MEQ in SODIUM CHLORIDE 0.9% 500 ML 130 ML IV (13:26)
--- NOTE | 2019-07-15 14:24 | CM.DPC ---
Addendum entered by Monika Smith LPN 07/15/19 15:46: Was just updated via phone by Dr. Daniels. She reported that she spoke with Dr. Milian and the plan remains for pt to d/c this evening as planned and Dr. Milian will set up an appt at [facility] for pt to have the catheter placed in the next couple of days. She reports also that the pt tells her now she only wants her POC discussed with herself and her . P: remains home this evening. Friend to stay. Oncology followup. Addendum entered by Monika Smith LPN 07/15/19 15:17: Oncology NON MORSE INTERCEPT TECHNICIANFeng Jimenez is now here. She stated that she did update Dr. Milian who said he had not discussed pt with Dr. Daniels and was going to call her immediately to provide his input and his recommendation that pt be transferred to [facility] for the pleurx catheter. Barbara will now check in with pt as planned. Will follow prn. Addendum entered by Monika Smith LPN 07/15/19 15:17: Of note: MADELAINE Hagen is working closely with MADELAINE Silva on this case. All RN notes are in Shira's name. Addendum entered by Monika Smith LPN 07/15/19 14:59: Spoke now with MADELAINE Hagen before seeing pt. She stated that MADELAINE Hernandez did followup with pt, her daughter Geovani and pt's friend re the followup planned to look into the pleurx catheter. MADELAINE Hernandez now confirms that everyone seemed to agree with the plan for d/c later tonight after pt receives the rest of her ordered medications. Meet then with pt. She is found lying on bed, IV infusing, o2 on. She says she knows she is going home this evening and very much wants to do this. She is still on clear liquids at this time and MADELAINE Hagen confirms same. Pt has been up a bit in room with nursing one person assist, primarily to the bathroom. Let her know that KANDI Jimenez would be seeing her this afternoon and she said she was very pleased with this. Pt confirms it is her friend who will be staying with her tonight. The friend and the daughter will be back later this evening to pick her up. Pt at this time does not wish to have her plan discussed with her sister. Original Note: DCP: continued: case received and reviewed for the last few days. Dr. Dutta saw pt yesterday, Dr. Daniels is seeing pt today and has put in a d/c order. No d/c summary of progress note from Dr. Daniels is yet available. Received a call from MADELAINE Hagen who reports that pt does want to go today, her sister and daughter who care for her when her is out of town (he is currently away and works out of town several days a week) are very concerned re the d/c today and very much want to know what has become of the pluerex catheter that was placed. Nursing note of today shows that this was discovered on night shift supervisor, reported to Dr. Daniels today and confirmed to be out of pt's body/see RN note for earlier today. MADELAINE Hagen reports that acute patient care technician Oliva as well as RN coordinator Mary are aware and following. Have alerted NON MORSE INTERCEPT TECHNICIAN re the plan for d/c today. She is alerting Dr. Milian and will also be over to check in with pt and family as part of continuity of care from hospital to oncology clinic. Will go now to room and check in with pt and her family. OF note: PT have attempted to see pt for several days and medical issues have always dictated that she was not yet ready for this therapy. Pt has also had fluxuation cognitive issues during stay.
[2019-07-15 14:33] LABS: Osmolality Urine 344 mOsm/kg (50-1200)
[2019-07-15] MEDS: ACETAMINOPHEN 325 MG TABLET 650 MG PO (14:57)
[2019-07-15] MEDS: ONDANSETRON 4 MG/2 ML INJ IV (14:57)
--- NOTE | 2019-07-15 15:50 | PC.NURSE ---
Addendum entered by Nuno Obando R.N. 07/15/19 19:25: Patient is alert and oriented but is starting to show some moments of confusion at time with communication. Patient states pain is 6-7/10 on RT side of chest, SOB w/ exertion and at times rest. Currently on 2.5L NC w/ humidity. Patient is to D/C this even, currently awaiting transportation to arrive and review d/c paperwork with family/friends. Patient is resting in bed at this time, call light w/ in reach. Original Note: Patient is A&O x4, pleasant but eager to d/c home. Patient has req. that nurse return later on to do shift assessment. Pain medication is due at 1630, agreeable to do assessment when pain medication is brought in pain rated 6/10 in lungs/chest. Pt is SBA w/ iv pole. K-Tristen is infusing now at 130/hr and has roughly about 350ml left to infuse. Call light w/in each, bed in low pos. alarm active. pt aware to use call light w/ needs.
--- NOTE | 2019-07-15 16:05 | ONC.MSW ---
Description: D/C planning care coordination Activity: BEAMSTER was called by Monika in care management to be notified that pt was being discharged today, which we were not aware of. Pt's pleurx catheter had somehow fallen out sometime between yesterday and today, was not found, and staff have no idea as to what happened. The hole is still there, covered by clean dressings. Hospitalist Dr. Daniels in the meantime wrote discharge orders for pt today, and directed the pt to go to [facility] to get the tube reinserted. Pt's is out of town, and dtr is now the only one caring for pt and coordinating her care needs and appointments. Dtr and family are understandably very upset, as this was a painful and costly procedure for pt the first time with the pleurx insertion. Pt also has only been on clear liquids PO, and has not yet been started on solid foods. She has continued to receive IV antibiotics day, however there is no plan at this time documented in the chart as to recommendations for continued need or not for outpatient antibiotics. Dr. Milian spoke with Dr. Daniels, and had originally hoped that pt could just be transferred to [facility] rather than discharged. He will f/u with a new referral to [facility] to get them started in scheduling pt for this procedure. Plan: BEAMSTER called dtr and explained the plan for pt to be referred to [facility], offered emotional/coping support, and agreed to f/u with [facility] tomorrow to ensure that this was being expedited. Will plan to also call dtr to clarify continued planning needs and to schedule pt back to see Dr. Milian with a next available urgent appointment. *Pt informed staff today that she no longer gives permission for her sister to be given any healthcare information about her. No one is clear why, as her sister has been one of her primary support people and caregivers.
== END 2019-07-15 20:22 | disposition home or self-care (01) | DRG 871 ==
LOC: ED 16:17 → ICU 07-09 12:19 → AC 07-12 13:15
PROVIDERS: Internal Medicine; Nurse Practitioner Adult Health; Specialist; Admitting Provider Internal Medicine; Emergency Provider Emergency Medicine; PCP Physician Assistant Medical; Visit Provider Internal Medicine
PROC: 0DJ08ZZ Inspection of Upper Intestinal Tract, Via Natural or Artificial Opening Endoscopic (ICD-10-PCS; CPT 43235; principal; 2019-07-14 12:45)
PROC: 0DJD8ZZ Inspection of Lower Intestinal Tract, Via Natural or Artificial Opening Endoscopic (ICD-10-PCS; CPT 45378; 2019-07-14 12:45)
DX: A41.9 Sepsis, unspecified organism (principal); N17.0 Acute kidney failure with tubular necrosis; J18.9 Pneumonia, unspecified organism; E43 Unspecified severe protein-calorie malnutrition; J96.21 Acute and chronic respiratory failure with hypoxia; G93.41 Metabolic encephalopathy; R65.21 Severe sepsis with septic shock; K25.4 Chronic or unspecified gastric ulcer with hemorrhage; K29.81 Duodenitis with bleeding; C34.91 Malignant neoplasm of unspecified part of right bronchus or lung; C77.0 Secondary and unspecified malignant neoplasm of lymph nodes of head, face and neck; C77.1 Secondary and unspecified malignant neoplasm of intrathoracic lymph nodes; C79.51 Secondary malignant neoplasm of bone; E87.1 Hypo-osmolality and hyponatremia; K92.1 Melena; J91.0 Malignant pleural effusion; D62 Acute posthemorrhagic anemia; E87.5 Hyperkalemia; E83.51 Hypocalcemia; E86.0 Dehydration; D63.0 Anemia in neoplastic disease; K62.89 Other specified diseases of anus and rectum; I10 Essential (primary) hypertension; Z87.891 Personal history of nicotine dependence
CPT/HCPCS: 36415; 36430; 36591; 36592; 36600; 43239; 45331; 71045; 74018; 76770; 80048; 80053; 81001; 82330; 82550; 82805; 82962; 83605; 83735; 83880; 83930; 83935; 84100; 84145; 84300; 85025; 86850; 86900; 86901; 87040; 87086; 87507; 87797; 93005; 94640; 94760; 94762; 96360; 96361; 96374; 96523; 97162; 99152; 99153; 99215; 99232; 99284; 99285; P9016; C9113; J1170; J1642; J1644; J2020; J2060; J2250; J2270; J2405; J2543; J2765; J3010; J3480

== ENCOUNTER → 2019-07-29 11:40 | Oncology outpatient (ONC) | payer BC, SELFPAY ==
--- NOTE | 2019-06-25 19:29 | PM.DS.1 ---
History of Present Illness History of Present Illness Date Patient Seen: 06/24/19 Chief complaint: Lytic Lesions R Rip/Pulmonology referred Narrative: Natasha Platt is an unfortunate 63-year-old female with a history of hypertension and hyperlipidemia who has recently been diagnosed with right-sided lung cancer. Her presentation today included shortness of breath, pain on the right side of her chest, and nausea and vomiting. She denies fever, denies chest pain on the left side, she does have hot flashes secondary to menopause for which she previously took short courses of fluoxetine for but currently is not taking, denies dysuria, constipation, diarrhea, or paresthesias. She had been seeing her PCP for a cough which became chronic and progressed with hemoptysis. She was referred to a scaffold builder at [facility] and instead was seen by a scaffold builder at [facility] due to not being able to be seen one at [facility]. On June 12 she was diagnosed with lung cancer by the scaffold builder. She had a CT of the chest and PET scan from the occiput down to the thighs. Those studies indicated a spiculated mass on the right lung, hilar lymphadenopathy, nodular septal thickening of the right lung concerning for her carcinomatosis, and bony metastasis in the ribs, hips and sternum. Patient has an appointment with Dr. Cook on July 08. She is being requested for admission to facilitate obtaining a pleural tap to relieve pressure and pain from her right lung. Discharge Providers Provider Discharge Date: 06/24/19 Primary care physician: Kathya Post PA-C Discharge provider: Ramila Carrasco MD Summary Hospital Course Discharge Diagnosis: 1. Malignant pleural effusion 2. Probable right lung cancer 3. Acute hypoxic respiratory failure 4. Hyperthyroidism 5. Hypertension 6. 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 She was seen by a scaffold builder and diagnosed with probable right lung cancer. Arrangements were underway for biopsy of the lesion for definitive diagnosis. The patient became acutely short of breath. She was found to have a large pleural effusion. After admission to the hospital patient underwent thoracentesis which was sent for cytology. She had 1500 cc of fluid removed. She felt significantly better. Patient was found to be hypoxic. She required oxygen. Her resting O2 sat on room air was in the 80 percentile range patient was found to have a supraclavicular lymph node on the left. Unfortunately radiology cannot identified with CT scanning therefore ultrasound-guided lymph node biopsy was aborted. The patient's cytology will be sent to the lab for identification. She will follow up with Dr. Milian further evaluation of her probable lung cancer. Patient was deemed appropriate for discharge and arrangements were made for to be discharged home. Status at Discharge Cognitive/behavioral status at discharge: oriented Functional status at discharge: independent ambulation Overall status at discharge: patient is not back to baseline Time Spent with Patient Time spent: Less than 30 minutes Exam Vital Signs (past 8 hours): Ill-appearing female with oxygen on Lungs: Decreased breath sounds but clear Cardiac exam: Regular rate and rhythm normal S1-S2 Abdomen: Soft nontender nondistended Extremities: No edema
--- NOTE | 2019-07-08 10:02 | P.PNONC_ITS ---
PN -Subjective Interval history: ID/CC: Metastatic adenocarcinoma of the lung here for initiation of chemotherapy with carboplatin and pemetrexed. Interval history: The patient is a 63-year-old woman who Dr. Milian saw in the hospital on 06/23/2019. She had recurrent right-sided pleural effusion and underwent multiple thoracentesis: ? liter on 06/23/2019, 1 liter on 06/27/2019, and 1 liter on 06/28/2019. Pathology showed an adenocarcinoma of the lung. PET CT on 06/12/2019 showed showed widespread metastasis with bony involvement as well as mediastinal lymphadenpathy. On 07/01/2019, she underwent sonographic and fluoroscopically guided right sided PleurX catheter placement at [facility]. He underwent vitamin B12 injection. She presents here today for planned initiation of chemotherapy with carboplatin and pemetrexed. She is complaining significant fatigue. She said that she is simply exhausted. She is complaining chills. She denies any fever. She is on 3 L of nasal cannula oxygen supply continuously. She reports chest pain especially right lower side which exacerbates on deep inspiration. Patient has some cough. Patient denies any hemoptysis. Patient denies any abdominal pain. Denies any bone pain. The molecular studies of the cytology from thoracentesis is still pending. Upon arriving at our clinic, her a blood pressure was 98/49, temperature 97.4?, heart rate 69, respiratory rate 20, oxygenation 94% on 3 L. We initiated fluid resuscitation with 1 L of normal saline wide open immediately. I evaluated the patient while the patient was at the infusion room getting iv normal saline. At the same time, the laboratory tests came back showing acute kidney failure with serum creatinine level 5.1 compared to 0.5 couple days ago. Patient also was found to have potassium level of 5.9. Patient's total white blood cell count 22 suggestive of possible sepsis. We immediately sent the patient to emergency room for evaluation and admission. Her past medical history is notable for hypertension. She has otherwise been fairly healthy. - Additional ROS All systems PM: reviewed and no additional remarkable complaints except as stated Home Medications and Allergies Home Medications Medication Instructions Recorded Confirmed Type cyclobenzaprine 10 mg PO TID PRN #20 05/11/13 07/08/19 Rx atenolol 50 mg PO QDAY #0 12/13/16 07/08/19 History methimazole 5 mg QDAY #0 12/13/16 07/08/19 History albuterol sulfate [ProAir HFA] 90 mcg INHALATION PRN PRN 06/22/19 07/08/19 History trazodone 50 mg PO BEDTIME 06/22/19 07/08/19 History benzonatate 100 mg PO TID PRN #10 cap 06/24/19 07/08/19 Rx ondansetron HCl [Zofran] 4 mg PO Q8-12H PRN #20 tab 06/24/19 07/08/19 Rx oxycodone 10 mg PO Q4HR PRN #30 tab 06/24/19 07/08/19 Rx oxycodone [OxyContin] 10 mg PO BID #30 tab 06/24/19 07/08/19 Rx lorazepam 1 mg PO Q4HR PRN 3 Days tab 06/30/19 07/08/19 Rx sennosides [senna] 17.2 mg PO BEDTIME PRN 3 Days tab 06/30/19 07/08/19 Rx Allergies Allergy/AdvReac Type Severity Reaction Status Date / Time erythromycin base Allergy Mild nausea/vomi Verified 06/27/19 18:45 [ERYTHROMYCIN BASE] tting Exam Vital signs: Last Vital Signs Temp 97.4 F L 07/08/19 10:53 Pulse 69 07/08/19 10:53 Resp 20 07/08/19 10:53 BP 98/49 L 07/08/19 10:53 Pulse Ox 94 07/08/19 10:24 ECOG 2 - Constitutional positive mild distress, positive average body habitus, positive chronically ill appearing, positive cooperative - Routine HEENT Exam Head: Present: normocephalic, atraumatic Eye: Present: EOMI, PERRL, normal accommodation. Absent: conjunctival icterus ENT: Present: mucous membranes moist - Routine Neck Exam Present: supple, trachea midline. Absent: lymphadenopathy, thyromegaly - Routine Respiratory Exam Present: decreased breath sounds (right side. ). Absent: accessory muscle use, rhonchi, stridor, wheezes, crackles - Routine Cardiovascular Exam Present: RRR, S1, S2. Absent: murmur, gallop, rubs - Routine Abdominal Exam Present: soft. Absent: tenderness, distended, rebound, guarding, organomegaly - Routine Extremities Exam Absent: edema - Routine Neurological Exam Present: alert, oriented X3, CN II-XII intact. Absent: sensory deficit, motor deficit - Routine Psychiatric Exam Present: normal affect, cooperative, anxious Results - Labs Labs from 07/08/2019: WBC 20.5, hemoglobin 11.7, hematocrit 34.7, platelets 556, neutrophils 86.2% Tests sodium 126, potassium 5.9, chloride 81, carbon dioxide 26, BUN 43, creatinine 5.1, glucose 100, calcium 7.3, total bilirubin 0.3, AST 21, ALT 20, alk-phos 179 - Imaging Additional studies: Procedures Drainage of Right Pleural Cavity, Percutaneous Approach (06/27/19) Drainage of Right Pleural Cavity, Percutaneous Approach, Diagnostic (06/22/19) Assessment and Plan (1) Lung cancer Overview: 63-year-old woman with newly diagnosed metastatic adenocarcinoma of the right lung with involvement of neck lymph nodes, mediastinal lymh nodes, ribs, spines, pelvis, and rectum FDG high uptake She presented with recurrent right-sided pleural effusion requiring multiple thoracentesis. She is now status post right sided PleurX catheter placement on 07/01/2019. He underwent vitamin B12 injection. She presents here today for planned initiation of chemotherapy with carboplatin and pemetrexed. Assessment: Today, I evaluated the patient at the infusion room. Patient complains exhaustion, chills, but she is afebrile. She was found to have hypotension with blood pressure 98/49. Her laboratory tests indicated acute kidney failure with serum Cr 5.1. On 06/30/2019, her serum Cr was 0.5. I explained to the patient that the reason most likely is dehydration. We will send the patient to emergency room for evaluation and admission. Patient voiced understanding. Given these acute clinical changes, will hold off on initiation of chemotherapy today.
[2019-07-08 10:24] VITALS: BP 86/45; PULSE 77; RESP 20; TEMP 36.8; O2SAT 94
[2019-07-08] MEDS: SODIUM CHLORIDE 0.9% 1,000 ML 1000 ML IV (10:39)
[2019-07-08 10:44] LABS: Add Manual Diff / Slide Review NO; Basophils Absolute Auto 100 /uL (0-100); Basophils Percent Auto 0.4 % (0-2); Eosinophils Absolute Auto 0 /uL (0-450); Eosinophils Percent Auto 0.1 % (2-4); Hematocrit 34.7 % (36-46); Hemoglobin 11.7 g/dL (12.0-16.0); Lymphocytes Absolute Auto 1400 /uL (1100-4500); Lymphocytes Percent Auto 6.8 % (25-40); Mean Corpuscular HGB Conc 33.8 % (30-36); Mean Corpuscular Hemoglobin 31.2 PG (26-34); Mean Corpuscular Volume 92.4 fL (80-100); Monocytes Absolute Auto 1300 /uL (0-900); Monocytes Percent Auto 6.5 % (3-14); Neutrophils Absolute Auto 17700 /uL (1500-7000); Neutrophils Percent Auto 86.2 % (50-75); Platelet Count 556 X10^3/uL (150-400); Red Blood Cell Count 3.76 X10^6/uL (4.0-5.2); Red Cell Distribution Width 14.3 % (11.6-14.8); White Blood Cell Count 20.5 X10^3/uL (4.5-11.0)
[2019-07-08 10:53] VITALS: BP 98/49; PULSE 69; RESP 20; TEMP 36.3
[2019-07-08 10:56] LABS: Alanine Aminotransferase 20 IU/L (9-52); Albumin 2.8 g/dL (3.5-5.0); Albumin Globulin Ratio 0.9 (1.0-2.8); Alkaline Phosphatase 179 U/L (38-126); Aspartate Aminotransferase 21 IU/L (14-36); BUN Creatinine Ratio 8.4 (6-22); Bilirubin Total 0.3 mg/dL (0.2-1.3); Blood Urea Nitrogen 43 mg/dL (7-17); Calcium 7.3 mg/dL (8.4-10.2); Carbon Dioxide 26 mmol/L (22-32); Chloride 81 mmol/L (98-107); Estimated Glomerular Filt Rate 8.6 mL/min (>60); Glucose 100 mg/dL (80-110); HEMOLYSIS < 15 (0-50); Sodium 126 mmol/L (137-145); Total Protein 5.8 g/dL (6.3-8.2)
[2019-07-08 10:57] LABS: Potassium 5.9 mmol/L (3.4-5.1)
--- NOTE | 2019-07-08 11:23 | PC.NURSE ---
Patient with elevated SCr (5.1), evevated K+, and elevated WBC. Showed labs to Dr. Grant, per Dr. Grant patient is to go to the ER for evaluation and treatment. Triage nurse Lisa notified. Luis Thompson [facility]
--- NOTE | 2019-07-08 14:20 | PC.NURSE ---
arrival to infusion room via wheelchair, pt pale cool and moist. SBP 80's. labs sent and NS 1 liter initiated. repeat SBP 98, pt states she feels a bit better with fluids. per Dr. Grant, pt transfered to ED for abnl lab results. LILIAN PICC drsg changed.
--- NOTE | 2019-07-09 17:29 | PC.NURSE ---
CHEMO TEACHING DONE 07/07 Pt provided written information on all topics discussed. Written materials printed from [facility] for his chemo regime. Pt was given an overview of cancer and mechanism of action of cancer cells, that cancer is caused by cells that are dividing rapidly, and out of control. Traditional chemotherapy works by targeting the fast dividing cells and killing them. Chemotherapy affecting healthy cells dividing quickly causes many of the side effects (hair follicles, bone marrow, mucus membranes). Overview of blood cell functions of white cells to fight infection, red cells to carry oxygen, and platelets to stop bleeding was discussed, and that when bone marrow is affected by chemo, there is a decrease in production of these cells. Home care of the patient following chemotherapy was discussed. Body fluids will be contaminated for 48 hours following treatment, and any body fluids handled by caregivers should be handled wearing gloves, surfaces need to be cleaned with soap and water, any soiled linens or clothing need to be washed separately in hot water, toilet lid should be closed when flushing, person cleaning the toilet should wear gloves. How chemotherapy is administered by the RN?s in the clinic, that orders are double checked by pharmacy and checked again by two RN?s prior to administration. Nurses wear protective gear to prevent exposure to them of the chemotherapy agents which can also cause cancer. Cancer center information discussed and written hand out provided listing on-call oncologist available weekends and after hours triage R.N. hours and infusion room guide. New patient folder given to pt, which includes clinic names, phone numbers, clinic information, calendar, cancer glossary, and list of resources. Handout on advanced directives Common side effects of chemotherapy were discussed with self care tips for prevention of complications. Information also provided in writing. These included: Low blood counts (anemia, thrombocytopenia, neutropenia) Hair loss (alopecia) Nausea and vomiting Decreased appetite Loss of fertility Diarrhea Mouth sores Constipation Peripheral neuropathy Chemo brain/cognitive changes Fatigue Instructions on when to call your healthcare team or on-call physician immediately: Fever of 100.4 or higher, chills, any signs of infection Shortness of breath, wheezing, difficulty breathing, closing of throat, swelling of face, hives (signs of possible allergic reaction) Chest pain, fast heart beat or feelings of a different heart rhythm Swelling of an extremity with or without pain signs of stroke Instructions on when to call your healthcare team within the next 24 hours Nausea that interferes with ability to eat and unrelieved with prescribed medication Diarrhea (4-6 episodes in 24 hour period). Unusual bleeding or bruising Black or tarry stools, or blood in your stools Blood in the urine pain or burning with urination Extreme fatigue (unable to perform self-care activities) Mouth sores or sore areas in your mouth Bad headache Dizziness or lightheadedness Large weight gain over a short period of time General self-care tips while undergoing treatment discussed were as follows. Written materials were provided covering in detail and additional self care tips. Drink at least 2-3 quarts (8-10 glasses) of no-caffeinated beverages daily unless you are instructed otherwise and empty your bladder frequently Report any concerning symptoms to your healthcare team Avoid crowds and sick people, wash your hands frequently Use a soft bristled toothbrush, rinse three times a day with 1 tsp baking soda or 1 tsp salt mixed with warm water Avoid any mouthwashes or oral and skin products containing alcohol or fragrances Use electric razors to avoid cutting yourself Avoid contact sports or activities that could cause head injury or bleeding Avoid sun exposure, wear SPF 15 or higher, wear protective clothing Get plenty of rest, meter your activities Maintain good nutrition Avoid alcoholic beverages Attend your scheduled appointments and lab draws Treatment regimen reviewed and medications were discussed with attention to specific side effects and self care for the pt?s treatment regimen. Pt encouraged to keep a list of questions that may arise after this teaching session and bring back to next clinic visit to address. All pt's questions answered at this time. Pt verbalizes understanding of treatment plan. Patient signed chemo treatment consent form.
--- NOTE | 2019-07-14 08:23 | PC.NURSE ---
PLEUREVAC RX: Call made to triage nurse [facility] ([phone]) stating they need a prescription for pleurevac bottles from her oncologist. Request given with this note to Dr. Milian.
--- NOTE | 2019-07-15 11:29 | PC.NURSE ---
faxed dx clarification request back to [phone]
--- NOTE | 2019-07-16 15:03 | ONC.SCHED ---
Spoke with Zuhair @ [facility]: Omniseq testing takes 10 to 14 days. This order was placed 07/09/19 so approximate completion date is 2018
--- NOTE | 2019-07-16 16:56 | PC.NURSE ---
Spoke w/ pt's , Cleveland, over the phone. Cleveland had questions regarding pt's home med regimen. Cleveland reports that a Fentanyl patch was placed during her hospital stay and when pt was discharged the patch was still in place. Cleveland reports that no hard copy of RX for medication patch was given to pt at [place]. This headline writer reviewed ot's dc report and per Hospitalist, patch was to be d'c. Instructed Cleveland to use gloves to remove patch and discard of medication patch appropriately, Cleveland verbalized understanding. Per Cleveland pt has appt tomorrow at [facility] to have Plueroix cath replaced. All questions answered, call ended.
--- NOTE | 2019-07-21 10:10 | ONC.SCHED ---
I called to let patient know about schedule change yesterday but did not get through to the patient's phone number. I was told in passing to contact the daughter instead of the patient while I had multiple things I was handling. I did not get the chance yesterday to contact the daughter yesterday however we have time today for her to be seen.
[2019-07-21 10:55] VITALS: BP 140/81; PULSE 88; RESP 22; TEMP 36.9; O2SAT 94
--- NOTE | 2019-07-21 10:55 | ONC.MSW ---
Description: T/C re: appt today Activity: Patient did not show for her 9:40am scheduled appt this morning. WOOD GETTER called her dtr, who believed that their appt. was at 3:00pm (WOOD GETTER remembers this as well from original time), was alone with pt, and states that her father had planned on being home later in the day to assist with getting pt dressed and into the car for this appt. She agreed to get pt dressed and into the car, and would try to be here within 30-minutes, however it was going to be very hard to do all by herself. WOOD GETTER did look into the cause of the communication error, which has been reported.
[2019-07-21 12:39] LABS: Add Manual Diff / Slide Review NO; Basophils Absolute Auto 0 /uL (0-100); Basophils Percent Auto 0.2 % (0-2); Eosinophils Absolute Auto 0 /uL (0-450); Hematocrit 26.9 % (36-46); Hemoglobin 8.9 g/dL (12.0-16.0); Lymphocytes Absolute Auto 900 /uL (1100-4500); Mean Corpuscular HGB Conc 32.9 % (30-36); Mean Corpuscular Hemoglobin 29.6 PG (26-34); Mean Corpuscular Volume 89.8 fL (80-100); Monocytes Absolute Auto 1400 /uL (0-900); Monocytes Percent Auto 8.2 % (3-14); Neutrophils Absolute Auto 15000 /uL (1500-7000); Neutrophils Percent Auto 86.6 % (50-75); Platelet Count 308 X10^3/uL (150-400); Red Cell Distribution Width 14.7 % (11.6-14.8); White Blood Cell Count 17.4 X10^3/uL (4.5-11.0)
[2019-07-21 12:49] LABS: Alanine Aminotransferase 22 IU/L (9-52); Albumin 2.6 g/dL (3.5-5.0); Albumin Globulin Ratio 0.9 (1.0-2.8); Alkaline Phosphatase 118 U/L (38-126); Aspartate Aminotransferase 19 IU/L (14-36); Bilirubin Total 0.2 mg/dL (0.2-1.3); Blood Urea Nitrogen 11 mg/dL (7-17); Calcium 8.5 mg/dL (8.4-10.2); Carbon Dioxide 36 mmol/L (22-32); Chloride 97 mmol/L (98-107); Estimated Glomerular Filt Rate > 60.0 mL/min (>60); Globulin 2.8 g/dL (1.7-4.1); Glucose 106 mg/dL (80-110); HEMOLYSIS < 15 (0-50); Potassium 3.1 mmol/L (3.4-5.1); Sodium 137 mmol/L (137-145); Total Protein 5.4 g/dL (6.3-8.2)
--- NOTE | 2019-07-21 12:50 | ONC.PN ---
PN -Subjective Interval history: Diagnosis: Metastatic adenocarcinoma of the lung, negative for a light truck driver mutation and PD L1 although EGFR and NRTK her still pending Interval history: The patient is a 63-year-old woman who returns today for follow-up. She was recently diagnosed with metastatic adenocarcinoma of the lung. She had malignant pleural effusion. Cytology on the pleural fluid was positive. Testing for PD L1 was negative. ALK, ROS 1 and BR AF were negative. She did have a PleurX catheter placed. She was scheduled to begin chemotherapy with carboplatin and Alimta last week. When she presented to clinic, she was found to be febrile and hypotensive. She had acute renal insufficiency. She was found to have pneumonia and was hospitalized. She has since improved and was discharged from the hospital on of last week. Her PleurX catheter did fall out. She had another attempt at placement on Saturday but did not have enough pleural fluid. She notes that she does have some dyspnea on exertion but overall feels like her breathing has been stable. Her cough has been improving. She denies any fevers or chills. She still has 3 or 4 days of antibiotics remaining. She did develop a GI bleed during her hospital stay and was found to have an ulcer. She did get a transfusion. She has not noted any further blood in the stool. Her appetite has been poor. She continues to lose weight. She is mobile in her home and is able to walk using a walker. She has been using oxygen at 2 to 2.5 liters/minute. Her past medical history is notable for hypertension. She has otherwise been fairly healthy. - Patient Self-Reported Symptoms SR Constitution: Fatigue/Malaise SR ears, nose, mouth, throat issues: Difficulty swallowing SR respiratory issues: Shortness of breath, Difficulty breathing SR Cardiovascular issues: Shortness of breath with activity or lying flat SR Gastrointestinal issues: Poor or no appetite, Black/tarry stool SR Musculoskeletal issues: Muscle weakness, Back or neck pain SR Neuro issues: Difficulty balancing Home Medications and Allergies Home Medications Medication Instructions Recorded Confirmed Type methimazole 5 mg PO DAILY #0 12/13/16 07/21/19 History albuterol sulfate [ProAir HFA] 90 mcg INHALATION PRN PRN 06/22/19 07/21/19 History trazodone 50 mg PO BEDTIME PRN 06/22/19 07/21/19 History benzonatate 100 mg PO TID PRN #10 cap 06/24/19 07/21/19 Rx ondansetron HCl [Zofran] 4 mg PO Q8-12H PRN #20 tab 06/24/19 07/21/19 Rx lorazepam 1 mg PO Q4HR PRN 3 Days tab 06/30/19 07/21/19 Rx sennosides [senna] 17.2 mg PO BEDTIME PRN 3 Days tab 06/30/19 07/21/19 Rx Flovent HFA 1 puff INHALATION DIRECTED 07/09/19 07/21/19 History Narcan 4 mg INTRANASAL PRN PRN 07/09/19 07/21/19 History atenolol 50 mg PO DAILY 07/09/19 07/21/19 History fluoxetine 20 mg PO DAILY 07/09/19 07/21/19 History ibuprofen 600 mg PO QID 07/09/19 07/21/19 History ramipril 10 mg PO BID 07/09/19 07/21/19 History cyclobenzaprine 10 mg PO TID PRN 07/10/19 07/21/19 History levofloxacin 750 mg PO DAILY #7 tab 07/15/19 07/21/19 Rx metronidazole [Flagyl] 500 mg PO TID #21 tab 07/15/19 07/21/19 Rx quetiapine 12.5 mg PO BEDTIME #30 tab 07/15/19 07/21/19 Rx oxycodone 20 mg PO Q6H #120 tab 07/16/19 07/21/19 Rx oxycodone [OxyContin] 10 mg PO Q12H #60 tab 07/16/19 07/21/19 Rx Allergies Allergy/AdvReac Type Severity Reaction Status Date / Time erythromycin base Allergy Mild nausea/vomi Verified 06/27/19 18:45 [ERYTHROMYCIN BASE] tting Exam Vital signs: Vital Signs Temp Pulse Resp BP Pulse Ox 07/21/19 10:55 98.4 F 88 22 140/81 94 Intake and Output 07/20/19 07/21/19 07/21/19 23:59 07:59 15:59 Other: Weight 73.9 kg Patient Weight 07/21/19 23:59 Weight 73.9 kg - Constitutional positive no acute distress, positive average body habitus, positive chronically ill appearing Comments: She is in a wheelchair in wearing oxygen. - Routine HEENT Exam Head: Present: normocephalic, atraumatic Eye: Present: EOMI, PERRL. Absent: conjunctival icterus, scleral injection ENT: Present: mucous membranes moist, oropharynx clear - Routine Neck Exam Present: supple, lymphadenopathy Comments: She has a small left-sided node at the base of the neck in the supraclavicular area. - Routine Respiratory Exam Present: Clear to auscultation bilaterally, decreased breath sounds. Absent: rales, wheezes Comments: Her lung sounds are distant but clear. I do not hear any dullness to percussion. - Routine Cardiovascular Exam Present: RRR, S1, S2. Absent: murmur - Routine Abdominal Exam Present: soft, normoactive bowel sounds. Absent: tenderness, organomegaly, mass - Routine Extremities Exam Present: edema. Absent: cyanosis, clubbing Comments: She does have 2+ bilateral lower extremity edema. - Routine Back/Spine Exam Back/Spine: Absent: vertebral tenderness - Routine Skin Exam Present: intact. Absent: petechiae, rash - Routine Neurological Exam Present: alert, oriented X3 - Routine Psychiatric Exam Present: normal affect, normal thought process Results - Labs Laboratory Last Values WBC 17.4 X10^3/uL (4.5-11.0) H 07/21/19 12:00 RBC 3.00 X10^6/uL (4.0-5.2) L 07/21/19 12:00 Hgb 8.9 g/dL (12.0-16.0) L 07/21/19 12:00 Hct 26.9 % (36-46) L 07/21/19 12:00 MCV 89.8 fL (80-100) 07/21/19 12:00 MCH 29.6 PG (26-34) 07/21/19 12:00 MCHC 32.9 % (30-36) 07/21/19 12:00 RDW 14.7 % (11.6-14.8) 07/21/19 12:00 Plt Count 308 X10^3/uL (150-400) 07/21/19 12:00 Neut % (Auto) 86.6 % (50-75) H 07/21/19 12:00 Lymph % (Auto) 5.0 % (25-40) L 07/21/19 12:00 Clark % (Auto) 8.2 % (3-14) 07/21/19 12:00 Eos % (Auto) 0.0 % (2-4) L 07/21/19 12:00 Baso % (Auto) 0.2 % (0-2) 07/21/19 12:00 Neut # (Auto) 12505 /uL (9896-3228) H 07/21/19 12:00 Lymph # (Auto) 900 /uL (0548-9764) L 07/21/19 12:00 Clark # (Auto) 1400 /uL (0-900) H 07/21/19 12:00 Eos # (Auto) 0 /uL (0-450) 07/21/19 12:00 Baso # (Auto) 0 /uL (0-100) 07/21/19 12:00 Sodium 137 mmol/L (137-145) 07/21/19 12:00 Potassium 3.1 mmol/L (3.4-5.1) L 07/21/19 12:00 Chloride 97 mmol/L (98-107) L 07/21/19 12:00 Carbon Dioxide 36 mmol/L (22-32) H 07/21/19 12:00 BUN 11 mg/dL (7-17) 07/21/19 12:00 Creatinine 0.50 mg/dL (0.52-1.04) L 07/21/19 12:00 Estimated GFR > 60.0 mL/min (>60) 07/21/19 12:00 BUN/Creatinine Ratio 22.0 (6-22) 07/21/19 12:00 Glucose 106 mg/dL (80-110) 07/21/19 12:00 Calcium 8.5 mg/dL (8.4-10.2) 07/21/19 12:00 Total Bilirubin 0.2 mg/dL (0.2-1.3) 07/21/19 12:00 AST 19 IU/L (14-36) 07/21/19 12:00 ALT 22 IU/L (9-52) 07/21/19 12:00 Alkaline Phosphatase 118 U/L (38-126) 07/21/19 12:00 Total Protein 5.4 g/dL (6.3-8.2) L 07/21/19 12:00 Albumin 2.6 g/dL (3.5-5.0) L 07/21/19 12:00 Globulin 2.8 g/dL (1.7-4.1) 07/21/19 12:00 Albumin/Globulin Ratio 0.9 (1.0-2.8) L 07/21/19 12:00 - Imaging Additional studies: Procedures Drainage of Right Pleural Cavity, Percutaneous Approach (06/27/19) Drainage of Right Pleural Cavity, Percutaneous Approach, Diagnostic (06/22/19) Excision of Rectum, Via Natural or Artificial Opening Endoscopic, Diagnostic (07/08/19) Excision of Stomach, Pylorus, Via Natural or Artificial Opening Endoscopic, Diagnostic (07/08/19) Transfusion of Nonautologous Red Blood Cells into Peripheral Vein, Percutaneous Approach (07/08/19) Assessment and Plan (1) Lung cancer Overview: 63-year-old woman with newly diagnosed metastatic adenocarcinoma of the right lung with involvement of neck lymph nodes, mediastinal lymh nodes, ribs, spines, pelvis, and rectum FDG high uptake. She presented with recurrent right-sided pleural effusion requiring multiple thoracentesis. She seems to have recovered sufficiently from her recent pneumonia and renal insufficiency to allow consideration for chemotherapy. She does not have any evidence of a light truck driver mutation. We discussed the possibility of chemotherapy with carboplatin and Alimta. Side effects including alopecia, nausea and vomiting, change in taste and appetite, fatigue, risk for cytopenias, risk for infection, risk for neuropathy skin rash and diarrhea were reviewed. I pointed out that on average, survival with chemotherapy was better than survival without chemotherapy but that difference was only a few months. Patients with better performance status seem to get more the benefit from chemotherapy and fewer side effects. I think she is at substantial risk for toxicity. However, without therapy I suspect that her survival will be short. She does wish to give chemotherapy a try. We will plan on starting as soon as can be practically arranged. We will plan on treating for 2 cycles and reassessing. We did talk about the possibility of hospice. At this point, she is not yet ready to pursue that. I think she would benefit from home health evaluation for occupational physical therapy to help with her mobility and gait. They could also assess her ability to transfer and ambulate. She would benefit I think from strengthening exercises. In addition, she would benefit from assessment of her vital signs and oxygenation and assessment of need for recurrent thoracentesis. She will return to clinic in about 1 week for follow-up. 40 minutes was spent with the patient and her family the majority in counseling.
--- NOTE | 2019-07-21 14:16 | ONC.MSW ---
Description: Home Health Referral Activity: Completed the HH referral and faxed to [facility] . Requested urgent f/u.
--- NOTE | 2019-07-21 14:21 | ONC.MSW ---
Description: Lodging Activity: Due to late infusion, patient requested lodging for tonight. Reserved her a room at [facility], conf#[id number].
--- NOTE | 2019-07-21 16:10 | PC.NURSE ---
DEXAMETHASONE: VO FROM DR. NARVAEZ FOR PATIENT TO RECEIVE DEXAMETHASONE 4 MG BID FOR 3 DAYS PRIOR TO PEMETREXED CALLED IN TO [facility]. PATIENT'S INFORMED TO WEAVER HAND LOOM PRESCRIPTION TODAY AND FOR PATIENT TO START TAKING TONIGHT. THIS NURSE ALSO VERIFIED THAT SHE HAS BEEN TAKING FOLIC ACID.
[2019-07-22 10:36] VITALS: BP 131/65; PULSE 87; RESP 24; TEMP 36.7; O2SAT 94
--- NOTE | 2019-07-22 10:39 | PC.NURSE ---
Pt's most recent creatinine on 07/21/19 was 0.5, Today's Carbo dose calculations is based on previous creatinine on 07/15/19 of 0.7; Spoke with Dr. Milian to clarify dosing calculations. Per Dr. Milian he would like pt to have the 615 mg dose of Carbo today, instructed to use pt's 0.7 creatinine for dosing calculations. Pharmacy aware.
[2019-07-22] MEDS: LORazepam 0.5 MG TABLET PO (11:08)
[2019-07-22] MEDS: ONDANSETRON 16 MG in SODIUM CHLORIDE 0.9% 50 ML 232 ML IV (11:25)
[2019-07-22] MEDS: FOSAPREPITANT 150 MG in SODIUM CHLORIDE 0.9% 150 ML 300 ML IV (11:50)
--- NOTE | 2019-07-22 13:07 | PC.NURSE ---
Potassium 3.1; potassium RX called into [facility] at [facility] pharmacy. Pt and family aware.
[2019-07-22] MEDS: SODIUM CHLORIDE 0.9% IV ×2 (13:36→14:08)
[2019-07-22] MEDS: PEMETREXED IV (13:36)
[2019-07-22] MEDS: SODIUM CHLORIDE 0.9% 100 ML 21 ML IV (13:57)
[2019-07-22] MEDS: CARBOPLATIN IV (14:08)
--- NOTE | 2019-07-22 15:36 | PC.NURSE ---
ATIVAN ADV.REACTION?: PATIENT HERE TODAY FOR FIRST CHEMO. RECEIVED PREMED ATIVAN AT 11 FOLLOWED BY OTHER PREMEDS IV. SHE BECAME MORE CONFUSED, FREQUENTLY TALKING ABOUT THINGS NOT APPLYING TO SITUATION OR QUESTION. O2 SATS REMAINED SIMILAR DURING PATIENT'S STAY HERE. HER BASELINE BEING SHALLOW BREATHING WITH SATS AT 89 on 3 L. OXYGEN, ABLE TO BRING TO 94 WITH SEVERAL DEEP BREATHS. THIS WAS REPORTED TO DR. NARVAEZ WHO ORDERED TO CONTINUE ENCOURAGING DEEP BREATHS AND GO AHEAD WITH CHEMO. PATIENT IS EXPERIENCING PAIN WHICH SHE FEELS MORE ON DEEP BREATHING. NURSE WAS INFORMED BY FAMILY LATER THAT HAD GIVEN HER AN OXYCODON AT AROUND 11AM WELL. NURSE HAD NOT BEEN INFORMED. PATIENT AND FAMILY INFORMED THAT COGNITIVE CONDITION COULD BE RELATED TO EITHER ONLY THE ATIVAN OR THE COMBINATION OF ATIVAN AND OXYCODON. THEY WERE TAUGHT TO WATCH IF CONFUSION RESOLVES OVER THE DAY AND REPORT TO NURSE. ALSO REMINDED OF SYMPTOMS FOR WHICH TO REPORT TO ER TAUGHT IN CHEMO TEACHING AND THAT THEY MAY CALL WITH ANY CONCERNS. CARD GIVEN WITH [facility] PHONE NUMBERS AND AFTER HOURS ONCOLOGIST MATHEMATICS PROFESSOR NUMBER.
--- NOTE | 2019-07-22 16:38 | PC.NURSE ---
EDEMA 3+: Family states edema developed during last hospital stay. Dr. Milian informed. No medication ordered at this time. Patient and family educated to elevate legs often.
--- NOTE | 2019-07-27 15:11 | PC.NURSE ---
FIRST CHEMO CALL BACK: This nurse spoke with sister who reports patient to have pinprick like red spots on the outside of both ankles (left more than right), not itchy, raised or blistery. Her lower extremity swelling has decreased somewhat. She was instructed to continue to monitor and call us back if worsening. She also reports patient to be clear headed since the next morning after chemo when Ativan had worn off. Sister states patient is sleeping a lot, is relaxed, eating a small amount, mostly fruit and Ensure, having normal BM and urination.
[2019-07-29 11:39] LABS: Add Manual Diff / Slide Review NO; Basophils Absolute Auto 0 /uL (0-100); Basophils Percent Auto 0.4 % (0-2); Eosinophils Absolute Auto 100 /uL (0-450); Eosinophils Percent Auto 3.9 % (2-4); Hematocrit 24.3 % (36-46); Hemoglobin 8.2 g/dL (12.0-16.0); Lymphocytes Absolute Auto 400 /uL (1100-4500); Lymphocytes Percent Auto 20.1 % (25-40); Mean Corpuscular HGB Conc 33.6 % (30-36); Mean Corpuscular Hemoglobin 30.1 PG (26-34); Mean Corpuscular Volume 89.8 fL (80-100); Monocytes Absolute Auto 0 /uL (0-900); Monocytes Percent Auto 1.1 % (3-14); Neutrophils Absolute Auto 1500 /uL (1500-7000); Neutrophils Percent Auto 74.5 % (50-75); Platelet Count 95 X10^3/uL (150-400); Red Blood Cell Count 2.71 X10^6/uL (4.0-5.2); Red Cell Distribution Width 14.5 % (11.6-14.8); White Blood Cell Count 2.1 X10^3/uL (4.5-11.0)
[2019-07-29 11:45] VITALS: BP 125/73; PULSE 66; RESP 16; TEMP 36.3; O2SAT 90
[2019-07-29 11:53] LABS: Alanine Aminotransferase 23 IU/L (9-52); Albumin 2.7 g/dL (3.5-5.0); Albumin Globulin Ratio 0.9 (1.0-2.8); Alkaline Phosphatase 125 U/L (38-126); Aspartate Aminotransferase 24 IU/L (14-36); BUN Creatinine Ratio 32.5 (6-22); Bilirubin Total 0.6 mg/dL (0.2-1.3); Blood Urea Nitrogen 13 mg/dL (7-17); Calcium 8.1 mg/dL (8.4-10.2); Carbon Dioxide 38 mmol/L (22-32); Chloride 92 mmol/L (98-107); Estimated Glomerular Filt Rate > 60.0 mL/min (>60); Globulin 2.9 g/dL (1.7-4.1); Glucose 117 mg/dL (80-110); HEMOLYSIS < 15 (0-50); Potassium 3.5 mmol/L (3.4-5.1); Sodium 136 mmol/L (137-145); Total Protein 5.6 g/dL (6.3-8.2)
--- NOTE | 2019-07-29 12:34 | P.PNONC_ITS ---
PN -Subjective Interval history: Diagnosis: Metastatic adenocarcinoma of the lung, negative for a lifter/driver mutation and PD L1 although EGFR and NRTK her still pending Previous treatment: 1 cycle of carboplatin and Alimta Interval history: The patient is a 63-year-old woman who returns today for follow-up. She was recently diagnosed with metastatic adenocarcinoma of the lung. She had malignant pleural effusion. Cytology on the pleural fluid was positive. Testing for PD L1 was negative. ALK, ROS 1 and BR AF were negative. She started her chemotherapy last week. She notes that since that time, she has been feeling poorly. She has noted some increasing shortness of breath and dyspnea on exertion. She has recently turned her oxygen up to 3-4. She is having some pain and the chest mostly in the left flank area. She has had increased cough that is productive of some sputum and occasional blood. She notes that her appetite has been poor. She has been drinking fluids well but not eating very much solid food. She has had some nausea but no vomiting. Bowels have been moving normally. She has had some sores on the lips but no sores inside the mouth. She also has had some rash on her feet that has not been painful or itchy. She denies any other changes in her health. Her past medical history is notable for hypertension. She has otherwise been fairly healthy. - Patient Self-Reported Symptoms SR Constitution: Weight loss/gain SR ears, nose, mouth, throat issues: Cough, Mouth sores SR respiratory issues: Cough, Coughing blood, Shortness of breath, Difficulty breathing, Mucous SR Cardiovascular issues: Shortness of breath with activity or lying flat, Extreme swelling, Dizzy/lightheaded SR Gastrointestinal issues: Poor or no appetite, Nausea, Black/tarry stool SR Musculoskeletal issues: Muscle weakness SR Neuro issues: Difficulty balancing Home Medications and Allergies Home Medications Medication Instructions Recorded Confirmed Type methimazole 5 mg PO DAILY #0 12/13/16 07/21/19 History albuterol sulfate [ProAir HFA] 90 mcg INHALATION PRN PRN 06/22/19 07/21/19 H istory benzonatate 100 mg PO TID PRN #10 cap 06/24/19 07/21/19 Rx lorazepam 1 mg PO Q4HR PRN 3 Days tab 06/30/19 07/21/19 Rx sennosides [senna] 17.2 mg PO BEDTIME PRN 3 Days tab 06/30/19 07/21/19 Rx Flovent HFA 1 puff INHALATION DIRECTED 07/09/19 07/21/19 History Narcan 4 mg INTRANASAL PRN PRN 07/09/19 07/21/19 History atenolol 50 mg PO DAILY 07/09/19 07/21/19 History fluoxetine 20 mg PO DAILY 07/09/19 07/21/19 History ibuprofen 600 mg PO QID 07/09/19 07/21/19 History ramipril 10 mg PO BID 07/09/19 07/21/19 History quetiapine 12.5 mg PO BEDTIME #30 tab 07/15/19 07/21/19 Rx oxycodone 20 mg PO Q6H #120 tab 07/16/19 07/21/19 Rx oxycodone [OxyContin] 10 mg PO Q12H #60 tab 07/16/19 07/21/19 Rx dexamethasone 4 mg PO BID 07/21/19 07/21/19 History ondansetron HCl [Zofran] 4 mg PO Q8-12H PRN #20 tab 07/28/19 Rx lorazepam 1 mg PO TID PRN 30 Days #40 tab 07/29/19 Rx nystatin 5 ml PO QID #473 ml 07/29/19 Rx ondansetron 8 mg PO Q8H #30 tab 07/29/19 Rx prednisone [Deltasone] 40 mg PO DAILY 3 Days #6 tab 07/29/19 Rx Allergies Allergy/AdvReac Type Severity Reaction Status Date / Time erythromycin base Allergy Mild nausea/vomi Verified 06/27/19 18:45 [ERYTHROMYCIN BASE] tting Exam Vital signs: Vital Signs Temp Pulse Resp BP Pulse Ox 07/29/19 11:45 97.4 F L 66 16 125/73 90 L - Constitutional positive average body habitus, positive chronically ill appearing - Routine HEENT Exam Head: Present: normocephalic, atraumatic Eye: Present: EOMI, PERRL. Absent: conjunctival icterus, scleral injection ENT: Present: mucous membranes moist Comments: She does have some thrush on the tongue and buccal mucosa. She has some erythema of the lower lip but no bleeding. - Routine Neck Exam Present: supple. Absent: lymphadenopathy, thyromegaly - Routine Respiratory Exam Present: decreased breath sounds. Absent: rales, wheezes Comments: She has decreased breath sounds at the right base extending about half way up. There is associated dullness to percussion. - Routine Cardiovascular Exam Present: RRR, S1, S2. Absent: murmur - Routine Abdominal Exam Present: soft, normoactive bowel sounds. Absent: tenderness, organomegaly, mass - Routine Extremities Exam Present: edema. Absent: cyanosis, clubbing - Routine Skin Exam Present: intact, rash. Absent: petechiae - Routine Neurological Exam Present: alert, oriented X3 - Routine Psychiatric Exam Present: normal affect, normal thought process Results - Labs Laboratory Last Values WBC 2.1 X10^3/uL (4.5-11.0) L 07/29/19 11:20 RBC 2.71 X10^6/uL (4.0-5.2) L 07/29/19 11:20 Hgb 8.2 g/dL (12.0-16.0) L 07/29/19 11:20 Hct 24.3 % (36-46) L 07/29/19 11:20 MCV 89.8 fL (80-100) 07/29/19 11:20 MCH 30.1 PG (26-34) 07/29/19 11:20 MCHC 33.6 % (30-36) 07/29/19 11:20 RDW 14.5 % (11.6-14.8) 07/29/19 11:20 Plt Count 95 X10^3/uL (150-400) L 07/29/19 11:20 Neut % (Auto) 74.5 % (50-75) 07/29/19 11:20 Lymph % (Auto) 20.1 % (25-40) L 07/29/19 11:20 [place] % (Auto) 1.1 % (3-14) L 07/29/19 11:20 Eos % (Auto) 3.9 % (2-4) 07/29/19 11:20 Baso % (Auto) 0.4 % (0-2) 07/29/19 11:20 Neut # (Auto) 1500 /uL (1502-1652) 07/29/19 11:20 Lymph # (Auto) 400 /uL (2254-2568) L 07/29/19 11:20 [place] # (Auto) 0 /uL (0-900) 07/29/19 11:20 Eos # (Auto) 100 /uL (0-450) 07/29/19 11:20 Baso # (Auto) 0 /uL (0-100) 07/29/19 11:20 Sodium 136 mmol/L (137-145) L 07/29/19 11:20 Potassium 3.5 mmol/L (3.4-5.1) 07/29/19 11:20 Chloride 92 mmol/L (98-107) L 07/29/19 11:20 Carbon Dioxide 38 mmol/L (22-32) H 07/29/19 11:20 BUN 13 mg/dL (7-17) 07/29/19 11:20 Creatinine 0.40 mg/dL (0.52-1.04) L 07/29/19 11:20 Estimated GFR > 60.0 mL/min (>60) 07/29/19 11:20 BUN/Creatinine Ratio 32.5 (6-22) H 07/29/19 11:20 Glucose 117 mg/dL (80-110) H 07/29/19 11:20 Calcium 8.1 mg/dL (8.4-10.2) L 07/29/19 11:20 Total Bilirubin 0.6 mg/dL (0.2-1.3) 07/29/19 11:20 AST 24 IU/L (14-36) 07/29/19 11:20 ALT 23 IU/L (9-52) 07/29/19 11:20 Alkaline Phosphatase 125 U/L (38-126) 07/29/19 11:20 Total Protein 5.6 g/dL (6.3-8.2) L 07/29/19 11:20 Albumin 2.7 g/dL (3.5-5.0) L 07/29/19 11:20 Globulin 2.9 g/dL (1.7-4.1) 07/29/19 11:20 Albumin/Globulin Ratio 0.9 (1.0-2.8) L 07/29/19 11:20 - Imaging Additional studies: Procedures Drainage of Right Pleural Cavity, Percutaneous Approach (06/27/19) Drainage of Right Pleural Cavity, Percutaneous Approach, Diagnostic (06/22/19) Excision of Rectum, Via Natural or Artificial Opening Endoscopic, Diagnostic (07/08/19) Excision of Stomach, Pylorus, Via Natural or Artificial Opening Endoscopic, Diagnostic (07/08/19) Transfusion of Nonautologous Red Blood Cells into Peripheral Vein, Percutaneous Approach (07/08/19) Assessment and Plan (1) Lung cancer Overview: 63-year-old woman with newly diagnosed metastatic adenocarcinoma of the right lung with involvement of neck lymph nodes, mediastinal lymh nodes, ribs, spines, pelvis, and rectum FDG high uptake. She presented with recurrent right-sided pleural effusion requiring multiple thoracentesis. She has completed her 1st cycle of chemotherapy. She has had some rash and lip sores that are likely related to her Alimta. Will treat with some prednisone for a few days to see if it improves. She does have some thrush and I did give her prescription for nystatin suspension. Refilled prescriptions for ondansetron and lorazepam. Her pleural effusion is worsening. Will trying get her scheduled for a therapeutic thoracentesis. Her white count and platelet count her down as expected from chemotherapy. I think it is likely that they will recover within the next week or so. She will return to clinic in about 2 weeks for follow-up. She will be due for her 2nd cycle of treatment at that time. We will see if her performance status has improved at all. 40 minutes was spent with the patient and her family. The majority was in counseling.
[2019-07-29 12:51] VITALS: O2SAT 94
[2019-07-29 14:02] LABS: INR 1.4 (0.9-1.3); PTT Partial Thromboplastin Tim 27 SECONDS (26.4-36.2); Prothrombin Time 15.6 SECONDS (10.1-12.7)
--- NOTE | 2019-07-30 12:24 | ONC.MSW ---
Description: HH Referral Activity: Completed a new Home Health referral and faxed to Reny BROOKE.
--- NOTE | 2019-08-05 14:11 | ONC.MSW ---
Description: O2 return to [facility], end of life Activity: Spouse requested assistance in returning pt's O2 to [facility], however they needed an order from Dr. Milian. Dr. Milian had just within the last few days received info from [employer] that pt was inpt and now on comfort care. COOLER T[employer]ER faxed [facility] the order, as well as confirmed with that pt is actually in her dying process. He shared that we took her off of life support yesterday. COOLER TENDER offered condolences and wished the family well.
--- NOTE | 2019-08-19 11:30 | ONC.MSW ---
*Sent bereavement card.
== END ==
PROVIDERS: PCP Physician Assistant Medical
DX: C34.91 Malignant neoplasm of unspecified part of right bronchus or lung (principal); C77.8 Secondary and unspecified malignant neoplasm of lymph nodes of multiple regions; C79.51 Secondary malignant neoplasm of bone; B37.0 Candidal stomatitis; J91.0 Malignant pleural effusion; I10 Essential (primary) hypertension
CPT/HCPCS: 36592; 80053; 85025; 85610; 85730; 96360; 96367; 96375; 96413; 96417; 96523; 99215; J1100; J1453; J2405; J9045; J9305

== ENCOUNTER → 2019-07-30 12:05 | Outpatient (CLI) | payer BC, SELFPAY ==
[2019-07-15 13:12] VITALS: BMI 27.3
--- NOTE | 2019-07-30 | DI.RAD.S_ITS ---
PROCEDURE: XR CHEST 1V INDICATIONS: POST THORA TECHNIQUE: One view of the chest was acquired. COMPARISON: [facility], CT, CT ANGIO CHEST PE PROTOCOL, 06/22/2019, 22:04. [facility], CR, XR CHEST 1V, 07/12/2019, 5:46. FINDINGS: Surgical changes and devices: None. Lungs and pleura: Right hemithorax demonstrates areas of patchy consolidative opacity as well as increased pulmonary vascularity. There is blunting of the left costophrenic angle, unchanged. Mediastinum: Mediastinal contours appear normal. Heart size is mildly prominent. Bones and chest wall: No suspicious bony lesions. Overlying soft tissues appear unremarkable. IMPRESSION: No pneumothorax status post thoracentesis. There is a consolidative opacity can represent infection or inflammation such as pneumonia. Superimposed neoplasm could also be considered. Dictated by: Leann Decker M.D. on 07/30/2019 at 14:37 Approved by: Leann Decker M.D. on 07/30/2019 at 14:39
--- NOTE | 2019-07-30 12:07 | DI.US.S_ITS ---
PROCEDURE: US THORACENTESIS INDICATIONS: lung cancer, effusion TECHNIQUE: The indications, alternatives, benefits, risks, and complications of the procedure were explained to the patient. Written informed consent was obtained and placed in the chart. The chest was examined sonographically, and an appropriate site was chosen for thoracentesis. The skin was prepared and draped in the usual sterile fashion, and 1% lidocaine was infiltrated from the skin down through the pleural surface. A 19-gauge catheter-covered needle was then introduced into the pleural space, the catheter was advanced and the needle was withdrawn, and thereafter pleural fluid was aspirated. The catheter was then removed and a dressing was applied. COMPARISON: [facility], , THORACENTESIS, 06/23/2019, 13:19, , . CT pulmonary angiogram 06/22/2019, PET/CT 06/12/2019. FINDINGS: Access site: Left hemithorax. Needle: One-Step centesis catheter with introducer needle. Fluid volume and description: No significant fluid in the right hemithorax. Moderate volume of pleural fluid in the left chest which appears increased or new compared to prior CXR. Fluid sent for diagnostic testing: None. Medications: 1% lidocaine for local anaesthesia. Complications: None; post-procedural chest radiograph is pending to assess for pneumothorax. IMPRESSION: 1. Successful ultrasound-guided left thoracentesis. 800 cc clear removed. 2. No significant fluid in the right chest. Dictated by: Claus Prieto M.D. on 07/30/2019 at 13:34 Approved by: Claus Prieto M.D. on 07/30/2019 at 13:53
== END ==
PROVIDERS: PCP Physician Assistant Medical
DX: C34.90 Malignant neoplasm of unspecified part of unspecified bronchus or lung (principal); J90 Pleural effusion, not elsewhere classified
CPT/HCPCS: 32555; 71045

== ENCOUNTER 2019-08-03 08:45 | Emergency (ER) | payer BC, SELFPAY ==
[2019-07-15 13:12] VITALS: BMI 27.3
[2019-08-03] VITALS (27 sets, daily range): BP systolic 67–176; BP diastolic 44–92; PULSE 90–104; RESP 17–24; TEMP 36.4–37.2; O2SAT 88–97; BMI 25.0
--- NOTE | 2019-08-03 08:51 | DI.RAD.S_ITS ---
PROCEDURE: XR CHEST 1V INDICATIONS: SOB TECHNIQUE: One view of the chest was acquired. COMPARISON: [facility], CR, XR CHEST 1V, 07/30/2019, 13:15. FINDINGS: Surgical changes and devices: Left-sided PICC line is present with distal tip projecting over the distal SVC. Lungs and pleura: There is near-complete opacification of the right hemithorax, progressive compared to prior exam. Mild increased pulmonary vascularity is present. Mediastinum: Mediastinal contours appear normal. Heart size is normal. Bones and chest wall: No suspicious bony lesions. Overlying soft tissues appear unremarkable. IMPRESSION: Progressive opacification of the right hemithorax as above likely sales account representative of effusion. Areas of underlying atelectasis, edema or mass lesion cannot be excluded. Dictated by: Leann Decker M.D. on 08/03/2019 at 9:34 Approved by: Leann Decker M.D. on 08/03/2019 at 9:35
--- NOTE | 2019-08-03 08:59 | ED_ITS ---
HPI - Weakness General Chief complaint: Weakness Stated complaint: SOB, difficulty swallowing, weakness Time Seen by Provider: 08/03/19 08:46 Source: patient, family (Sister) and EMS Mode of arrival: EMS Limitations: no limitations History of Present Illness HPI Narrative: 63-year-old female with a known history of lung cancer. Has a left upper extremity PICC line. Has received 1 round of chemotherapy. Has had multiple pleural effusions in the plastic. He has had multiple thoracentesis in the past. Also had a PleurX catheter in the right side at 1 point but that has since fallen out. EMS was called this morning with for a patient in respiratory distress. Upon EMS arrival they stated that they found her with oxygen saturations in the upper 70s. She was placed on nasal cannula which improved her oxygen saturations to the upper 80s. Her sister also states that for the past couple days patient has either had hematemesis or hemoptysis. Also over the weekend patient had a nose bleed. Patient was also complaining of swelling of her throat. Related Data Home Medications Medication Instructions Recorded Confirmed methimazole 5 mg PO DAILY #0 12/13/16 08/03/19 albuterol sulfate [ProAir HFA] 90 mcg INHALATION PRN PRN 06/22/19 08/03/19 Flovent HFA 1 puff INHALATION DIRECTED 07/09/19 08/03/19 Narcan 4 mg INTRANASAL PRN PRN 07/09/19 08/03/19 atenolol 50 mg PO DAILY 07/09/19 08/03/19 fluoxetine 20 mg PO DAILY 07/09/19 08/03/19 ibuprofen 600 mg PO QID 07/09/19 08/03/19 ramipril 10 mg PO BID 07/09/19 08/03/19 folic acid 0.8 mg PO DAILY 08/03/19 08/03/19 melatonin 20 mg PO BEDTIME 08/03/19 08/03/19 pantoprazole 40 mg PO BID 08/03/19 08/03/19 potassium chloride 10 meq PO DAILY 08/03/19 08/03/19 Previous Rx's Medication Instructions Recorded benzonatate 100 mg PO TID PRN #10 cap 06/24/19 sennosides [senna] 17.2 mg PO BEDTIME PRN 3 Days tab 06/30/19 quetiapine 12.5 mg PO BEDTIME #30 tab 07/15/19 oxycodone 20 mg PO Q6H #120 tab 07/16/19 oxycodone [OxyContin] 10 mg PO Q12H #60 tab 07/16/19 ondansetron HCl [Zofran] 4 mg PO Q8-12H PRN #20 tab 07/28/19 lorazepam 1 mg PO TID PRN 30 Days #40 tab 07/29/19 nystatin 5 ml PO QID #473 ml 07/29/19 ondansetron 8 mg PO Q8H #30 tab 07/29/19 Allergies Allergy/AdvReac Type Severity Reaction Status Date / Time erythromycin base Allergy Mild nausea/vomi Verified 06/27/19 18:45 [ERYTHROMYCIN BASE] tting Review of Systems Constitutional Constitutional: Reports fatigue, Denies fever(s) and Reports lethargy Eyes Eyes: Denies change in vision ENT Ears, Nose, Mouth, and Throat: Reports sore throat and Reports throat swelling Comments: Nose bleed over the weekend Cardiovascular Cardiovascular: Denies chest pain, Reports dyspnea and Reports dyspnea on exertion Respiratory Respiratory: Denies cough, Reports dyspnea and Reports dyspnea on exertion Gastrointestinal Gastrointestinal: Denies abdominal pain, Reports coffee ground emesis, Denies nausea, Denies vomiting and Reports hematemesis Musculoskeletal Musculoskeletal: Denies myalgias and Denies arthralgias Integumentary/Breasts Skin/Breast: Denies lesions and Denies rash Neurologic Neurologic: Denies behavioral changes and Denies confusion Psychiatric Psychiatric: Denies behavioral changes and Denies confusion Endocrine Endocrine: Reports fatigue Hematologic/Lymphatic Hematologic/Lymphatic: Denies easy bleeding and Denies easy bruising Allergic/Immunologic Allergic/Immunologic: Denies urticaria and Reports throat swelling Patient History Medical/Surgical History Medical History HTN (hypertension) (Acute) Hypoxia (Inactive) Lung cancer (Inactive) Pleural effusion (Inactive) Surgical History H/O: hysterectomy (Acute) Family History Mother CVA (cerebral vascular accident) Father ETOH abuse Other Hypertension Social History household members: spouse Smoking Status: Former smoker alcohol intake: former Family/Social History Social History household members: spouse Smoking Status: Former smoker alcohol intake: former alcohol intake frequency: a few times a month Substance Use Type: does not use Exam Initial Vital Signs Initial Vital Signs: Vital Signs Temperature 98.0 F 08/03/19 08:50 Pulse Rate 100 H 08/03/19 08:50 Respiratory Rate 24 08/03/19 08:50 Blood Pressure 95/45 L 08/03/19 08:50 Pulse Oximetry 91 08/03/19 08:50 Const General: in distress and ill appearing Orientation: alert and awake HENMT Head: normal to inspection Mouth: No moist mucous membranes, No drooling and other (Dried blood on lips) Teeth and gingiva: dentition normal Chest Chest: normal inspection of the chest, No crepitus and No tenderness Resp Effort & Inspection: labored and tachypneic Auscultation: diminished lung sounds on the right Cardio Rate: tachycardic Rhythm: regular rhythm Pulses: radial pulses present GI Inspection: non-distended Palpation: soft, No firm and No tender Skin General: petechiae Neuro General: alert, awake and oriented x3 Speech: speech normal Motor: muscle tone normal throughout Extrem General: normal to inspection and capillary refill normal Psych Appearance: grossly normal and well kempt Course Orders Ordered: ED Orders 08/03/19 08:50 XR soft tissue neck Stat 08/03/19 08:51 XR chest 1V Stat EKG-12 Lead Stat RT Consult Eval and Treat Now 08/03/19 09:09 Complete Blood Count MAN DIFF Stat Comprehensive Metabolic Panel Stat Lactate (Lactic Acid) Stat Lipase Stat Packed Cells Stat Partial Thromboplastin Time Stat Platelet Irradiated Stat Prothrombin Time INR Stat Troponin I Stat Type and Screen Stat 08/03/19 09:18 Arterial Blood Gas Stat 08/03/19 09:49 High flow/High humidity nasal NOW 08/03/19 14:16 Urinalysis and Microscopic Stat Sodium Chloride (Normal Saline 0.9%) 1,000 mls @ 125 mls/hr IV CONT DILCIA Last Admin: 08/03/19 09:17 Dose: 125 mls/hr Documented by: ANNEL Pantoprazole Sodium 80 mg/ (Sodium Chloride) 100 mls @ 10 mls/hr IV CONT DILCIA Last Admin: 08/03/19 11:06 Dose: 8 mg/hr, 10 mls/hr Documented by: ANNEL Morphine Sulfate (Morphine) 4 mg IV Q2HR PRN PRN Reason: Pain, Moderate (4-6) Last Admin: 08/03/19 13:40 Dose: 4 mg Documented by: ANNEL Discontinued Medications Lorazepam (Ativan) 0.5 mg IV NOW ONE Stop: 08/03/19 09:02 Last Admin: 08/03/19 09:20 Dose: 0.5 mg Documented by: ANNEL Morphine Sulfate (Morphine) 4 mg IV NOW ONE Stop: 08/03/19 09:18 Last Admin: 08/03/19 09:20 Dose: 4 mg Documented by: ANNEL Ondansetron HCl (Zofran) 4 mg IV NOW ONE Stop: 08/03/19 10:33 Last Admin: 08/03/19 11:06 Dose: 4 mg Documented by: ANNEL Pantoprazole Sodium (Protonix) 80 mg IV NOW ONE Stop: 08/03/19 10:10 Last Admin: 08/03/19 10:16 Dose: 80 mg Documented by: ANNEL Vital Signs Vital signs: Vital Signs - 8 hr 08/03/19 08:50 08/03/19 09:25 08/03/19 09:30 Temperature 98.0 F Pulse Rate 100 H 100 H 97 H Respiratory Rate 24 19 24 Blood Pressure 95/45 L Blood Pressure [Right Arm] 107/69 103/47 L Pulse Oximetry 91 90 L 89 L 08/03/19 09:40 08/03/19 09:55 08/03/19 10:10 Temperature Pulse Rate 97 H 95 H 94 H Respiratory Rate 22 20 21 Blood Pressure Blood Pressure [Right Arm] 100/57 L 108/48 L 67/45 L Pulse Oximetry 88 L 90 L 89 L 08/03/19 10:20 08/03/19 10:24 08/03/19 10:40 Temperature Pulse Rate 95 H 94 H Respiratory Rate 17 18 Blood Pressure Blood Pressure [Right Arm] 93/55 L 98/44 L Pulse Oximetry 92 95 94 08/03/19 10:55 08/03/19 10:58 08/03/19 11:00 Temperature 98.1 F Pulse Rate 94 H 94 H 94 H Respiratory Rate 20 21 19 Blood Pressure 109/78 Blood Pressure [Right Arm] 101/44 L 108/45 L Pulse Oximetry 94 08/03/19 11:15 08/03/19 11:30 08/03/19 11:45 Temperature 97.6 F Pulse Rate 93 H 92 H 92 H Respiratory Rate 19 20 20 Blood Pressure 114/56 L Blood Pressure [Right Arm] 114/57 L 107/74 125/55 L Pulse Oximetry 92 92 92 08/03/19 12:00 08/03/19 12:10 08/03/19 12:28 Temperature 98.1 F 97.5 F L Pulse Rate 93 H 94 H 93 H Respiratory Rate 23 19 20 Blood Pressure 125/55 L Blood Pressure [Right Arm] 125/55 L 125/55 L 122/54 L Pulse Oximetry 97 94 96 08/03/19 12:29 08/03/19 12:30 08/03/19 12:48 Temperature 97.9 F 98.1 F Pulse Rate 94 H 93 H 90 Respiratory Rate 20 20 22 Blood Pressure 122/54 L 126/47 L Blood Pressure [Right Arm] 128/46 L Pulse Oximetry 95 08/03/19 13:00 08/03/19 13:15 08/03/19 13:28 Temperature 98.9 F Pulse Rate 95 H 100 H 102 H Respiratory Rate 19 21 18 Blood Pressure 110/72 Blood Pressure [Right Arm] 125/51 L 133/92 H 139/45 L Pulse Oximetry 96 96 96 08/03/19 13:45 08/03/19 14:00 08/03/19 14:52 Temperature 98.8 F Pulse Rate 97 H 99 H 98 H Respiratory Rate 18 18 18 Blood Pressure Blood Pressure [Right Arm] 127/53 L 137/53 L 176/73 H Pulse Oximetry 96 96 96 MDM - Weakness Lab Data Attestation: I reviewed the patient's lab results. Result diagrams: 08/03/19 09:09 08/03/19 09:09 Labs: Lab Results 08/03/19 08/03/19 08/03/19 Range/Units 09:09 09:09 09:09 WBC 0.6 L* (4.5-11.0) X10^3/uL RBC 2.14 L (4.0-5.2) X10^6/uL Hgb 6.4 L* (12.0-16.0) g/dL Hct 18.9 L* (36-46) % MCV 88.5 (80-100) fL MCH 30.1 (26-34) PG MCHC 34.0 (30-36) % RDW 14.3 (11.6-14.8) % Plt Count 10 L* (150-400) X10^3/uL Total Counted 100 Seg Neutrophils % 8.0 L (38-70) % Lymphocytes % (Manual) 60.0 H (25-45) % Atypical Lymphs % 28.0 H ( - 0) % Monocytes % (Manual) 4.0 (2-11) % Neutrophils # (Manual) 48 L (1795-1058) /uL Platelet Estimate Decr RBC Morphology Normal morphology PT 18.0 H (10.1-12.7) SECONDS INR 1.5 H (0.9-1.3) APTT 27 (26.4-36.2) SECONDS ABG pH (7.35-7.45) ABG pCO2 (35-45) mmHg ABG pO2 (80-100) mmHg ABG HCO3 (22-26) mmol/L ABG Total CO2 (21-31) mmol/L ABG O2 Saturation (95-100) % ABG Base Excess (-2-2) mmol/L FiO2 Sodium 135 L (137-145) mmol/L Potassium 3.6 (3.4-5.1) mmol/L Chloride 97 L (98-107) mmol/L Carbon Dioxide 32 (22-32) mmol/L BUN 13 (7-17) mg/dL Creatinine 0.50 L (0.52-1.04) mg/dL Estimated GFR > 60.0 (>60) mL/min BUN/Creatinine Ratio 26.0 H (6-22) Glucose 119 H (80-110) mg/dL Lactate (0.7-2.1) mmol/L Calcium 7.7 L (8.4-10.2) mg/dL Total Bilirubin 0.4 (0.2-1.3) mg/dL AST 21 (14-36) IU/L ALT 26 (9-52) IU/L Alkaline Phosphatase 136 H (38-126) U/L Troponin I 0.013 (0.01-0.034) ng/mL Total Protein 5.3 L (6.3-8.2) g/dL Albumin 2.6 L (3.5-5.0) g/dL Globulin 2.7 (1.7-4.1) g/dL Albumin/Globulin Ratio 1.0 (1.0-2.8) Lipase 99 (23-300) U/L Blood Type Antibody Screen Crossmatch 08/03/19 08/03/19 08/03/19 Range/Units 09:09 09:09 09:18 WBC (4.5-11.0) X10^3/uL RBC (4.0-5.2) X10^6/uL Hgb (12.0-16.0) g/dL Hct (36-46) % MCV (80-100) fL MCH (26-34) PG MCHC (30-36) % RDW (11.6-14.8) % Plt Count (150-400) X10^3/uL Total Counted Seg Neutrophils % (38-70) % Lymphocytes % (Manual) (25-45) % Atypical Lymphs % ( - 0) % Monocytes % (Manual) (2-11) % Neutrophils # (Manual) (3682-0020) /uL Platelet Estimate RBC Morphology PT (10.1-12.7) SECONDS INR (0.9-1.3) APTT (26.4-36.2) SECONDS ABG pH 7.53 H (7.35-7.45) ABG pCO2 33.6 L (35-45) mmHg ABG pO2 63 L (80-100) mmHg ABG HCO3 28 H (22-26) mmol/L ABG Total CO2 29 (21-31) mmol/L ABG O2 Saturation 94 L (95-100) % ABG Base Excess 5.0 H (-2-2) mmol/L FiO2 38 Sodium (137-145) mmol/L Potassium (3.4-5.1) mmol/L Chloride (98-107) mmol/L Carbon Dioxide (22-32) mmol/L BUN (7-17) mg/dL Creatinine (0.52-1.04) mg/dL Estimated GFR (>60) mL/min BUN/Creatinine Ratio (6-22) Glucose (80-110) mg/dL Lactate 1.2 (0.7-2.1) mmol/L Calcium (8.4-10.2) mg/dL Total Bilirubin (0.2-1.3) mg/dL AST (14-36) IU/L ALT (9-52) IU/L Alkaline Phosphatase (38-126) U/L Troponin I (0.01-0.034) ng/mL Total Protein (6.3-8.2) g/dL Albumin (3.5-5.0) g/dL Globulin (1.7-4.1) g/dL Albumin/Globulin Ratio (1.0-2.8) Lipase (23-300) U/L Blood Type O Positive Antibody Screen Negative Crossmatch See Detail Point of Care Testing Stool Occult Blood Positive Imaging Data Chest x-ray: Radiologist's impression: [address] [address] XRay Report Signed Patient: Natasha Platt WMR#: [id number] : 8Acct:[id number] Age/Sex: 63 / FDate of Service: 08/03/19 Loc: ED Accession Number: [id number] Procedure: XR chest 1V Ordering Provider: Richard Plata D.O. PROCEDURE: XR CHEST 1V INDICATIONS: SOB TECHNIQUE: One view of the chest was acquired. [facility] FINDINGS: Surgical changes and devices: Left-sided PICC line is present with distal tip projecting over the distal SVC. Lungs and pleura: There is near-complete opacification of the right hemithorax, progressive compared to prior exam. Mild increased pulmonary vascularity is present. Mediastinum: Mediastinal contours appear normal. Heart size is normal. Bones and chest wall: No suspicious bony lesions. Overlying soft tissues appear unremarkable. IMPRESSION: Progressive opacification of the right hemithorax as above likely customer development representative of effusion. Areas of underlying atelectasis, edema or mass lesion cannot be excluded. Dictated by: Leann Decker M.D. on 08/03/2019 at 9:34 Approved by: Leann Decker M.D. on 08/03/2019 at 9:35 ECG Data Attestation: I personally reviewed and interpreted this ECG as follows: Prior ECG tracings: not available for review Interpretation: Sinus rhythm Ventricular rate of 93 Normal axis Incomplete right bundle branch Nonspecific ST T wave changes MDM Narrative Medical decision making narrative: Patient was in respiratory distress upon arri jorge. She was maintaining her secretions however they were very minimal. She had very dry mucous membranes. Oxygen saturations in the high 80s and low 90s. Patient was afebrile. She was pancytopenic. H&H low today. Comparison from 5 days ago was 8.2/24.3 with a platelet count of 95. It was reported that she had a nosebleed over the weekend. She is not currently bleeding now. There is also some concern about possible hematemesis versus hemoptysis. Blood was ordered. Was being transfused 2 units of packed red blood cells. Platelets were ordered. Patient was also given Protonix. She has no signs of infection. I do suspect that her respiratory status secondary to the right-sided pleural effusion. Given her platelet count thoracentesis is unable to be performed currently. I did discuss the case with her oncologist who did agree with the transfusions. I discussed the case with Dr. gallego our hospitalist who stated that the patient would probably be better off with a facility that has specialist to include GI, pulmonology, oncology, cardiology in General surgery. I do not think this is unreasonable. I did discuss the transfer with the patient's sister who expressed understanding and agreement. The patient's is also in agreement. Patient is stable for transport. Patient did receive 2 units of packed red blood cells and 1 six-pack of platelets in the emergency department. Discussed the case with Dr. Roth who accepts the patient for transfer. Critical Care Time Critical Care Time Critical Care Time: Yes Total Critical Care Time: 40 Attestation: The high probability of a clinically significant, sudden or life threatening deterioration of the cardiovascular/respiratory system(s) required my full and direct attention, intervention and personal management. The aggregate critical care time was 40 minutes. This time is in addition to time spent performing reported procedures but includes the following: [] Data Review and interpretation [] Patient assessment and monitoring of vital signs [] Documentation [] Medication orders and management Discharge Plan Departure Patient Disposition: [facility] Clinical Impression: Thrombocytopenia, Pleural effusion, Hypoxia Lung cancer Qualifiers: Laterality: unspecified laterality Lung location: unspecified part of lung Qualified Code(s): C34.90 - Malignant neoplasm of unspecified part of unspecified bronchus or lung Anemia Qualifiers: Anemia type: unspecified type Qualified Code(s): D64.9 - Anemia, unspecified Prescriptions: No Action methimazole 5 MG tablet 5 mg PO DAILY Qty: 0 RF: 0 sennosides [senna] 8.6 mg Tablet 17.2 mg PO BEDTIME PRN (Reason: Constipation) 3 Days RF: 0 Flovent HFA 220 mcg/actuation HFA aerosol inhaler 1 puff INHALATION DIRECTED RF: 0 ibuprofen 600 mg tablet 600 mg PO QID RF: 0 fluoxetine 20 mg capsule 20 mg PO DAILY RF: 0 atenolol 50 mg tablet 50 mg PO DAILY RF: 0 ramipril 10 mg capsule 10 mg PO BID RF: 0 Narcan 4 mg/actuation spray,non-aerosol 4 mg INTRANASAL PRN PRN (Reason: Opiate Reversal) RF: 0 quetiapine 25 mg Tablet 12.5 mg PO BEDTIME Qty: 30 RF: 0 potassium chloride 10 mEq tablet extended release 10 meq PO DAILY RF: 0 pantoprazole 40 mg tablet,delayed release (DR/EC) 40 mg PO BID RF: 0 folic acid 800 mcg Tablet 0.8 mg PO DAILY RF: 0 melatonin 10 mg Capsule 20 mg PO BEDTIME RF: 0 oxycodone [OxyContin] 10 mg tablet,oral only,ext.rel.12 hr 10 mg PO Q12H Qty: 60 RF: 0 oxycodone 20 mg tablet 20 mg PO Q6H Qty: 120 RF: 0 ondansetron HCl [Zofran] 4 mg tablet 4 mg PO Q8-12H PRN (Reason: nausea and vomiting) Qty: 20 RF: 0 ondansetron 8 mg Tablet,Disintegrating 8 mg PO Q8H Qty: 30 RF: 2 lorazepam 1 mg Tablet 1 mg PO TID PRN (Reason: Nausea) 30 Days Qty: 40 RF: 0 nystatin 100,000 unit/mL Suspension 5 ml PO QID Qty: 473 RF: 0 albuterol sulfate [ProAir HFA] 90 mcg/actuation HFA aerosol inhaler 90 mcg INHALATION PRN PRN (Reason: Shortness Of Breath) RF: 0 benzonatate 100 mg Capsule 100 mg PO TID PRN (Reason: Cough) Qty: 10 RF: 0 Referrals: Nijenhuis,Kathya, PA-C [Non-Staff] -
[2019-08-03] MEDS: SODIUM CHLORIDE 0.9% 1,000 ML 125 ML IV (09:17)
[2019-08-03] MEDS: MORPHINE 4 MG/ML INJ IV (09:20)
[2019-08-03] MEDS: LORazepam 2 MG/ML INJ 0.5 MG IV (09:20)
[2019-08-03 09:37] LABS: Mean Corpuscular Hemoglobin 30.1 PG (26-34); Mean Corpuscular Volume 88.5 fL (80-100); Red Blood Cell Count 2.14 X10^6/uL (4.0-5.2); Red Cell Distribution Width 14.3 % (11.6-14.8)
[2019-08-03 09:39] LABS: HCO3 ABG 28 mmol/L (22-26); Oxygen Saturation ABG 94 % (95-100); PCO2 ABG 33.6 mmHg (35-45); PO2 ABG 63 mmHg (80-100); TCO2 ABG 29 mmol/L (21-31); pH ABG 7.53 (7.35-7.45)
[2019-08-03 09:40] LABS: White Blood Cell Count 0.6 X10^3/uL (4.5-11.0)
[2019-08-03 09:41] LABS: Hematocrit 18.9 % (36-46); Hemoglobin 6.4 g/dL (12.0-16.0); INR 1.5 (0.9-1.3); Platelet Count 10 X10^3/uL (150-400)
[2019-08-03 09:41] LABS: Fractionated Inspired Oxygen 38
--- NOTE | 2019-08-03 09:42 | PC.NURSE ---
Pt w/ dried blood in mouth, around nose. c/o generalized abd pain. Unsure of black stool. currently undergoing treatment for lung CA
[2019-08-03 09:43] LABS: PTT Partial Thromboplastin Tim 27 SECONDS (26.4-36.2)
[2019-08-03 09:44] LABS: Lactate (Lactic Acid) 1.2 mmol/L (0.7-2.1)
[2019-08-03 09:45] LABS: Alanine Aminotransferase 26 IU/L (9-52); Albumin 2.6 g/dL (3.5-5.0); Alkaline Phosphatase 136 U/L (38-126); Aspartate Aminotransferase 21 IU/L (14-36); Bilirubin Total 0.4 mg/dL (0.2-1.3); Blood Urea Nitrogen 13 mg/dL (7-17); Calcium 7.7 mg/dL (8.4-10.2); Carbon Dioxide 32 mmol/L (22-32); Chloride 97 mmol/L (98-107); Estimated Glomerular Filt Rate > 60.0 mL/min (>60); Globulin 2.7 g/dL (1.7-4.1); Glucose 119 mg/dL (80-110); HEMOLYSIS < 15 (0-50); Lipase 99 U/L (23-300); Potassium 3.6 mmol/L (3.4-5.1); Sodium 135 mmol/L (137-145); Total Protein 5.3 g/dL (6.3-8.2)
[2019-08-03 09:57] LABS: Troponin I 0.013 ng/mL (0.01-0.034)
--- NOTE | 2019-08-03 10:11 | PC.NURSE ---
Blood bank called re: platelets. Dr. Plata ordered irradiated and STAT r/t pt critical condition.
[2019-08-03] MEDS: PANTOPRAZOLE 40 MG VIAL 80 MG IV (10:16)
[2019-08-03 10:17] LABS: Neutrophils Absolute Manual 48 /uL (3000-5900); Platelet Estimate Decr; RBC Morphology Normal Morphology; Total Cells Counted 100
--- NOTE | 2019-08-03 10:38 | PC.NURSE ---
attempted 2nd IV but failed as it became large hematoma, in light of low plt will hold for now. Provider aware.
[2019-08-03] MEDS: ONDANSETRON 4 MG/2 ML INJ IV (11:06)
[2019-08-03] MEDS: PANTOPRAZOLE 80 MG in SODIUM CHLORIDE 0.9% 100 ML 10 ML IV (11:06)
[2019-08-03] MEDS: MORPHINE 2 MG/ML INJ 4 MG IV (13:40)
[2019-08-03 14:39] LABS: Bacteria Urine None Seen
[2019-08-03 14:41] LABS: Appearance Urine UA CLOUDY; Bilirubin Urine UA NEGATIVE (NEGATIVE); Color Urine UA YELLOW; Glucose Urine UA NEGATIVE (Negative); Ketones Urine UA NEGATIVE (NEGATIVE); Leukocyte Esterase Urine UA NEGATIVE (NEGATIVE); Nitrite Urine UA NEGATIVE (Negative); Occult Blood Urine UA 3+ (Negative); Protein Urine UA TRACE (Negative); Urobilinogen Urine UA 0.2 E.U./dL (0.2)
--- NOTE | 2019-08-03 15:03 | PC.NURSE ---
Discussed htn and flushing w/ Dr. Plata. Pt denies headache, chest pain, shortness of breath. No new orders at this time.
[2019-08-03 15:04] LABS: pH Urine UA 7.5 (4.5-8.0)
[2019-08-03 15:09] LABS: RBC Urine 10-30/HPF (0-5/HPF)
[2019-08-03 15:10] LABS: Mucus Urine 1+ (Negative); Squamous Epithelial Cell Urine 1-5 /HPF (0-5/HPF); WBC Urine 5-10/HPF (0-5/HPF)
[2019-08-03 15:11] LABS: Culture Indicated Urine Specimen Cultured
--- NOTE | 2019-08-28 10:48 | PC.NURSE ---
late Entry: IV NS started 08/03/19 @0917 @ 125cc /hour, stopped at 1503 upon transfer to care of [facility], no ill effect. IV Pantoprazole @ 10 mls/hour, stopped at 1503 upon transfer to care of [facility], no ill effect.
== END 2019-08-03 15:16 | disposition short-term general hospital (02) ==
PROVIDERS: Emergency Provider Emergency Medicine
DX: D69.6 Thrombocytopenia, unspecified (principal); J90 Pleural effusion, not elsewhere classified; R09.02 Hypoxemia; C34.90 Malignant neoplasm of unspecified part of unspecified bronchus or lung; D64.9 Anemia, unspecified
CPT/HCPCS: 36415; 36430; 36600; 51701; 51798; 71045; 80053; 81001; 82272; 82805; 83605; 83690; 84484; 85025; 85610; 85730; 86850; 86900; 86901; 87086; 93005; 96361; 96365; 96366; 96375; 96376; 99285; 99291; 99292; P9016; C9113; J2060; J2270; J2405; P9035